=== PATIENT | female | born 1965 | race African-American/Black ===

== ENCOUNTER 2018-04-26 09:03 | Emergency (ER) | payer OTHER ==
--- OUTSIDE RECORDS SUMMARY | 2018-04-26 09:27 | XMS REPORT | Clinical Summary ---
:1965 Author Organization [facility] Address [address] [place] [address] Care Team Providers Name Role Phone Damon Greene MD Primary Care Provider Allergies Active Allergy Reactions Severity Noted Date Comments Amoxicillin Other (See Comments) 11/11/2016 Sick to stomach. Iodine Rash High 11/06/2016 Methadone GI Intolerance 11/06/2016 Penicillins GI Intolerance 11/06/2016 Tramadol Itching 11/23/2016 Medications Medication Sig Dispensed Refills Start Date End Date Status methocarbamol (ROBAXIN) Take 750 mg by 0 Active 750 MG tablet mouth every morning. montelukast (SINGULAIR) Take 10 mg by 0 Active 10 mg tablet mouth daily. omeprazole (PriLOSEC) 20 Take 20 mg by 0 Active MG capsule mouth daily. DULoxetine (CYMBALTA) 30 Take 30 mg by 0 Active MG capsule mouth daily. enalapril (VASOTEC) 20 Take 20 mg by 0 Active MG tablet mouth daily. acetaminophen-codeine Take 1 tablet by 0 Active (TYLENOL WITH CODEINE mouth 2 (two) #3) 300-30 mg per tablet times a day. cyanocobalamin 500 MCG Take 500 mcg by 0 Active tablet mouth daily. TIZANIDINE HCL Take 4 mg by 0 Active (TIZANIDINE ORAL) mouth every 8 (eight) hours as needed. Active Problems Problem Noted Date Pulmonary nodule 11/13/2016 Hypertension 11/06/2016 Arthritis 11/06/2016 GERD (gastroesophageal reflux disease) Wears glasses Immunizations Name Dates Previously Given Next Due Pneumococcal Conjugate 13-Valent 11/16/2016 Family History Medical History Relation Name Comments Hypertension Other Stroke Other Relation Name Status Comments Other Social History Tobacco Use Types Packs/Day Years Used Date Never Smoker Alcohol Use Drinks/Week oz/Week Comments No Sex Assigned at Date Recorded Not on file Job Start Date Occupation Industry Not on file Not on file Not on file Travel History Travel Start Travel End No recent travel history available. Last Filed Vital Signs Not on file Plan of Treatment Health Maintenance Due Date Last Done Comments CERVICAL CANCER SCREENING 09/15/1987 BREAST CANCER SCREENING 2016 COLON CANCER SCREENING 2016 SHINGLES VACCINES (1 of 2) 2016 INFLUENZA VACCINE 11/17/2017 Implants Implanted Type Area General Utility Maintenance Repairer Device Shelf Model / Identifier Expiration Serial / Date Lot Drain Wnd Chnl 24fr 09/01in Rnd Hbls Fl-Flut Rosenda - [id number] Surgical N/A: N/ A [employer] 02/16/2021 [id number] / Implanted: Qty: 1 on 11/13/2016 by Lei Dumont MD Implants; DIVISION / Expanders; [id number] Extenders; Surgical Wires Results Not on fileafter 04/25/2017 Insurance Payer Benefit Plan / Group Subscriber ID Type Phone Address MEDICAID MEDICAID xxxxxxxxx Medicaid COMMERCIAL MISC MISC COMMERCIAL xxxxxxxxx Commercial UHC MEDICARE UNITEDHC MEDICARE DIRECT [facility] xxxxxxxxx O Advance Directives Patient has advance care planning documents, and code status on file. For more information, please contact:[place] [address] Code Status Date Activated Date Inactivated Comments Full Code 11/13/2016 11:35 AM 11/16/2016 5:17 PM Code Status decision reached by: Patient
--- OUTSIDE RECORDS SUMMARY | 2018-04-26 09:28 | XMS REPORT | Continuity of Care Document ---
:1965 Author Organization Interface Problems Problem Status Onset Classification Date Comments Source Date Reported C34.90 - Active [facility] [place] NEOPLASM OF UNSP PAR Medications Medication Details Route Status Patient Ordering Order Source Instructions Provider Date Allergies, Adverse Reactions, Alerts Substance Category Reaction Severity Reaction Status Date Comments Source type Reported Immunizations Immunization Date Given Site Status Last Updated Comments Source Results Order Results Value Reference Date Interpretation Comments Source Name Range Chest 2 Chest 2 Two-view chest Patient Name: ALAN DOAN 11/25 - [facility] views views DX - [facility] DX : 1965; Age: 51 years Female MR: [id number] Read by: Darrion Pineda MD Dictated Date/time: 11/25/16 12:43 Electronically Signed by: Darrion Pineda MD 11/25/16 12:44 FINAL REPORT Study: Chest 2 views DX Order Time: 11/25/2016 10:07 AM CDT Clinical Indication: follow-up, biopsy done on right lung 12 days ago - C34.90 Malignant neoplasm of unspecified part of unspecified bronchus or lung , follow-up, biopsy done on right lung 12 days ago. COMPARISON: None FINDINGS: Views: 2 LUNGS: There is increased lung volume. Right perihilar and right lower lobe atelectasis There are no pleural effusions. There is no pneumothorax. The pulmonary vasculature is normal. MEDIASTINUM: The cardiac silhouette is normal. The trachea is midline. BONES: Old left mid rib fractures. IMPRESSION: Right-sided atelectasis. Mild hyperinflation. No pneumothorax. SL: [id number] Vital Signs Vital Sign Value Date Comments Source Encounters Location Location Encounter Encounter Reason Attending ADM DC Status Source Details Type Number For Provider Date Date Visit [facility] Outpt Diag [id number] Lei 11/25 11/26 [facility] Julia /2016 [facility] Imaging [facility] Procedures Procedure Code Date Perfomer Comments Source
[2018-04-26] MEDS ORDERED: KETOROLAC 30 MG/ML INJ ONE (09:56)
--- NOTE | 2018-04-26 10:01 | RAD REPORT ---
EXAM DESCRIPTION: CT - Stone Protocol - 04/26/2018 9:39 am CLINICAL HISTORY: Abdominal pain. And flank pain COMPARISON: May 2017 TECHNIQUE: Computed axial tomography of the abdomen pelvis was obtained without oral or IV contrast. Lack of IV and oral contrast limits evaluation of solid organs, bowel, and vessels. Coronal reformat gavin images were obtained and reviewed. All CT scans are performed using dose optimization technique as appropriate and may include automated exposure control or mA/KV adjustment according to patient size. FINDINGS: A renal calculus is not seen. An ureteral calculus is not noted. A bladder calculus is not present. The known low-density hepatic and splenic lesions are not as well visualized on the current exam. Fullness is present within the region of the pancreatic head. There is no evidence of diverticulitis. A hysterectomy has been performed IMPRESSION: Negative for a genitourinary calculus Fullness in the region the pancreatic head may simply be secondary to confluence of on opacified melanie l, vessels and pancreas. However as a mass has a similar appearance it is recommended patient have a CT scan of the abdomen with IV and oral contrast for further evaluation
--- NOTE | 2018-04-26 10:27 | EDPHYS ---
Physician Documentation [facility] Name: Batsheva Fauklner Age: 52 yrs Sex: Female : 1965 Arrival Date: 04/26/2018 Time: 09:08 Bed 18 Private MD: ED Physician Abiel Anne HPI: 04/26 09:56 This 52 yrs old Black Female presents to ER via Ambulatory with complaints of abdominal snw pain, constipation. 09:56 The patient presents with abdominal pain abdominal distention. Onset: The snw symptoms/episode began/occurred gradually, 2 week(s) ago, and became persistent. The symptoms do not radiate. Associated signs and symptoms: Pertinent positives: constipation. The symptoms are described as steady. Modifying factors: The symptoms are alleviated by nothing. Severity of pain: At its worst the pain was moderate. It is unknown whether or not the patient has had similar symptoms in the past. It is unknown whether or not the patient has recently seen a physician. 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 N/A - Post-menopause hj Historical: - Allergies: 09:12 Amoxicillin; hj 09:12 Iodine; hj 09:12 Methadone; hj 09:12 PENICILLINS; hj 09:12 tramadol; hj - Home Meds: 09:12 ProAir HFA 90 mcg/actuation inhalation HFAA 2 puffs every 4 hours [Active]; duloxetine hj 30 mg Oral cpDR 1 cap once daily [Active]; montelukast 10 mg Oral tab 1 tab once daily [Active]; omeprazole 20 mg Oral cpDR 1 cap once daily [Active]; bisoprolol-hydrochlorothiazide 10-6.25 mg Oral tab 1 tab once daily [Active]; vitmin b12 [Active]; vitamin I80-aetze acid 500-400 mcg oral tab [Active]; - PMHx: 09:12 Anxiety; Asthma; Depression; Hypertension; hj - PSHx: 09:12 Hysterectomy; ; hj - Immunization history:: Adult Immunizations up to date. - Social history:: Smoking status: Patient/guardian denies using tobacco, Patient/guardian denies using alcohol. - Ebola Screening: : Patient negative for fever greater than or equal to 101.5 degrees Fahrenheit, and additional compatible Ebola Virus Disease symptoms Patient denies exposure to infectious person Patient denies travel to an Ebola-affected area in the 21 days before illness onset. ROS: 09:56 Constitutional: Negative for fever, chills, and weight loss, Eyes: Negative for injury, snw pain, redness, and discharge, ENT: Negative for injury, pain, and discharge, Neck: Negative for injury, pain, and swelling, Cardiovascular: Negative for chest pain, palpitations, and edema, Respiratory: Negative for shortness of breath, cough, wheezing, and pleuritic chest pain, Back: Negative for injury and pain, : Negative for injury, bleeding, discharge, and swelling, MS/Extremity: Negative for injury and deformity, Skin: Negative for injury, rash, and discoloration, Neuro: Negative for headache, weakness, numbness, tingling, and seizure. 09:56 Abdomen/GI: Positive for abdominal pain, abdominal distension. Exam: 09:56 Constitutional: This is a well developed, well nourished patient who is awake, alert, snw and in no acute distress. Head/Face: Normocephalic, atraumatic. Eyes: Pupils equal round and reactive to light, extra-ocular motions intact. Lids and lashes normal. Conjunctiva and sclera are non-icteric and not injected. Cornea within normal limits. Periorbital areas with no swelling, redness, or edema. ENT: Nares patent. No nasal discharge, no septal abnormalities noted. Tympanic membranes are normal and external auditory canals are clear. Oropharynx with no redness, swelling, or masses, exudates, or evidence of obstruction, uvula midline. Mucous membranes moist. Neck: Trachea midline, no thyromegaly or masses palpated, and no cervical lymphadenopathy. Supple, full range of motion without nuchal rigidity, or vertebral point tenderness. No Meningismus. Chest/axilla: Normal chest wall appearance and motion. Nontender with no deformity. No lesions are appreciated. Cardiovascular: Regular rate and rhythm with a normal S1 and S2. No gallops, murmurs, or rubs. Normal PMI, no JVD. No pulse deficits. Respiratory: Lungs have equal breath sounds bilaterally, clear to auscultation and percussion. No rales, rhonchi or wheezes noted. No increased work of breathing, no retractions or nasal flaring. Back: No spinal tenderness. No costovertebral tenderness. Full range of motion. Skin: Warm, dry with normal turgor. Normal color with no rashes, no lesions, and no evidence of cellulitis. MS/ Extremity: Pulses equal, no cyanosis. Neurovascular intact. Full, normal range of motion. Neuro: Awake and alert, GCS 15, oriented to person, place, time, and situation. Cranial nerves II-XII grossly intact. Motor strength 5/5 in all extremities. Sensory grossly intact. Cerebellar exam normal. Normal gait. Psych: Awake, alert, with orientation to person, place and time. Behavior, mood, and affect are within normal limits. 09:56 Abdomen/GI: Inspection: distension, that is moderate, Bowel sounds: diminished, Palpation: abdomen is soft and non-tender, in all quadrants. Vital Signs: 09:13 BP 154 / 75; Pulse 60; Resp 18; Temp 97.4(TE); Pulse Ox 100% on R/A; Weight 112.49 kg; hj Height 5 ft. 4 in. (162.56 cm); Pain 10/10; 11:00 BP 142 / 70; Pulse 66; Resp 17 S; Temp 97.4; Pulse Ox 100% on R/A; Pain 2/10; sg 09:13 Body Mass Index 42.57 (112.49 kg, 162.56 cm) hj MDM: 09:16 Patient medically screened. snw 10:28 Data reviewed: vital signs, nurses notes. Data interpreted: Pulse oximetry: on room air snw is 100 %. Interpretation: normal. Counseling: I had a detailed discussion with the patient and/or guardian regarding: the historical points, exam findings, and any diagnostic results supporting the discharge/admit diagnosis, the presence of at least one elevated blood pressure reading (>120/80) during this emergency department visit, radiology results, the need for outpatient follow up, for definitive care. Special discussion: Based on the patient's Hx, exam, and Dx evaluation, there is no indication for emergent surgery or inpatient Tx. It is understood by the patient/guardian that if the Sx's persist or worsen they need to return immediately for re-evaluation. Based on the history and exam findings, there is no indication for further emergent testing or inpatient evaluation. I discussed with the patient/guardian the need to see the freight receiver for further evaluation of the symptoms. I discussed with the patient/guardian the need to see the primary care provider for further evaluation of the symptoms. 10:29 ED course: pt will f/u outpt for CT with contrast of abd to further assessment of snw pancreas. 04/26 09:28 Order name: Urine Microscopic Only dh3 04/26 09:29 Order name: Urine Microscopic Only; Complete Time: 11:06 EDMS 04/26 09:34 Order name: Urine Dipstick--Ancillary (enter results) eb 04/26 09:35 Order name: Urine Dipstick-Ancillary; Complete Time: 11:06 EDMS 04/26 10:09 Order name: Amylase, Serum snw 04/26 10:09 Order name: Hepatic Function snw 04/26 09:29 Order name: CT Stone Protocol; Complete Time: 10:02 snw Administered Medications: 09:53 Drug: TORadol 60 mg Route: IM; Site: Ventrogluteal RIGHT; sg 10:40 Follow up: Response: No adverse reaction; Pain is decreased sg 10:13 CANCELLED (f/u outpt): Benadryl 25 mg IVP once snw 10:24 Not Given (Patient Refused): NS 0.9% 1000 ml IV at 1 bolus Per protocol; 1000 mL bolus snw 10:24 Not Given (Patient Refused): Pepcid 20 mg IVP once snw 10:45 Drug: Miralax 17 grams Route: PO; sg Disposition: 04/27 07:36 Co-signature as Attending Physician, Abiel Anne MD. rn Disposition: 04/26/18 10:26 Discharged to Home. Impression: Constipation, unspecified, Generalized abdominal pain. - Condition is Stable. - Discharge Instructions: Abdominal Pain, Adult, Constipation, Adult, High-Fiber Diet. - Prescriptions for Miralax 17 gram/dose Oral - take 1 packet by ORAL route once daily dilute powder in 8 ounces of water or juice; 2 box. - Medication Reconciliation Form, Thank You Letter, Antibiotic Education, Prescription Opioid Use form. - Follow up: Emergency Department; When: As needed; Reason: Worsening of condition. Follow up: Private Physician; When: 1 week; Reason: Recheck today's complaints, Continuance of care, Re-evaluation by your physician. Signatures: Dispatcher MedThe [facility] Shepherd Home & Rehabilitation HospitalDu Holcomb RN RN sg Puja Parsons, AUTOMATION TECH-C AUTOMATION TECH-Csnw Abiel Anne MD MD rn Joaquin, Henry, RN RN hj [place]rera, [place] [address] Corrections: (The following items were deleted from the chart) 04/26 10:13 10:09 Benadryl 25 mg IVP once ordered. snw snw 10:22 10:10 Abdomen W/ Con+CT.RAD.BRZ ordered. EDMS EDMS 10: 10:10 Amylase Level ordered. EDMS EDMS 10: 10:10 Liver (Hepatic) Function ordered. EDMS EDMS 10: 10:10 LIPASE+C.LAB.BRZ ordered. EDMS EDMS 10: 10:10 CBC+H.LAB.BRZ ordered. EDMS EDMS 10: 10:10 BASIC METABOLIC PANEL+C.LAB.BRZ ordered. EDMS EDMS 11:17 10:26 04/26/2018 10:26 Discharged to Home. Impression: Constipation, unspecified; dh3 Generalized abdominal pain. Condition is Stable. Forms are Medication Reconciliation Form, Thank You Letter, Antibiotic Education, Prescription Opioid Use. Follow up: Emergency Department; When: As needed; Reason: Worsening of condition. Follow up: Private Physician; When: 1 week; Reason: Recheck today's complaints, Continuance of care, Re-evaluation by your physician. snw
--- NOTE | 2018-04-26 10:27 | ER ---
Nurse's Notes [facility] Emergency Department Name: Batsheva Faulkner Age: 52 yrs Sex: Female : 1965 Arrival Date: 04/26/2018 Time: 09:08 Bed 18 Private MD: Diagnosis: Constipation, unspecified;Generalized abdominal pain Presentation: 04/26 09:08 Presenting complaint: Patient states: fela been having constipation for 3 weeks and abd hj pain, i feel like im bloated and it hurts on my side; reports N/V; last BM- 04/25/18; took Dulcolax Wednesday;. Transition of care: patient was not received from another setting of care. Onset of symptoms was April 26, 2018. Risk Assessment: Do you want to hurt yourself or someone else? Patient reports no desire to harm self or others. Initial Sepsis Screen: Does the patient meet any 2 criteria? No. Patient's initial sepsis screen is negative. Does the patient have a suspected source of infection? No. Patient's initial sepsis screen is negative. Care prior to arrival: None. 09:08 Method Of Arrival: Ambulatory 09:08 Acuity: FLORY 3 hj Triage Assessment: 09:13 General: Appears in no apparent distress. uncomfortable, Behavior is calm, cooperative, hj appropriate for age. Pain: Complains of pain in abdomen Pain currently is 10 out of 10 on a pain scale. GI: Reports lower abdominal pain, upper abdominal pain, bloating, constipation, nausea. 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-menopause hj Historical: - Allergies: 09:12 Amoxicillin; hj 09:12 Iodine; hj 09:12 Methadone; hj 09:12 PENICILLINS; 09:12 tramadol; hj - Home Meds: 09:12 ProAir HFA 90 mcg/actuation inhalation HFAA 2 puffs every 4 hours [Active]; duloxetine hj 30 mg Oral cpDR 1 cap once daily [Active]; montelukast 10 mg Oral tab 1 tab once daily [Active]; omeprazole 20 mg Oral cpDR 1 cap once daily [Active]; bisoprolol-hydrochlorothiazide 10-6.25 mg Oral tab 1 tab once daily [Active]; vitmin b12 [Active]; vitamin D60-upqce acid 500-400 mcg oral tab [Active]; - PMHx: 09:12 Anxiety; Asthma; Depression; Hypertension; hj - PSHx: 09:12 Hysterectomy; ; hj - Immunization history:: Adult Immunizations up to date. - Social history:: Smoking status: Patient/guardian denies using tobacco, Patient/guardian denies using alcohol. - Ebola Screening: : Patient negative for fever greater than or equal to 101.5 degrees Fahrenheit, and additional compatible Ebola Virus Disease symptoms Patient denies exposure to infectious person Patient denies travel to an Ebola-affected area in the 21 days before illness onset. Screenin:13 Abuse screen: Denies threats or abuse. Denies injuries from another. Nutritional hj screening: No deficits noted. Tuberculosis screening: No symptoms or risk factors identified. Fall Risk None identified. Assessment: 09:35 General: Appears in no apparent distress. comfortable, well groomed, well developed, sg well nourished, Behavior is calm, cooperative, appropriate for age. Pain: Complains of pain in posterior aspect of right lateral abdomen, anterior aspect of right lateral abdomen, posterior aspect of left lateral abdomen and anterior aspect of left lateral abdomen Quality of pain is described as aching. Neuro: No deficits noted. Cardiovascular: Capillary refill is brisk in bilateral fingers Patient's skin is warm and dry. Chest pain is denied. Respiratory: Airway is patent Respiratory effort is even, unlabored, Respiratory pattern is regular, symmetrical. GI: Abdomen is round non-distended, Reports constipation. : No signs and/or symptoms were reported regarding the genitourinary system. EENT: No signs and/or symptoms were reported regarding the EENT system. Derm: Skin is pink, warm \T\ dry. Musculoskeletal: No signs and/or symptoms reported regarding the musculoskeletal system. Vital Signs: 09:13 BP 154 / 75; Pulse 60; Resp 18; Temp 97.4(TE); Pulse Ox 100% on R/A; Weight 112.49 kg; Height 5 ft. 4 in. (162.56 cm); Pain 10/10; 11:00 BP 142 / 70; Pulse 66; Resp 17 S; Temp 97.4; Pulse Ox 100% on R/A; Pain 2/10; sg 09:13 Body Mass Index 42.57 (112.49 kg, 162.56 cm) ED Course: 09:08 Patient arrived in ED. hj 09:10 Triage completed. hj 09:13 Arm band placed on right wrist. hj 09:16 Puja Parsons FNP-C [facility]. snw 09:16 Abiel Anne MD is Attending Physician. snw 09:17 Patient has correct armband on for positive identification. Placed in gown. Bed in low hj position. Call light in reach. Side rails up X 1. 09:27 Urine collected: clean catch specimen, cloudy. 3 09:39 CT Stone Protocol In Process Unspecified. EDMS 09:39 Preeti Bowman, RN is Primary Nurse. ss 09:39 CT completed. Patient tolerated procedure well. Patient moved to CT via wheelchair. [email or web address] Patient moved back from CT. 10:36 Primary Nurse role handed off by Preeti Bowman RN sg 10:36 Du Simpson, RN is Primary Nurse. sg 11:14 No provider procedures requiring assistance completed. Patient did not have IV access sg during this emergency room visit. Administered Medications: 09:53 Drug: TORadol 60 mg Route: IM; Site: Ventrogluteal RIGHT; sg 10:40 Follow up: Response: No adverse reaction; Pain is decreased sg 10:13 CANCELLED (f/u outpt): Benadryl 25 mg IVP once snw 10:24 Not Given (Patient Refused): NS 0.9% 1000 ml IV at 1 bolus Per protocol; 1000 mL bolus snw 10:24 Not Given (Patient Refused): Pepcid 20 mg IVP once snw 10:45 Drug: Miralax 17 grams Route: PO; sg Outcome: 10:26 Discharge ordered by . snw 11:14 Discharged to home ambulatory. sg 11:14 Condition: good 11:14 Discharge instructions given to patient, Instructed on discharge instructions, follow up and referral plans. medication usage, safety practices, Demonstrated understanding of instructions, follow-up care, medications, Prescriptions given X 1. 11:17 Patient left the ED. 3 Signatures: Dispatcher [employer] EDMS Du Simpson, RN RN Puja Prasons FNP-C [employer] TECHNICIAN-Csnw Preeti Bowman RN RN Donis Means RN RN Desi Castro 3 Kerrie Love [id number] Corrections: (The following items were deleted from the chart) 09:17 09:13 Pulse 60bpm; Resp 18bpm; Pulse Ox 100% RA; Temp 97.4F Temporal; 112.49 kg; Height hj 5 ft. 4 in.; BMI: 42.5; Pain 10; hj
[2018-04-26 10:37] LABS: Urine Blood TRACE (NEG); Urine Glucose NEGATIVE (NEG); Urine Protein NEGATIVE (NEG)
[2018-04-26 10:39] LABS: Urine Bacteria 20-50 /HPF (<20); Urine Culture Reflex Order NOT NEEDED; Urine RBC <5 /HPF (NONE SEEN)
[2018-04-26] MEDS ORDERED: POLYETHYL GLY 3350 17 GM/DOSE ONE (10:48)
[2018-04-26 15:55] VITALS: BP 154/75; TEMP 97.4; O2SAT 100
== END 2018-04-26 11:17 | disposition home or self-care (01) ==
LOC: ER 09:03
DX: K59.00 Constipation, unspecified (principal); R10.84 Generalized abdominal pain; J45.909 Unspecified asthma, uncomplicated; I10 Essential (primary) hypertension; F41.9 Anxiety disorder, unspecified; F32.9 Major depressive disorder, single episode, unspecified; Z79.899 Other long term (current) drug therapy
CPT/HCPCS: 74176; 76377; 81003; 81015; 96372; 99284

== ENCOUNTER 2018-10-25 15:16 | Inpatient (IN) | payer MEDICARE, OTHER ==
--- OUTSIDE RECORDS SUMMARY | 2018-10-25 15:18 | XMS REPORT | Clinical Summary ---
:1965 Author Organization [facility] Address [address] [place] [address] Care Team Providers Name Role Phone Damon [...] Health Maintenance Due Date Last Done Comments BREAST CANCER SCREENING 2016 COLONOSCOPY SCREENING 2016 SHINGLES VACCINES (#1) 2016 INFLUENZA VACCINE 11/17/2018 Implants Implanted Type Area Hack Saw Operator Device Shelf Model / Identifier Expiration Serial / Date Lot Drain Wnd Chnl 24fr 16in Rnd Hbls Fl-Flut Rosenda - [id number] Surgical N/A: N/ A [employer] 02/16/2021 [id number] / Implanted: Qty: 1 on 11/13/2016 by Lei Dumont MD Implants; DIVISION / Expanders; [id number] Extenders; Surgical Wires Results Not on fileafter 10/24/2017 Insurance Payer Benefit Plan / Subscriber ID Effective Phone Address Type Group Dates MEDICAID MEDICAID xxxxxxxxx 2016-Prese Medicaid nt COMMERCIAL MISC MISC COMMERCIAL xxxxxxxxx 2016-Pres Commercial ent [facility] MEDICARE [facility] xxxxxxxxx 2016-Prese O MEDICARE DIRECT nt [facility] Advance Directives Patient has advance care planning documents, and code status on file. For more information, please contact:[place] [address] Code Status Date Activated Date Inactivated Comments Full Code 11/13/2016 11:35 AM 11/16/2016 5:17 PM Code Status decision reached by: Patient
--- OUTSIDE RECORDS SUMMARY | 2018-10-25 15:19 | XMS REPORT ---
:1965 [facility] Address [address] [place] [address] Dr. Calderón [address] [place] [address] Care Team Providers Name Role Phone ALYCIAEMILY Unavailable Unavailable Problems This patient has no known problems. Allergies, Adverse Reactions, Alerts This patient has no known allergies or adverse reactions. Medications This patient has no known medications. Results Test Description Test Time Test Comments Text Results Atomic Results Result Comments FINE NEEDLE ASPIRATION 2018-06-27 10:38:00 Medical Cytology Report BY CLINICIAN Case: [id number] Authorizing Provider: Emily Brooks Collected: 06/21/2018 1358 Ordering Location: [facility] Endoscopy Received: 06/22/2018 0931 Services Pathologist: Octaviano Rivera MD Specimen: Hepatic, gastro hepatic lymph node Hematopathology Consultation: Impression: A-2: Lymphoid tissue with composed of small to medium sized lymphoid cells further highlighted by CD45 staining. The CD20 and PAX-5 stains highlight scattered B-lymphocytes. The CD3 stain highlights scattered T-lymphocytes. Increased histiocytes are highlighted by CD68 staining. The CD30 stain is negative. No definitive evidence of involvement by a hematolymphoid neoplasm. Correlation with the accompanying tissue examination ([id number]) and additional cytology evaluations ([id number], [id number]) is recommended for further evaluation. This case was discussed with Dr. Kimani Choe on 06/27/2018. Addendum electronically signed by Ashia Lawson MD on 06/27/2018 at 10:38 AMGASTRO HEPATIC LYMPH NODE FNA BY CLINICIAN (CYTOSPINS AND CELL BLOCK OF ASPIRATE): - GRANULOMATOUS INFLAMMATION (SEE COMMENT) - NEGATIVE FOR EPITHELIAL MALIGNANCY Signing Pathologist Direct Phone Line: [phone] signed by Octaviano Rivera MD on 06/24/2018 at 7:22 PMSections show granulomatous inflammation with background lymphocytes. Immunostains performed on cell block sections show that CD68 highlights scattered macrophages and CD45 highlights the background lymphocytes. Additional stains including CAM5.2, synaptophysin, chromogranin, DOG1, beta-catenin, and actin are predominantly negative. No diagnostic features of epithelial malignancy are seen. Granulomatous inflammation may be seen in sarcoidosis, infection, autoimmune disease, drug reaction and many others. Clinical correlation is recommended. The case will be further reviewed by hematopathology service and an addendum will follow.Please see cases [id number], [id number] and 654 for further evaluation. 54553, 75371, 07392, 13537 x 11Pancreatic mass, (1.3cm) malignant-appearing lymph node in the gastrohepatic ligamentGASTRO HEPATIC LYMPH NODE FNA24 mls in cytorich red; 4 cytospins, cell blockCollected: [id number]: [id number] interpretation of this case included the use of immunohistochemistry or special stains. Please see the immunohistochemistry results in the COMMENT section. Immunohistochemistry technical testing was performed at [facility], Pathology Laboratory where it was developed and its performance characteristics were determined. It has not been cleared or approved by the U.S. Food and Drug Administration. The FDA has determined that such clearance or approval is not necessary. The test is used for clinical purposes. It should not be regarded as investigational or for research. This laboratory is certified under the Clinical Laboratory Improvement Amendments of 1988 (CLIA-88) as qualified to perform high complexity clinical laboratory testing.[facility], Department of Pathology, [address] [place] [address], [facility], [address] [place] [address], [facility], [address] [place] [address], FINE NEEDLE ASPIRATION 2018-06-27 10:28:00 Medical Cytology Report BY CLINICIAN Case: [id number] Authorizing Provider: Emily Brooks Collected: 06/21/2018 1348 Ordering Location: [facility] Endoscopy Received: 06/22/2018 0932 Services Pathologist: Octaviano Rivera MD Specimen: Biopsy, Liver, liver left lobe Hematopathology Consultation: Impression: A-2: Liver tissue with involvement by granulomatous inflammation. No definitive evidence of involvement by a hematolymphoid neoplasm. Correlation with the accompanying tissue examination ([id number]) and additional cytology evaluations ([id number], C19-654) is recommended for further evaluation. This case was discussed with Dr. Kimani Choe on 06/27/2018. Addendum electronically signed by Ashia Lawson MD on 06/27/2018 at 10:28 AMLEFT LIVER LOBE FNA BY CLINICIAN (CYTOSPINS AND CELL BLOCK OF ASPIRATE): - GRANULOMATOUS INFLAMMATION (SEE COMMENT) - NEGATIVE FOR EPITHELIAL MALIGNANCY Signing Pathologist Direct Phone Line: [phone] signed by Octaviano Rivera MD on 06/24/2018 at 7:13 PMSections show liver parenchyma with extensive granulomatous inflammation including multinucleated giant cells. Immunostains performed on cell block sections show that CD68 highlights scattered macrophages, CAM5.2 highlights scattered hepatocytes, while CK7 highlights few ducts. No diagnostic features of epithelial malignancy are seen. Additionally, AFB and GMS stains are negative for acid-fast bacilli and fungal elements. No diagnostic features of epithelial malignancy are seen. Granulomatous inflammation may be seen in sarcoidosis, infection, autoimmune disease, drug reaction and many others. Clinical correlation is recommended. The case will be further reviewed by hematopathology service and an addendum will follow.Please see cases [id number], [id number] and 654 for further evaluation.59062, 10335, 89348, 91858 x 2, 15848 x 2Pancreatic mass, abnormal echogenicity in left lobe of the liverLEFT LIVER LOBE FNA28 mls in cytorich red; 4 cytospins, cell blockCollected: [id number]: [id number] interpretation of this case included the use of immunohistochemistry or special stains. Please see the immunohistochemistry results in the COMMENT section. Immunohistochemistry technical testing was performed at [facility], Pathology Laboratory where it was developed and its performance characteristics were determined. It has not been cleared or approved by the U.S. Food and Drug Administration. The FDA has determined that such clearance or approval is not necessary. The test is used for clinical purposes. It should not be regarded as investigational or for research. This laboratory is certified under the Clinical Laboratory Improvement Amendments of 1988 (CLIA-88) as qualified to perform high complexity clinical laboratory testing.[facility], Department of Pathology, [address] [place] [address], [facility], [address] [place] [address], [facility], [address] [place] [address], TISSUE EXAM 2018-06-27 08:35:00 Surgical Pathology Report Case: [id number] Authorizing Provider: Emily Brooks Collected: 06/21/2018 1344 Ordering Location: [facility] Endoscopy Received: 06/21/2018 1544 Services Pathologist: Saad Choe MD Specimens: A) - Biopsy, Liver, LIVER LEFT LOBE FNB B) - Pancreas, PANCREAS MASS FNB PART A LEFT LIVER LOBE, BIOPSY FOR SUSPECTED MASS:NONCASEATING GRANULOMATOUS INFLAMMATION.NEGATIVE FOR MALIGNANCY.SEE DIAGNOSTIC COMMENT.PART B PANCREAS, BIOPSY FOR SUSPECTED MASS:NONCASEATING GRANULOMATOUS INFLAMMATION IN LYMPHOID MATERIAL.NEGATIVE FOR MALIGNANCY.SEE DIAGNOSTIC COMMENT. Signing Pathologist Direct Phone Line: [phone] signed by Saad Choe MD on 06/27/2018 at 8:35 AMHistological sections on both biopsy shows marked replacement of the normal liver and pancreatic parenchyma (parts A and B respectively) with noncaseating granulomatous inflammation. Multinucleated giant cells are easily identified in the sections examined. Immunohistochemical studies performed on both blocks A1 and B1 demonstrate CD20/PAX5 positive B cells and CD3/CD5 positive T cells. There is no aberrant co-expression of CD20 and CD5. CD30 is negative. Special stains for acid fast bacilli (AFB) and fungal organisms (GMS) are negative. There is no evidence of a malignant process. Synaptophysin immunostain performed on block B1 is negative. Cam 5.2 performed on block B1 demonstrates rare benign epithelial glands. Part B is predominantly comprised of lymphoid material and most likely represents mayelin-pancreatic lymph node.The finding of noncaseating granulomatous inflammation is nonspecific. Potential etiologies include but are not limited to autoimmunity (particularly sarcoidosis), infectious etiologies, and toxic environmental exposures. Correlation with clinical follow up, serological studies, and microbiological studies is required for complete interpretation. The findings of this case were discussed with Dr. Emily Brooks, customer support agent on 06/24/2018.Intradepartment consultation: Camila Burt [id number], 31651q5, 99213w17, 97718a2Efsdikrvml mass A. Liver left lobe FNB. B. Pancreas mass FNBSpecimen is received in two parts both labeled with the patient's information.Specimen A: Labeled "liver left lobe FNB" consists of multiple fragments of hemorrhagic stringy tissue measuring 1.5 x 0.5 x 0.3 cm in aggregate, submitted in A1.Specimen B: Labeled "pancreas mass FNB" consists of multiple stringy fragments of hemorrhagic soft tissue measuring 1.5 x 0.5 x 0.3 cm, submitted entirely in B1. CG/ew PERFORMED.The interpretation of this case included the use of immunohistochemistry or special stains.BLOCK A1- CD30, PAX5, CD20, CD5, CD3, GMS, AFBBLOCK B1- CD30, PAX5, CD20, CD5, CD3, SYNAPTOPHYSIN, CAM 5.2, GMS, AFBImmunohistochemistry technical testing was performed at [facility], Pathology Laboratory where it was developed and its performance characteristics were determined. It has not been cleared or approved by the U.S. Food and Drug Administration. The FDA has determined that such clearance or approval is not necessary. The test is used for clinical purposes. It should not be regarded as investigational or for research. This laboratory is certified under the Clinical Laboratory Improvement Amendments of 1988 (CLIA-88) as qualified to perform high complexity clinical laboratory testing. FINE NEEDLE ASPIRATION 2018-06-24 19:25:00 Medical Cytology Report BY CLINICIAN Case: [id number] Authorizing Provider: Emily Brooks Collected: 06/21/2018 1415 Ordering Location: [facility] Endoscopy Received: 06/22/2018 0932 Services Pathologist: Octaviano Rivera MD Specimen: Celiac Node CELIAC LYMPH NODE FNA BY CLINICIAN (CYTOSPINS AND CELL BLOCK OF ASPIRATE): - NON-DIAGNOSTIC SPECIMEN - PREDOMINANTLY BLOOD ELEMENTS WITH VERY RARE LYMPHOCYTES Signing Pathologist Direct Phone Line: [phone] signed by Octaviano Rivera MD on 06/24/2018 at 7:25 PMPlease see cases [id number], [id number] and 653.61164, 69692, 15302Bdqbbkqmok mass, (1.2 cm) malignant-appearing lymph node in the celiac regionCELIAC LYMPH NODE FNA25 mls in cytorich red; 4 cytospins, cell blockCollected: [id number]: 137956Hsy interpretation of this case included the use of immunohistochemistry or special stains.An immunostain for CAM5.2 performed on a cell block section is negative.Immunohistochemistry technical testing was performed at [facility], Pathology Laboratory where it was developed and its performance characteristics were determined. It has not been cleared or approved by the U.S. Food and Drug Administration. The FDA has determined that such clearance or approval is not necessary. The test is used for clinical purposes. It should not be regarded as investigational or for research. This laboratory is certified under the Clinical Laboratory Improvement Amendments of 1988 (CLIA-88) as qualified to perform high complexity clinical laboratory testing.[facility], Department of Pathology, [address] [place] [address], [facility], Department of [facility], [address] [place] [address], [facility], [address] [place] [address], FINE NEEDLE ASPIRATE (FNA) REQUEST 2018-06-22 11:03:00 Test Item Value Reference Range Comments CYTOLOGY RESULT POINTER (BEAKER) (test dhoj=[id number]) See Separate Report FINE NEEDLE ASPIRATE (FNA) [id number] 11:03:00 Test Item Value Reference Range Comments CYTOLOGY RESULT POINTER (BEAKER) (test See Separate Report eyix=[id number]) FINE NEEDLE ASPIRATE (FNA) [id number] 11:03:00 Test Item Value Reference Range Comments CYTOLOGY RESULT POINTER (BEAKER) (test See Separate Report oehu=[id number])
--- OUTSIDE RECORDS SUMMARY | 2018-10-25 15:19 | XMS REPORT ---
:1965 Author Organization [employer] Care Team Providers Name Role Phone Sabra Osorioy Provider Role Unavailable Allergies No Known Allergies Problems Problem Type Condition Code Onset Dates Condition Status Problem Osteopenia M85.80 Active Problem Low back pain M54.5 Active Problem Anxiety and depression F41.8 Active Problem Epigastric pain R10.13 Active Problem Metastatic cancer C79.[address] of the abdomen R93.5 Active Problem Dysuria R30.0 Active Problem Unspecified sprain of right wrist, S63.501A Active initial encounter Problem Chronic nausea R11.0 Active Problem Bilious vomiting with nausea R11.14 Active Problem Muscle spasms of neck M62.838 Active Problem Chronic kidney disease, stage III N18.3 Active (moderate) Problem Lesion of liver K76.9 Active Problem Dyslipidemia E78.5 Active Problem Hypercalcemia E83.52 Active Problem Lung nodule, multiple R91.8 Active Problem Elevated glucose R73.09 Active Problem Rib pain R07.81 Active Problem Asthma J45.909 Active Problem Osteoarthritis M19.90 Active Problem Chronic pain disorder G89.4 Active Medications No Known Medications Results No Known Results Summary Purpose eClinicalWorks Submission
--- OUTSIDE RECORDS SUMMARY | 2018-10-25 15:19 | XMS REPORT ---
:1965 [facility] Providers Name Role Phone Maryjane Osorio Provider Role Unavailable Allergies, Adverse Reactions, Alerts Substance Reaction Event Type penicillin itching, breathing issues Drug Allergy Methadone HCl vomiting Drug Allergy Iodine swelling Drug Allergy Problems Problem Type Condition Code Onset Dates Condition Status Assessment Dysuria R30.0 Active Problem Asthma J45.909 Active Assessment Muscle spasms of neck M62.838 Active Problem Chronic pain disorder G89.4 Active Assessment Bilious vomiting with nausea R11.14 Active Problem Osteopenia M85.80 Active Problem Low back pain M54.5 Active Problem Anxiety and depression F41.8 Active Problem Epigastric pain R10.[address] of the abdomen R93.5 Active Assessment Epigastric pain R10.13 Active Problem Dysuria R30.[address] of the abdomen R93.5 Active Problem Unspecified sprain of right wrist, [...] Active Problem Rib pain R07.81 Active Problem Osteoarthritis M19.90 Active Medications Medication Code Code Instructions Start End Date Status Dosage System Date Tizanidine HCl ND 97590759063 4 MG Orally TID Active take one -1 tablet by mouth every 8 hours [place] 3-6-9 ND 53298948412 - Orally ONCE A July Active as directed Complex 2018 Omeprazole ND 84232416151 40 MG Orally July Active 1 capsule Once a day 2017 Bentyl ND 52608312619 20 MG Orally May 03, Jun 02, Active 1 tablet Three times a 2018 2018 day Furosemide ND 78712211298 20 MG Orally Active 1 tablet Once a day Duloxetine HCl [facility] 98753124491 30 MG Orally Active TAKE 1 Once a day CAPSULE BY MOUTH EVERY DAY Promethazine [facility] 51676710893 25 MG Orally May 03, Jun 02, Active 1 tablet as HCl every 12 hrs 2018 2018 needed Singulair [facility] 03208226055 10 MG Orally Active 1 tablet in Once a day the evening Promethazine-Co [facility] 03892819161 6.25-10 MG/5ML May 24, Active 5 ml as deine Orally every 2017 needed 4-6 hrs Zofran [facility] 67034031100 8 MG Orally Mar 15, Active 1 tablet Twice a day 2017 Vitamin B12 [facility] 06517377786 100 MCG Orally Active as directed Vitamin D3 [facility] 18018888751 2000 UNIT Active 1 capsule Orally Once a day Bisoprolol [facility] 59976807111 10 MG Orally Active 1 tablet Fumarate Once a day Results Name Result Date Reference Range Unit Abnormality Flag URINALYSIS AUTO W/O SCOPE (09443) ----NIT N 20180606 ----URO 0.2 20180606 ----PROTEIN N 20180606 ----pH 6.5 20180606 ----BLO N 20180606 ----GLUCOSE N 20180606 ----PINKY N 20180606 ----BILIRUBIN N 20180606 ----KETONES N 20180606 ----SPECIFIC GRAVITY 1.015 20180606 Summary Purpose eClinicalWorks Submission
--- OUTSIDE RECORDS SUMMARY | 2018-10-25 15:19 | XMS REPORT | Continuity of Care Document ---
:1965 Author Organization [facility] Care Team Providers Name Role Phone [facility] Unavailable Unavailable Problems Problem Status Onset Classification Date Comments Source Date Reported C34.90 - Active [facility] [place] NEOPLASM OF UNSP PAR Medications No Data Provided for This Section Allergies, Adverse Reactions, Alerts No Known Medication Allergies Immunizations No Data Provided for This Section Results No Data Provided for This Section Pathology Reports No Data Provided for This Section Diagnostic Reports Report Value Date Source Chest 2 views DX Two-view chest Patient Name: ALAN DOAN 11/25/2016 [facility] : 1965; Age: 51 years Female MR: [id number] Study: Chest 2 views DX Order Time: [...] Right-sided atelectasis. Mild hyperinflation. No pneumothorax. SL: [id number] Consultation Notes No Data Provided for This Section Discharge Summaries No Data Provided for This Section History and Physicals No Data Provided for This Section Vital Signs No Data Provided for This Section Encounters Location Location Encounter Encounter Reason Attending ADM DC Status Source Details Type Number For Provider Date Date Visit [facility] Outpt Diag [id number] Lei 11/25 11/26 [facility] [place] Procedures No Data Provided for This Section Assessment and Plan No Data Provided for This Section Plan of Care No Data Provided for This Section Social History Social History Date Source No data available for this 11/26/2016 [facility] section Family History No Data Provided for This Section Advance Directives No Data Provided for This Section Functional Status No Data Provided for This Section
--- OUTSIDE RECORDS SUMMARY | 2018-10-25 15:19 | XMS REPORT ---
:1965 Author Organization [employer] Care Team Providers Name Role Phone Maryjane Osorio Provider Role Unavailable Allergies No Known Allergies Problems Problem Type Condition Code Onset Dates Condition Status Problem Chronic pain disorder G89.4 Active Problem Asthma J45.909 Active Problem Osteopenia M85.80 Active Problem Unspecified sprain of right wrist, S63.501A Active initial encounter Problem Chronic nausea R11.0 Active Problem Muscle spasms of neck M62.838 Active Problem Osteoarthritis M19.90 Active Problem Rib pain R07.81 Active Problem Low back pain M54.5 Active Problem Anxiety and depression F41.8 Active Assessment Pre-procedural laboratory Z01.812 Active examination Problem Chronic kidney disease, stage III N18.3 Active (moderate) Problem Lesion of liver K76.9 Active Problem Dyslipidemia E78.5 Active Problem Lung nodule, multiple R91.8 Active Problem Hypercalcemia E83.52 Active Problem Elevated glucose R73.09 Active Medications Medication Code System Code Instructions Start Date End Date Status Dosage [facility] 08088974096 10 MG Orally May 05, May 06, Active 5 tablet hours before [address] SCan, then 5 tabs 2 hours before scan Results No Known Results Summary Purpose [employer] Submission
--- OUTSIDE RECORDS SUMMARY | 2018-10-25 15:19 | XMS REPORT ---
[...] Problem Chronic pain disorder G89.4 Active Medications Medication Code Code Instructions Start End Date Status Dosage System Date Tramadol HCl [facility] 56422976415 50 MG Orally Tid Jun 10June 30, Active 1 tablet 2018 2018 as needed Results No Known Results Summary Purpose eClinicalWorks Submission
--- OUTSIDE RECORDS SUMMARY | 2018-10-25 15:19 | XMS REPORT | Clinical Summary ---
:1965 Author Organization [facility] Address [address] [place] [address] Care Team Providers Name Role Phone Niyah Osorio [facility] Primary Care Provider Allergies Active Allergy Reactions Severity Noted Date Comments Amoxicillin Rash Low 06/15/2018 Iodine And Iodide Containing Itching, Swelling, Rash Low 06/15/2018 Products Methadone Nausea And Vomiting 06/15/2018 Penicillins Rash Low 06/15/2018 Shellfish Containing Products Rash Medium 06/15/2018 blisters Medications Medication Sig Dispensed Refills Start Date End Date Status cholecalciferol, Take by mouth 0 Active vitamin D3, daily. (VITAMIN D3 ORAL) dicyclomine Take 20 mg by 0 Active (BENTYL) 20 mg mouth 2 (two) tablet times daily . DULoxetine Take 30 mg by 0 Active (CYMBALTA) 30 MG mouth daily. capsule furosemide (LASIX) Take 20 mg by 0 Active 20 MG tablet mouth daily . cyanocobalamin, Take by mouth 0 Active vitamin B-12, daily. (VITAMIN B12 ORAL) omega-3 acid ethyl Take 1 g by 0 Active esters (LOVAZA) 1 mouth daily. gram capsule omeprazole Take 40 mg by 0 Active (PRILOSEC) 40 MG mouth daily. capsule ondansetron Take by mouth 0 Active (ZOFRAN) 8 MG every 8 tablet (eight) hours as needed for Nausea. albuterol HFA Inhale 1 puff 0 Active (VENTOLIN HFA) 90 by mouth via mcg/actuation inhaler every inhaler 6 (six) hours as needed for Wheezing. promethazine Take 25 mg by 0 Active (PHENERGAN) 25 MG mouth every 6 tablet (six) hours as needed for Nausea. bisoprolol (ZEBETA) Take 10 mg by 0 Active 10 MG tablet mouth daily. TiZANidine Take 4 mg by 0 Active (ZANAFLEX) 4 MG mouth 3 capsule (three) times daily. traMADol (ULTRAM) Take 50 mg by 0 Active 50 mg tablet mouth every 6 (six) hours as needed for Pain. aspirin 81 MG EC Take 81 mg by 0 Active tablet mouth daily. bisoprolol-hydroCHL Take 1 tablet 0 06/15/2018 Discontinued OROthiazide (ZIAC) by mouth 10-6.25 mg per daily. tablet Active Problems Not on file Encounters Date Type Specialty Care Team Description 06/21/2018 Anesthesia Event Gastroenterology Blayne Byers MD 06/21/2018 Surgery Gastroenterology Finesse Brooks [facility] ENDOSCOPY,FNA W/ULTRASOUND 06/21/2018 Hospital Encounter Gastroenterology Finesse Brooks [facility] 06/15/2018 Hospital Encounter Pre-Admission Testing Resource, [facility] Preadmit Phone after 10/24/2017 Social History Tobacco Use Types Packs/Day Years Used Date Never Smoker Smokeless Tobacco: Never Used Alcohol Use Drinks/Week oz/Week Comments No Alcohol Habits Answer Date Recorded How often do you have a drink containing alcohol? Never 06/15/2018 How many drinks containing alcohol do you have on a typical Not asked day when you are drinking? How often do you have six or more drinks on one occasion? Not asked Sex Assigned at Date Recorded Not on file Job Start Date Occupation Industry Not on file Not on file Not on file Travel History Travel Start Travel End No recent travel history available. Last Filed Vital Signs Vital Sign Reading Time Taken Blood Pressure 156/91 06/21/2018 3:00 PM [employer] Pulse 75 06/21/2018 3:00 PM [employer] Temperature 36.6 C (97.8 F) 06/21/2018 2:25 PM [employer] Respiratory Rate 16 06/21/2018 3:00 PM [employer] Oxygen Saturation 96% 06/21/2018 3:00 PM [employer]IST Inhaled Oxygen Concentration - - Weight 105.7 kg (233 lb) 06/21/2018 11:39 AM [employer]IST Height 162.6 cm (5' 4") 06/21/2018 11:39 AM [employer]IST Body Mass Index 39.99 06/21/2018 11:39 AM [employer] ENG[employer]IST Plan of Treatment Not on file Procedures Procedure Name Priority Date/Time Associated Comments Diagnosis REPORT OF PROCEDURE 06/21/2018 2:51 - ENDOSCOPY URL PM [employer]IST FINE NEEDLE Routine 06/21/2018 2:15 Results for this ASPIRATE (FNA) PM [employer]IST procedure are in REQUEST the results section. FINE NEEDLE AP Routine 06/21/2018 2:15 Results for this ASPIRATION BY PM [employer]IST procedure are in CLINICIAN the results section. FINE NEEDLE Routine 06/21/2018 1:58 Results for this ASPIRATE (FNA) PM [employer] procedure are in REQUEST the results section. FINE NEEDLE AP Routine 06/21/2018 1:58 Results for this ASPIRATION BY PM [employer]IST procedure are in CLINICIAN the results section. FINE NEEDLE Routine 06/21/2018 1:48 Results for this ASPIRATE (FNA) PM [employer] procedure are in REQUEST the results section. FINE NEEDLE AP Routine 06/21/2018 1:48 Results for this ASPIRATION BY PM [employer]IST procedure are in CLINICIAN the results section. TISSUE EXAM AP Routine 06/21/2018 1:44 Results for this PM [employer]IST procedure are in the results section. UPPER ENDOSCOPY,FNA 06/21/2018 12:00 Pancreatic mass W/ULTRASOUND PM [employer]IST Special Needs (LINEAR SCOPE) after 10/24/2017 Results REPORT OF PROCEDURE - ENDOSCOPY URL (06/21/2018 2:51 PM DIESEL ENGINE SPECIALIST) Narrative Performed At FINE NEEDLE ASPIRATE (FNA) REQUEST (06/21/2018 2:15 PM DIESEL ENGINE SPECIALIST)Only the most recent of3 resultswithin the time period is included. Cytology See Separate Report [facility] Specimen Fine Needle Aspirate Performing Organization Address City/State/Zipcode Phone Number [place] [phone] [place] [address] [phone] CENTER Fine Needle Aspirate by Clinician (06/21/2018 2:15 PM DIESEL ENGINE SPECIALIST)Only the most recent of3 resultswithin the time period is included. Case Report Medical Cytology Report Case: [id number] [facility] Authorizing Provider:Finesse Brooksected: 06/21/2018 [facility]5 [facility] Ordering Location: [facility] Endoscopy Received: 06/22/2018 0932 Services Pathologist: Octaviano Rivera MD Specimen:Celiac Node DIAGNOSIS CELIAC LYMPH NODE FNA BY CLINICIAN (CYTOSPINS AND CELL BLOCK OF ASPIRATE): [facility] - NON-DIAGNOSTIC SPECIMEN [facility] - PREDOMINANTLY BLOOD ELEMENTS WITH VERY RARE LYMPHOCYTES Signing Pathologist Direct Phone Line: [phone] COMMENT Please see cases [id number], [facility] [id number] and 653. [facility] CPT Code(s) 95924, 70617, 97533 [facility] CLINICAL DATA Pancreatic mass, (1.2 cm) [facility] malignant-appearing lymph node [facility] in the celiac region SPECIMEN SOURCE CELIAC LYMPH NODE FNA [facility] GROSS DESCRIPTION 25 mls in cytorich red; 4 cytospins, cell block [facility] Collected: [id number] [facility] Received: [id number] SPECIAL STUDIES The interpretation of this case included the use of immunohistochemistry or special stains. [facility] An immunostain for CAM5.2 performed on a cell block section is negative. Immunohistochemistry technical testing was performed at [facility], Pathology Laboratory where it was developed and its performance characteristics were determined. It has not be en cleared or approved by the U.S. Food and Drug Administration. The FDA has determined that such clearance or approval is not necessary. The test is used for clinical purposes. It should not be regarde d as investigational or for research. This laboratory is certified under the Clinical Laboratory Improvement Amendments of 1988 (CLIA-88) as qualified to perform high complexity clinical laboratory testing. Gross assessment was [facility] performed at [place], [facility] Pathology, [address] [place] [id number], Technical component was [facility] performed at [place], [facility] Pathology, [address] [place] [id number], Professional component [facility] was performed at [place], [facility] Pathology, [address] [place] [id number], Specimen Fine Needle Aspirate Narrative Performed At Performing Organization Address City/State/[facility] Phone Number [facility] [address] [place] [address] [phone] CENTER Tissue Exam (06/21/2018 1:44 PM DIESEL ENGINE SPECIALIST) Case Report Surgical Pathology Report Case: [id number] [facility] Authorizing Provider:Finesse BrooksCoantelmoected: 06/21/2018 1344 [facility] Ordering Location: [facility] Endoscopy Received: 06/21/2018 1544 Services Pathologist: Saad Choe MD Specimens: A) - Biopsy, Liver, LIVER LEFT LOBE FNB B) - Pancreas, PANCREAS MASS FNB DIAGNOSIS PART A LEFT LIVER LOBE, BIOPSY FOR SUSPECTED MASS: [facility] NONCASEATING GRANULOMATOUS INFLAMMATION. [facility] NEGATIVE FOR MALIGNANCY. SEE DIAGNOSTIC COMMENT. PART B PANCREAS, BIOPSY FOR SUSPECTED MASS: NONCASEATING GRANULOMATOUS INFLAMMATION IN LYMPHOID MATERIAL. NEGATIVE FOR MALIGNANCY. SEE DIAGNOSTIC COMMENT. Signing Pathologist Direct Phone Line: [phone] COMMENT Histological sections on both biopsy shows marked replacement of the normal liver and pancreatic parenchyma (parts A and B respectively) with noncaseating granulomatous inflammation. Multinucleated perla [facility] t cells are easily identified in the sections examined. Immunohistochemical studies performed on both blocks A1 and B1 demonstrate CD20/PAX5 positive B cells and CD3/CD5 positive T cells. There is no ab [facility] errant co-expression of CD20 and CD5. CD30 is negative. Special stains for acid fast bacilli (AFB) and fungal organisms (GMS) are negative. There is no evidence of a malignant process. Synaptophysin imm unostain performed on block B1 is negative. Cam 5.2 performed on block B1 demonstrates rare benign epithelial glands. Part B is predominantly comprised of lymphoid material and most likely represents mayelin-pancreatic lymph node. The finding of noncaseating granulomatous inflammation is nonspecific. Potential etiologies include but are not limited to autoimmunity (particularly sarcoidosis), infectious etiologies, and toxic envir onmental exposures. Correlation with clinical follow up, serological studies , and microbiological studies is required for complete interpretation. The findings of this case were discussed with Dr. Finesse Brooks, construction checker on 06/24/2018. Intradepartment consultation: Camila Burt MD CPT Code(s) 82233l0, 74844q5, [id number], [facility] [id number] [facility] CLINICAL HISTORY Pancreatic mass [facility] SPECIMEN SOURCE A. Liver left lobe FNB. B. [facility] Pancreas mass FNB [facility] GROSS DESCRIPTION Specimen is received in two parts both labeled with the patient's information. [facility] Specimen A: Labeled "liver left lobe FNB" consists of multiple fragments of hemorrhagic stringy tissue measuring 1.5 x 0.5 x 0.3 cm in aggregate, submitted in A1. Specimen B: Labeled "pancreas mass FNB" consists of multiple stringy fragments of hemorrhagic soft tissue measuring 1.5 x 0.5 x 0.3 cm, submitted entirely in B1. CG/ew MICROSCOPIC DESCRIPTION PERFORMED. [facility] SPECIAL STUDIES The interpretation of this case included the use of immunohistochemistry or special stains. [facility] BLOCK A1- CD30, PAX5, CD20, CD5, CD3, GMS, AFB [facility] BLOCK B1- CD30, PAX5, CD20, CD5, CD3, SYNAPTOPHYSIN, CAM 5.2, GMS, AFB Immunohistochemistry technical testing was performed at [facility], Pathology Laboratory where it was developed and its performance characteristics were determined. It has not be en cleared or approved by the U.S. Food and Drug Administration. The FDA has determined that such clearance or approval is not necessary. The test is used for clinical purposes. It should not be regarde d as investigational or for research. This laboratory is certified under the Clinical Laboratory Improvement Amendments of 1988 (CLIA-88) as qualified to perform high complexity clinical laboratory testing. Specimen Tissue - Biopsy, Liver Tissue - Pancreatic structure (body structure) Performing Organization Address City/State/Zipcode Phone Number [facility] [address] [place] [address] CENTER after 10/24/2017 Insurance Payer Benefit Plan / Group Subscriber ID Type Phone Address [facility] - MEDICARE AARP/MEDICARE COMPLETE xxxxxxxxx MGD CARE
--- OUTSIDE RECORDS SUMMARY | 2018-10-25 15:20 | XMS REPORT ---
:1965 Author Organization eClinicalWorks Care Team Providers Name Role Phone Maryjane Osorio Provider Role Unavailable Allergies No Known Allergies Problems Problem Type Condition Code Onset Dates Condition Status Problem Low back pain M54.[address] of the abdomen R93.5 Active Problem Chronic nausea R11.0 Active Problem Common cold J00 Active Problem Chronic kidney disease, stage III N18.3 Active (moderate) Problem Fever, unspecified fever cause R50.9 Active Problem Hypercalcemia E83.52 Active Problem Dyslipidemia E78.5 Active Problem Cough R05 Active Problem Bilious vomiting with nausea R11.14 Active Problem Epigastric pain R10.13 Active Problem Muscle spasms of neck M62.838 Active Problem Dysuria R30.0 Active Problem Lung nodule, multiple R91.8 Active Problem Elevated glucose R73.09 Active Problem Rib pain R07.81 Active Problem Osteoarthritis M19.90 Active Problem Osteopenia M85.80 Active Problem Anxiety and depression F41.8 Active Problem Asthma J45.909 Active Problem Lesion of liver K76.9 Active Problem Chronic pain disorder G89.4 Active Problem Unspecified sprain of right wrist, S63.501A Active initial encounter Medications No Known Medications Results No Known Results Summary Purpose eClinicalWorks Submission
--- OUTSIDE RECORDS SUMMARY | 2018-10-25 15:20 | XMS REPORT ---
:1965 [facility] Team Providers Name Role Phone Maryjane Osorio Provider Role Unavailable Allergies, Adverse Reactions, Alerts Substance Reaction Event Type penicillin itching, breathing issues Drug Allergy Methadone HCl vomiting Drug Allergy Iodine swelling Drug Allergy Problems Problem Type Condition Code Onset Dates Condition Status Assessment Fever, unspecified fever cause R50.9 Active Problem Lesion of liver K76.9 Active Assessment Hypercalcemia E83.52 Active Problem Unspecified sprain of right wrist, S63.501A Active initial encounter Problem Low back pain M54.[address] of the abdomen R93.5 Active Problem Chronic nausea R11.0 Active Problem Common cold J00 Active Problem Fever, unspecified fever cause R50.9 Active Problem Chronic kidney disease, stage III N18.3 Active (moderate) Problem Hypercalcemia E83.52 Active Problem Cough R05 Active Problem Dyslipidemia E78.5 Active Problem Bilious vomiting with nausea R11.14 Active Problem Epigastric pain R10.13 Active Problem Muscle spasms of neck M62.838 Active Problem Dysuria R30.0 Active Problem Lung nodule, multiple R91.8 Active Problem Elevated glucose R73.09 Active Problem Rib pain R07.81 Active Problem Osteoarthritis M19.90 Active Problem Osteopenia M85.80 Active Problem Anxiety and depression F41.8 Active Problem Asthma J45.909 Active Problem Chronic pain disorder G89.4 Active Medications Medication Code Code Instructions Start End Date Status Dosage System Date Omeprazole ND 68816998916 40 MG Orally July Active 1 capsule Once a day 2017 Singulair [facility] 89645565293 10 MG Orally Active 1 tablet in Once a day the evening Duloxetine HCl [facility] 43265103115 30 MG Orally Active TAKE 1 Once a day CAPSULE BY MOUTH EVERY DAY Tizanidine HCl [facility] 97493712376 4 MG Orally TID Active take one -1 tablet by mouth every 8 hours Vitamin D3 ND 81959468145 2000 UNIT Active 1 capsule Orally Once a day Zofran ND 09384676811 8 MG Orally Mar 15, Active 1 tablet Twice a day 2017 Promethazine [facility] 43331344600 25 MG Orally July Active 1 tablet as HCl every 12 hrs 2018 needed Bisoprolol [facility] 04030752985 10 MG Orally Active 1 tablet Fumarate Once a day Furosemide [facility] 97770918695 20 MG Orally Active 1 tablet Once a day Vitamin B12 [facility] 18341959038 100 MCG Orally Active as directed [place] 3-6-9 [facility] 17283743647 - Orally ONCE A July Active as directed Complex 2018 Azithromycin [facility] 14876613989 250 MG Orally July Active 2 tablets Once a day 2018 on the first day, then 1 tablet daily for 4 days Results Name Result Date Reference Range Unit Abnormality Flag FLU TEST A/B ----A neg [id number] ----B neg [id number] Summary Purpose eClinicalWorks Submission
--- OUTSIDE RECORDS SUMMARY | 2018-10-25 15:20 | XMS REPORT ---
:1965 [facility] Team Providers Name Role Phone Andrea Reese Provider Role Unavailable Allergies, Adverse Reactions, Alerts Substance Reaction Event Type penicillin itching, breathing issues Drug Allergy Methadone HCl vomiting Drug Allergy Iodine swelling Drug Allergy Problems Problem Type Condition Code Onset Dates Condition Status Assessment Essential hypertension I10 Active Assessment Osteoarthritis M19.90 Active Assessment Anxiety and depression F41.8 Active Problem Unspecified sprain of right wrist, S63.501A Active initial encounter Problem Low back pain M54.5 Active Problem Dyslipidemia E78.5 Active Problem Chronic nausea R11.0 Active Problem Epigastric pain R10.[address] of the abdomen R93.5 Active Problem Cough R05 Active Problem Common cold J00 Active Problem Rib pain R07.81 Active Problem Chronic kidney disease, stage III N18.3 Active (moderate) Problem Essential hypertension I10 Active Problem Hypercalcemia E83.52 Active Problem Dysuria R30.0 Active Problem Bilious vomiting with nausea R11.14 Active Problem Fever, unspecified fever cause R50.9 Active Problem Muscle spasms of neck M62.838 Active Problem Elevated glucose R73.09 Active Problem Asthma J45.909 Active Problem Osteoarthritis M19.90 Active Problem Lung nodule, multiple R91.8 Active Problem Anxiety and depression F41.8 Active Problem Lesion of liver K76.9 Active Problem Chronic pain disorder G89.4 Active Problem Osteopenia M85.80 Active Medications Medication Code Code Instructions Start End Status Dosage System Date Date Bisoprolol [facility] 89627657912 10 MG Orally Active 1 tablet Fumarate Once a day Duloxetine HCl [facility] 19763727180 30 MG Orally Active TAKE 1 Once a day CAPSULE BY MOUTH EVERY DAY Zofran [facility] 81322836484 8 MG Orally Mar 15, Active 1 tablet Twice a day 2017 Singulair [facility] 59387241297 10 MG Orally Active 1 tablet in Once a day the evening Tizanidine HCl [facility] 73731381667 4 MG Orally TID Active take one -1 tablet by mouth every 8 hours Vitamin B12 [facility] 61820399587 100 MCG Orally Active as directed Amlodipine [facility] 22059431696 10 MG Orally July Active 1 tablet Besylate Once a day 2018 Furosemide [facility] 01502922234 20 MG Orally Active 1 tablet Once a day Omeprazole [facility] 47477418118 40 MG Orally July Active 1 capsule Once a day 2017 Vitamin D3 [facility] 48584720706 2000 UNIT Orally Active 1 capsule Once a day Results No Known Results Summary Purpose eClinicalWorks Submission
--- OUTSIDE RECORDS SUMMARY | 2018-10-25 15:20 | XMS REPORT ---
:1965 [facility] Care Team Providers Name Role Phone Maryjane Osorio Provider Role Unavailable Allergies, Adverse Reactions, Alerts Substance Reaction Event Type penicillin itching, breathing issues Drug Allergy Methadone HCl vomiting Drug Allergy Iodine swelling Drug Allergy Problems Problem Type Condition Code Onset Dates Condition Status Assessment Cough R05 Active Problem Anxiety and depression F41.8 Active Assessment Common cold J00 Active Problem Lesion of liver K76.9 Active Problem Unspecified sprain of right wrist, S63.501A Active initial encounter Problem Chronic nausea R11.0 Active Problem Low back pain M54.5 Active Problem Common cold J00 Active Problem Bilious vomiting with nausea R11.14 Active Problem Hypercalcemia E83.52 Active Problem Dyslipidemia E78.5 Active Problem Cough R05 Active Problem Metastatic cancer C79.9 Active Problem Epigastric pain R10.[address] of the abdomen R93.5 Active Problem Muscle spasms of neck M62.838 Active Problem Dysuria R30.0 Active Problem Osteoarthritis M19.90 Active Problem Lung nodule, multiple R91.8 Active Problem Chronic kidney disease, stage III N18.3 Active (moderate) Problem Rib pain R07.81 Active Problem Chronic pain disorder G89.4 Active Problem Osteopenia M85.80 Active Problem Elevated glucose R73.09 Active Problem Asthma J45.909 Active Medications Medication Code Code Instructions Start End Date Status Dosage System Date Bisoprolol [facility] 19591819987 10 MG Orally Active 1 tablet Fumarate Once a day Furosemide ND 91624997115 20 MG Orally Active 1 tablet Once a day Vitamin D3 [facility] 11547523846 2000 UNIT Active 1 capsule Orally Once a day Vitamin B12 [facility] 09375294665 100 MCG Orally Active as directed Singulair ND 55527068254 10 MG Orally Active 1 tablet in Once a day the evening Zofran ND 66620140395 8 MG Orally Mar 15, Active 1 tablet Twice a day 2017 Duloxetine HCl [facility] 05201658196 30 MG Orally Active TAKE 1 Once a day CAPSULE BY MOUTH EVERY DAY Tizanidine HCl [facility] 67401567974 4 MG Orally TID Active take one -1 tablet by mouth every 8 hours [place] 3-6-9 [facility] 77662631273 - Orally ONCE A July Active as directed Complex 2018 Omeprazole [facility] 91147222057 40 MG Orally July Active 1 capsule Once a day 2017 Results Name Result Date Reference Range Unit Abnormality Flag FLU TEST A/B ----A neg [id number] ----B neg [id number] Summary Purpose eClinicalWorks Submission
[2018-10-25 16:10] LABS: Absolute Lymphocytes (CBC) 1.1 K/uL (0.7-4.9); Basophils % 0.5 % (0-1.3); Eosinophils % 7.3 % (0-4.4); Hematocrit 35.8 % (36.0-45.0); Lymphocytes % 18.5 % (15.3-44.8); MPV 8.7 fL (7.6-11.3); Monocytes % 13.4 % (3.3-12.3); RBC Red Blood Cell Count 4.18 M/uL (3.86-4.86)
[2018-10-25 16:16] LABS: Protime INR 0.95
[2018-10-25] MEDS ORDERED: NA CHLORIDE 0.9% 1,000 ML ONE (16:18)
[2018-10-25] MEDS ORDERED: AMLODIPINE 5 MG TAB ONE (16:18)
[2018-10-25] MEDS ORDERED: HYDRALAZINE HCL 20 MG/ML VIAL ONE (16:18)
[2018-10-25] MEDS ORDERED: HYDRALAZINE HCL 10 MG TABLET ONE (16:18)
[2018-10-25 16:42] LABS: ALT/SGPT 71 U/L (12-78); AST/SGOT 79 U/L (15-37); Albumin 2.7 g/dL (3.4-5.0); Alkaline Phosphatase 792 U/L (45-117); BUN Blood Urea Nitrogen 24 mg/dL (7-18); Bicarbonate 33 mmol/L (21-32); Bilirubin Direct 0.2 mg/dL (0-0.2); Bilirubin Total 0.5 mg/dL (0.2-1.0); Glucose Level 78 mg/dL (74-106); Magnesium 2.2 mg/dL (1.8-2.4); NT PRO-BNP 4318 pg/mL (<125); Potassium 3.1 mmol/L (3.5-5.1); Protein, Total 9.3 g/dL (6.4-8.2); Sodium Level 142 mmol/L (136-145); Troponin (Emerg Dept Use Only) < 0.02 ng/mL (0.0-0.045)
--- NOTE | 2018-10-25 16:43 | RAD REPORT ---
EXAM DESCRIPTION: CT - Stone Protocol - 10/25/2018 4:22 pm CLINICAL HISTORY: Abdominal pain, abdominal distention COMPARISON: April 2018, May 2017 TECHNIQUE: Axial 5 mm thick images were obtained without oral or IV contrast. The [id number]-wgke span s the entirety of the system partially obscuring uppermost abdomen and lung bases. All CT scans are performed using dose optimization technique as appropriate and may include automated exposure control or mA/KV adjustment according to patient size. FINDINGS: No hydronephrosis is present and no obstructing ureteral calculi. No suspicious renal mass es. Isodense masses and pyelonephritis are not excluded on a stone protocol CT scan. No urinary bladd er suspicious finding. No significant adrenal finding. Uterus is absent. Ovaries are absent or atroph ic. Liver is again noted to be grossly abnormal. Hepatomegaly is present with heterogeneous attenuation t hroughout the hepatic parenchyma. Capsular nodularity is present. No focal liver lesions could easily be masked in this setting. Overall pattern is not substantially different from comparison. Spleen is prominent but unchanged. No pancreatic or peripancreatic abnormality. No gallbladder or timmy iary tree abnormality identified. No suspicious bowel findings. Small mesenteric lymph nodes are present. There is a moderate amount of stool scattered throughout nondilated colon. No hernia, mass or bulky lymphadenopathy noted. No free air or pneumatosis. Trace amount of free flui d in the dependent portion of the pelvis is likely physiologic. No significant bony abnormality. IMPRESSION: No hydronephrosis, obstructing calculus or acute finding. Isodense masses and pyelonephritis are not excluded on stone protocol technique. Grossly abnormal liver. Hepatomegaly is present with capsular nodularity and diffusely heterogeneous liver parenchyma. The multiple liver lesions on prior imaging could be masked by this heterogeneous p attern and absence of contrast. Cirrhosis or other diffuse hepatic parenchymal disease process is suspected. Neoplastic etiologies ar e not excluded. Liver is not grossly different from April 2018. Multiple small mesenteric lymph nodes. No acute or GI process otherwise noted.
--- NOTE | 2018-10-25 16:44 | RAD REPORT ---
EXAM DESCRIPTION: RAD - Chest Single View - 10/25/2018 4:22 pm CLINICAL HISTORY: Cough, hypertension COMPARISON: November 2017 TECHNIQUE: AP portable chest image was obtained 1606 hours . FINDINGS: No peripheral mass consolidation. Interstitial markings are accentuated by large body habi tus, under penetrated technique and shallow inspiration. No significant failure or volume overload murphy spected. Right hilar fullness is similar to comparison when adjusting for the shallow inspiration. Heart size is upper normal accentuated by body habitus and technique. No measurable pleural effusion and no pneu mothorax. No acute bony abnormality seen. No acute aortic findings suspected. IMPRESSION: Limited portable study without acute cardiopulmonary finding. Chest is not significantly different from the 2018 comparison.
[2018-10-25] MEDS ORDERED: POTASSIUM 25 MEQ EFFERV TAB ONE (17:25)
[2018-10-25] MEDS ORDERED: FUROSEMIDE 40 MG/4 ML VIAL ONE (17:25)
--- NOTE | 2018-10-25 17:26 | EDPHYS ---
Physician Documentation [facility] Name: Batsheva Faulkner Age: 53 yrs Sex: Female : 1965 Arrival Date: 10/25/2018 Time: 15:22 Bed 4 Private MD: ED Physician Huey Sotomayor HPI: 10/25 15:54 This 53 yrs old Black Female presents to ER via Ambulatory with complaints of High carlie Blood Pressure, Urinary Problem. 15:54 The patient has elevated blood pressure and discovered this at home. Onset: The carlie symptoms/episode began/occurred 2 day(s) ago. Modifying factors: The symptoms are aggravated by activity, The symptoms are alleviated by remaining still. Associated signs and symptoms: The patient has no apparent associated signs or symptoms. Severity of symptoms: At its worst the blood pressure was moderate, severe, in the emergency department the blood pressure is unchanged. The patient has not experienced similar symptoms in the past. 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 - Social history:: Smoking status: Patient/guardian denies using tobacco. - Ebola Screening: : No symptoms or risks identified at this time. - Family history:: not pertinent. ROS: 15:54 Constitutional: Negative for fever, chills, and weight loss, Eyes: Negative for injury, carlie pain, redness, and discharge, ENT: Negative for injury, pain, and discharge, Neck: Negative for injury, pain, and swelling, Cardiovascular: Negative for chest pain, palpitations, and edema, Respiratory: Negative for shortness of breath, cough, wheezing, and pleuritic chest pain, Back: Negative for injury and pain, MS/Extremity: Negative for injury and deformity, Skin: Negative for injury, rash, and discoloration, Psych: Negative for depression, anxiety, suicide ideation, homicidal ideation, and hallucinations, Allergy/Immunology: Negative for hives, rash, and allergies, Endocrine: Negative for neck swelling, polydipsia, polyuria, polyphagia, and marked weight changes. 15:54 Abdomen/GI: Positive for abdominal pain, of the epigastric area, right upper quadrant and left upper quadrant. 15:54 : Positive for urinary frequency. 15:54 Neuro: Positive for headache. Exam: 15:54 Constitutional: This is a well developed, well nourished patient who is awake, alert, carlie and in no acute distress. Head/Face: Normocephalic, atraumatic. Eyes: Pupils equal round and reactive to light, extra-ocular motions intact. Lids and lashes normal. Conjunctiva and sclera are non-icteric and not injected. Cornea within normal limits. Periorbital areas with no swelling, redness, or edema. ENT: Nares patent. No nasal discharge, no septal abnormalities noted. Tympanic membranes are normal and external auditory canals are clear. Oropharynx with no redness, swelling, or masses, exudates, or evidence of obstruction, uvula midline. Mucous membranes moist. Neck: Trachea midline, no thyromegaly or masses palpated, and no cervical lymphadenopathy. Supple, full range of motion without nuchal rigidity, or vertebral point tenderness. No Meningismus. Chest/axilla: Normal chest wall appearance and motion. Nontender with no deformity. No lesions are appreciated. Cardiovascular: Regular rate and rhythm with a normal S1 and S2. No gallops, murmurs, or rubs. Normal PMI, no JVD. No pulse deficits. Respiratory: Lungs have equal breath sounds bilaterally, clear to auscultation and percussion. No rales, rhonchi or wheezes noted. No increased work of breathing, no retractions or nasal flaring. Back: No spinal tenderness. No costovertebral tenderness. Full range of motion. Female : Normal external genitalia. Skin: Warm, dry with normal turgor. Normal color with no rashes, no lesions, and no evidence of cellulitis. MS/ Extremity: Pulses equal, no cyanosis. Neurovascular intact. Full, normal range of motion. Neuro: Awake and alert, GCS 15, oriented to person, place, time, and situation. Cranial nerves II-XII grossly intact. Motor strength 5/5 in all extremities. Sensory grossly intact. Cerebellar exam normal. Normal gait. 15:54 Abdomen/GI: Inspection: distension, Bowel sounds: normal, Palpation: mild abdominal tenderness, mass, that is hard, of the epigastric area, right upper quadrant and left upper quadrant, Liver: no appreciated palpable abnormalities, Hernia: not appreciated. Vital Signs: 15:42 BP 246 / 129; Pulse 76; Resp 16; Temp 97.4; Pulse Ox 97% ; Weight 100.7 kg; Height 5 bp ft. 4 in. (162.56 cm); 16:38 BP 217 / 121; Pulse 84; Resp 18; Pulse Ox 100% on R/A; hj 16:47 BP 206 / 116; Pulse 84; Resp 18; Pulse Ox 100% on R/A; hj 16:51 BP 203 / 111; Pulse 86; Resp 18; Pulse Ox 100% on R/A; hj 16:59 BP 197 / 97; Pulse 87; Resp 18; Pulse Ox 100% on R/A; hj 17:02 BP 176 / 94; Pulse 89; Resp 16; Pulse Ox 100% on R/A; hj 17:35 BP 145 / 78; Pulse 68; Resp 18; Pulse Ox 100% on R/A; hj 18:03 BP 116 / 63; Pulse 60; Resp 18; Pulse Ox 100% on R/A; hj 15:42 Body Mass Index 38.11 (100.70 kg, 162.56 cm) bp NIH Stroke Scale Scores: 16:42 NIHSS Score: 0 carlie MDM: 15:46 Patient medically screened. [facility] 15:58 Data reviewed: vital signs, nurses notes, lab test result(s), EKG, radiologic studies, [facility] CT scan, plain films. 10/25 15:49 Order name: Basic Metabolic Panel; Complete Time: 16:58 [facility] 10/25 15:49 Order name: CBC with Diff; Complete Time: 16:26 [facility] 10/25 15:49 Order name: LFT's; Complete Time: 16:58 [facility] 10/25 15:49 Order name: Magnesium; Complete Time: 16:58 [facility] 10/25 15:49 Order name: NT PRO-BNP; Complete Time: 16:58 [facility] 10/25 15:49 Order name: PT-INR; Complete Time: 16:26 [facility] 10/25 15:49 Order name: Troponin (emerg Dept Use Only); Complete Time: 16:58 [facility] 10/25 15:49 Order name: XRAY Chest (1 view); Complete Time: 16:58 [facility] 10/25 15:49 Order name: Urine Culture [facility] 10/25 15:54 Order name: TSH; Complete Time: 17:19 [facility] 10/25 15:54 Order name: CT Stone Protocol; Complete Time: 16:58 [facility] 10/25 17:06 Order name: Urine Dipstick--Ancillary (enter results) ma 10/25 15:49 Order name: EKG; Complete Time: 15:51 [facility] 10/25 15:49 Order name: Cardiac monitoring; Complete Time: 15:54 [facility] 10/25 15:49 Order name: EKG - Nurse/Tech; Complete Time: 16:08 [facility] 10/25 15:49 Order name: IV Saline Lock; Complete Time: 16:08 [facility] 10/25 15:49 Order name: Labs collected and sent; Complete Time: 16:08 [facility] 10/25 15:49 Order name: O2 Per Protocol; Complete Time: 15:55 [facility] 10/25 15:49 Order name: O2 Sat Monitoring; Complete Time: 15:55 [facility] 10/25 15:49 Order name: Urine Dipstick-Ancillary (obtain specimen); Complete Time: 16:32 [facility] Administered Medications: 16:09 Drug: HydrALAZINE 25 mg Route: PO; rv 16:57 Follow up: Response: No adverse reaction hj 16:09 Drug: Norvasc 10 mg Route: PO; rv 16:56 Follow up: Response: No adverse reaction hj 16:10 Drug: NS 0.9% 1000 ml Route: IV; Rate: 75 ml/hr; Site: left antecubital; rv 18:44 Follow up: IV Status: Infusion continued upon admission; IV Intake: 200ml hj 16:10 Drug: hydrALAZINE 10 mg Route: IV; Rate: per protocol; Site: left antecubital; rv 18:44 Follow up: IV Status: Completed infusion hj 16:37 Drug: hydrALAZINE 10 mg Route: IV; Rate: per protocol; Site: left forearm; hj 18:44 Follow up: IV Status: Completed infusion hj 17:06 Drug: Potassium Effervescent Tablet 25 mEq Route: PO; hj 17:33 Follow up: Response: No adverse reaction hj 17:06 Drug: Lasix 40 mg Route: IVP; Site: left forearm; hj 17:33 Follow up: Response: No adverse reaction hj 17:33 Drug: Zofran 4 mg Route: IVP; Site: left forearm; hj 17:34 Follow up: Response: No adverse reaction; Nausea is decreased Disposition: 10/25/18 17:25 Hospitalization ordered by Andrea Reese for Inpatient Admission. Preliminary diagnosis are Essential (primary) hypertension, Abdominal tenderness, Acute kidney failure, Hypokalemia, Hypercalcemia, Unspecified cirrhosis of liver. - Bed requested for Telemetry/MedSurg (Inpatient). - Status is Inpatient Admission. hj - Condition is Fair. - Problem is new. - Symptoms have improved. UTI on Admission? No NIH Stroke Scale - NIH Stroke Score Date: 10/25/2018 Time: 16:42 Total Score = 0 1a. Level of Consciousness (LOC) - 0(Alert) 1b. Level of Consciousness (LOC) (Year \T\ Age) - 0(Both) 1c. LOC Commands (Open \T\ Closes Eyes/Runner Out) - 0(Both) 2. Best Gaze (Lateral Gaze Paresis) - 0(Normal) 3. Visual Field Loss - 0(No visual loss) 4. Facial Palsy - 0(Normal) 5a. Left Arm: Motor (10-second hold) - 0(No drift) 5b. Right Arm: Motor (10-second hold) - 0(No drift) 6a. Left Leg: Motor (5-second hold - always test supine) - 0(No drift) 6b. Right Leg: Motor (5-second hold - always test supine) - 0(No drift) 7. Limb Ataxia (finger/nose \T\ heel/thompson - test with eyes open) - 0(Absent) 8. Sensory Loss (pinprick arms/legs/face) - 0(Normal) 9. Best Language: Aphasia (description/naming/reading) - 0(No aphasia) 10. Dysarthria (speech clarity - read or repeat words) - 0(Normal) 11. Extinction and Inattention (visual/tactile/auditory/spatial/personal) - 0(No abnormality) Initials: carlie Signatures: Dispatcher [employer] Karo Bell, RN RN Huey Majano MD MD cha Joaquin, Henry, RN ALLIE hj Renny Carroll, RN RN Fortino La, RN RN rv Corrections: (The following items were deleted from the chart) 18:16 17:25 Hospitalization Ordered by Andrea Reese MD for Inpatient Admission. dw Preliminary diagnosis is Essential (primary) hypertension; Abdominal tenderness; Acute kidney failure; Hypokalemia; Hypercalcemia; Unspecified cirrhosis of liver. Bed requested for Telemetry/MedSurg (Inpatient). Status is Inpatient Admission. Condition is Fair. Problem is new. Symptoms have improved. UTI on Admission? No. carlie 18:43 18:16 10/25/2018 17:25 Hospitalization Ordered by Andrea Reese MD for Inpatient hj Admission. Preliminary diagnosis is Essential (primary) hypertension; Abdominal tenderness; Acute kidney failure; Hypokalemia; Hypercalcemia; Unspecified cirrhosis of liver. Bed requested for Telemetry/MedSurg (Inpatient). Status is Inpatient Admission. Condition is Fair. Problem is new. Symptoms have improved. UTI on Admission? No. dw
--- NOTE | 2018-10-25 17:26 | ER ---
Nurse's Notes [facility] Name: Batsheva Faulkner Age: 53 yrs Sex: Female : 1965 Arrival Date: 10/25/2018 Time: 15:22 Bed 4 Private MD: Diagnosis: Essential (primary) hypertension;Abdominal tenderness;Acute kidney failure;Hypokalemia;Hypercalcemia;Unspecified cirrhosis of liver Presentation: 10/25 15:38 Presenting complaint: Patient states: SENT FROM PCP FOR HTN AND HEADACHE. Transition of bp care: patient was not received from another setting of care. Onset of symptoms is unknown. Risk Assessment: Do you want to hurt yourself or someone else? Patient reports no desire to harm self or others. Initial Sepsis Screen: Does the patient meet any 2 criteria? No. Patient's initial sepsis screen is negative. Does the patient have a suspected source of infection? No. Patient's initial sepsis screen is negative. Care prior to arrival: None. 15:38 Method Of Arrival: Ambulatory bp 15:38 Acuity: FLORY 3 bp Triage Assessment: 15:38 General: Appears in no apparent distress. uncomfortable, Behavior is calm, cooperative, hj appropriate for age. Pain: Denies pain. 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 - Social history:: Smoking status: Patient/guardian denies using tobacco. - Ebola Screening: : No symptoms or risks identified at this time. - Family history:: not pertinent. Screenin:38 Abuse screen: Denies threats or abuse. Denies injuries from another. Nutritional hj screening: No deficits noted. Tuberculosis screening: No symptoms or risk factors identified. Fall Risk None identified. Assessment: 15:38 General: Appears in no apparent distress. uncomfortable, Behavior is calm, cooperative, hj appropriate for age. Pain: Complains of pain in left upper quadrant and right upper quadrant and epigastric area. Neuro: Level of Consciousness is awake, alert, obeys commands, Oriented to person, place, time, situation, Appropriate for age. Cardiovascular: Capillary refill < 3 seconds Patient's skin is warm and dry. Respiratory: Airway is patent Respiratory effort is even, unlabored, Respiratory pattern is regular, symmetrical. GI: No signs and/or symptoms were reported involving the gastrointestinal system. : No signs and/or symptoms were reported regarding the genitourinary system. EENT: No signs and/or symptoms were reported regarding the EENT system. Derm: No signs and/or symptoms reported regarding the dermatologic system. Musculoskeletal: No signs and/or symptoms reported regarding the musculoskeletal system. 16:59 Reassessment: Patient and/or family updated on plan of care and expected duration. Pain hj level reassessed. Patient is alert, oriented x 3, equal unlabored respirations, skin warm/dry/pink. Patient states feeling better. Patient states symptoms have improved. Vital Signs: 15:42 BP 246 / 129; Pulse 76; Resp 16; Temp 97.4; Pulse Ox 97% ; Weight 100.7 kg; Height 5 bp ft. 4 in. (162.56 cm); 16:38 BP 217 / 121; Pulse 84; Resp 18; Pulse Ox 100% on R/A; hj 16:47 BP 206 / 116; Pulse 84; Resp 18; Pulse Ox 100% on R/A; hj 16:51 BP 203 / 111; Pulse 86; Resp 18; Pulse Ox 100% on R/A; hj 16:59 BP 197 / 97; Pulse 87; Resp 18; Pulse Ox 100% on R/A; hj 17:02 BP 176 / 94; Pulse 89; Resp 16; Pulse Ox 100% on R/A; hj 17:35 BP 145 / 78; Pulse 68; Resp 18; Pulse Ox 100% on R/A; hj 18:03 BP 116 / 63; Pulse 60; Resp 18; Pulse Ox 100% on R/A; hj 15:42 Body Mass Index 38.11 (100.70 kg, 162.56 cm) bp NIH Stroke Scale Scores: 16:42 NIHSS Score: 0 carlie ED Course: 15:22 Patient arrived in ED. mr 15:38 Patient has correct armband on for positive identification. Placed in gown. Bed in low hj position. Call light in reach. Side rails up X 1. Adult w/ patient. 15:39 Triage completed. bp 15:42 Arm band placed on. bp 15:45 Donis Means RN is Primary Nurse. hj 15:46 Huey Sotomayor MD is Attending Physician. carlie 16:07 Initial lab(s) drawn, by co, sent to lab. Inserted saline lock: 22 gauge in left hj forearm, using aseptic technique. Blood collected. 16:[address] via wheelchair. nj 16:21 CT completed. Patient tolerated procedure well. Patient moved back from CT. nj 16:24 XRAY Chest (1 view) In Process Unspecified. EDMS 16:24 CT Stone Protocol In Process Unspecified. EDMS 17:22 Andrea Reese MD is Hospitalizing Provider. carlie 18:42 No provider procedures requiring assistance completed. Patient admitted, IV remains in hj place. intact. Administered Medications: 16:09 Drug: HydrALAZINE 25 mg Route: PO; rv 16:57 Follow up: Response: No adverse reaction hj 16:09 Drug: Norvasc 10 mg Route: PO; rv 16:56 Follow up: Response: No adverse reaction hj 16:10 Drug: NS 0.9% 1000 ml Route: IV; Rate: 75 ml/hr; Site: left antecubital; rv 18:44 Follow up: IV Status: Infusion continued upon admission; IV Intake: 200ml hj 16:10 Drug: hydrALAZINE 10 mg Route: IV; Rate: per protocol; Site: left antecubital; rv 18:44 Follow up: IV Status: Completed infusion hj 16:37 Drug: hydrALAZINE 10 mg Route: IV; Rate: per protocol; Site: left forearm; hj 18:44 Follow up: IV Status: Completed infusion hj 17:06 Drug: Potassium Effervescent Tablet 25 mEq Route: PO; hj 17:33 Follow up: Response: No adverse reaction hj 17:06 Drug: Lasix 40 mg Route: IVP; Site: left forearm; hj 17:33 Follow up: Response: No adverse reaction hj 17:33 Drug: Zofran 4 mg Route: IVP; Site: left forearm; 17:34 Follow up: Response: No adverse reaction; Nausea is decreased Intake: 18:44 IV: 200ml; Total: 200ml. Outcome: 17:25 Decision to Hospitalize by Provider. [facility] 18:42 Admitted to Med/surg accompanied by tech, family with patient, via wheelchair, room hj 205, with chart, Report called to Vandana Tobar RN 18:42 Condition: stable 18:42 Instructed on the need for admit, Demonstrated understanding of instructions. 18:43 Patient left the ED. NIH Stroke Scale - NIH Stroke Score Date: 10/25/2018 Time: 16:42 Total Score = 0 1a. Level of Consciousness (LOC) - 0(Alert) 1b. Level of Consciousness (LOC) (Year \T\ Age) - 0(Both) 1c. LOC Commands (Open \T\ Closes Eyes/Cardiothoracic Icu Rn) - 0(Both) 2. Best Gaze (Lateral Gaze Paresis) - 0(Normal) 3. Visual Field Loss - 0(No visual loss) 4. Facial Palsy - 0(Normal) 5a. Left Arm: Motor (10-second hold) - 0(No drift) 5b. Right Arm: Motor (10-second hold) - 0(No drift) 6a. Left Leg: Motor (5-second hold - always test supine) - 0(No drift) 6b. Right Leg: Motor (5-second hold - always test supine) - 0(No drift) 7. Limb Ataxia (finger/nose \T\ heel/thompson - test with eyes open) - 0(Absent) 8. Sensory Loss (pinprick arms/legs/face) - 0(Normal) 9. Best Language: Aphasia (description/naming/reading) - 0(No aphasia) 10. Dysarthria (speech clarity - read or repeat words) - 0(Normal) 11. Extinction and Inattention (visual/tactile/auditory/spatial/personal) - 0(No abnormality) Initials: [facility] Signatures: Dispatcher [employer] Huey Francis MD MD cha Rivera, Arcelia banerjee MiguelangelDonis RN Alan Feng Brian, RN RN bp Vicente, Ronaldo, RN RN rv
[2018-10-25] MEDS ORDERED: ONDANSETRON 4 MG/2 ML VIAL ONE (17:46)
[2018-10-25 17:54] LABS: Urine Blood TRACE (NEG); Urine Glucose NEGATIVE (NEG); Urine Protein 2+ (NEG); Urine Specific Gravity 1.015 (1.005-1.030); Urine pH 7.5 (5.0-7.0)
[2018-10-25] MEDS: NA CHLORIDE 0.9% 1,000 ML IV SCH ×2 (19:29→22:14)
[2018-10-25] MEDS ORDERED: ALBUTEROL 2.5 MG/3 ML NEB SOL NEB PRN (19:29)
[2018-10-25] MEDS ORDERED: ONDANSETRON 4 MG/2 ML VIAL IV PRN (19:29)
[2018-10-25] MEDS ORDERED: IPRATROPIUM BROM 0.5MG/2.5ML NEB PRN (19:29)
[2018-10-25] MEDS: FAMOTIDINE 20 MG/2 ML VIAL IV SCH (19:59)
[2018-10-25] MEDS: HYDRALAZINE HCL 10 MG TABLET PO SCH (19:59)
[2018-10-25] MEDS: ACETAMINOPHEN 500 MG TAB PO PRN (22:15)
[2018-10-26] MEDS: NA CHLORIDE 0.9% 1,000 ML IV SCH (05:29)
[2018-10-26 06:18] LABS: Absolute Lymphocytes (CBC) 1.3 K/uL (0.7-4.9); Basophils % 0.5 % (0-1.3); Eosinophils % 3.3 % (0-4.4); Hematocrit 34.1 % (36.0-45.0); Lymphocytes % 20.1 % (15.3-44.8); MPV 9.1 fL (7.6-11.3); RBC Red Blood Cell Count 3.97 M/uL (3.86-4.86)
--- NOTE | 2018-10-26 08:25 | RAD REPORT ---
EXAM DESCRIPTION: RAD - Chest Single View - 10/26/2018 5:37 am CLINICAL HISTORY: Chest Pain Chest pain. COMPARISON: Chest Single View dated 10/25/2018; Abdomen 1 View (KUB) dated 11/18/2017; Chest Pa And Lat (2 Views) dated 11/18/2017; Chest Pa And Lat (2 Views) dated 12/28/2016 FINDINGS: Portable technique limits examination quality. The lungs are grossly clear. The heart is normal in size. No displaced fractures. IMPRESSION: No acute intrathoracic process suspected.
[2018-10-26] MEDS: AMLODIPINE 10 MG TAB PO SCH (08:49)
[2018-10-26] MEDS: HYDRALAZINE HCL 10 MG TABLET PO SCH ×3 (08:49→20:18)
[2018-10-26] MEDS: FAMOTIDINE 20 MG/2 ML VIAL IV SCH (08:49)
[2018-10-26] MEDS ORDERED: POTASSIUM 25 MEQ EFFERV TAB PO SCH (09:00)
[2018-10-26] MEDS ORDERED: BISOPROLOL FUMARATE PO SCH (09:00)
[2018-10-26] MEDS: DULOXETINE 30 MG CAP PO SCH (09:00)
[2018-10-26] MEDS ORDERED: BISOPROLOL 5 MG TABLET PO SCH (09:00)
[2018-10-26] MEDS: ASPIRIN 81 MG CHEWABLE TABLET PO SCH (09:00)
[2018-10-26] MEDS ORDERED: HCTZ PO SCH (09:00)
[2018-10-26] MEDS ORDERED: BISOPROLOL/HCTZ 5/6.25MG TAB PO SCH (09:00)
[2018-10-26] MEDS ORDERED: FUROSEMIDE 20 MG/ 2ML VIAL IV SCH (09:00)
[2018-10-26] MEDS: BISOPROLOL 5 MG TABLET PO SCH (09:00)
--- NOTE | 2018-10-26 09:54 | EKG ---
Test Date: 2018-10-26 Test Time: 07:07:01 Door Maker: RT-R MEASUREMENT RESULTS: Intervals: Rate: 79 [place]: 136 QRSD: 104 QT: 394 QTc: 451 [place]: P: 53 [place]: 136 QRS: -15 T: -76 INTERPRETIVE STATEMENTS: Sinus rhythm with occasional premature ventricular complexes Voltage criteria for left ventricular hypertrophy Nonspecific ST and T wave abnormality Abnormal ECG Compared to ECG 10/25/2018 15:54:24 Ventricular premature complex(es) now present ST (T wave) deviation now present T-wave abnormality no longer present Electronically Signed On 10-26-18 09:53:50 CDT by Woodrow Gastelum
--- NOTE | 2018-10-26 09:58 | EKG ---
Test Date: 2018-10-25 Test Time: 15:54:24 Licensed Pharmacist: HOLLY MEASUREMENT RESULTS: Intervals: Rate: 69 [place]: 138 QRSD: 102 QT: 372 QTc: 398 [place]: P: 49 [place]: 138 QRS: -19 T: -2 INTERPRETIVE STATEMENTS: Normal sinus rhythm Voltage criteria for left ventricular hypertrophy Nonspecific T wave abnormality Abnormal ECG No previous ECG available for comparison Electronically Signed On 10-26-18 09:57:09 CDT by Woodrow Gastelum
[2018-10-26] MEDS: POTASSIUM CL SA 10 MEQ TAB PO SCH (10:29)
[2018-10-26] MEDS ORDERED: PAMIDRONATE DISOD 30 MG VIAL IV ONE (14:12)
[2018-10-26] MEDS ORDERED: PAMIDRONATE 60 MG in NA CHLORIDE 0.9% 500 ML IV ONE (15:00)
--- NOTE | 2018-10-26 16:24 | P.HP ---
Certification for Inpatient Patient admitted to: Inpatient With expected LOS: >2 Midnights Patient will require the following post-hospital care: None Practitioner: I am a practitioner with admitting privileges, knowledge of patient current condition, hospital course, and medical plan of care. Services: Services provided to patient in accordance with Admission requirements found in Title 42 Section 412.3 of the Code of Federal Regulations Patient History Date of Service: 10/26/18 Primary Care Provider: Niyah Osorio Reason for admission: htn emergency History of Present Illness: Patient came to the office on Wednesday. She has had difficulty to control blood pressure. She was feeling poorly with a blood pressure in the 200's. Was sent to the ER. She was found to have a elevated creatine of 2.17. Her baseline is 1.5. She normaly sees Dr. Francisco. However most likely her creatine is a sign of end organ damage due to the blood pressure. Therefore it was decided to admit the patient for fluids and blood pressure control rather than risk complete renal faliure. The Ct showed a progression of her CHRISTINE. Allergies amoxicillin Allergy (Severe, Verified 12/27/16 17:39) Itching/Hives/Rash iodine Allergy (Severe, Verified 12/27/16 20:38) Anaphylaxis methadone Allergy (Severe, Verified 12/27/16 17:39) Nausea/Vomiting Penicillins Allergy (Severe, Verified 12/27/16 17:39) Itching/Hives/Rash tramadol Allergy (Severe, Verified 12/27/16 17:39) Itching/Hives/Rash Home Medications: Aspirin 1 tab PO DAILY 10/26/18 Bisoprolol Fumarate/Hctz [Bisoprolol-Hctz 10-6.25 mg Tab] 1 tab PO DAILY Duloxetine HCl 1 cap PO DAILY 10/26/18 Omeprazole 1 cap PO DAILY 10/26/18 - Past Medical/Surgical History Has patient received pneumonia vaccine in the past: No Diabetic: No -: Asthma -: Hypertension -: Depression -: Obesity -: History of hilar and mediastinal adenopathy -: Biopsy of the R lung -: C-sections x2 -: Hysterectomy -: Cyst removed from the L shoulder Psychosocial/ Personal History: The patient has a significant other. She has 3 children. - Family History Mother -: Heart disease, Hypertension Father -: Hypertension, Lung disease, Cancer Notes: : lung ca Brother -: Hypertension, Diabetes, Kidney disease Sister -: Hypertension, Diabetes - Social History Alcohol use: No CD- Drugs: No Caffeine use: Yes Review of Systems 10-point ROS is otherwise unremarkable General: Malaise Physical Examination - Vital Signs Temperature: 97.6 F Blood Pressure: 182/87 Pulse: 76 Respirations: 18 Pulse Ox (%): 98 - Physical Exam General: Alert, In no apparent distress HEENT: Atraumatic, PERRLA, Mucous membr. moist/pink, EOMI, Sclerae nonicteric Neck: Supple, 2+ carotid pulse no bruit, No LAD, Without JVD or thyroid abnormality Respiratory: Clear to auscultation bilaterally, Normal air movement Cardiovascular: Regular rate/rhythm, Normal S1 S2 Gastrointestinal: Normal bowel sounds, No tenderness Musculoskeletal: No tenderness Integumentary: No rashes Neurological: Normal gait, Normal speech, Normal strength at 5/5 x4 extr, Normal tone, Normal affect Lymphatics: No axilla or inguinal lymphadenopathy - Studies Laboratory Data (last 24 hrs) 10/25/18 16:00: PT 11.2, INR 0.95 10/25/18 16:00: Sodium 142, Potassium 3.1 L, BUN 24 H, Creatinine 2.17 H, Glucose 78, Magnesium 2.2, Total Bilirubin 0.5, AST 79 H, ALT 71, Alkaline Phosphatase 792 H Assessment and Plan - Problems (Diagnosis) (1) Hypertensive emergency Current Visit: Yes Status: Acute Plan: will start her on a catapress patch. Restart home medications. Will need to keep an eye on her kidney function. (2) Acute on chronic renal failure Current Visit: Yes Status: Acute Plan: Most likely secondary to htn. Will consult Dr. Meyers. Continue IV fluids. Qualifiers: Acute renal failure type: unspecified Chronic kidney disease stage: stage 4 (severe) Qualified Code(s): N17.9 - Acute kidney failure, unspecified; N18.4 - Chronic kidney disease, stage 4 (severe) (3) CHRISTINE (nonalcoholic steatohepatitis) Current Visit: Yes Status: Acute Plan: Will need to address as an outpatient. However avoidance of sugar, weight loss of 5-10% and possible milk thistle would be of benefit (4) Depression Current Visit: Yes Status: Acute Plan: restart home medicaitons. Qualifiers: Depression Type: dysthymia Qualified Code(s): F34.1 - Dysthymic disorder Discharge Plan: Home Plan to discharge in: 48 Hours - Advance Directives Does patient have a Living Will: No Does patient have a Durable POA for Healthcare: No - Code Status/Comfort Care Code Status Assessed: No Code Status: Full Code Physician Review: Patient Assessed, Agree with Above Assessment and Plan Critical Care: No Time Spent Managing Pts Care (In Minutes): 45
[2018-10-26] MEDS: NACHLORIDE 0.45% 1,000 ML with POTASSIUM CL 40 MEQ IV SCH ×2 (16:55)
[2018-10-26] MEDS: ENOXAPARIN 30 MG/0.3 ML SQ SCH (16:57)
[2018-10-26] MEDS: ACETAMINOPHEN 500 MG TAB PO PRN (17:57)
[2018-10-26] MEDS: HYDRALAZINE HCL 20 MG/ML VIAL IV PRN (17:58)
[2018-10-26 18:34] VITALS: BMI 38.0
--- NOTE | 2018-10-26 20:36 | CON ---
Date of Consultation: 10/26/2018 Reason For Consult: Acute on chronic renal insufficiency with hypercalcemia. History Of Present Illness: Ms. Faulkner is a 53-year-old female with a complicated past medical histo ry, who has had lesions on her lungs, abdomen, and liver that have been going on for a long time and has had multiple workups, but the details of which the patient is unable to give me at this time. Jitendra king also has been seeing Dr. Fernandez, but has been lost for followup. She presented to the hospital af ter she was on route to her primary care physician, Ms. Manju Osorio, and she was found to have sever linda elevated high blood pressure. She reports that she has been having headaches for the last 6 betty hs, but she has not been checking blood pressures at home. She has been referred to Endocrinology an d also has been referred to multiple doctors in [place] for this workup of hypercalcemia and some "en docrine problem." The patient was noted to have a calcium of 12.7, which has improved to 12.2 today and hypokalemia and CARIE with a creatinine of 2.16 which is elevated from her baseline of around 1.5 t o 1.6. Nephrology is being consulted for the same reason. Past Medical History: Significant for history of underlying hypertension, history of congestive hear t failure, respiratory insufficiency, and has been following up with Dr. Kwok for that, asthma, h ypertension, depression, morbid obesity, history of hilar and mediastinal lymphadenopathy. She has h ad a history of biopsy of the right lung, hysterectomy, C-sections, and a cyst removed from her left shoulder. Family History: Significant for history of heart disease and hypertension in her mother, lung diseas e and cancer in her father who of lung cancer. Brother has history of diabetes and kidney disea se and sister also with history of diabetes and hypertension. Social History: She denies any alcohol, drug, or smoking. Review of Systems: Positive for weakness, lethargy, swelling in her lower extremities, headache, occasional shortness of breath associated with some wheezing. Denies any visual problems. She does have significant abdomi nal discomfort as well as constipation. She has been having a lot of memory issues and has been urin ating a lot. All other review of systems are negative. Physical Examination: Vital Signs: Showing temperature of 98, pulse rate of 69, respiratory rate of 18, and blood pressure 161/99. General: She appears in no acute distress. She is a morbidly obese female. HEENT: Atraumatic head. Lungs: Clear to auscultation. Heart: Auscultation of the heart revealed regular rate and rhythm. Abdomen: Obese, nontender with slight distention. Extremities: Showed no evidence of edema at this time. Laboratory Data: Showing sodium of 144, potassium of 3, chloride of 104, bicarb of 33, BUN of 25, an d creatinine of 2.16. Calcium level was 12.2. ProBNP was 3326. CBC showed stable hemoglobin, hemat ocrit, and platelet count. Chest x-ray was negative. Urinalysis showed some evidence of proteinuria , but otherwise unremarkable. Current Medications: Include normal saline which she has been getting at 100 cc an hour, Tylenol p.r .n. for pain, amlodipine 10 mg a day, aspirin, bisoprolol, duloxetine, and potassium chloride 40 mEq daily. Impression: 1.Acute kidney injury on chronic kidney disease, likely related to hypercalcemia causing vasospasm a nd renal arterial constriction. We will continue hydration and attempt to lower the calcium and jerica tor renal function closely. 2.Hypokalemia. We will need renin and aldosterone levels checked to rule out hyperaldosteronism. Chikis king will hold off on starting any spironolactone at this time and monitor her closely. 3.History of possible underlying sarcoidosis. We will send off an FARIDEH inhibitor level as well as 25 and 1,25 hydroxyvitamin D level and follow up on the labs closely. Avoid all calcium supplementatio ns and monitor her closely. 4.Hypertension, seems uncontrolled. The patient would possibly benefit from starting spironolactone , but we will do so after aldosterone levels have been sent off. Also lowering the calcium will also improve her uncontrolled hypertension. I have given her a dose of pamidronate to improve her hyperc alcemia as well. We will monitor her renal function closely and followup. Plan: Overall, the patient is very interesting with multiple electrolyte abnormalities including hyp ercalcemia, hypokalemia, and uncontrolled hypertension. She has had extensive workup in the past. Chikis king will try to obtain the records from [facility] to see what other workup she has had in the past. She def initely has had malignancy ruled out. We will go ahead and order 1,25 hydroxyvitamin D as well as 25 -hydroxyvitamin D levels along with renin and aldosterone levels and change of hydration from normal saline to half-normal saline with potassium replacement to improve her hypokalemia and start her on s pironolactone once her aldosterone levels come back and also have ordered hydralazine to improve her blood pressure control. In the meanwhile, plan was discussed with the patient in detail. All questi ons were answered. ELDER/ELSIE Voice ID: [id number] Report ID: [id number]
[2018-10-26] MEDS ORDERED: PROMETHAZINE 25 MG/ML VIAL IV ONE (20:44)
[2018-10-26] MEDS ORDERED: CLONIDINE 0.1 MG/PATCH TD SCH (21:15)
[2018-10-26] MEDS: cloNIDine HCl 0.1 MG TAB PO SCH (22:37)
[2018-10-27] MEDS: HYDRALAZINE HCL 20 MG/ML VIAL IV PRN ×2 (00:50→06:52)
[2018-10-27] MEDS: ACETAMINOPHEN 500 MG TAB PO PRN ×2 (04:18→16:20)
[2018-10-27] MEDS: NACHLORIDE 0.45% 1,000 ML with POTASSIUM CL 40 MEQ IV SCH ×2 (04:36)
[2018-10-27 07:03] LABS: Albumin 2.6 g/dL (3.4-5.0); Bilirubin Total 0.5 mg/dL (0.2-1.0); Potassium 3.4 mmol/L (3.5-5.1); Protein, Total 8.8 g/dL (6.4-8.2); Thyroid Stimulating Hormone 1.77 uIU/mL (0.360-3.740)
[2018-10-27] MEDS: ASPIRIN 81 MG CHEWABLE TABLET PO SCH (08:27)
[2018-10-27] MEDS: DULOXETINE 30 MG CAP PO SCH (08:27)
[2018-10-27] MEDS: cloNIDine HCl 0.1 MG TAB PO SCH ×3 (08:27→21:17)
[2018-10-27] MEDS: POTASSIUM CL SA 10 MEQ TAB PO SCH (08:28)
[2018-10-27] MEDS: AMLODIPINE 10 MG TAB PO SCH (08:28)
[2018-10-27] MEDS: BISOPROLOL 5 MG TABLET PO SCH (08:29)
[2018-10-27] MEDS: HYDRALAZINE HCL 10 MG TABLET PO SCH ×3 (08:29→21:17)
[2018-10-27] MEDS ORDERED: cloNIDine HCl 0.1 MG TAB PO SCH (09:00)
[2018-10-27] MEDS ORDERED: NACHLORIDE 0.45% 1,000 ML with POTASSIUM CL 40 MEQ IV SCH ×2 (09:15)
[2018-10-27] MEDS ORDERED: LORATADINE 10 MG TAB PO PRN (09:29)
[2018-10-27] MEDS ORDERED: SUMATRIPTAN SUCCI 50 MG TAB PO ONE (09:30)
--- NOTE | 2018-10-27 09:34 | P.PN ---
Subjective Date of Service: 10/27/18 Primary Care Provider: Niyah Osorio Chief Complaint: htn emergency Subjective: No new changes Review of Systems 10-point ROS is otherwise unremarkable General: Other (headach) ENT: Nose Pain, Nose Congestion Physical Examination - Vital Signs Temperature: 97.2 F Blood Pressure: 164/103 Pulse: 84 Respirations: 18 Pulse Ox (%): 98 - Physical Exam General: Alert, In no apparent distress HEENT: Atraumatic, PERRLA, EOMI Neck: Supple, JVD not distended Respiratory: Clear to auscultation bilaterally, Normal air movement Cardiovascular: Regular rate/rhythm, Normal S1 S2 Gastrointestinal: Normal bowel sounds, No tenderness Musculoskeletal: No tenderness Integumentary: No rashes Neurological: Normal speech, Normal tone, Normal affect Lymphatics: No axilla or inguinal lymphadenopathy - Studies Microbiology Data (last 24 hrs): 10/25/18 16:40 Clean Catch Urine [place] Count - Final BETWEEN 10,000 & 100,000 CFU/ML 10/25/18 16:40 Clean Catch Urine - Final MIXED JERRY. Assessment & Plan - Problems (Diagnosis) (1) Hypertensive emergency Current Visit: Yes Status: Acute Plan: will start her on a catapress pills, plan to discharge on patch. Restart home medications. Will need to keep an eye on her kidney function. (2) Acute on chronic renal failure Current Visit: Yes Status: Acute Plan: Most likely secondary to htn. Will consult Dr. Meyers. Continue IV fluids. Qualifiers: Acute renal failure type: unspecified Chronic kidney disease stage: stage 4 (severe) Qualified Code(s): N17.9 - Acute kidney failure, unspecified; N18.4 - Chronic kidney disease, stage 4 (severe) (3) CHRISTINE (nonalcoholic steatohepatitis) Current Visit: Yes Status: Acute Plan: Will need to address as an outpatient. However avoidance of sugar, weight loss of 5-10% and possible milk thistle would be of benefit (4) Depression Current Visit: Yes Status: Acute Plan: restart home medicaitons. Qualifiers: Depression Type: dysthymia Qualified Code(s): F34.1 - Dysthymic disorder (5) Headache Current Visit: Yes Status: Acute Plan: will treat sinus congestion. Will see if sumatriptan will help. Continue tylenol. Avoid nsaids due to kidney function. Qualifiers: Headache type: tension-type Headache chronicity pattern: acute headache Intractability: not intractable Qualified Code(s): G44.209 - Tension-type headache, unspecified, not intractable Discharge Plan: Home Plan to discharge in: 48 Hours - Code Status/Comfort Care Code Status Assessed: No Code Status: Full Code Physician Review: Patient Assessed, Agree with Above Assessment and Plan Critical Care: No Time Spent Managing Pts Care (In Minutes): 20
[2018-10-27] MEDS ORDERED: IPRATROPIUM BROM 0.5MG/2.5ML NEB PRN (15:00)
[2018-10-27] MEDS ORDERED: ALBUTEROL 2.5 MG/3 ML NEB SOL NEB PRN (15:00)
[2018-10-27] MEDS: ENOXAPARIN 30 MG/0.3 ML SQ SCH (16:20)
--- NOTE | 2018-10-27 21:52 | P.PN ---
Date of Service: 10/27/18 Vital Signs Temp Pulse Resp BP Pulse Ox 97.7 F 77 18 169/91 H 98 10/27/18 16:00 10/27/18 21:17 10/27/18 16:00 10/27/18 21:17 10/27/18 16:00 Medications Acetaminophen (Tylenol -Extra Strength) 500 mg PO Q6H PRN PRN Reason: TEMP > 100' F Stop: 11/24/18 19:30 Last Admin: 10/27/18 16:20 Dose: 500 mg Albuterol Sulfate (Proventil 0.083% Neb Soln) 2.5 mg NEB [id number] PRN PRN Reason: WHEEZING Stop: 11/24/18 19:30 Amlodipine Besylate (Norvasc) 10 mg PO DAILY [facility] Stop: 11/25/18 09:01 Last Admin: 10/27/18 08:28 Dose: 10 mg Aspirin (Aspirin Chewable) 81 mg PO DAILY [facility] Stop: 11/25/18 09:01 Last Admin: 10/27/18 08:27 Dose: 81 mg Bisoprolol Fumarate (Zebeta) 5 mg PO DAILY [facility] Stop: 11/25/18 09:01 Last Admin: 10/27/18 08:29 Dose: 5 mg Clonidine HCl (Catapres) 0.1 mg PO TID [facility] Stop: 11/25/18 23:01 Last Admin: 10/27/18 21:17 Dose: 0.1 mg Duloxetine HCl (Cymbalta Delayed Release Pellets) 30 mg PO DAILY [facility] Stop: 11/25/18 09:01 Last Admin: 10/27/18 08:27 Dose: 30 mg Enoxaparin Sodium (Lovenox 30 Mg Inj) 30 mg SQ DAILY 5 PM [facility] Stop: 11/25/18 17:01 Last Admin: 10/27/18 16:20 Dose: 30 mg Fluticasone Propionate (Flonase 50mcg Nasal [place]) 2 sprays TRICIA DAILY [facility] Stop: 11/27/18 09:01 Hydralazine HCl (Apresoline) 20 mg PO TID [facility] Stop: 11/24/18 21:01 Last Admin: 10/27/18 21:17 Dose: 20 mg Hydralazine HCl (Apresoline) 10 mg IV Q6HP PRN PRN Reason: FOR SBP>160 OR DBP>100 MMHG Stop: 11/25/18 14:49 Last Admin: 10/27/18 06:52 Dose: 10 mg Potassium Chloride 40 meq/ (Sodium Chloride) 1,020 mls @ 75 mls/hr IV .[id number] JASMIN Stop: 11/26/18 09:16 Last Admin: 10/27/18 09:54 Dose: 1,020 mls Ipratropium [place] (Atrovent Neb) 0.5 mg NEB [id number] PRN PRN Reason: WHEEZING Stop: 11/24/18 19:30 Loratadine (Claritin) 10 mg PO DAILY PRN PRN Reason: ALLERGIES Stop: 11/26/18 09:30 Last Admin: 10/27/18 09:55 Dose: 10 mg Ondansetron HCl (Zofran) 4 mg IV Q6H PRN PRN Reason: NAUSEA / VOMITING Stop: 11/24/18 19:30 Potassium Chloride (Klor-Con 10 Meq Tab) 40 meq PO DAILY JASMIN Stop: 11/25/18 09:01 Last Admin: 10/27/18 08:28 Dose: 40 meq Sodium Chloride (Normal Saline Flush) 10 ml IV BID JASMIN Stop: 11/24/18 21:01 Last Admin: 10/27/18 21:18 Dose: 10 ml Microbiology Results 10/25/18 16:40 Clean Catch Urine [place] Count - Final BETWEEN 10,000 & 100,000 CFU/ML 10/25/18 16:40 Clean Catch Urine - Final MIXED JERRY. Assessment/ Plan: Nephrology CPS stable without CP or SOB. No acute events overnight. Good urine output. Vitals, medications, blood work and imaging reviewed in the chart. NAD. MMM. Neck supple. CTA. RRR. Soft Abd. No C/C/E. No rash. AAO. Normal Speech. Obese. A/ CARIE Hypokalemia. CKD III with proteinuria. Hypercalcemia. Suspected Sarcoidosis. HTN with CKD. Anemia in chronic illness. P/ Continue current POC and Medications. AM labs. Daily weight. No NSAIDs. Increase IVF. Start Doxazosin at bedtime. Consider another dose of pamidronate in 7 days.
[2018-10-27] MEDS: DOXAZOSIN 2 MG TAB PO SCH (23:14)
[2018-10-27] MEDS ORDERED: NACHLORIDE 0.45% 0 ML IV ONE (23:34)
[2018-10-28] MEDS: NACHLORIDE 0.45% 1,000 ML with POTASSIUM CL 40 MEQ IV SCH ×4 (00:06→08:12)
[2018-10-28 01:38] LABS: Urine Appearance CLEAR; Urine Bilirubin NEGATIVE (NEG); Urine Blood NEGATIVE (NEG); Urine Color YELLOW; Urine Glucose NEGATIVE (NEG); Urine Protein NEGATIVE (NEG)
[2018-10-28 01:58] LABS: UR MICROALBUMIN 2.6 mg/dL (< 1.9)
[2018-10-28 02:13] LABS: Urine Bacteria <20 /HPF (<20); Urine Culture Reflex Order NOT NEEDED; Urine RBC <5 /HPF (NONE SEEN)
[2018-10-28 06:49] LABS: Phosphorus 2.5 mg/dL (2.5-4.9); Uric Acid 7.5 mg/dL (2.6-6.0)
[2018-10-28 07:13] LABS: Albumin 2.4 g/dL (3.4-5.0); Bilirubin Total 0.5 mg/dL (0.2-1.0); Protein, Total 8.4 g/dL (6.4-8.2)
[2018-10-28] MEDS: FLUTICASONE 50MCG NASAL SPRAY NAS SCH (08:47)
[2018-10-28] MEDS: POTASSIUM CL SA 10 MEQ TAB PO SCH ×2 (08:47→10:08)
[2018-10-28] MEDS: cloNIDine HCl 0.1 MG TAB PO SCH ×3 (08:48→20:14)
[2018-10-28] MEDS: DULOXETINE 30 MG CAP PO SCH (08:48)
[2018-10-28] MEDS: ASPIRIN 81 MG CHEWABLE TABLET PO SCH (08:48)
[2018-10-28] MEDS: AMLODIPINE 10 MG TAB PO SCH (08:48)
[2018-10-28] MEDS: HYDRALAZINE HCL 10 MG TABLET PO SCH ×3 (08:49→20:15)
[2018-10-28] MEDS: BISOPROLOL 5 MG TABLET PO SCH (10:07)
--- NOTE | 2018-10-28 14:19 | P.PN ---
Subjective Date of Service: 10/28/18 Primary Care Provider: Niyah Osorio Chief Complaint: htn emergency Subjective: No new changes Review of Systems 10-point ROS is otherwise unremarkable Physical Examination - Vital Signs Temperature: 97.6 F Blood Pressure: 144/80 Pulse: 79 Respirations: 16 Pulse Ox (%): 98 - Physical Exam General: Alert, In no apparent distress HEENT: Atraumatic, PERRLA, EOMI Neck: Supple, JVD not distended Respiratory: Clear to auscultation bilaterally, Normal air movement Cardiovascular: Regular rate/rhythm, Normal S1 S2 Gastrointestinal: Normal bowel sounds, No tenderness Musculoskeletal: No tenderness Integumentary: No rashes Neurological: Normal speech, Normal tone, Normal affect Lymphatics: No axilla or inguinal lymphadenopathy Assessment & Plan - Problems (Diagnosis) (1) Hypertensive emergency Current Visit: Yes Status: Acute Plan: will start her on a catapress pills, plan to discharge on patch. Restart home medications. she is well controlled today (2) Acute on chronic renal failure Current Visit: Yes Status: Acute Plan: Most likely secondary to htn. Will consult Dr. Meyers. Continue IV fluids. she is slowly recovery. Baseline creatine 1.5 Qualifiers: Acute renal failure type: unspecified Chronic kidney disease stage: stage 4 (severe) Qualified Code(s): N17.9 - Acute kidney failure, unspecified; N18.4 - Chronic kidney disease, stage 4 (severe) (3) CHRISTINE (nonalcoholic steatohepatitis) Current Visit: Yes Status: Acute Plan: Will need to address as an outpatient. However avoidance of sugar, weight loss of 5-10% and possible milk thistle would be of benefit (4) Depression Current Visit: Yes Status: Acute Plan: restart home medicaitons. Qualifiers: Depression Type: dysthymia Qualified Code(s): F34.1 - Dysthymic disorder (5) Headache Current Visit: Yes Status: Acute Plan: will treat sinus congestion. Will see if sumatriptan will help. Continue tylenol. Avoid nsaids due to kidney function. Qualifiers: Headache type: tension-type Headache chronicity pattern: acute headache Intractability: not intractable Qualified Code(s): G44.209 - Tension-type headache, unspecified, not intractable Discharge Plan: Home Plan to discharge in: 48 Hours - Code Status/Comfort Care Code Status Assessed: No Physician Review: Patient Assessed, Agree with Above Assessment and Plan Critical Care: No Time Spent Managing Pts Care (In Minutes): 25
[2018-10-28] MEDS ORDERED: D5 0.45 NS 1,000 ML IV SCH (15:00)
[2018-10-28] MEDS: D5 0.45 NS 1,000 ML IV SCH (15:02)
[2018-10-28] MEDS: ENOXAPARIN 30 MG/0.3 ML SQ SCH (16:09)
[2018-10-28] MEDS: DOXAZOSIN 2 MG TAB PO SCH (20:14)
[2018-10-28] MEDS: ACETAMINOPHEN 500 MG TAB PO PRN (20:22)
--- NOTE | 2018-10-28 21:48 | P.PN ---
Date of Service: 10/28/18 Vital Signs Temp Pulse Resp BP Pulse Ox 97.6 F 69 18 161/83 H 97 10/28/18 20:00 10/28/18 20:14 10/28/18 20:00 10/28/18 20:14 10/28/18 20:00 Medications Acetaminophen (Tylenol -Extra Strength) 500 mg PO Q6H PRN PRN Reason: TEMP > 100' F Stop: 11/24/18 19:30 Last Admin: 10/28/18 20:22 Dose: 500 mg Albuterol Sulfate (Proventil 0.083% Neb Soln) 2.5 mg NEB [id number] PRN PRN Reason: WHEEZING Stop: 11/24/18 19:30 Amlodipine Besylate (Norvasc) 10 mg PO DAILY [facility] Stop: 11/25/18 09:01 Last Admin: 10/28/18 08:48 Dose: 10 mg Aspirin (Aspirin Chewable) 81 mg PO DAILY JASMIN Stop: 11/25/18 09:01 Last Admin: 10/28/18 08:48 Dose: 81 mg Bisoprolol Fumarate (Zebeta) 5 mg PO DAILY [facility] Stop: 11/25/18 09:01 Last Admin: 10/28/18 10:07 Dose: 5 mg Clonidine HCl (Catapres) 0.1 mg PO TID [facility] Stop: 11/25/18 23:01 Last Admin: 10/28/18 20:14 Dose: 0.1 mg Doxazosin Mesylate (Cardura) 2 mg PO BID [facility] Stop: 11/28/18 09:01 Duloxetine HCl (Cymbalta Delayed Release Pellets) 30 mg PO DAILY [facility] Stop: 11/25/18 09:01 Last Admin: 10/28/18 08:48 Dose: 30 mg Enoxaparin Sodium (Lovenox 30 Mg Inj) 30 mg SQ DAILY 5 PM [facility] Stop: 11/25/18 17:01 Last Admin: 10/28/18 16:09 Dose: 30 mg Fluticasone Propionate (Flonase 50mcg Nasal [place]) 2 sprays TRICIA DAILY [facility] Stop: 11/27/18 09:01 Last Admin: 10/28/18 08:47 Dose: 2 spr Hydralazine HCl (Apresoline) 20 mg PO TID [facility] Stop: 11/24/18 21:01 Last Admin: 10/28/18 20:15 Dose: 20 mg Hydralazine HCl (Apresoline) 10 mg IV Q6HP PRN PRN Reason: FOR SBP>160 OR DBP>100 MMHG Stop: 11/25/18 14:49 Last Admin: 10/27/18 06:52 Dose: 10 mg Dextrose/Sodium Chloride (Dextrose 5% O.45% Saline) 1,000 mls @ 75 mls/hr IV .[id number] [facility] Stop: 11/27/18 15:01 Last Admin: 10/28/18 15:02 Dose: 1,000 mls Ipratropium [place] (Atrovent Neb) 0.5 mg NEB [id number] PRN PRN Reason: WHEEZING Stop: 11/24/18 19:30 Loratadine (Claritin) 10 mg PO DAILY PRN PRN Reason: ALLERGIES Stop: 11/26/18 09:30 Last Admin: 10/27/18 09:55 Dose: 10 mg Ondansetron HCl (Zofran) 4 mg IV Q6H PRN PRN Reason: NAUSEA / VOMITING Stop: 11/24/18 19:30 Potassium Chloride (Klor-Con 10 Meq Tab) 40 meq PO DAILY [facility] Stop: 11/25/18 09:01 Last Admin: 10/28/18 10:08 Dose: 40 meq Sodium Chloride (Normal Saline Flush) 10 ml IV BID [facility] Stop: 11/24/18 21:01 Last Admin: 10/28/18 20:14 Dose: 10 ml Microbiology Results 10/25/18 16:40 Clean Catch Urine [place] Count - Final BETWEEN 10,000 & 100,000 CFU/ML 10/25/18 16:40 Clean Catch Urine - Final MIXED JERRY. Assessment/ Plan: Nephrology CPS stable without CP or SOB. No acute events overnight. Good urine output. Good appetite. Vitals, medications, blood work and imaging reviewed in the chart. NAD. MMM. Neck supple. CTA. RRR. Soft Abd. No C/C/E. No rash. AAO. Normal Speech. Obese. A/ CARIE Hypokalemia. CKD III with proteinuria. Hypercalcemia. Suspected Sarcoidosis. HTN with CKD. Anemia in chronic illness. P/ Continue current POC and Medications. AM labs. Daily weight. No NSAIDs. No calcium supplementation or vitamin D. Increase Doxazosin BID to improve BP. Consider another dose of pamidronate in 7 days.
[2018-10-29] MEDS: D5 0.45 NS 1,000 ML IV SCH ×2 (05:01→18:09)
[2018-10-29 06:34] LABS: Albumin 2.6 g/dL (3.4-5.0); Bilirubin Total 0.4 mg/dL (0.2-1.0); Potassium 3.9 mmol/L (3.5-5.1); Protein, Total 8.8 g/dL (6.4-8.2)
--- NOTE | 2018-10-29 08:13 | P.PN ---
Subjective Date of Service: 10/29/18 Primary Care Provider: Niyah Osorio Chief Complaint: htn emergency Subjective: No new changes Review of Systems 10-point ROS is otherwise unremarkable Physical Examination - Vital Signs Temperature: 98.4 F Blood Pressure: 137/89 Pulse: 80 Respirations: 18 Pulse Ox (%): 97 - Physical Exam General: Alert, In no apparent distress HEENT: Atraumatic, PERRLA, EOMI Neck: Supple, JVD not distended Respiratory: Clear to auscultation bilaterally, Normal air movement Cardiovascular: Regular rate/rhythm, Normal S1 S2 Gastrointestinal: Normal bowel sounds, No tenderness Musculoskeletal: No tenderness Integumentary: No rashes Neurological: Normal speech, Normal tone, Normal affect Lymphatics: No axilla or inguinal lymphadenopathy Assessment & Plan - Problems (Diagnosis) (1) Acute on chronic renal failure Current Visit: Yes Status: Acute Plan: Most likely secondary to htn. not much improvement today. She is being seen by Nephro. Will see if they are comfortable with outpatient and follow up. Or if she should remain in house till her kidney function improves. Do not want this patient to worsen and end up on dialysis Qualifiers: Acute renal failure type: unspecified Chronic kidney disease stage: stage 4 (severe) Qualified Code(s): N17.9 - Acute kidney failure, unspecified; N18.4 - Chronic kidney disease, stage 4 (severe) (2) CHRISTINE (nonalcoholic steatohepatitis) Current Visit: Yes Status: Acute Plan: Will need to address as an outpatient. However avoidance of sugar, weight loss of 5-10% and possible milk thistle would be of benefit (3) Depression Current Visit: Yes Status: Acute Plan: restart home medicaitons. Qualifiers: Depression Type: dysthymia Qualified Code(s): F34.1 - Dysthymic disorder (4) Headache Current Visit: Yes Status: Acute Plan: will treat sinus congestion. Will see if sumatriptan will help. Continue tylenol. Avoid nsaids due to kidney function. Qualifiers: Headache type: tension-type Headache chronicity pattern: acute headache Intractability: not intractable Qualified Code(s): G44.209 - Tension-type headache, unspecified, not intractable (5) Hypertensive emergency Current Visit: Yes Status: Acute Plan: will start her on a catapress pills, plan to discharge on patch. Restart home medications. she is well controlled today Discharge Plan: Home Plan to discharge in: 24 Hours - Code Status/Comfort Care Code Status Assessed: No Physician Review: Patient Assessed, Agree with Above Assessment and Plan Critical Care: No Time Spent Managing Pts Care (In Minutes): 20
[2018-10-29] MEDS: ASPIRIN 81 MG CHEWABLE TABLET PO SCH (08:46)
[2018-10-29] MEDS: HYDRALAZINE HCL 10 MG TABLET PO SCH ×3 (08:46→20:25)
[2018-10-29] MEDS: DOXAZOSIN 2 MG TAB PO SCH ×2 (08:46→20:24)
[2018-10-29] MEDS: DULOXETINE 30 MG CAP PO SCH (08:46)
[2018-10-29] MEDS: cloNIDine HCl 0.1 MG TAB PO SCH ×3 (08:46→20:25)
[2018-10-29] MEDS: FLUTICASONE 50MCG NASAL SPRAY NAS SCH (08:47)
[2018-10-29] MEDS: POTASSIUM CL SA 10 MEQ TAB PO SCH (08:49)
[2018-10-29] MEDS: BISOPROLOL 5 MG TABLET PO SCH (09:06)
[2018-10-29] MEDS: AMLODIPINE 10 MG TAB PO SCH (09:06)
[2018-10-29] MEDS: ENOXAPARIN 30 MG/0.3 ML SQ SCH (18:08)
[2018-10-30 02:39] VITALS: O2SAT 99
[2018-10-30] MEDS: AMLODIPINE 10 MG TAB PO SCH (08:47)
[2018-10-30] MEDS: POTASSIUM CL SA 10 MEQ TAB PO SCH (08:48)
[2018-10-30] MEDS: DOXAZOSIN 2 MG TAB PO SCH (08:48)
[2018-10-30] MEDS: HYDRALAZINE HCL 10 MG TABLET PO SCH ×2 (08:48→12:15)
[2018-10-30] MEDS: cloNIDine HCl 0.1 MG TAB PO SCH ×2 (08:49→12:15)
[2018-10-30] MEDS: DULOXETINE 30 MG CAP PO SCH (08:49)
[2018-10-30] MEDS: ASPIRIN 81 MG CHEWABLE TABLET PO SCH (08:49)
[2018-10-30] MEDS: BISOPROLOL 5 MG TABLET PO SCH (08:50)
[2018-10-30] MEDS: FLUTICASONE 50MCG NASAL SPRAY NAS SCH (08:51)
[2018-10-30] MEDS: D5 0.45 NS 1,000 ML IV SCH (08:55)
--- NOTE | 2018-10-30 09:32 | P.DS ---
Admission Date: 10/25/18 Discharge Date: 10/30/18 Primary Care Provider: Niyah Osorio Disposition: ROUTINE DISCHARGE Discharge Condition: FAIR Reason for Admission: htn emergency - Problems (1) Acute on chronic renal failure Current Visit: Yes Status: Acute Qualifiers: Acute renal failure type: unspecified Chronic kidney disease stage: stage 4 (severe) Qualified Code(s): N17.9 - Acute kidney failure, unspecified; N18.4 - Chronic kidney disease, stage 4 (severe) (2) CHRISTINE (nonalcoholic steatohepatitis) Current Visit: Yes Status: Acute (3) Depression Current Visit: Yes Status: Acute Qualifiers: Depression Type: dysthymia Qualified Code(s): F34.1 - Dysthymic disorder (4) Headache Current Visit: Yes Status: Acute Qualifiers: Headache type: tension-type Headache chronicity pattern: acute headache Intractability: not intractable Qualified Code(s): G44.209 - Tension-type headache, unspecified, not intractable (5) Hypertensive emergency Current Visit: Yes Status: Acute Brief History of Present Illness: Patient came to the office on Wednesday. She has had difficulty to control blood pressure. She was feeling poorly with a blood pressure in the 200's. Was sent to the ER. She was found to have a elevated creatine of 2.17. Her baseline is 1.5. She normaly sees Dr. Francisco. However most likely her creatine is a sign of end organ damage due to the blood pressure. Therefore it was decided to admit the patient for fluids and blood pressure control rather than risk complete renal faliure. The Ct showed a progression of her CHRISTINE. Hospital Course: Pt. Admitted for htn emergency with renal failure. Admitted to the floor. Catapress was added to her medications. Seen by Nephrology. The patent kidney function improved slightly. She has had a full cancer work up. which is negative. Have discussed with Dr. Meyers this morning. She needs a work up for Sarcoid. Will discharge her home. She has hypercalcemia and renal failure in a , so high likely bean of Sarcoid. Will refer to Dr. Powell as an outpatient. Will stop the HCTZ as it will increase the hypercalcemia. Will start her on a catapress patch. Than you for allowing me to take part in her care. Vital Signs/Physical Exam: Temp Pulse Resp BP Pulse Ox 98.4 F 80 16 141/77 H 98 10/30/18 08:00 10/30/18 08:50 10/30/18 08:00 10/30/18 08:50 10/30/18 08:00 General: Alert, In no apparent distress HEENT: Atraumatic, PERRLA, EOMI Neck: Supple, JVD not distended Respiratory: Clear to auscultation bilaterally, Normal air movement Cardiovascular: Regular rate/rhythm, Normal S1 S2 Gastrointestinal: Normal bowel sounds, No tenderness Musculoskeletal: No tenderness Integumentary: No rashes Neurological: Normal speech, Normal tone, Normal affect Lymphatics: No axilla or inguinal lymphadenopathy Laboratory Data at Discharge: WBC 6.5 K/uL (4.3-10.9) 10/26/18 05:25 Hgb 11.3 g/dL (12.0-15.0) L 10/26/18 05:25 Hct 34.1 % (36.0-45.0) L 10/26/18 05:25 Plt Count 380 K/uL (152-406) 10/26/18 05:25 PT 11.2 SECONDS (9.5-12.5) 10/25/18 16:00 INR 0.95 10/25/18 16:00 Sodium 139 mmol/L (136-145) 10/29/18 06:03 Potassium 3.9 mmol/L (3.5-5.1) 10/29/18 06:03 BUN 19 mg/dL (7-18) H 10/29/18 06:03 Creatinine 1.92 mg/dL (0.55-1.3) H 10/29/18 06:03 Glucose 88 mg/dL (74-106) 10/29/18 06:03 Uric Acid 7.5 mg/dL (2.6-6.0) H 10/28/18 06:07 Phosphorus 2.5 mg/dL (2.5-4.9) 10/28/18 06:07 Magnesium 2.2 mg/dL (1.8-2.4) 10/25/18 16:00 Total Bilirubin 0.4 mg/dL (0.2-1.0) 10/29/18 06:03 AST 32 U/L (15-37) 10/29/18 06:03 ALT 32 U/L (12-78) 10/29/18 06:03 Alkaline Phosphatase 577 U/L (45-117) H 10/29/18 06:03 Troponin I < 0.02 ng/mL (0.0-0.045) 10/25/18 23:00 Triglycerides 72 mg/dL (<150) 10/27/18 05:55 Cholesterol 137 mg/dL (<200) 10/27/18 05:55 HDL Cholesterol 49 mg/dL (40-60) 10/27/18 05:55 Cholesterol/HDL Ratio 2.80 10/27/18 05:55 Home Medications: Aspirin 1 tab PO DAILY 10/26/18 Duloxetine HCl 1 cap PO DAILY 10/26/18 Omeprazole 1 cap PO DAILY 10/26/18 Bisoprolol Fumarate [Zebeta*] 5 mg PO DAILY 90 Days #90 tablet 10/30/18 Clonidine [Catapres-Tts 1] 0.1 mg TD WMP 90 Days #12 patch.tdwk 10/30/18 New Medications: Bisoprolol Fumarate [Zebeta*] 5 mg PO DAILY 90 Days #90 tablet Clonidine [Catapres-Tts 1] 0.1 mg TD WMP 90 Days #12 patch.tdwk Diet: Renal Followup: Niyah Osorio NP [Primary Care Provider] - Joseph Kwok MD [ACTIVE - CAN ADMIT] - Chitra Arevalo MD [ACTIVE - CAN ADMIT] - Time spent managing pt's care (in minutes): 30
[2018-10-30 11:57] LABS: Vitamin D 1,25-Dihydroxy Total 154 pg/mL (18-72); Vitamin D,1,25-OH2, D2 <8 pg/mL
[2018-10-30 12:17] VITALS: BP 133/80
[2018-10-30 12:24] VITALS: TEMP 98.2
[2018-11-02] MEDS ORDERED: CLONIDINE 0.1 MG/PATCH TD SCH (09:00)
== END 2018-10-30 12:31 | disposition home or self-care (01) | DRG 305 ==
LOC: ER 15:16 → ERHOLD 17:29 → 2ND 18:30 → 4TH 10-27 17:45
PROVIDERS: ADMIT Internal Medicine; ATTEND Internal Medicine
DX: I16.1 Hypertensive emergency (principal); N18.4 Chronic kidney disease, stage 4 (severe); N17.9 Acute kidney failure, unspecified; I12.9 Hypertensive chronic kidney disease with stage 1 through stage 4 chronic kidney disease, or unspecified chronic kidney disease; F32.9 Major depressive disorder, single episode, unspecified; K75.81 Nonalcoholic steatohepatitis (NASH); E87.6 Hypokalemia; E83.52 Hypercalcemia; E66.9 Obesity, unspecified; Z68.37 Body mass index [BMI] 37.0-37.9, adult; Z88.0 Allergy status to penicillin
CPT/HCPCS: 36415; 71045; 74176; 76377; 80048; 80053; 80061; 80076; 81001; 81003; 82043; 82088; 82164; 82306; 82570; 82652; 83036; 83735; 83880; 84100; 84244; 84443; 84484; 84550; 85025; 85610; 87086; 87088; 93005; 94760; 99285; J0360; J1650; J1940; J2405; J2430; J2550; J7030

== ENCOUNTER 2018-12-29 07:42 | Day surgery (SDC) | payer OTHER ==
--- OUTSIDE RECORDS SUMMARY | 2018-12-29 07:45 | XMS REPORT | Clinical Summary ---
:1965 Author Organization [facility] Address [address] [place] [address] Care Team Providers Name Role Phone Niyah Osorio [facility] Primary Care Provider Allergies Active Allergy Reactions [...] MD 06/21/2018 Surgery Gastroenterology Finesse Brooks [facility] ENDOSCOPY,FNA W/ULTRASOUND 06/21/2018 Hospital Encounter Gastroenterology Finesse Brooks [facility] 06/15/2018 Hospital Encounter Pre-Admission Testing Resource, Oon license of [facility] Preadmit Phone after 12/28/2017 Social History Tobacco Use Types Packs/Day Years [...] Taken Blood Pressure 156/91 06/21/2018 3:00 PM REFRIGERATION TECHNICIAN Pulse 75 06/21/2018 3:00 PM REFRIGERATION TECHNICIAN Temperature 36.6 C (97.8 F) 06/21/2018 2:25 PM REFRIGERATION TECHNICIAN Respiratory Rate 16 06/21/2018 3:00 PM REFRIGERATION TECHNICIAN Oxygen Saturation 96% 06/21/2018 3:00 PM REFRIGERATION TECHNICIAN Inhaled Oxygen Concentration - - Weight 105.7 kg (233 lb) 06/21/2018 11:39 AM REFRIGERATION TECHNICIAN Height 162.6 cm (5' 4") 06/21/2018 11:39 AM REFRIGERATION TECHNICIAN Body Mass Index 39.99 06/21/2018 11:39 AM REFRIGERATION TECHNICIAN Plan of Treatment Not on file Procedures Procedure Name Priority Date/Time Associated Comments Diagnosis REPORT OF PROCEDURE 06/21/2018 2:51 - ENDOSCOPY URL PM REFRIGERATION TECHNICIAN FINE NEEDLE Routine 06/21/2018 2:15 Results for this ASPIRATE (FNA) PM REFRIGERATION TECHNICIAN procedure are in REQUEST the results section. FINE NEEDLE AP Routine 06/21/2018 2:15 Results for this ASPIRATION BY PM REFRIGERATION TECHNICIAN procedure are in CLINICIAN the results section. FINE NEEDLE Routine 06/21/2018 1:58 Results for this ASPIRATE (FNA) PM REFRIGERATION TECHNICIAN procedure are in REQUEST the results section. FINE NEEDLE AP Routine 06/21/2018 1:58 Results for this ASPIRATION BY PM REFRIGERATION TECHNICIAN procedure are in CLINICIAN the results section. FINE NEEDLE Routine 06/21/2018 1:48 Results for this ASPIRATE (FNA) PM REFRIGERATION TECHNICIAN procedure are in REQUEST the results section. FINE NEEDLE AP Routine 06/21/2018 1:48 Results for this ASPIRATION BY PM REFRIGERATION TECHNICIAN procedure are in CLINICIAN the results section. TISSUE EXAM AP Routine 06/21/2018 1:44 Results for this PM REFRIGERATION TECHNICIAN procedure are in the results section. UPPER ENDOSCOPY,FNA 06/21/2018 12:00 Pancreatic mass W/ULTRASOUND PM REFRIGERATION TECHNICIAN Special Needs (LINEAR SCOPE) after 12/28/2017 Results REPORT OF PROCEDURE - ENDOSCOPY URL (06/21/2018 2:51 PM REFRIGERATION TECHNICIAN) Narrative Performed At FINE NEEDLE ASPIRATE (FNA) REQUEST (06/21/2018 2:15 PM REFRIGERATION TECHNICIAN)Only the most recent of3 resultswithin the time period is included. Cytology See Separate Report [facility] Specimen Fine Needle Aspirate Performing Organization Address City/State/Zipcode Phone Number [place] [id number] [place] [address] [phone] CENTER Fine Needle Aspirate by Clinician (06/21/2018 2:15 PM REFRIGERATION TECHNICIAN)Only the most recent of3 resultswithin the time period is included. Case Report Medical Cytology Report Case: [id number] [facility] Authorizing Provider:Finesse Brooksected: 06/21/2018 [facility]5 [facility] Ordering Location: [facility] Endoscopy Received: 06/22/2018 0932 Services Pathologist: Octaviano Rivera MD Specimen:Celiac Node DIAGNOSIS CELIAC LYMPH NODE FNA BY CLINICIAN (CYTOSPINS AND CELL BLOCK OF ASPIRATE): [facility] - NON-DIAGNOSTIC SPECIMEN [facility] - PREDOMINANTLY BLOOD ELEMENTS WITH VERY RARE LYMPHOCYTES Signing Pathologist Direct Phone Line: [phone] COMMENT Please see cases [id number], [facility] [id number] and 653. [facility] CPT Code(s) 11954, 42192, 48981 [facility] CLINICAL DATA Pancreatic mass, (1.2 cm) [facility] malignant-appearing lymph node [facility] in the celiac region SPECIMEN SOURCE CELIAC LYMPH NODE FNA [facility] GROSS DESCRIPTION 25 mls in cytorich red; 4 cytospins, cell block [facility] Collected: [id number] [facility] Received: [id number] SPECIAL STUDIES The interpretation of this case included the use of immunohistochemistry or special stains. [facility] An immunostain for CAM5.2 performed on a cell block section is negative. Immunohistochemistry technical testing was performed at [facility], Pathology Laboratory where it was developed [...] complexity clinical laboratory testing. Gross assessment was [facility] performed at [place], [facility] Pathology, [address] [place] [id number], Technical component was [facility] performed at [place] Pathology, [address] [place] [address], Professional component [facility] was performed at [place], [facility] Pathology, [address] [place] [address], Specimen Fine Needle Aspirate Narrative Performed At Performing Organization Address City/State/[facility] Phone Number [facility] [address] [place] [address] [phone] CENTER Tissue Exam (06/21/2018 1:44 PM REFRIGERATION TECHNICIAN) Case Report Surgical Pathology Report Case: [id number] [facility] Authorizing Provider:Finesse BrooksCoantelmoected: 06/21/2018 1344 [facility] Ordering Location: [facility] Endoscopy Received: 06/21/2018 1544 Services Pathologist: Saad Choe MD Specimens: A) - Biopsy, Liver, LIVER LEFT LOBE FNB B) - Pancreas, PANCREAS MASS FNB DIAGNOSIS PART A LEFT LIVER LOBE, BIOPSY FOR SUSPECTED MASS: [facility] NONCASEATING GRANULOMATOUS INFLAMMATION. [facility] NEGATIVE FOR MALIGNANCY. SEE DIAGNOSTIC COMMENT. PART B PANCREAS, BIOPSY FOR SUSPECTED MASS: NONCASEATING GRANULOMATOUS INFLAMMATION IN LYMPHOID MATERIAL. NEGATIVE FOR MALIGNANCY. SEE DIAGNOSTIC COMMENT. Signing Pathologist Direct Phone Line: [phone] COMMENT Histological sections on both biopsy shows marked replacement of the normal liver and pancreatic parenchyma (parts A and B respectively) with noncaseating granulomatous inflammation. Multinucleated perla [facility] t cells are easily identified in the sections examined. Immunohistochemical studies performed on both blocks A1 and B1 demonstrate CD20/PAX5 positive B cells and CD3/CD5 positive T cells. There is no ab [facility] errant co-expression of CD20 and CD5. [...] case were discussed with Dr. Finesse Brooks, investigation lieutenant on 06/24/2018. Intradepartment consultation: Camila Burt MD CPT Code(s) 86930j9, 54540l3, 84053t33, [facility] [id number] [facility] CLINICAL HISTORY Pancreatic mass [facility] SPECIMEN SOURCE A. Liver left lobe FNB. B. [facility] Pancreas mass FNB [facility] GROSS DESCRIPTION Specimen is received in two parts both labeled with the patient's information. [facility] Specimen A: Labeled "liver left lobe FNB" consists of multiple fragments of hemorrhagic stringy tissue measuring 1.5 x 0.5 x 0.3 cm in aggregate, submitted in A1. Specimen B: Labeled "pancreas mass FNB" consists of multiple stringy fragments of hemorrhagic soft tissue measuring 1.5 x 0.5 x 0.3 cm, submitted entirely in B1. CG/ew MICROSCOPIC DESCRIPTION PERFORMED. [facility] SPECIAL STUDIES The interpretation of this case included the use of immunohistochemistry or special stains. [facility] BLOCK A1- CD30, PAX5, CD20, CD5, CD3, GMS, AFB [facility] BLOCK B1- CD30, PAX5, CD20, CD5, CD3, SYNAPTOPHYSIN, CAM 5.2, GMS, AFB Immunohistochemistry technical testing was performed at [facility], Pathology Laboratory where it was developed [...] structure) Performing Organization Address City/State/Zipcode Phone Number [facility] [address] [place] [address] CENTER after 12/28/2017 Insurance Payer Benefit Plan / Group Subscriber ID Type Phone Address [facility] - MEDICARE AARP/MEDICARE COMPLETE xxxxxxxxx MGD CARE
--- OUTSIDE RECORDS SUMMARY | 2018-12-29 07:45 | XMS REPORT ---
[...] Start Date End Date Status Dosage PredniSONE [facility] 78631644222 10 MG Orally May 05, May 06, Active 5 tablet hours before [address] SCan, then 5 tabs 2 hours before scan Results No Known Results Summary Purpose [employer] Submission
--- OUTSIDE RECORDS SUMMARY | 2018-12-29 07:45 | XMS REPORT | Clinical Summary ---
:1965 Author Organization [facility] Address [address] [place] [address] Care Team Providers Name Role Phone Damon [...] (gastroesophageal reflux disease) Wears glasses Immunizations Name Administration Dates Next Due Pneumococcal Conjugate 13-Valent 11/16/2016 Family [...] CANCER SCREENING 09/15/1987 BREAST CANCER SCREENING 2016 COLONOSCOPY SCREENING 2016 SHINGLES VACCINES (#1) 2016 INFLUENZA VACCINE 11/17/2018 Implants Implanted Type Area Hair Clipper Power Device Shelf Model / Identifier Expiration Serial / Date Lot Drain Wnd Chnl 24fr 16in Rnd Hbls Fl-Flut Rosenda - [id number] Surgical N/A: N/ A [employer] 02/16/2021 [id number] / Implanted: Qty: 1 on 11/13/2016 by Lei Dumont MD at [facility] Implants; DIVISION / Expanders; [id number] Extenders; Surgical Wires Results Not on fileafter 12/28/2017 Insurance Payer Benefit Plan / Subscriber ID Effective Phone Address Type Group Dates MEDICAID MEDICAID xxxxxxxxx 2016-Prese Medicaid nt [facility] 2016-Pres Commercial ent [facility] MEDICARE [facility] xxxxxxxxx 2016-Prese O MEDICARE DIRECT nt [facility] Advance Directives For more information, please contact: [phone] Type Date Recorded Patient Supply Controller Explanation Advance Directives, Living Will 11/11/2016 9:04 AM and Medical Power of Utilization Manager Code Status Date Activated Date Inactivated Comments Full Code 11/13/2016 11:35 AM 11/16/2016 5:17 PM Code Status decision reached by: Patient
--- OUTSIDE RECORDS SUMMARY | 2018-12-29 07:45 | XMS REPORT ---
:1965 [facility] Team Providers Name Role [...] Status Dosage System Date Tizanidine HCl ND 33202869190 4 MG Orally TID Active take one -1 tablet by mouth every 8 hours [place] 3-6-9 ND 72291706975 - Orally ONCE A July Active as directed Complex 2018 Omeprazole ND 75162583748 40 MG Orally July Active 1 capsule Once a day 2017 Bentyl ND 70225681876 20 MG Orally May 03, Jun 02, Active 1 tablet Three times a 2018 2018 day Furosemide ND 82492226388 20 MG Orally Active 1 tablet Once a day Duloxetine HCl [facility] 02836838173 30 MG Orally Active TAKE 1 Once a day CAPSULE BY MOUTH EVERY DAY Promethazine [facility] 71524100831 25 MG Orally May 03, Jun 02, Active 1 tablet as HCl every 12 hrs 2018 2018 needed Singulair [facility] 35510881082 10 MG Orally Active 1 tablet in Once a day the evening Promethazine-Co [facility] 66089105857 6.25-10 MG/5ML May 24, Active 5 ml as deine Orally every 2017 needed 4-6 hrs Zofran [facility] 49281243215 8 MG Orally Mar 15, Active 1 tablet Twice a day 2017 Vitamin B12 [facility] 20629969786 100 MCG Orally Active as directed Vitamin D3 [facility] 07857387357 2000 UNIT Active 1 capsule Orally Once a day Bisoprolol [facility] 80436986049 10 MG Orally Active 1 tablet Fumarate Once a day Results Name Result Date Reference Range Unit Abnormality Flag URINALYSIS AUTO W/O SCOPE (95157) ----NIT N [id number] ----URO 0.2 20180606 ----PROTEIN N 20180606 ----pH 6.5 20180606 ----BLO N 20180606 ----GLUCOSE N 20180606 ----PINKY N 20180606 ----BILIRUBIN N 20180606 ----KETONES N 20180606 ----SPECIFIC GRAVITY 1.015 [id number] Summary Purpose [employer] Submission
--- OUTSIDE RECORDS SUMMARY | 2018-12-29 07:45 | XMS REPORT ---
[...] Date Status Dosage System Date Tramadol HCl [facility] 72423440844 50 MG Orally Tid Jun 10June 30, Active 1 tablet 2018 2018 as needed Results No Known Results Summary Purpose [employer] Submission
--- OUTSIDE RECORDS SUMMARY | 2018-12-29 07:45 | XMS REPORT ---
:1965 [facility] Address [address] [place] [address] Dr. Calderón [address] [place] [address] Care Team Providers Name Role Phone ALYCIAEMILY Unavailable Unavailable Problems This patient has no known problems. Allergies, Adverse Reactions, Alerts This patient has no known allergies or adverse reactions. Medications This patient has no known medications. Results Test Description Test Time Test Comments Text Results Atomic Results Result Comments FINE NEEDLE ASPIRATION 2018-06-27 10:38:00 Medical Cytology Report BY CLINICIAN Case: [id number] Authorizing Provider: Emily Brooks Collected: 06/21/2018 1358 Ordering Location: [facility] Endoscopy Received: 06/22/2018 0931 Services Pathologist: [...] neoplasm. Correlation with the accompanying tissue examination ([id number]) and additional cytology evaluations ([id number], M34-263) is recommended for further evaluation. This case was discussed with Dr. Kimani Choe on 06/27/2018. Addendum electronically signed by Ashia Lawson MD on 06/27/2018 at 10:38 AMGASTRO HEPATIC LYMPH NODE FNA BY CLINICIAN (CYTOSPINS AND CELL BLOCK OF ASPIRATE): - GRANULOMATOUS INFLAMMATION (SEE COMMENT) - NEGATIVE FOR EPITHELIAL MALIGNANCY Signing Pathologist Direct Phone Line: [phone] signed by Octaviano Rivera MD on 06/24/2018 [...] and an addendum will follow.Please see cases [id number], [id number] and 654 for further evaluation. 05706, 38183, 91558, 70907 x 11Pancreatic mass, (1.3cm) malignant-appearing lymph node in the gastrohepatic ligamentGASTRO HEPATIC LYMPH NODE FNA24 mls in cytorich red; 4 cytospins, cell blockCollected: [id number]: [id number] interpretation of this case included the use of immunohistochemistry or special stains. Please see the immunohistochemistry results in the COMMENT section. Immunohistochemistry technical testing was performed at [facility], Pathology Laboratory where it was developed and [...] qualified to perform high complexity clinical laboratory testing.[facility], Department of Pathology, [address] [place] [address], [facility], [address] [place] [address], [facility], [address] [place] [address], FINE NEEDLE ASPIRATION 2018-06-27 10:28:00 Medical Cytology Report BY CLINICIAN Case: [id number] Authorizing Provider: Emily Brooks Collected: 06/21/2018 1348 Ordering Location: [facility] Endoscopy Received: 06/22/2018 0932 Services Pathologist: Octaviano Rivera MD Specimen: Biopsy, Liver, liver left lobe Hematopathology Consultation: Impression: A-2: Liver tissue with involvement by granulomatous inflammation. No definitive evidence of involvement by a hematolymphoid neoplasm. Correlation with the accompanying tissue examination ([id number]) and additional cytology evaluations ([id number], [id number]) is recommended for further evaluation. This case was discussed with Dr. Kimani Choe on 06/27/2018. Addendum electronically signed by Ashia Lawson MD on 06/27/2018 at 10:28 AMLEFT LIVER LOBE FNA BY CLINICIAN (CYTOSPINS AND CELL BLOCK OF ASPIRATE): - GRANULOMATOUS INFLAMMATION (SEE COMMENT) - NEGATIVE FOR EPITHELIAL MALIGNANCY Signing Pathologist Direct Phone Line: [phone] signed by Octaviano Rivera MD on 06/24/2018 [...] and an addendum will follow.Please see cases [id number], [id number] and 654 for further evaluation.18112, 40905, 21885, 47950 x 2, 52098 x 2Pancreatic mass, abnormal echogenicity in left lobe of the liverLEFT LIVER LOBE FNA28 mls in cytorich red; 4 cytospins, cell blockCollected: [id number]: [id number] interpretation of this case included the use of immunohistochemistry or special stains. Please see the immunohistochemistry results in the COMMENT section. Immunohistochemistry technical testing was performed at [facility], Pathology Laboratory where it was developed and [...] qualified to perform high complexity clinical laboratory testing.[facility], Department of Pathology, [address] [place] [address], [facility], [address] [place] [address], [facility], [address] [place] [address], TISSUE EXAM 2018-06-27 08:35:00 Surgical Pathology Report Case: [id number] Authorizing Provider: Emily Brooks Collected: 06/21/2018 1344 Ordering Location: [facility] Endoscopy Received: 06/21/2018 1544 Services Pathologist: Saad Choe MD Specimens: A) - Biopsy, Liver, LIVER LEFT LOBE FNB B) - Pancreas, PANCREAS MASS FNB PART A LEFT LIVER LOBE, BIOPSY FOR SUSPECTED MASS:NONCASEATING GRANULOMATOUS INFLAMMATION.NEGATIVE FOR MALIGNANCY.SEE DIAGNOSTIC COMMENT.PART B PANCREAS, BIOPSY FOR SUSPECTED MASS:NONCASEATING GRANULOMATOUS INFLAMMATION IN LYMPHOID MATERIAL.NEGATIVE FOR MALIGNANCY.SEE DIAGNOSTIC COMMENT. Signing Pathologist Direct Phone Line: [phone] signed by Saad Choe MD on 06/27/2018 [...] case were discussed with Dr. Emily Brooks, test pilot on 06/24/2018.Intradepartment consultation: Camila Burt MD88307x2, 89102c2, [id number], 96751p9Juomsheicf mass A. Liver left lobe FNB. B. [...] GMS, AFBImmunohistochemistry technical testing was performed at [facility], Pathology Laboratory where it was developed and [...] 19:25:00 Medical Cytology Report BY CLINICIAN Case: [id number] Authorizing Provider: Emily Brooks Collected: 06/21/2018 1415 Ordering Location: [facility] Endoscopy Received: 06/22/2018 0932 Services Pathologist: Octaviano Rivera MD Specimen: Celiac Node CELIAC LYMPH NODE FNA BY CLINICIAN (CYTOSPINS AND CELL BLOCK OF ASPIRATE): - NON-DIAGNOSTIC SPECIMEN - PREDOMINANTLY BLOOD ELEMENTS WITH VERY RARE LYMPHOCYTES Signing Pathologist Direct Phone Line: [phone] signed by Octaviano Rivera MD on 06/24/2018 at 7:25 PMPlease see cases [id number], [id number] and 653.57000, 89879, 12977Enyvglafvy mass, (1.2 cm) malignant-appearing lymph node in the celiac regionCELIAC LYMPH NODE FNA25 mls in cytorich red; 4 cytospins, cell blockCollected: [id number]: [id number] interpretation of this case included the use of immunohistochemistry or special stains.An immunostain for CAM5.2 performed on a cell block section is negative.Immunohistochemistry technical testing was performed at [facility], Pathology Laboratory where it was developed and [...] qualified to perform high complexity clinical laboratory testing.[facility], Department of Pathology, [address] [place] [address], [facility], [address] [place] [address], [facility], [facility], [address] [place] [address], FINE NEEDLE ASPIRATE (FNA) REQUEST 2018-06-22 11:03:00 Test Item Value Reference Range Comments CYTOLOGY RESULT POINTER (BEAKER) (test [id number]=[id number]) See Separate Report FINE NEEDLE ASPIRATE (FNA) [id number] 11:03:00 Test Item Value Reference Range Comments CYTOLOGY RESULT POINTER (BEAKER) (test See Separate Report jaor=[id number]) FINE NEEDLE ASPIRATE (FNA) [id number] 11:03:00 Test Item Value Reference Range Comments CYTOLOGY RESULT POINTER (BEAKER) (test See Separate Report [id number])
--- OUTSIDE RECORDS SUMMARY | 2018-12-29 07:45 | XMS REPORT | Continuity of Care Document ---
:1965 Author Organization [facility] Care Team Providers Name Role Phone [facility] Unavailable Unavailable Problems Problem Status Onset Classification [...] Patient Name: ALAN DOAN 11/25/2016 MH OPID [facility] : 1965; Age: 51 years Female MR: [id number] Study: Chest 2 views DX Order Time: [...] Right-sided atelectasis. Mild hyperinflation. No pneumothorax. SL: [id number] Consultation Notes No Data Provided for This Section Discharge Summaries No Data Provided for This Section History and Physicals No Data Provided for This Section Vital Signs No Data Provided for This Section Encounters Location Location Encounter Encounter Reason Attending ADM DC Status Source Details Type Number For Provider Date Date Visit [facility] Outpt Diag [id number] Lei 11/25 11/26 [facility] Procedures No Data Provided for This Section Assessment and Plan No Data Provided for This Section Plan of Care No Data Provided for This Section Social History Social History Date Source No data available for this 11/26/2016 OPID [facility] section Family History No Data Provided for This Section Advance Directives No Data Provided for This Section Functional Status No Data Provided for This Section
--- OUTSIDE RECORDS SUMMARY | 2018-12-29 07:46 | XMS REPORT ---
:1965 Author [facility] Care Team Providers Name Role Phone [...] End Status Dosage System Date Date Bisoprolol [facility] 37548944901 10 MG Orally Active 1 tablet Fumarate Once a day Duloxetine HCl [facility] 13552802124 30 MG Orally Active TAKE 1 Once a day CAPSULE BY MOUTH EVERY DAY Zofran [facility] 04426995117 8 MG Orally Mar 15, Active 1 tablet Twice a day 2017 Singulair [facility] 16564214378 10 MG Orally Active 1 tablet in Once a day the evening Tizanidine HCl [facility] 95978885744 4 MG Orally TID Active take one -1 tablet by mouth every 8 hours Vitamin B12 [facility] 97982446331 100 MCG Orally Active as directed Amlodipine [facility] 60513826226 10 MG Orally July Active 1 tablet Besylate Once a day 2018 Furosemide [facility] 38629341196 20 MG Orally Active 1 tablet Once a day Omeprazole [facility] 85122526132 40 MG Orally July Active 1 capsule Once a day 2017 Vitamin D3 [facility] 65513471758 2000 UNIT Orally Active 1 capsule Once a day Results No Known Results Summary Purpose eClinicalWorks Submission
--- OUTSIDE RECORDS SUMMARY | 2018-12-29 07:46 | XMS REPORT ---
:1965 Author [facility] Care Team Providers Name Role Phone Maryjane Osorio Provider Role Unavailable Allergies, Adverse Reactions, Alerts Substance Reaction Event Type penicillin itching, breathing issues Drug Allergy Methadone HCl vomiting Drug Allergy Iodine swelling Drug Allergy Problems Problem Type Condition Code Onset Dates Condition Status Assessment Other vascular headache G44.1 Active Assessment Hypertensive crisis, unspecified I16.9 Active Problem Dyslipidemia E78.5 Active Problem Hypercalcemia E83.52 Active Problem Chronic nausea R11.[address] of the abdomen R93.5 Active Problem Chronic kidney disease, stage III N18.3 Active (moderate) Problem Epigastric pain R10.13 Active Problem Bilious vomiting with nausea R11.14 Active Problem Dysuria R30.0 Active Problem Hypertensive crisis, unspecified I16.9 Active Problem Other vascular headache G44.1 Active Problem Lung nodule, multiple R91.8 Active Problem Osteoarthritis M19.90 Active Problem Essential hypertension I10 Active Problem Rib pain R07.81 Active Problem Fever, unspecified fever cause R50.9 Active Problem Muscle spasms of neck M62.838 Active Problem Common cold J00 Active Problem Cough R05 Active Problem Chronic pain disorder G89.4 Active Problem Osteopenia M85.80 Active Problem Elevated glucose R73.09 Active Problem Asthma J45.909 Active Problem Unspecified sprain of right wrist, S63.501A Active initial encounter Problem Low back pain M54.5 Active Problem Anxiety and depression F41.8 Active Problem Lesion of liver K76.9 Active Medications Medication Code Code Instructions Start End Status Dosage System Date Date Singulair [facility] 02005565169 10 MG Orally Active 1 tablet in Once a day the evening Furosemide ND 47278221458 20 MG Orally Active 1 tablet Once a day Vitamin D3 [facility] 11160706260 2000 UNIT Orally Active 1 capsule Once a day Amlodipine ND 49532928612 10 MG Orally July Active 1 tablet Besylate Once a day 2018 Omeprazole [facility] 09129583028 40 MG Orally July Active 1 capsule Once a day 2017 Zofran [facility] 36171096002 8 MG Orally Mar 15, Active 1 tablet Twice a day 2017 Vitamin B12 [facility] 69593233017 100 MCG Orally Active as directed Tizanidine HCl [facility] 79885509749 4 MG Orally TID Active take one -1 tablet by mouth every 8 hours Duloxetine HCl [facility] 15271410600 30 MG Orally Active TAKE 1 Once a day CAPSULE BY MOUTH EVERY DAY Bisoprolol [facility] 09584734169 10 MG Orally Active 1 tablet Fumarate Once a day Results No Known Results Summary Purpose eClinicalWorks Submission
--- OUTSIDE RECORDS SUMMARY | 2018-12-29 07:46 | XMS REPORT ---
:1965 Author Organization [facility] Care Team Providers Name Role Phone DevonMaryjane Provider Role Unavailable Allergies, Adverse Reactions, Alerts Substance Reaction Event Type penicillin itching, breathing issues Drug Allergy Methadone HCl vomiting Drug Allergy Iodine swelling Drug Allergy Problems Problem Type Condition Code Onset Dates Condition Status Assessment Hospital discharge follow-up Z09 Active Assessment Chronic nausea R11.0 Active Assessment Muscle spasms of neck M62.838 Active Assessment Essential hypertension I10 Active Assessment Chronic kidney disease, stage III N18.3 Active (moderate) Problem Dyslipidemia E78.5 Active Problem Hypercalcemia E83.52 Active Problem Chronic kidney disease, stage III N18.3 Active (moderate) Problem Abnormal CT of the abdomen R93.5 Active Problem Epigastric pain R10.13 Active Problem Rib pain R07.81 Active Problem Dysuria R30.0 Active Problem Muscle spasms of neck M62.838 Active Problem Bilious vomiting with nausea R11.14 Active Problem Essential hypertension I10 Active Problem Hypertensive crisis, unspecified I16.9 Active Problem Elevated glucose R73.09 Active Problem Lung nodule, multiple R91.8 Active Problem Hospital discharge follow-up Z09 Active Problem Osteoarthritis M19.90 Active Problem Cough R05 Active Problem Fever, unspecified fever cause R50.9 Active Problem Other vascular headache G44.1 Active Problem Common cold J00 Active Problem Osteopenia M85.80 Active Problem Anxiety and depression F41.8 Active Problem Asthma J45.909 Active Problem Chronic pain disorder G89.4 Active Problem Low back pain M54.5 Active Problem Chronic nausea R11.0 Active Problem Lesion of liver K76.9 Active Problem Unspecified sprain of right wrist, S63.501A Active initial encounter Medications Medication Code Code Instructions Start End Status Dosage System Date Date Furosemide ND 17724489720 20 MG Orally Active 1 tablet Once a day [id number]-XAE-9 ND 51542331655 0.1 MG/24HR Active 1 patch to Transdermal skin Duloxetine HCl [facility] 14638242727 30 MG Orally Active take 1 Once a day capsule by mouth every day Singulair [facility] 30338138470 10 MG Orally Active 1 tablet in Once a day the evening Tizanidine HCl [facility] 65104314059 4 MG Orally TID Active take one -1 tablet by mouth every 8 hours Bisoprolol [facility] 62709949414 5 MG Orally Once Active 1 tablet Fumarate a day Vitamin D3 [facility] 45396208515 2000 UNIT Orally Active 1 capsule Once a day Vitamin B12 [facility] 49348834837 100 MCG Orally Active as directed Omeprazole [facility] 18571021981 40 MG Orally July Active 1 capsule Once a day 2017 Zofran [facility] 55122098547 8 MG Orally Mar 15, Active 1 tablet Twice a day 2017 Amlodipine [facility] 56323855569 10 MG Orally July Active 1 tablet Besylate Once a day 2018 Results No Known Results Summary Purpose eClinicalWorks Submission
--- OUTSIDE RECORDS SUMMARY | 2018-12-29 07:46 | XMS REPORT ---
:1965 Author Organization [facility] Care Team Providers Name Role Phone Maryjane [...] End Date Status Dosage System Date Bisoprolol [facility] 64710655931 10 MG Orally Active 1 tablet Fumarate Once a day Furosemide ND 43111973170 20 MG Orally Active 1 tablet Once a day Vitamin D3 [facility] 73859034442 2000 UNIT Active 1 capsule Orally Once a day Vitamin B12 [facility] 82151728351 100 MCG Orally Active as directed Singulair ND 47240544300 10 MG Orally Active 1 tablet in Once a day the evening Zofran ND 29908562164 8 MG Orally Mar 15, Active 1 tablet Twice a day 2017 Duloxetine HCl [facility] 35042948364 30 MG Orally Active TAKE 1 Once a day CAPSULE BY MOUTH EVERY DAY Tizanidine HCl [facility] 19283496671 4 MG Orally TID Active take one -1 tablet by mouth every 8 hours Zenia 3-6-9 [facility] 48052822517 - Orally ONCE A July Active as directed Complex 2018 Omeprazole [facility] 02659437649 40 MG Orally July Active 1 capsule Once a day 2017 Results Name Result Date Reference Range Unit Abnormality Flag FLU TEST A/B ----A neg [id number] ----B neg [id number] Summary Purpose eClinicalWorks Submission
--- OUTSIDE RECORDS SUMMARY | 2018-12-29 07:46 | XMS REPORT ---
:1965 Author [facility] Care Team Providers Name Role Phone [...] Date Status Dosage System Date Omeprazole ND 81902306424 40 MG Orally July Active 1 capsule Once a day 2017 Singulair [facility] 92151647951 10 MG Orally Active 1 tablet in Once a day the evening Duloxetine HCl [facility] 56322232539 30 MG Orally Active TAKE 1 Once a day CAPSULE BY MOUTH EVERY DAY Tizanidine HCl [facility] 66671931315 4 MG Orally TID Active take one -1 tablet by mouth every 8 hours Vitamin D3 ND 69959043437 2000 UNIT Active 1 capsule Orally Once a day Zofran ND 39649930464 8 MG Orally Mar 15, Active 1 tablet Twice a day 2017 Promethazine [facility] 27785276423 25 MG Orally July Active 1 tablet as HCl every 12 hrs 2018 needed Bisoprolol [facility] 52042432683 10 MG Orally Active 1 tablet Fumarate Once a day Furosemide [facility] 33205385826 20 MG Orally Active 1 tablet Once a day Vitamin B12 [facility] 57157891387 100 MCG Orally Active as directed [place] 3-6-9 [facility] 06835830962 - Orally ONCE A July Active as directed Complex 2018 Azithromycin [facility] 32618991781 250 MG Orally July Active 2 tablets Once a day 2018 on the first day, then 1 tablet daily for 4 days Results Name Result Date Reference Range Unit Abnormality Flag FLU TEST A/B ----A neg [id number] ----B neg [id number] Summary Purpose eClinicalWorks Submission
[2018-12-29] MEDS ORDERED: PAMIDRONATE 90 MG in NA CHLORIDE 0.9% 500 ML IV ONE (08:00)
[2018-12-29 08:28] VITALS: O2SAT 100
[2018-12-29 08:30] VITALS: BMI 37.4
[2018-12-29 13:15] VITALS: BP 168/88; TEMP 98.4
== END 2018-12-29 12:45 | disposition home or self-care (01) ==
LOC: DS 07:42
PROVIDERS: ATTEND Internal Medicine Nephrology
DX: E83.52 Hypercalcemia (principal); D86.9 Sarcoidosis, unspecified
CPT/HCPCS: 96365; 96366; J2430

== ENCOUNTER 2019-01-08 11:24 | Emergency (ER) | payer OTHER ==
--- OUTSIDE RECORDS SUMMARY | 2019-01-08 11:26 | XMS REPORT | Clinical Summary ---
:1965 Author Organization [facility] Address [address] [place] [address] Care Team Providers Name Role Phone Damon [...] INFLUENZA VACCINE 11/17/2018 Implants Implanted Type Area Ctc Operator Device Shelf Model / Identifier Expiration Serial / Date Lot Drain Wnd Chnl 24fr 16in Rnd Hbls Fl-Flut Rosenda - [id number] Surgical N/A: N/ A [employer] 02/16/2021 [id number] / Implanted: Qty: 1 on 11/13/2016 by Lei Dumont MD at [facility] Implants; DIVISION / Expanders; [id number] Extenders; Surgical Wires Results Not on fileafter 01/07/2018 Insurance Payer Benefit Plan / Subscriber ID Effective Phone Address Type Group Dates MEDICAID MEDICAID xxxxxxxxx 2016-Prese Medicaid nt [facility] 2016-Pres Commercial ent [facility] MEDICARE [facility] xxxxxxxxx 2016-Prese O MEDICARE DIRECT nt [facility] Advance Directives For more information, please contact: [phone] Type Date Recorded Patient Flexo Operator Explanation Advance Directives, Living Will 11/11/2016 9:04 AM and 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
--- OUTSIDE RECORDS SUMMARY | 2019-01-08 11:27 | XMS REPORT ---
[...] Start Date End Date Status [facility] 08094109839 10 MG Orally May 05, May 06, Active 5 tablet hours before [address] SCan, then 5 tabs 2 hours before scan Results No Known Results Summary Purpose BrainRushinicalWorks Submission
--- OUTSIDE RECORDS SUMMARY | 2019-01-08 11:27 | XMS REPORT ---
[...] Date Status Dosage System Date Tramadol HCl [facility] 55785972611 50 MG Orally Tid Jun 10June 30, Active 1 tablet 2018 2018 as needed Results No Known Results Summary Purpose eClinicalWorks Submission
--- OUTSIDE RECORDS SUMMARY | 2019-01-08 11:27 | XMS REPORT | Continuity of Care Document ---
:1965 Author Organization [email or web address] Care Team Providers Name Role Phone [facility] Unavailable Unavailable Problems Problem Status Onset Classification [...] Patient Name: ALAN DOAN 11/25/[address] [facility] : 1965; Age: 51 years Female MR: [id number] Study: Chest 2 views DX Order Time: [...] Right-sided atelectasis. Mild hyperinflation. No pneumothorax. SL: [id number] Consultation Notes No Data Provided for This Section Discharge Summaries No Data Provided for This Section History and Physicals No Data Provided for This Section Vital Signs No Data Provided for This Section Encounters Location Location Encounter Encounter Reason Attending ADM DC Status Source Details Type Number For Provider Date Date Visit [facility] Outpt Diag [id number] Lei 11/25 11/26 [facility] Procedures No Data Provided for This Section Assessment and Plan No Data Provided for This Section Plan of Care No Data Provided for This Section Social History Social History Date Source No data available for this 11/26/[address] [facility] section Family History No Data Provided for This Section Advance Directives No Data Provided for This Section Functional Status No Data Provided for This Section
--- OUTSIDE RECORDS SUMMARY | 2019-01-08 11:27 | XMS REPORT ---
:1965 Author Organization [facility] Care Team Providers Name Role Phone [...] Status Dosage System Date Tizanidine HCl ND 49316147326 4 MG Orally TID Active take one -1 tablet by mouth every 8 hours [place] 3-6-9 ND 79513424111 - Orally ONCE A July Active as directed Complex 2018 Omeprazole ND 73632877153 40 MG Orally July Active 1 capsule Once a day 2017 Bentyl ND 88252084869 20 MG Orally May 03, Jun 02, Active 1 tablet Three times a 2018 2018 day Furosemide ND 70711859054 20 MG Orally Active 1 tablet Once a day Duloxetine HCl [facility] 76242618909 30 MG Orally Active TAKE 1 Once a day CAPSULE BY MOUTH EVERY DAY Promethazine [facility] 05580232301 25 MG Orally May 03, Jun 02, Active 1 tablet as HCl every 12 hrs 2018 2018 needed Singulair [facility] 59874165918 10 MG Orally Active 1 tablet in Once a day the evening Promethazine-Co [facility] 44937666296 6.25-10 MG/5ML May 24, Active 5 ml as deine Orally every 2017 needed 4-6 hrs Zofran [facility] 75762773386 8 MG Orally Mar 15, Active 1 tablet Twice a day 2017 Vitamin B12 [facility] 40665727867 100 MCG Orally Active as directed Vitamin D3 [facility] 44617562840 2000 UNIT Active 1 capsule Orally Once a day Bisoprolol [facility] 72422966293 10 MG Orally Active 1 tablet Fumarate Once a day Results Name Result Date Reference Range Unit Abnormality Flag URINALYSIS AUTO W/O SCOPE (60744) ----NIT N [id number] ----URO 0.2 20180606 ----PROTEIN N [id number] ----pH 6.5 20180606 ----BLO N 20180606 ----GLUCOSE N 20180606 ----PINKY N 20180606 ----BILIRUBIN N 20180606 ----KETONES N 20180606 ----SPECIFIC GRAVITY 1.015 [id number] Summary Purpose eClinicalWorks Submission
--- OUTSIDE RECORDS SUMMARY | 2019-01-08 11:27 | XMS REPORT ---
:1965 [facility] Team Providers Name Role [...] Date Status Dosage System Date Bisoprolol [facility] 35656758780 10 MG Orally Active 1 tablet Fumarate Once a day Furosemide ND 70415947090 20 MG Orally Active 1 tablet Once a day Vitamin D3 [facility] 28142991446 2000 UNIT Active 1 capsule Orally Once a day Vitamin B12 [facility] 57047880425 100 MCG Orally Active as directed Singulair ND 35773515552 10 MG Orally Active 1 tablet in Once a day the evening Zofran ND 13520548679 8 MG Orally Mar 15, Active 1 tablet Twice a day 2017 Duloxetine HCl [facility] 58438205022 30 MG Orally Active TAKE 1 Once a day CAPSULE BY MOUTH EVERY DAY Tizanidine HCl [facility] 26050905828 4 MG Orally TID Active take one -1 tablet by mouth every 8 hours [place] 3-6-9 [facility] 74177871830 - Orally ONCE A July Active as directed Complex 2018 Omeprazole [facility] 18551110612 40 MG Orally July Active 1 capsule Once a day 2017 Results Name Result Date Reference Range Unit Abnormality Flag FLU TEST A/B ----A neg [id number] ----B neg [id number] Summary Purpose eClinicalWorks Submission
--- OUTSIDE RECORDS SUMMARY | 2019-01-08 11:27 | XMS REPORT | Clinical Summary ---
:1965 Author Organization [facility] Address [address] [place] [address] Care Team Providers Name Role Phone Niyah Osorio [facility] Primary Care Provider Allergies Active [...] MD 06/21/2018 Surgery Gastroenterology Finesse Brooks [facility] ENDOSCOPY,FNA W/ULTRASOUND 06/21/2018 Hospital Encounter Gastroenterology Finesse Brooks Nehal 06/15/2018 Hospital Encounter Pre-Admission Testing after 01/07/2018 Social History Tobacco Use Types Packs/Day Years [...] Taken Blood Pressure 156/91 06/21/2018 3:00 PM VIDEO GAME REPAIR TECHNICIAN Pulse 75 06/21/2018 3:00 PM VIDEO GAME REPAIR TECHNICIAN Temperature 36.6 C (97.8 F) 06/21/2018 2:25 PM VIDEO GAME REPAIR TECHNICIAN Respiratory Rate 16 06/21/2018 3:00 PM VIDEO GAME REPAIR TECHNICIAN Oxygen Saturation 96% 06/21/2018 3:00 PM VIDEO GAME REPAIR TECHNICIAN Inhaled Oxygen Concentration - - Weight 105.7 kg (233 lb) 06/21/2018 11:39 AM VIDEO GAME REPAIR TECHNICIAN Height 162.6 cm (5' 4") 06/21/2018 11:39 AM VIDEO GAME REPAIR TECHNICIAN Body Mass Index 39.99 06/21/2018 11:39 AM VIDEO GAME REPAIR TECHNICIAN Plan of Treatment Not on file Procedures Procedure Name Priority Date/Time Associated Comments Diagnosis REPORT OF PROCEDURE 06/21/2018 2:51 - ENDOSCOPY URL PM VIDEO GAME REPAIR TECHNICIAN FINE NEEDLE Routine 06/21/2018 2:15 Results for this ASPIRATE (FNA) PM VIDEO GAME REPAIR TECHNICIAN procedure are in REQUEST the results section. FINE NEEDLE AP Routine 06/21/2018 2:15 Results for this ASPIRATION BY PM VIDEO GAME REPAIR TECHNICIAN procedure are in CLINICIAN the results section. FINE NEEDLE Routine 06/21/2018 1:58 Results for this ASPIRATE (FNA) PM VIDEO GAME REPAIR TECHNICIAN procedure are in REQUEST the results section. FINE NEEDLE AP Routine 06/21/2018 1:58 Results for this ASPIRATION BY PM VIDEO GAME REPAIR TECHNICIAN procedure are in CLINICIAN the results section. FINE NEEDLE Routine 06/21/2018 1:48 Results for this ASPIRATE (FNA) PM VIDEO GAME REPAIR TECHNICIAN procedure are in REQUEST the results section. FINE NEEDLE AP Routine 06/21/2018 1:48 Results for this ASPIRATION BY PM VIDEO GAME REPAIR TECHNICIAN procedure are in CLINICIAN the results section. TISSUE EXAM AP Routine 06/21/2018 1:44 Results for this PM VIDEO GAME REPAIR TECHNICIAN procedure are in the results section. UPPER ENDOSCOPY,FNA 06/21/2018 12:00 Pancreatic mass W/ULTRASOUND PM VIDEO GAME REPAIR TECHNICIAN Special Needs (LINEAR SCOPE) after 01/07/2018 Results REPORT OF PROCEDURE - ENDOSCOPY URL (06/21/2018 2:51 PM VIDEO GAME REPAIR TECHNICIAN) Narrative Performed At FINE NEEDLE ASPIRATE (FNA) REQUEST (06/21/2018 2:15 PM VIDEO GAME REPAIR TECHNICIAN)Only the most recent of3 resultswithin the time period is included. Cytology See Separate Report [facility] Specimen Fine Needle Aspirate Performing Organization Address City/State/Zipcode Phone Number [place] [phone] [place] [address] [phone] CENTER Fine Needle Aspirate by Clinician (06/21/2018 2:15 PM VIDEO GAME REPAIR TECHNICIAN)Only the most recent of3 resultswithin the time period is included. Case Report Medical Cytology Report Case: [id number] [facility] Authorizing Provider:Finesse Brooksected: 06/21/2018 1415 [facility] Ordering Location: [facility] Endoscopy Received: 06/22/2018 0932 Services Pathologist: Octaviano Rivera MD Specimen:Celiac Node DIAGNOSIS CELIAC LYMPH NODE FNA BY CLINICIAN (CYTOSPINS AND CELL BLOCK OF ASPIRATE): [facility] - NON-DIAGNOSTIC SPECIMEN [facility] - PREDOMINANTLY BLOOD ELEMENTS WITH VERY RARE LYMPHOCYTES Signing Pathologist Direct Phone Line: [phone] COMMENT Please see cases [id number], [facility] [id number] and 653. [facility] CPT Code(s) 87458, 57340, 26172 [facility] CLINICAL DATA Pancreatic mass, (1.2 cm) [facility] malignant-appearing lymph node [facility] in the celiac region SPECIMEN SOURCE CELIAC LYMPH NODE FNA [facility] GROSS DESCRIPTION 25 mls in cytorich red; 4 cytospins, cell block [facility] Collected: [id number] [facility] Received: [id number] SPECIAL STUDIES The interpretation of this case included the use of immunohistochemistry or special stains. [facility] An immunostain for CAM5.2 performed on a cell block section is negative. Immunohistochemistry technical testing was performed at [facility], Pathology Laboratory where it was developed [...] complexity clinical laboratory testing. Gross assessment was [facility] performed at [place], [facility] Pathology, [address] [place] [address], Technical component was [facility] performed at [place], [facility] Pathology, [address] [place] [address], Professional component [facility] was performed at [place], [facility] Path[facility], [address] [place] [address], Specimen Fine Needle Aspirate Narrative Performed At Performing Organization Address City/State/Zipcode Phone Number [facility] [address] [place] [address] [phone] CENTER Tissue Exam (06/21/2018 1:44 PM VIDEO GAME REPAIR TECHNICIAN) Case Report Surgical Pathology Report Case: [id number] [facility] Authorizing Provider:Finesse Brooksected: 06/21/2018 1344 [facility] Ordering Location: [facility] Endoscopy Received: 06/21/2018 1544 Services Pathologist: Saad Choe MD Specimens: A) - Biopsy, Liver, LIVER LEFT LOBE FNB B) - Pancreas, PANCREAS MASS FNB DIAGNOSIS PART A LEFT LIVER LOBE, BIOPSY FOR SUSPECTED MASS: [facility] NONCASEATING GRANULOMATOUS INFLAMMATION. [facility] NEGATIVE FOR MALIGNANCY. SEE DIAGNOSTIC COMMENT. PART B PANCREAS, BIOPSY FOR SUSPECTED MASS: NONCASEATING GRANULOMATOUS INFLAMMATION IN LYMPHOID MATERIAL. NEGATIVE FOR MALIGNANCY. SEE DIAGNOSTIC COMMENT. Signing Pathologist Direct Phone Line: [phone] COMMENT Histological sections on both biopsy shows marked replacement of the normal liver and pancreatic parenchyma (parts A and B respectively) with noncaseating granulomatous inflammation. Multinucleated perla [facility] t cells are easily identified in the sections examined. Immunohistochemical studies performed on both blocks A1 and B1 demonstrate CD20/PAX5 positive B cells and CD3/CD5 positive T cells. There is no ab [facility] errant co-expression of CD20 and CD5. [...] case were discussed with Dr. Finesse Brooks, damage cutter on 06/24/2018. Intradepartment consultation: Camila Burt MD CPT Code(s) 86936l0, 86355d8, 34816w05, [facility] [id number] [facility] CLINICAL HISTORY Pancreatic mass [facility] SPECIMEN SOURCE A. Liver left lobe FNB. B. [facility] Pancreas mass FNB [facility] GROSS DESCRIPTION Specimen is received in two parts both labeled with the patient's information. [facility] Specimen A: Labeled "liver left lobe FNB" consists of multiple fragments of hemorrhagic stringy tissue measuring 1.5 x 0.5 x 0.3 cm in aggregate, submitted in A1. Specimen B: Labeled "pancreas mass FNB" consists of multiple stringy fragments of hemorrhagic soft tissue measuring 1.5 x 0.5 x 0.3 cm, submitted entirely in B1. CG/ew MICROSCOPIC DESCRIPTION PERFORMED. [facility] SPECIAL STUDIES The interpretation of this case included the use of immunohistochemistry or special stains. [facility] BLOCK A1- CD30, PAX5, CD20, CD5, CD3, GMS, AFB [facility] BLOCK B1- CD30, PAX5, CD20, CD5, CD3, SYNAPTOPHYSIN, CAM 5.2, GMS, AFB Immunohistochemistry technical testing was performed at [facility], Pathology Laboratory where it was developed [...] structure) Performing Organization Address City/State/Zipcode Phone Number [facility] [address] [place] [address] CENTER after 01/07/2018 Insurance Payer Benefit Plan / Group Subscriber ID Type Phone Address [employer] - MEDICARE AAR/MEDICARE COMPLETE xxxxxxxxx MGD CARE
--- OUTSIDE RECORDS SUMMARY | 2019-01-08 11:27 | XMS REPORT ---
:1965 Author Organization [facility] Address [address] [place] [address] Dr. Calderón [address] [place] [address] Care Team Providers Name Role Phone ALYCIAEMILY Unavailable Unavailable Problems This patient has no known problems. Allergies, Adverse Reactions, Alerts This patient has no known allergies or adverse reactions. Medications This patient has no known medications. Results Test Description Test Time Test Comments Text Results Atomic Results Result Comments FINE NEEDLE ASPIRATION 2018-06-27 10:38:00 Medical Cytology Report BY CLINICIAN Case: [id number] Authorizing Provider: Emily Brooks Collected: 06/21/2018 1358 Ordering Location: [facility] Endoscopy Received: 06/22/2018 0931 Services Pathologist: Octaviano [...] neoplasm. Correlation with the accompanying tissue examination ([id number]) and additional cytology evaluations ([id number], [id number]) is recommended for further evaluation. This case was discussed with Dr. Kimani Choe on 06/27/2018. Addendum electronically signed by Ashia Lawson MD on 06/27/2018 at 10:38 AMGASTRO HEPATIC LYMPH NODE FNA BY CLINICIAN (CYTOSPINS AND CELL BLOCK OF ASPIRATE): - GRANULOMATOUS INFLAMMATION (SEE COMMENT) - NEGATIVE FOR EPITHELIAL MALIGNANCY Signing Pathologist Direct Phone Line: [phone] signed by Octaviano Rivera MD on 06/24/2018 [...] and an addendum will follow.Please see cases [id number], [id number] and 654 for further evaluation. 31824, 49209, 96757, 97929 x 11Pancreatic mass, (1.3cm) malignant-appearing lymph node in the gastrohepatic ligamentGASTRO HEPATIC LYMPH NODE FNA24 mls in cytorich red; 4 cytospins, cell blockCollected: [id number]: [id number] interpretation of this case included the use of immunohistochemistry or special stains. Please see the immunohistochemistry results in the COMMENT section. Immunohistochemistry technical testing was performed at [facility], Pathology Laboratory where it was developed [...] qualified to perform high complexity clinical laboratory testing.[facility], Department of Pathology, [address] [place] [address], [facility], Department of [facility], [address] [place] [address], [facility], Department of Pathology, [address] [place] [address], FINE NEEDLE ASPIRATION 2018-06-27 10:28:00 Medical Cytology Report BY CLINICIAN Case: [id number] Authorizing Provider: Emily Brooks Collected: 06/21/2018 1348 Ordering Location: [facility] Endoscopy Received: 06/22/2018 0932 Services Pathologist: Octaviano Rivera MD Specimen: Biopsy, Liver, liver left lobe Hematopathology Consultation: Impression: A-2: Liver tissue with involvement by granulomatous inflammation. No definitive evidence of involvement by a hematolymphoid neoplasm. Correlation with the accompanying tissue examination ([id number]) and additional cytology evaluations ([id number], C19-654) is recommended for further evaluation. This case was discussed with Dr. Kimani Choe on 06/27/2018. Addendum electronically signed by Ashia Lawson MD on 06/27/2018 at 10:28 AMLEFT LIVER LOBE FNA BY CLINICIAN (CYTOSPINS AND CELL BLOCK OF ASPIRATE): - GRANULOMATOUS INFLAMMATION (SEE COMMENT) - NEGATIVE FOR EPITHELIAL MALIGNANCY Signing Pathologist Direct Phone Line: [phone] signed by Octaviano Rivera MD on 06/24/2018 [...] and an addendum will follow.Please see cases [id number], [id number] and 654 for further evaluation.18378, 05353, 86554, 49635 x 2, 41711 x 2Pancreatic mass, abnormal echogenicity in left lobe of the liverLEFT LIVER LOBE FNA28 mls in cytorich red; 4 cytospins, cell blockCollected: [id number]: [id number] interpretation of this case included the use of immunohistochemistry or special stains. Please see the immunohistochemistry results in the COMMENT section. Immunohistochemistry technical testing was performed at [facility], Pathology Laboratory where it was developed [...] qualified to perform high complexity clinical laboratory testing.[facility], Department of Pathology, [address] [place] [address], [facility], [facility] of [facility]ology, [address] [place] [address], [facility], Department of Pathology, [address] [place] [address], TISSUE EXAM 2018-06-27 08:35:00 Surgical Pathology Report Case: [id number] Authorizing Provider: Emily Brooks Collected: 06/21/2018 1344 Ordering Location: [facility] Endoscopy Received: 06/21/2018 1544 Services Pathologist: Saad Choe MD Specimens: A) - Biopsy, Liver, LIVER LEFT LOBE FNB B) - Pancreas, PANCREAS MASS FNB PART A LEFT LIVER LOBE, BIOPSY FOR SUSPECTED MASS:NONCASEATING GRANULOMATOUS INFLAMMATION.NEGATIVE FOR MALIGNANCY.SEE DIAGNOSTIC COMMENT.PART B PANCREAS, BIOPSY FOR SUSPECTED MASS:NONCASEATING GRANULOMATOUS INFLAMMATION IN LYMPHOID MATERIAL.NEGATIVE FOR MALIGNANCY.SEE DIAGNOSTIC COMMENT. Signing Pathologist Direct Phone Line: [phone] signed by Saad Choe MD on 06/27/2018 [...] case were discussed with Dr. Emily Brooks, prover on 06/24/2018.Intradepartment consultation: Camila Burt MD88307x2, 05601v9, 24005o93, 16735t8Gyeizltntj mass A. Liver left lobe FNB. B. [...] GMS, AFBImmunohistochemistry technical testing was performed at [facility], Pathology Laboratory where it was developed [...] 19:25:00 Medical Cytology Report BY CLINICIAN Case: [id number] Authorizing Provider: Emily Brooks Collected: 06/21/2018 1415 Ordering Location: [facility] Endoscopy Received: 06/22/2018 0932 Services Pathologist: Octaviano Rivera MD Specimen: Celiac Node CELIAC LYMPH NODE FNA BY CLINICIAN (CYTOSPINS AND CELL BLOCK OF ASPIRATE): - NON-DIAGNOSTIC SPECIMEN - PREDOMINANTLY BLOOD ELEMENTS WITH VERY RARE LYMPHOCYTES Signing Pathologist Direct Phone Line: [phone] signed by Octaviano Rivera MD on 06/24/2018 at 7:25 PMPlease see cases [id number], [id number] and 653.05184, 46822, 04601Wgqgpstteg mass, (1.2 cm) malignant-appearing lymph node in the celiac regionCELIAC LYMPH NODE FNA25 mls in cytorich red; 4 cytospins, cell blockCollected: [id number]: 356931Nln interpretation of this case included the use of immunohistochemistry or special stains.An immunostain for CAM5.2 performed on a cell block section is negative.Immunohistochemistry technical testing was performed at [facility], Pathology Laboratory where it was developed [...] qualified to perform high complexity clinical laboratory testing.[facility], Department of Pathology, [address] [place] [address], [facility], Department of Pathology, [address] [place] [address], [facility], Department of Pathology, [address] [place] [address], FINE NEEDLE ASPIRATE (FNA) REQUEST 2018-06-22 11:03:00 Test Item Value Reference Range Comments CYTOLOGY RESULT POINTER (BEAKER) (test lkcf=[id number]) See Separate Report FINE NEEDLE ASPIRATE (FNA) [id number] 11:03:00 Test Item Value Reference Range Comments CYTOLOGY RESULT POINTER (BEAKER) (test See Separate Report pdlc=[id number]) FINE NEEDLE ASPIRATE (FNA) [id number] 11:03:00 Test Item Value Reference Range Comments CYTOLOGY RESULT POINTER (BEAKER) (test See Separate Report afug=[id number])
--- OUTSIDE RECORDS SUMMARY | 2019-01-08 11:28 | XMS REPORT ---
[...] End Status Dosage System Date Date Singulair [facility] 85744313979 10 MG Orally Active 1 tablet in Once a day the evening Furosemide ND 47092608801 20 MG Orally Active 1 tablet Once a day Vitamin D3 [facility] 24111488482 2000 UNIT Orally Active 1 capsule Once a day Amlodipine ND 50807375217 10 MG Orally July Active 1 tablet Besylate Once a day 2018 Omeprazole [facility] 49546874829 40 MG Orally July Active 1 capsule Once a day 2017 Zofran [facility] 66948745630 8 MG Orally Mar 15, Active 1 tablet Twice a day 2017 Vitamin B12 [facility] 25258740697 100 MCG Orally Active as directed Tizanidine HCl [facility] 28668713500 4 MG Orally TID Active take one -1 tablet by mouth every 8 hours Duloxetine HCl [facility] 58711504941 30 MG Orally Active TAKE 1 Once a day CAPSULE BY MOUTH EVERY DAY Bisoprolol [facility] 49823208796 10 MG Orally Active 1 tablet Fumarate Once a day Results No Known Results Summary Purpose eClinicalWorks Submission
--- OUTSIDE RECORDS SUMMARY | 2019-01-08 11:28 | XMS REPORT ---
:1965 [facility] Care Team Providers Name Role Phone DevonMaryjane [...] Status Dosage System Date Date Furosemide ND 17693630932 20 MG Orally Active 1 tablet Once a day Jhuitunr-PCA-5 ND 35567092739 0.1 MG/24HR Active 1 patch to Transdermal skin Duloxetine HCl [facility] 31146415383 30 MG Orally Active take 1 Once a day capsule by mouth every day Singulair [facility] 60256179576 10 MG Orally Active 1 tablet in Once a day the evening Tizanidine HCl [facility] 97622621340 4 MG Orally TID Active take one -1 tablet by mouth every [address] [facility] 26729270375 5 MG Orally Once Active 1 tablet Fumarate a day Vitamin D3 [facility] 96740568681 2000 UNIT Orally Active 1 capsule Once a day Vitamin B12 [facility] 26524302641 100 MCG Orally Active as directed Omeprazole [facility] 32516917545 40 MG Orally July Active 1 capsule Once a day [address] [facility] 15948118769 8 MG Orally Mar 15, Active 1 tablet Twice a day [address] [facility] 50101275251 10 MG Orally July Active 1 tablet Besylate Once a day 2018 Results No Known Results Summary Purpose eClinicalWorks Submission
--- OUTSIDE RECORDS SUMMARY | 2019-01-08 11:28 | XMS REPORT ---
:1965 Author [facility] Team Providers Name Role Phone [...] Date Status Dosage System Date Omeprazole ND 11822863462 40 MG Orally July Active 1 capsule Once a day 2017 Singulair [facility] 14051313928 10 MG Orally Active 1 tablet in Once a day the evening Duloxetine HCl [facility] 91939344650 30 MG Orally Active TAKE 1 Once a day CAPSULE BY MOUTH EVERY DAY Tizanidine HCl [facility] 45007362759 4 MG Orally TID Active take one -1 tablet by mouth every 8 hours Vitamin D3 ND 37762807467 2000 UNIT Active 1 capsule Orally Once a day Zofran ND 00430314423 8 MG Orally Mar 15, Active 1 tablet Twice a day 2017 Promethazine [facility] 20253237641 25 MG Orally July Active 1 tablet as HCl every 12 hrs 2018 needed Bisoprolol [facility] 60174568430 10 MG Orally Active 1 tablet Fumarate Once a day Furosemide [facility] 49777571809 20 MG Orally Active 1 tablet Once a day Vitamin B12 [facility] 93360404779 100 MCG Orally Active as directed [place] 3-6-9 [facility] 72363749534 - Orally ONCE A July Active as directed Complex 2018 Azithromycin [facility] 60297824813 250 MG Orally July Active 2 tablets Once a day 2018 on the first day, then 1 tablet daily for 4 days Results Name Result Date Reference Range Unit Abnormality Flag FLU TEST A/B ----A neg [id number] ----B neg [id number] Summary Purpose eClinicalWorks Submission
--- OUTSIDE RECORDS SUMMARY | 2019-01-08 11:28 | XMS REPORT ---
:1965 Author [facility] Care Team Providers Name Role Phone [...] End Status Dosage System Date Date Bisoprolol [facility] 47669552592 10 MG Orally Active 1 tablet Fumarate Once a day Duloxetine HCl [facility] 53055924884 30 MG Orally Active TAKE 1 Once a day CAPSULE BY MOUTH EVERY DAY Zofran [facility] 75099085581 8 MG Orally Mar 15, Active 1 tablet Twice a day 2017 Singulair [facility] 81161546520 10 MG Orally Active 1 tablet in Once a day the evening Tizanidine HCl [facility] 33965322245 4 MG Orally TID Active take one -1 tablet by mouth every 8 hours Vitamin B12 [facility] 13536420264 100 MCG Orally Active as directed Amlodipine [facility] 25084636704 10 MG Orally July Active 1 tablet Besylate Once a day 2018 Furosemide [facility] 31029167097 20 MG Orally Active 1 tablet Once a day Omeprazole [facility] 55178215305 40 MG Orally July Active 1 capsule Once a day 2017 Vitamin D3 [facility] 69035176732 2000 UNIT Orally Active 1 capsule Once a day Results No Known Results Summary Purpose eClinicalWorks Submission
--- NOTE | 2019-01-08 12:38 | RAD REPORT ---
EXAM DESCRIPTION: RAD - Foot Left 3 View - 01/08/2019 12:08 pm COMPARISON: None. FINDINGS: No fracture, dislocation or periosteal reaction. No acute or destructive bony process. Sm all plantar spur is present. Minimal spurring at the Achilles attachment. No air or foreign body in the soft tissues. IMPRESSION: Negative left foot examination for acute bone or joint finding. Small plantar spur.
--- NOTE | 2019-01-08 12:54 | ER ---
Nurse's Notes [facility] Name: Batsheva Faulkner Age: 53 yrs Sex: Female : 1965 Arrival Date: 01/08/2019 Time: 11:29 Bed 23 Private MD: Diagnosis: Pain in left foot Presentation: 01/08 11:45 Presenting complaint: Patient states: I tripped last night and I twisted my left foot la1 and ankle are hurting badly. Pt ambulatory with significant limp in the lobby. Transition of care: patient was not received from another setting of care. Onset of symptoms was January 08, 2019. Risk Assessment: Do you want to hurt yourself or someone else? Patient reports no desire to harm self or others. Initial Sepsis Screen: Does the patient meet any 2 criteria? No. Patient's initial sepsis screen is negative. Does the patient have a suspected source of infection? No. Patient's initial sepsis screen is negative. Care prior to arrival: None. 11:45 Method Of Arrival: Wheelchair la1 11:45 Acuity: FLORY 4 la1 INSTRUCTIONAL COORDINATOR: 13:09 lmp unknown mg2 Historical: - Allergies: 11:48 Amoxicillin; la1 11:48 Iodine; la1 11:48 PENICILLINS; la1 11:48 Clindamycin; la1 - Home Meds: 12:13 amlodipine oral [Active]; aspirin 81 mg Oral chew 1 tab once daily [Active]; mg2 bisoprolol-hydrochlorothiazide 10-6.25 mg Oral tab 1 tab once daily [Active]; duloxetine 30 mg Oral cpDR 1 cap once daily [Active]; omeprazole 20 mg Oral cpDR 1 cap once daily [Active]; - PMHx: 11:48 Anxiety; Asthma; Depression; Hypertension; la1 - Immunization history:: Adult Immunizations up to date. - Social history:: Smoking status: Patient/guardian denies using tobacco. - Ebola Screening: : No symptoms or risks identified at this time. Screenin:02 Abuse screen: Denies threats or abuse. Denies injuries from another. Nutritional mg2 screening: No deficits noted. Tuberculosis screening: No symptoms or risk factors identified. Fall Risk Fall in past 12 months (25 points). Assessment: 12:06 General: Appears in no apparent distress. comfortable, Behavior is calm, cooperative. mg2 Pain: Complains of pain in left foot Pain does not radiate. Pain currently is 7 out of 10 on a pain scale. Quality of pain is described as aching, Pain began suddenly, 1 day ago. Is intermittent, Alleviated by rest. Neuro: Level of Consciousness is awake, alert, obeys commands, Oriented to person, place, time, situation. Cardiovascular: Capillary refill < 3 seconds Patient's skin is warm and dry. Respiratory: Airway is patent Respiratory effort is even, unlabored, Respiratory pattern is regular, symmetrical. GI: No signs and/or symptoms were reported involving the gastrointestinal system. : EENT: No signs and/or symptoms were reported regarding the EENT system. Derm: Skin is intact, is healthy with good turgor, Skin is pink, warm \T\ dry. normal. Musculoskeletal: Circulation, motion, and sensation intact. Capillary refill Swelling present in left foot. Vital Signs: 11:48 BP 153 / 83; Pulse 74; Resp 16; Temp 97.8; Pulse Ox 100% on R/A; Weight 98.88 kg; la1 Height 5 ft. 4 in. (162.56 cm); 13:08 BP 145 / 78; Pulse 70; Resp 18; Temp 98; Pulse Ox 100% on R/A; mg2 11:48 Body Mass Index 37.42 (98.88 kg, 162.56 cm) la1 ED Course: 11:29 Patient arrived in ED. mr 11:47 Triage completed. la1 11:48 Arm band placed on right wrist. la1 11:51 Charleen Morrell FNP-C is [facility]. kb 11:51 Talha Friend MD is Attending Physician. kb 11:52 Ronnie Gonzalez, ALLIE is Primary Nurse. mg2 12:08 Patient has correct armband on for positive identification. Placed in gown. Pulse ox mg2 on. NIBP on. Door closed. 12:11 No provider procedures requiring assistance completed. Patient did not have IV access mg2 during this emergency room visit. 12:15 Foot Left 3 View XRAY In Process Unspecified. EDMS 13:08 Ankit wrap to left ankle and left foot. mg2 Administered Medications: No medications were administered Outcome: 12:53 Discharge ordered by . kb 13:09 Discharged to home via wheelchair, with family. mg2 13:09 Condition: stable 13:09 Discharge instructions given to patient, Instructed on discharge instructions, follow up and referral plans. medication usage, Demonstrated understanding of instructions, follow-up care, medications, Prescriptions given X 1. 13:09 Patient left the ED. mg2 Signatures: Dispatcher [employer] EDCharleen Acuña, LOTTIEC KATT-Kat RayaArcelia ElmerJose RN RN la1 Ronnie Gonzalez RN RN mg2
--- NOTE | 2019-01-08 12:55 | EDPHYS ---
Physician Documentation [facility] Name: Batsheva Faulkner Age: 53 yrs Sex: Female : 1965 Arrival Date: 01/08/2019 Time: 11:29 Bed 23 Private MD: ED Physician Talha Friend HPI: 01/08 12:58 This 53 yrs old Black Female presents to ER via Wheelchair with complaints of Fall kb Injury. 12:58 Details of fall: The patient fell from an upright position. Onset: The symptoms/episode kb began/occurred yesterday. Associated injuries: The patient sustained left foot, painful injury. Severity of symptoms: At their worst the symptoms were moderate, in the emergency department the symptoms are unchanged. The patient has not experienced similar symptoms in the past. The patient has not recently seen a physician. 12:59 Pt reports she tripped and twisted foot last night. c/o medial foot pain. kb VEGETABLE CANNER: 13:09 lmp unknown mg2 Historical: - Allergies: 11:48 Amoxicillin; la1 11:48 Iodine; la1 11:48 PENICILLINS; la1 11:48 Clindamycin; la1 - Home Meds: 12:13 amlodipine oral [Active]; aspirin 81 mg Oral chew 1 tab once daily [Active]; mg2 bisoprolol-hydrochlorothiazide 10-6.25 mg Oral tab 1 tab once daily [Active]; duloxetine 30 mg Oral cpDR 1 cap once daily [Active]; omeprazole 20 mg Oral cpDR 1 cap once daily [Active]; - PMHx: 11:48 Anxiety; Asthma; Depression; Hypertension; la1 - Immunization history:: Adult Immunizations up to date. - Social history:: Smoking status: Patient/guardian denies using tobacco. - Ebola Screening: : No symptoms or risks identified at this time. ROS: 12:57 Constitutional: Negative for fever, chills, and weight loss, Cardiovascular: Negative kb for chest pain, palpitations, and edema, Respiratory: Negative for shortness of breath, cough, wheezing, and pleuritic chest pain, Abdomen/GI: Negative for abdominal pain, nausea, vomiting, diarrhea, and constipation, Back: Negative for injury and pain, Skin: Negative for injury, rash, and discoloration, Neuro: Negative for headache, weakness, numbness, tingling, and seizure. 12:57 MS/extremity: Positive for injury or acute deformity, pain, tenderness, of the left foot. Exam: 12:57 Constitutional: This is a well developed, well nourished patient who is awake, alert, kb and in no acute distress. Head/Face: Normocephalic, atraumatic. Neck: Trachea midline, no thyromegaly or masses palpated, and no cervical lymphadenopathy. Supple, full range of motion without nuchal rigidity, or vertebral point tenderness. No Meningismus. Chest/axilla: Normal chest wall appearance and motion. Nontender with no deformity. No lesions are appreciated. Cardiovascular: Regular rate and rhythm with a normal S1 and S2. No gallops, murmurs, or rubs. Normal PMI, no JVD. No pulse deficits. Respiratory: Lungs have equal breath sounds bilaterally, clear to auscultation and percussion. No rales, rhonchi or wheezes noted. No increased work of breathing, no retractions or nasal flaring. Abdomen/GI: Soft, non-tender, with normal bowel sounds. No distension or tympany. No guarding or rebound. No evidence of tenderness throughout. Skin: Warm, dry with normal turgor. Normal color with no rashes, no lesions, and no evidence of cellulitis. Neuro: Awake and alert, GCS 15, oriented to person, place, time, and situation. Cranial nerves II-XII grossly intact. Motor strength 5/5 in all extremities. Sensory grossly intact. Cerebellar exam normal. Normal gait. 12:57 Musculoskeletal/extremity: Extremities: grossly normal except: noted in the left foot: pain, tenderness, ROM: intact in all extremities, Circulation is intact in all extremities. Sensation intact. Weight bearing: can bear weight with assistance only. Vital Signs: 11:48 BP 153 / 83; Pulse 74; Resp 16; Temp 97.8; Pulse Ox 100% on R/A; Weight 98.88 kg; la1 Height 5 ft. 4 in. (162.56 cm); 13:08 BP 145 / 78; Pulse 70; Resp 18; Temp 98; Pulse Ox 100% on R/A; mg2 11:48 Body Mass Index 37.42 (98.88 kg, 162.56 cm) la1 MDM: 11:51 Patient medically screened. kb 12:54 Data reviewed: vital signs, nurses notes. Data interpreted: Pulse oximetry: on room air kb is 100 %. Interpretation: normal. Counseling: I had a detailed discussion with the patient and/or guardian regarding: the historical points, exam findings, and any diagnostic results supporting the discharge/admit diagnosis, radiology results, the need for outpatient follow up, a family practitioner, to return to the emergency department if symptoms worsen or persist or if there are any questions or concerns that arise at home. 01/08 11:56 Order name: Foot Left 3 View XRAY; Complete Time: 12:45 kb 01/08 12:51 Order name: Ankit Wrap; Complete Time: 12:54 kb Administered Medications: No medications were administered Disposition: 18:28 Co-signature as Attending Physician, Talha Friend MD. ma2 Disposition: 01/08/19 12:53 Discharged to Home. Impression: Pain in left foot. - Condition is Stable. - Discharge Instructions: Foot Sprain. - Prescriptions for Diclofenac Sodium 75 mg Oral Tablet, Delayed Release (E.C.) - take 1 tablet by ORAL route 2 times per day As needed; 30 tablet. - Medication Reconciliation Form, Thank You Letter, Antibiotic Education, Prescription Opioid Use, Work release form form. - Follow up: Emergency Department; When: As needed; Reason: Worsening of condition. Follow up: Private Physician; When: 2 - 3 days; Reason: Recheck today's complaints, Continuance of care, Re-evaluation by your physician. Signatures: Dispatcher [employer] EDCharleen Acuña FNP-C FNP-Jose Arroyo RN RN la1 Talha Friend MD MD ma2 Ronnie Gonzalez RN RN mg2 Corrections: (The following items were deleted from the chart) 13:09 12:53 01/08/2019 12:53 Discharged to Home. Impression: Pain in left foot. Condition is mg2 Stable. Forms are Medication Reconciliation Form, Thank You Letter, Antibiotic Education, Prescription Opioid Use. Follow up: Emergency Department; When: As needed; Reason: Worsening of condition. Follow up: Private Physician; When: 2 - 3 days; Reason: Recheck today's complaints, Continuance of care, Re-evaluation by your physician. kb
[2019-01-08 13:31] VITALS: O2SAT 100
[2019-01-08 13:32] VITALS: BP 145/78; TEMP 98
== END 2019-01-08 13:09 | disposition home or self-care (01) ==
LOC: ER 11:24
DX: M79.672 Pain in left foot (principal); I10 Essential (primary) hypertension; F32.9 Major depressive disorder, single episode, unspecified; F41.9 Anxiety disorder, unspecified; Z79.82 Long term (current) use of aspirin; Z88.0 Allergy status to penicillin; Z88.1 Allergy status to other antibiotic agents; Z88.3 Allergy status to other anti-infective agents; Z91.048 Other nonmedicinal substance allergy status
CPT/HCPCS: 99284

== ENCOUNTER 2019-06-12 07:26 | Day surgery (SDC) | payer OTHER ==
--- OUTSIDE RECORDS SUMMARY | 2019-06-12 07:28 | XMS REPORT ---
:1965 Author Organization eClinicalWorks Care Team Providers Name Role Phone Adamaris Nelson Provider Role Unavailable Allergies No Known Allergies Problems Problem Type Condition Code Onset Dates Condition Status Problem Sarcoidosis D86.9 Active Problem Dyslipidemia E78.5 Active Problem Chronic kidney disease, stage III N18.3 Active (moderate) Problem Hypercalcemia E83.52 Active Problem Osteoarthritis M19.90 Active Problem Rib pain R07.81 Active Problem Asthma J45.909 Active Problem Bilious vomiting with nausea R11.14 Active Problem Muscle spasms of neck M62.838 Active Problem Chronic pain disorder G89.4 Active Problem Fever, unspecified fever cause R50.9 Active Problem Common cold J00 Active Problem Cough R05 Active Problem Hypertension, unspecified type I10 Active Problem Dry heaves R11.10 Active Problem Lung nodule, multiple R91.8 Active Problem Anxiety and depression F41.8 Active Problem Nausea R11.0 Active Problem Osteopenia M85.80 Active Problem Hypertensive crisis, unspecified I16.9 Active Problem Other vascular headache G44.1 Active Problem Hospital discharge follow-up Z09 Active Problem Essential hypertension I10 Active Problem Unspecified sprain of right wrist, S63.501A Active initial encounter Problem Low back pain M54.5 Active Problem Elevated glucose R73.09 Active Problem Lesion of liver K76.9 Active Problem Epigastric pain R10.13 Active Problem Dysuria R30.0 Active Problem Chronic nausea R11.[address] of the abdomen R93.5 Active Medications No Known Medications Results No Known Results Summary Purpose eClinicalMashups Submission
--- OUTSIDE RECORDS SUMMARY | 2019-06-12 07:28 | XMS REPORT ---
:1965 [facility] Address [address] [place] [address] Dr. Calderón [address] [place] [id number] Care Team Providers Name Role Phone EMILY TONG Unavailable Unavailable Problems This patient has no known problems. Allergies, Adverse Reactions, Alerts This patient has no known allergies or adverse reactions. Medications This patient has no known medications. Results Test Description Test Time Test Comments Text Results Atomic Results Result Comments FINE NEEDLE ASPIRATION 2018-06-27 10:38:00 Medical Cytology Report BY CLINICIAN Case: [id number] Authorizing Provider: Emily Tong Collected: 06/21/2018 1358 Ordering Location: [facility] Endoscopy Received: 06/22/2018 0931 Services Pathologist: Octaviano [...] neoplasm. Correlation with the accompanying tissue examination ([id number]) and additional cytology evaluations ([id number], [id number]) is recommended for further evaluation. This case was discussed with Dr. Kimani Choe on 06/27/2018. Addendum electronically signed by Ashia Lawson MD on 06/27/2018 at 10:38 AMGASTRO HEPATIC LYMPH NODE FNA BY CLINICIAN (CYTOSPINS AND CELL BLOCK OF ASPIRATE): - GRANULOMATOUS INFLAMMATION (SEE COMMENT) - NEGATIVE FOR EPITHELIAL MALIGNANCY Signing Pathologist Direct Phone Line: [phone] signed by Octaviano Rivera MD on 06/24/2018 [...] and an addendum will follow.Please see cases [id number], [id number] and 654 for further evaluation. 21741, 29726, 81287, 87975 x 11Pancreatic mass, (1.3cm) malignant-appearing lymph node in the gastrohepatic ligamentGASTRO HEPATIC LYMPH NODE FNA24 mls in cytorich red; 4 cytospins, cell blockCollected: [id number]: [id number] interpretation of this case included the use of immunohistochemistry or special stains. Please see the immunohistochemistry results in the COMMENT section. Immunohistochemistry technical testing was performed at [facility], Pathology Laboratory where it was developed [...] qualified to perform high complexity clinical laboratory testing.[facility], Department of Pathology, [address] [place] [address], [facility], [address] [place] [address], NrefivMartin Luther King Jr[facility], Department of Path[facility], [address] [place] [address], FINE NEEDLE ASPIRATION 2018-06-27 10:28:00 Medical Cytology Report BY CLINICIAN Case: [id number] Authorizing Provider: Emily Tong Collected: 06/21/2018 1348 Ordering Location: [facility] Endoscopy Received: 06/22/2018 0932 Services Pathologist: Octaviano Rivera MD Specimen: Biopsy, Liver, liver left lobe Hematopathology Consultation: Impression: A-2: Liver tissue with involvement by granulomatous inflammation. No definitive evidence of involvement by a hematolymphoid neoplasm. Correlation with the accompanying tissue examination ([id number]) and additional cytology evaluations ([id number], [id number]) is recommended for further evaluation. This case was discussed with Dr. Kimani Choe on 06/27/2018. Addendum electronically signed by Ashia Lawson MD on 06/27/2018 at 10:28 AMLEFT LIVER LOBE FNA BY CLINICIAN (CYTOSPINS AND CELL BLOCK OF ASPIRATE): - GRANULOMATOUS INFLAMMATION (SEE COMMENT) - NEGATIVE FOR EPITHELIAL MALIGNANCY Signing Pathologist Direct Phone Line: [phone] signed by Octaviano Rivera MD on 06/24/2018 [...] and an addendum will follow.Please see cases [id number], [id number] and 654 for further evaluation.14634, 30934, 80056, 31868 x 2, 16069 x 2Pancreatic mass, abnormal echogenicity in left lobe of the liverLEFT LIVER LOBE FNA28 mls in cytorich red; 4 cytospins, cell blockCollected: [id number]: [id number] interpretation of this case included the use of immunohistochemistry or special stains. Please see the immunohistochemistry results in the COMMENT section. Immunohistochemistry technical testing was performed at [facility], Pathology Laboratory where it was developed [...] qualified to perform high complexity clinical laboratory testing.[facility], Department of Pathology, [address] [place] [address], [facility], [facility] of [facility], [address] [place] [address], [facility]qjcxnMartin [facility], [facility] of [facility], [address] [place] [address], TISSUE EXAM 2018-06-27 08:35:00 Surgical Pathology Report Case: [id number] Authorizing Provider: Emily Tong Collected: 06/21/2018 1344 Ordering Location: [facility] Endoscopy Received: 06/21/2018 1544 Services Pathologist: Saad Choe MD Specimens: A) - Biopsy, Liver, LIVER LEFT LOBE FNB B) - Pancreas, PANCREAS MASS FNB PART A LEFT LIVER LOBE, BIOPSY FOR SUSPECTED MASS:NONCASEATING GRANULOMATOUS INFLAMMATION.NEGATIVE FOR MALIGNANCY.SEE DIAGNOSTIC COMMENT.PART B PANCREAS, BIOPSY FOR SUSPECTED MASS:NONCASEATING GRANULOMATOUS INFLAMMATION IN LYMPHOID MATERIAL.NEGATIVE FOR MALIGNANCY.SEE DIAGNOSTIC COMMENT. Signing Pathologist Direct Phone Line: [phone] signed by Saad Choe MD on 06/27/2018 [...] this case were discussed with Dr. Emily Tong, scientific photographer on 06/24/2018.Intradepartment consultation: Camila Burt [id number], [id number], [id number], 73009l3Bbvdzejyck mass A. Liver left lobe FNB. B. [...] GMS, AFBImmunohistochemistry technical testing was performed at [facility], Pathology Laboratory where it was developed [...] 19:25:00 Medical Cytology Report BY CLINICIAN Case: [id number] Authorizing Provider: Emily Tong Collected: 06/21/2018 1415 Ordering Location: [facility] Endoscopy Received: 06/22/2018 0932 Services Pathologist: Octaviano Rivera MD Specimen: Celiac Node CELIAC LYMPH NODE FNA BY CLINICIAN (CYTOSPINS AND CELL BLOCK OF ASPIRATE): - NON-DIAGNOSTIC SPECIMEN - PREDOMINANTLY BLOOD ELEMENTS WITH VERY RARE LYMPHOCYTES Signing Pathologist Direct Phone Line: [phone] signed by Octaviano iRvera MD on 06/24/2018 at 7:25 PMPlease see cases [id number], [id number] and 653.14299, 44162, 56406Nyvqarsppk mass, (1.2 cm) malignant-appearing lymph node in the celiac regionCELIAC LYMPH NODE FNA25 mls in cytorich red; 4 cytospins, cell blockCollected: [id number]: [id number] interpretation of this case included the use of immunohistochemistry or special stains.An immunostain for CAM5.2 performed on a cell block section is negative.Immunohistochemistry technical testing was performed at [facility], Pathology Laboratory where it was developed [...] qualified to perform high complexity clinical laboratory testing.[facility], Department of Pathology, [address] [place] [address], [facility]bwmmwMartin Luther [facility], [facility] of Pathology, [address] [place] [address], UjezehMartin Luther [facility], Department of [facility], [address] [place] [address], FINE NEEDLE ASPIRATE (FNA) REQUEST 2018-06-22 11:03:00 Test Item Value Reference Range Comments CYTOLOGY RESULT POINTER (BEAKER) (test [id number]) See Separate Report FINE NEEDLE ASPIRATE (FNA) [id number] 11:03:00 Test Item Value Reference Range Comments CYTOLOGY RESULT POINTER (BEAKER) (test See Separate Report [id number]=[id number]) FINE NEEDLE ASPIRATE (FNA) [id number] 11:03:00 Test Item Value Reference Range Comments CYTOLOGY RESULT POINTER (BEAKER) (test See Separate Report [id number]=[id number])
--- OUTSIDE RECORDS SUMMARY | 2019-06-12 07:28 | XMS REPORT ---
:1965 Author Organization eClinicalWorks Care Team Providers Name Role Phone Niyah Osorio Provider Role Unavailable Allergies No Known Allergies Problems Problem Type Condition Code Onset Dates Condition Status Problem Dyslipidemia E78.5 Active Problem Hypercalcemia E83.52 Active Problem Chronic kidney disease, stage III N18.3 Active (moderate) Problem Osteoarthritis M19.90 Active Problem Rib pain R07.81 Active Problem Asthma J45.909 Active Problem Bilious vomiting with nausea R11.14 Active Problem Muscle spasms of neck M62.838 Active Problem Chronic pain disorder G89.4 Active Problem Fever, unspecified fever cause R50.9 Active Problem Common cold J00 Active Problem Cough R05 Active Problem Hypertension, unspecified type I10 Active Problem Dry heaves R11.10 Active Problem Lesion of liver K76.9 Active Problem Anxiety and depression F41.8 Active Problem Nausea R11.0 Active Problem Osteopenia M85.80 Active Problem Hypertensive crisis, unspecified I16.9 Active Problem Other vascular headache G44.1 Active Problem Hospital discharge follow-up Z09 Active Problem Essential hypertension I10 Active Problem Unspecified sprain of right wrist, S63.501A Active initial encounter Problem Low back pain M54.5 Active Problem Lung nodule, multiple R91.8 Active Problem Elevated glucose R73.09 Active Problem Epigastric pain R10.13 Active Problem Dysuria R30.0 Active Problem Chronic nausea R11.[address] of the abdomen R93.5 Active Medications No Known Medications Results No Known Results Summary Purpose eClinicalWorks Submission
--- OUTSIDE RECORDS SUMMARY | 2019-06-12 07:29 | XMS REPORT ---
:1965 [facility] Team Providers Name Role Phone Omar Adamaris Provider Role Unavailable Allergies No Known Allergies Problems Problem Type Condition Code Onset Dates Condition Status Problem Sarcoidosis D86.9 Active Problem Dyslipidemia E78.5 Active Problem Hypercalcemia E83.52 Active Problem Chronic kidney disease, stage III N18.3 Active (moderate) Problem Chronic pain disorder G89.4 Active Problem Osteopenia M85.80 Active Problem Asthma J45.909 Active Problem Osteoarthritis M19.90 Active Problem Rib pain R07.81 Active Problem Anxiety and depression F41.8 Active Problem Cough R05 Active Problem Common cold J00 Active Problem Lesion of liver K76.9 Active Problem Other vascular headache G44.1 Active Problem Essential hypertension I10 Active Problem Hypertensive crisis, unspecified I16.9 Active Problem Rash and nonspecific skin eruption R21 Active Problem Other chronic pain G89.29 Active Problem Unspecified sprain of right wrist, S63.501A Active initial encounter Problem Elevated glucose R73.09 Active Problem Neck pain M54.2 Active Problem Lung nodule, multiple R91.8 Active Problem Nausea R11.0 Active Problem Hospital discharge follow-up Z09 Active Problem Hypertension, unspecified type I10 Active Problem Dry heaves R11.10 Active Assessment Sore throat J02.[address] of the abdomen R93.5 Active Problem Dysuria R30.0 Active Assessment Cough R05 Active Problem Chronic nausea R11.0 Active Assessment Body aches R52 Active Problem Low back pain M54.5 Active Problem Muscle spasms of neck M62.838 Active Problem Fever, unspecified fever cause R50.9 Active Problem Epigastric pain R10.13 Active Problem Bilious vomiting with nausea R11.14 Active Medications Medication Code Code Instructions Start End Status Dosage System Date Date Ketoconazole [facility] 19254782836 2 % Externally Apr 28, May Active 1 application Once a day 2019 09, to affected 2020 areas Doxazosin [facility] 66415942331 4 MG Orally Active 2 tablets Mesylate Twice a day Omeprazole [facility] 67423878312 40 MG Orally Active 1 capsule Once a day Zofran [facility] 37808986889 8 MG Orally Active 1 tablet as Every 6-8 hours needed for nausea/vomiti ng Amlodipine [facility] 39363789169 10 MG Orally Active 1 tablet Besylate Once a day Bisoprolol [facility] 11035185663 5 MG Orally Active 1 tablet Fumarate Once a day Duloxetine HCl [facility] 39195192812 30 MG Orally Active TAKE 1 Once a day CAPSULE BY MOUTH EVERY DAY Singulair [facility] 90013220825 10 MG Orally Active 1 tablet in Once a day the evening Tizanidine HCl [facility] 54689352084 4 MG Orally TID Active take one -1 tablet by mouth every 8 hours Dpuexure-ESE-9 [facility] 53608611350 0.1 MG/24HR Active 1 patch to Transdermal skin Worn daily; changed once per week Bumetanide [facility] 36312299294 1 MG Orally Active as directed 1xdaily Results Name Result Date Reference Range Unit Abnormality Flag STREP A RAPID ----Result Negative [id number] FLU TEST A/B ----B Negative [id number] ----A Negative [id number] Summary Purpose eClinicalWorks Submission
--- OUTSIDE RECORDS SUMMARY | 2019-06-12 07:29 | XMS REPORT ---
:1965 [facility] Team Providers Name Role Phone Adamaris Nelson Provider Role Unavailable Allergies, Adverse Reactions, Alerts [...] initial encounter Problem Elevated glucose R73.09 Active Assessment Chronic kidney disease, stage III N18.3 Active (moderate) Problem Neck pain M54.2 Active Problem Lung nodule, multiple R91.8 Active Assessment Low back pain M54.5 Active Problem Nausea R11.0 Active Assessment Neck pain M54.2 Active Problem Hospital discharge follow-up Z09 Active Assessment Other chronic pain G89.29 Active Problem Hypertension, unspecified type I10 Active Problem Dry heaves R11.10 Active Assessment Hypertension, unspecified type I10 [address] of the abdomen R93.5 Active Problem Dysuria R30.0 Active Assessment Epigastric pain R10.13 Active Problem Chronic nausea R11.0 Active Assessment Rash and nonspecific skin eruption R21 Active Problem Low back pain M54.5 Active Assessment Dry heaves R11.10 Active Problem Muscle spasms of neck M62.838 Active Assessment Nausea R11.0 Active Problem Fever, unspecified fever cause R50.9 Active Problem Epigastric pain R10.13 Active Problem Bilious vomiting with nausea R11.14 Active Medications Medication Code Code Instructions Start End Status Dosage System Date Date Bisoprolol [facility] 04467738132 5 MG Orally Active 1 tablet Fumarate Once a day Bumetanide [facility] 04106403751 1 MG Orally Active as directed 1xdaily Singulair [facility] 78518230324 10 MG Orally Active 1 tablet in Once a day the evening Ketoconazole [facility] 34616923641 2 % Externally Apr 28May Active 1 application Once a day 2019 12, to affected 2019 areas Doxazosin [facility] 59536870328 4 MG Orally Active 2 tablets Mesylate Twice a day Amlodipine [facility] 67277441916 10 MG Orally Active 1 tablet Besylate Once a day Zofran [facility] 24661667113 8 MG Orally Active 1 tablet as Every 6-8 hours needed for nausea/vomiti ng Duloxetine HCl [facility] 30654006237 30 MG Orally Active TAKE 1 Once a day CAPSULE BY MOUTH EVERY DAY Tizanidine HCl [facility] 19664545552 4 MG Orally TID Active take one -1 tablet by mouth every 8 hours Tgjwizyg-QDB-1 [facility] 51753653550 0.1 MG/24HR Active 1 patch to Transdermal skin Worn daily; changed once per week Omeprazole [facility] 05117814287 40 MG Orally Active 1 capsule Once a day Results No Known Results Summary Purpose eClinicalWorks Submission
--- OUTSIDE RECORDS SUMMARY | 2019-06-12 07:29 | XMS REPORT ---
[...] Active Problem Dry heaves R11.[address] of the abdomen R93.5 Active Problem Dysuria R30.0 Active Problem Chronic nausea R11.0 Active Problem Low back pain M54.5 Active Problem Muscle spasms of neck M62.838 Active Problem Fever, unspecified fever cause R50.9 Active Problem Epigastric pain R10.13 Active Problem Bilious vomiting with nausea R11.14 Active Medications No Known Medications Results No Known Results Summary Purpose eClinicalWorks Submission
[2019-06-12] MEDS ORDERED: PAMIDRONATE 90 MG in NA CHLORIDE 0.9% 500 ML IV ONE (08:00)
[2019-06-12 09:30] VITALS: BP 121/77; TEMP 97.3; O2SAT 100; BMI 38.6
== END 2019-06-12 12:55 | disposition home or self-care (01) ==
LOC: DS 07:26
PROVIDERS: ATTEND Internal Medicine Nephrology
DX: D86.89 Sarcoidosis of other sites (principal); E83.52 Hypercalcemia
CPT/HCPCS: 96365; 96366; J2430; J7040

== ENCOUNTER 2019-06-30 07:24 | Emergency (ER) | payer OTHER ==
--- OUTSIDE RECORDS SUMMARY | 2019-06-30 07:27 | XMS REPORT ---
[...] Medications Results No Known Results Summary Purpose eClinicalEMBI Submission
--- OUTSIDE RECORDS SUMMARY | 2019-06-30 07:27 | XMS REPORT ---
:1965 [facility] [address] [place] [address] Dr. Calderón [address] [place] [address] Care Team Providers Name Role Phone EMILY TONG Unavailable Unavailable Problems This patient has no known problems. Allergies, Adverse Reactions, Alerts This patient has no known allergies or adverse reactions. Medications This patient has no known medications. Results Test Description Test Time Test Comments Text Results Atomic Results Result Comments FINE NEEDLE ASPIRATION 2018-06-27 10:38:00 Medical Cytology Report BY CLINICIAN Case: [id number] Authorizing Provider: Emily Tong Collected: 06/21/2018 1358 Ordering Location: [facility] Endoscopy Received: 06/22/2018 0931 Services [...] neoplasm. Correlation with the accompanying tissue examination ([id number]) and additional cytology evaluations ([id number], [id number]) is recommended for further evaluation. This case was discussed with Dr. Kimani Choe on 06/27/2018. Addendum electronically signed by Ashia Lawson MD on 06/27/2018 at 10:38 AMGASTRO HEPATIC LYMPH NODE FNA BY CLINICIAN (CYTOSPINS AND CELL BLOCK OF ASPIRATE): - GRANULOMATOUS INFLAMMATION (SEE COMMENT) - NEGATIVE FOR EPITHELIAL MALIGNANCY Signing Pathologist Direct Phone Line: [phone] signed by Octaviano Rivera MD on 06/24/2018 [...] and an addendum will follow.Please see cases [id number], [id number] and 654 for further evaluation. 51098, 18208, 92849, 60271 x 11Pancreatic mass, (1.3cm) malignant-appearing lymph node in the gastrohepatic ligamentGASTRO HEPATIC LYMPH NODE FNA24 mls in cytorich red; 4 cytospins, cell blockCollected: [id number]: [id number] interpretation of this case included the use of immunohistochemistry or special stains. Please see the immunohistochemistry results in the COMMENT section. Immunohistochemistry technical testing was performed at [facility], Pathology Laboratory where it was developed [...] qualified to perform high complexity clinical laboratory testing.[facility], Department of Pathology, [address] [place] [address], [facility], [address] [place] [address], [facility], [facility] of [facility], [address] [place] [address], FINE NEEDLE ASPIRATION 2018-06-27 10:28:00 Medical Cytology Report BY CLINICIAN Case: [id number] Authorizing Provider: Emily Tong Collected: 06/21/2018 1348 Ordering Location: [facility] Endoscopy Received: 06/22/2018 0932 Services Pathologist: Octaviano Rivera MD Specimen: Biopsy, Liver, liver left lobe Hematopathology Consultation: Impression: A-2: Liver tissue with involvement by granulomatous inflammation. No definitive evidence of involvement by a hematolymphoid neoplasm. Correlation with the accompanying tissue examination ([id number]) and additional cytology evaluations ([id number], C19-654) is recommended for further evaluation. This case was discussed with Dr. Kimani Choe on 06/27/2018. Addendum electronically signed by Ashia Lawson MD on 06/27/2018 at 10:28 AMLEFT LIVER LOBE FNA BY CLINICIAN (CYTOSPINS AND CELL BLOCK OF ASPIRATE): - GRANULOMATOUS INFLAMMATION (SEE COMMENT) - NEGATIVE FOR EPITHELIAL MALIGNANCY Signing Pathologist Direct Phone Line: [phone] signed by Octaviano Rivera MD on 06/24/2018 [...] and an addendum will follow.Please see cases [id number], [id number] and 654 for further evaluation.01272, 68639, 75869, 74214 x 2, 32356 x 2Pancreatic mass, abnormal echogenicity in left lobe of the liverLEFT LIVER LOBE FNA28 mls in cytorich red; 4 cytospins, cell blockCollected: [id number]: [id number] interpretation of this case included the use of immunohistochemistry or special stains. Please see the immunohistochemistry results in the COMMENT section. Immunohistochemistry technical testing was performed at [facility], Pathology Laboratory where it was developed [...] qualified to perform high complexity clinical laboratory testing.[facility], Department of Pathology, [address] [place] [address], [facility], [facility] of [facility]ology, [address] [place] [address], [facility], [facility], [address] [place] [address], TISSUE EXAM 2018-06-27 08:35:00 Surgical Pathology Report Case: [id number] Authorizing Provider: Emily Tong Collected: 06/21/2018 1344 [facility]oscopy Received: 06/21/2018 1544 Services Pathologist: Saad Choe MD Specimens: A) - Biopsy, Liver, LIVER LEFT LOBE FNB B) - Pancreas, PANCREAS MASS FNB PART A LEFT LIVER LOBE, BIOPSY FOR SUSPECTED MASS:NONCASEATING GRANULOMATOUS INFLAMMATION.NEGATIVE FOR MALIGNANCY.SEE DIAGNOSTIC COMMENT.PART B PANCREAS, BIOPSY FOR SUSPECTED MASS:NONCASEATING GRANULOMATOUS INFLAMMATION IN LYMPHOID MATERIAL.NEGATIVE FOR MALIGNANCY.SEE DIAGNOSTIC COMMENT. Signing Pathologist Direct Phone Line: [phone] signed by Saad Choe MD on 06/27/2018 [...] case were discussed with Dr. Emily Tong, mannequin molder on 06/24/2018.Intradepartment consultation: Camila Burt [id number], [id number], [id number], [id number] mass A. Liver left lobe FNB. B. [...] GMS, AFBImmunohistochemistry technical testing was performed at [facility], Pathology Laboratory where it was developed [...] 19:25:00 Medical Cytology Report BY CLINICIAN Case: [id number] Authorizing Provider: Emily Tong Collected: 06/21/2018 1415 Ordering Location: [facility] Endoscopy Received: 06/22/2018 0932 Services Pathologist: Octaviano Rivera MD Specimen: Celiac Node CELIAC LYMPH NODE FNA BY CLINICIAN (CYTOSPINS AND CELL BLOCK OF ASPIRATE): - NON-DIAGNOSTIC SPECIMEN - PREDOMINANTLY BLOOD ELEMENTS WITH VERY RARE LYMPHOCYTES Signing Pathologist Direct Phone Line: [phone] signed by Octaviano Rivera MD on 06/24/2018 at 7:25 PMPlease see cases [id number], [id number] and 653.56486, 65893, 57807Pddygfjrlg mass, (1.2 cm) malignant-appearing lymph node in the celiac regionCELIAC LYMPH NODE FNA25 mls in cytorich red; 4 cytospins, cell blockCollected: [id number]: 988107Nzx interpretation of this case included the use of immunohistochemistry or special stains.An immunostain for CAM5.2 performed on a cell block section is negative.Immunohistochemistry technical testing was performed at [facility], Pathology Laboratory where it was developed [...] qualified to perform high complexity clinical laboratory testing.[facility], Department of Pathology, [address] [place] [address], [facility], Department of Pathology, [address] [place] [address], [facility]Los [facility], Department of Pathology, [address] [place] [address], FINE NEEDLE ASPIRATE (FNA) REQUEST 2018-06-22 11:03:00 Test Item Value Reference Range Comments CYTOLOGY RESULT POINTER (BEAKER) (test [id number]) See Separate Report FINE NEEDLE ASPIRATE (FNA) [id number] 11:03:00 Test Item Value Reference Range Comments CYTOLOGY RESULT POINTER (BEAKER) (test See Separate Report [id number]=[id number]) FINE NEEDLE ASPIRATE (FNA) [id number] 11:03:00 Test Item Value Reference Range Comments CYTOLOGY RESULT POINTER (BEAKER) (test See Separate Report [id number])
--- OUTSIDE RECORDS SUMMARY | 2019-06-30 07:28 | XMS REPORT ---
:1965 Author [facility] Care Team Providers Name Role Phone Omar [...] End Status Dosage System Date Date Ketoconazole [facility] 80350106516 2 % Externally Apr 28, May Active 1 application Once a day 2019 09, to affected 2020 areas Doxazosin [facility] 02749376303 4 MG Orally Active 2 tablets Mesylate Twice a day Omeprazole [facility] 54529829158 40 MG Orally Active 1 capsule Once a day Zofran [facility] 58705949826 8 MG Orally Active 1 tablet as Every 6-8 hours needed for nausea/vomiti ng Amlodipine [facility] 53927645711 10 MG Orally Active 1 tablet Besylate Once a day Bisoprolol [facility] 03007468252 5 MG Orally Active 1 tablet Fumarate Once a day Duloxetine HCl [facility] 04193426478 30 MG Orally Active TAKE 1 Once a day CAPSULE BY MOUTH EVERY DAY Singulair [facility] 77286096954 10 MG Orally Active 1 tablet in Once a day the evening Tizanidine HCl [facility] 37376148283 4 MG Orally TID Active take one -1 tablet by mouth every 8 hours Igsqqmtt-EUL-7 [facility] 15582215569 0.1 MG/24HR Active 1 patch to Transdermal skin Worn daily; changed once per week Bumetanide [facility] 87627474894 1 MG Orally Active as directed 1xdaily Results Name Result Date Reference Range Unit Abnormality Flag STREP A RAPID ----Result Negative [id number] FLU TEST A/B ----B Negative [id number] ----A Negative [id number] Summary Purpose eClinicalWorks Submission
--- OUTSIDE RECORDS SUMMARY | 2019-06-30 07:28 | XMS REPORT ---
:1965 Author [facility] Team Providers Name Role Phone Adamaris [...] End Status Dosage System Date Date Bisoprolol [facility] 52402281251 5 MG Orally Active 1 tablet Fumarate Once a day Bumetanide [facility] 33905616905 1 MG Orally Active as directed 1xdaily Singulair [facility] 48392036196 10 MG Orally Active 1 tablet in Once a day the evening Ketoconazole [facility] 83390609837 2 % Externally Apr 28May Active 1 application Once a day 2019 12, to affected 2019 areas Doxazosin [facility] 93509684582 4 MG Orally Active 2 tablets Mesylate Twice a day Amlodipine [facility] 67834810699 10 MG Orally Active 1 tablet Besylate Once a day Zofran [facility] 44289242816 8 MG Orally Active 1 tablet as Every 6-8 hours needed for nausea/vomiti ng Duloxetine HCl [facility] 31082641832 30 MG Orally Active TAKE 1 Once a day CAPSULE BY MOUTH EVERY DAY Tizanidine HCl [facility] 04168478871 4 MG Orally TID Active take one -1 tablet by mouth every 8 hours Teprlnmb-KDW-5 [facility] 04324268315 0.1 MG/24HR Active 1 patch to Transdermal skin Worn daily; changed once per week Omeprazole [facility] 03320624187 40 MG Orally Active 1 capsule Once a day Results No Known Results Summary Purpose eClinicalWorks Submission
[2019-06-30] MEDS ORDERED: IBUPROFEN 200 MG TAB PO ONE (08:04)
[2019-06-30] MEDS ORDERED: ACETAMINOPHEN 325 MG TABLET ONE (08:04)
[2019-06-30] MEDS ORDERED: IBUPROFEN 400 MG TAB ONE (08:05)
[2019-06-30 08:16] LABS: Absolute Lymphocytes (CBC) 1.3 K/uL (0.7-4.9); Basophils % 0.3 % (0-1.3); Hematocrit 37.9 % (36.0-45.0); Lymphocytes % 12.1 % (15.3-44.8); MPV 8.2 fL (7.6-11.3); RBC Red Blood Cell Count 4.29 M/uL (3.86-4.86)
[2019-06-30 08:35] LABS: ALT/SGPT 31 U/L (12-78); AST/SGOT 37 U/L (15-37); Albumin 3.3 g/dL (3.4-5.0); Alkaline Phosphatase 305 U/L (45-117); BUN Blood Urea Nitrogen 21 mg/dL (7-18); Bicarbonate 25 mmol/L (21-32); Bilirubin Direct 0.2 mg/dL (0-0.2); Bilirubin Total 0.4 mg/dL (0.2-1.0); Glucose Level 152 mg/dL (74-106); Magnesium 1.9 mg/dL (1.8-2.4); Potassium 4.2 mmol/L (3.5-5.1); Protein, Total 10.3 g/dL (6.4-8.2); Sodium Level 139 mmol/L (136-145); Troponin (Emerg Dept Use Only) < 0.02 ng/mL (0.0-0.045)
[2019-06-30 08:53] LABS: Blood Morphology Comment NOT SEEN (NOT SEEN); Platelet Estimate ADEQ
--- NOTE | 2019-06-30 09:37 | RAD REPORT ---
EXAM DESCRIPTION: RAD - Chest Single View - 06/30/2019 8:17 am CLINICAL HISTORY: Left arm and shoulder pain COMPARISON: Portable October 26, 2018 TECHNIQUE: AP portable chest image was obtained 06/30/2019 8:17 am. FINDINGS: No focal mass or consolidation. Heart size is normal range. Central vasculature and lung m arkings are minimally prominent. Heart and vasculature are normal. No measurable pleural effusion and no pneumothorax. No acute bony abnormality seen. No acute aortic findings suspected. IMPRESSION: No focal mass or consolidation. Central vasculature and lung markings are mildly prominent but not clearly different. Failure or volu me overload are on likely.
--- NOTE | 2019-06-30 11:23 | EDPHYS ---
Physician Documentation [facility] Name: Batsheva Faulkner Age: 53 yrs Sex: Female : 1965 Arrival Date: 06/30/2019 Time: 07:27 Bed 6 Private MD: ED Physician Willy Boyle HPI: 06/29 07:51 This 53 yrs old Black Female presents to ER via Ambulatory with complaints of Arm Pain, kdr Headache. 07:51 The patient or guardian complains of pain, that is acute, Initially felt numb in her kdr left arm but now has pain form the shoulder down. She is concerned that she may be having heart issues. The complaints affect the anterior aspect of left shoulder, left bicep, dorsal aspect of left forearm, left tricep, left elbow and palmar aspect of left forearm. Context: The problem was sustained at home, resulted from unknown cause. Onset: The symptoms/episode began/occurred suddenly, this morning, at an unknown time. Treatment prior to arrival includes: no previous treatment. Modifying factors: The symptoms are alleviated by nothing. the symptoms are aggravated by nothing. Associated signs and symptoms: Pertinent positives: headache and generally feeling week. Severity of symptoms: At their worst the symptoms were mild, in the emergency department the symptoms are unchanged. The patient has not experienced similar symptoms in the past. 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 Historical: - Allergies: 07:44 Amoxicillin; dm5 07:44 PENICILLINS; dm5 07:44 Clindamycin; dm5 07:44 Iodine; dm5 07:44 METHADONE \T\ RELATED; dm5 08:26 tramadol; - Home Meds: 08:26 amlodipine oral [Active]; aspirin 81 mg Oral chew 1 tab once daily [Active]; bisoprolol-hydrochlorothiazide 10-6.25 mg Oral tab 1 tab once daily [Active]; duloxetine 30 mg Oral cpDR 1 cap once daily [Active]; omeprazole 20 mg Oral cpDR 1 cap once daily [Active]; 08:30 clonidine transdermal transdermal [Active]; - PMHx: 07:44 Anxiety; Asthma; Depression; Hypertension; dm5 - Immunization history:: Adult Immunizations unknown. - Social history:: Smoking status: unknown. ROS: 07:51 Constitutional: Negative for fever, chills, and weight loss, Eyes: Negative for injury, kdr pain, redness, and discharge, ENT: Negative for injury, pain, and discharge, Respiratory: Negative for shortness of breath, cough, wheezing, and pleuritic chest pain, Abdomen/GI: Negative for abdominal pain, nausea, vomiting, diarrhea, and constipation, Back: Negative for injury and pain, : Negative for injury, bleeding, discharge, and swelling, Skin: Negative for injury, rash, and discoloration, Psych: Negative for depression, anxiety, suicide ideation, homicidal ideation, and hallucinations, Allergy/Immunology: Negative for hives, rash, and allergies, Endocrine: Negative for neck swelling, polydipsia, polyuria, polyphagia, and marked weight changes, Hematologic/Lymphatic: Negative for swollen nodes, abnormal bleeding, and unusual bruising. 07:51 Neck: Positive for Exam: 07:51 Constitutional: This is a well developed, well nourished patient who is awake, alert, kdr and in no acute distress. Head/Face: Normocephalic, atraumatic. Eyes: Pupils equal round and reactive to light, extra-ocular motions intact. Lids and lashes normal. Conjunctiva and sclera are non-icteric and not injected. Cornea within normal limits. Periorbital areas with no swelling, redness, or edema. Neck: Trachea midline, no thyromegaly or masses palpated, and no cervical lymphadenopathy. Supple, full range of motion without nuchal rigidity, or vertebral point tenderness. No Meningismus. Chest/axilla: Normal chest wall appearance and motion. Nontender with no deformity. No lesions are appreciated. Cardiovascular: Regular rate and rhythm with a normal S1 and S2. No gallops, murmurs, or rubs. Normal PMI, no JVD. No pulse deficits. Respiratory: Lungs have equal breath sounds bilaterally, clear to auscultation and percussion. No rales, rhonchi or wheezes noted. No increased work of breathing, no retractions or nasal flaring. Abdomen/GI: Soft, non-tender, with normal bowel sounds. No distension or tympany. No guarding or rebound. No evidence of tenderness throughout. Back: No spinal tenderness. No costovertebral tenderness. Full range of motion. Female : Normal external genitalia. Skin: Warm, dry with normal turgor. Normal color with no rashes, no lesions, and no evidence of cellulitis. MS/ Extremity: Pulses equal, no cyanosis. Neurovascular intact. Full, normal range of motion. Neuro: Awake and alert, GCS 15, oriented to person, place, time, and situation. Cranial nerves II-XII grossly intact. Motor strength 5/5 in all extremities. Sensory grossly intact. Cerebellar exam normal. Normal gait. Psych: Awake, alert, with orientation to person, place and time. Behavior, mood, and affect are within normal limits. 09:13 ECG was reviewed by the Attending Physician. kdr Vital Signs: 07:42 BP 168 / 109; Pulse 94; Resp 16; Temp 98.1(TE); Pulse Ox 100% on R/A; Weight 103.42 kg; 3 Height 5 ft. 4 in. (162.56 cm); Pain 10/10; 08:27 BP 176 / 112; Pulse 95; Resp 17 S; Pulse Ox 99% on R/A; jl7 08:50 BP 167 / 103; Pulse 85; Resp 16 S; Pulse Ox 100% on R/A; Pain 8/10; jl7 09:36 BP 159 / 99; Pulse 74; Resp 16; Pulse Ox 100% ; sv 10:18 BP 150 / 94; Pulse 78; Resp 16; Pulse Ox 100% ; sv 11:00 BP 158 / 98; Pulse 80; Resp 17 S; Pulse Ox 100% on R/A; jl7 11:37 BP 143 / 88; Pulse 84; Resp 17; Pulse Ox 100% ; sv 07:42 Body Mass Index 39.14 (103.42 kg, 162.56 cm) [facility] MDM: 07:51 Data reviewed: vital signs, nurses notes, lab test result(s), EKG, radiologic studies. kdr Counseling: I had a detailed discussion with the patient and/or guardian regarding: the historical points, exam findings, and any diagnostic results supporting the discharge/admit diagnosis, lab results, radiology results. 11:22 Patient medically screened. kdr 11:23 Special discussion: Based on the patient's history, exam, and Dx evaluation, there is kdr no indication for emergent intervention or inpatient Tx. It is understood by the patient/guardian that if the Sx's persist or worsen they need to return immediately for re-evaluation. I discussed with the patient/guardian in detail that at this point there is no indication for admission to the hospital. It is understood, however, that if the symptoms persist or worsen the patient needs to return immediately for re-evaluation. ED course: All ECG and Trop are negative. 06/29 07:51 Order name: Basic Metabolic Panel; Complete Time: 09:57 kdr 06/29 07:51 Order name: CBC with Diff; Complete Time: 08:58 kdr 06/29 07:51 Order name: LFT's; Complete Time: 09:57 kdr 06/29 07:51 Order name: Magnesium; Complete Time: 09:57 kdr 06/29 07:51 Order name: Troponin (emerg Dept Use Only); Complete Time: 09:57 kdr 06/29 08:53 Order name: Manual Differential; Complete Time: 08:58 EDMS 06/29 07:51 Order name: XRAY Chest (1 view); Complete Time: 09:57 kdr 06/29 07:51 Order name: EKG; Complete Time: 07:52 kdr 06/29 07:51 Order name: Cardiac monitoring; Complete Time: 08:08 kdr 06/29 07:51 Order name: EKG - Nurse/Tech; Complete Time: 08:34 kdr 06/29 09:59 Order name: Troponin (emerg Dept Use Only); Complete Time: 11:20 kdr 06/29 07:51 Order name: IV Saline Lock; Complete Time: 08:08 kdr 06/29 07:51 Order name: Labs collected and sent; Complete Time: 08:08 kdr 06/29 07:51 Order name: O2 Per Protocol; Complete Time: 08:08 kdr 06/29 07:51 Order name: O2 Sat Monitoring; Complete Time: 08:08 kdr 06/29 09:59 Order name: EKG Strip; Complete Time: 10:19 kdr EC:13 Rate is 87 beats/min. Rhythm is regular. Left axis deviation noted. MO interval is kdr normal. QRS interval is normal. QT interval is normal. Clinical impression: NSR w/ Non-specific ST/T Changes. Administered Medications: 08:08 Drug: Tylenol 650 mg Route: PO; jl7 09:00 Follow up: Response: No adverse reaction; Pain is decreased jl7 08:22 Not Given (Patient Refused): Ibuprofen 600 mg PO once jl7 Disposition: 06/30/19 11:22 Discharged to Home. Impression: Pain in left upper arm, Peripheral neuropathy (left arm). - Condition is Stable. - Discharge Instructions: Musculoskeletal Pain, Peripheral Neuropathy. - Prescriptions for Ibuprofen 600 mg Oral Tablet - take 1 tablet by ORAL route every 6 hours As needed take with food; 15 tablet. Medrol ([place]) 4 mg Oral Tablets, Dose Pack - take 1 tablet by ORAL route as directed - follow package instructions; 1 packet. - Medication Reconciliation Form, Thank You Letter, Antibiotic Education, Prescription Opioid Use form. - Follow up: Private Physician; When: 2 - 3 days; Reason: If symptoms return, Further diagnostic work-up, Recheck today's complaints, Continuance of care, Re-evaluation by your physician. - Problem is new. - Symptoms have improved. Signatures: Dispatcher [employer] EDMS Marlene Schmidt, RN RN dm5 Willy Boyle MD MD kdr Charlee Boyle RN RN jl7 Corrections: (The following items were deleted from the chart) 11:51 11:22 06/30/2019 11:22 Discharged to Home. Impression: Pain in left upper arm; jl7 Peripheral neuropathy (left arm). Condition is Stable. Forms are Medication Reconciliation Form, Thank You Letter, Antibiotic Education, Prescription Opioid Use. Follow up: Private Physician; When: 2 - 3 days; Reason: If symptoms return, Further diagnostic work-up, Recheck today's complaints, Continuance of care, Re-evaluation by your physician. Problem is new. Symptoms have improved. kdr
--- NOTE | 2019-06-30 11:23 | ER ---
Nurse's Notes [facility] Name: Batsheva Faulkner Age: 53 yrs Sex: Female : 1965 Arrival Date: 06/30/2019 Time: 07:27 Bed 6 Private MD: Diagnosis: Pain in left upper arm;Peripheral neuropathy (left arm) Presentation: 06/29 07:40 Chief complaint: Patient states: woke up around 0500 with aching and pain in left arm. dm5 pt thought that her arm was just asleep but it hasn't gone away. 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 Pt also started new medication last night, cyclobenzaprine. Coronavirus screen: The patient has NOT traveled to a country currently being monitored by the [facility] within the last 14 days. Proceed with normal triage procedures. The patient has NOT had contact with any known and/or suspected case of coronavirus. Proceed with normal triage procedures. Ebola Screen: Patient negative for fever greater than or equal to 101.5 degrees Fahrenheit, and additional compatible Ebola Virus Disease symptoms Patient denies exposure to infectious person. Patient denies travel to an Ebola-affected area in the 21 days before illness onset. No symptoms or risks identified at this time. Initial Sepsis Screen: Does the patient meet any 2 criteria? No. Patient's initial sepsis screen is negative. Does the patient have a suspected source of infection? No. Patient's initial sepsis screen is negative. Risk Assessment: Do you want to hurt yourself or someone else? Patient reports no desire to harm self or others. 07:40 Method Of Arrival: Ambulatory dm5 07:40 Acuity: FLORY 3 dm5 08:22 Onset of symptoms was June 30, 2019. 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 jl7 Historical: - Allergies: 07:44 Amoxicillin; dm5 07:44 PENICILLINS; dm5 07:44 Clindamycin; dm5 07:44 Iodine; dm5 07:44 METHADONE \T\ RELATED; dm5 08:26 tramadol; jl7 - Home Meds: 08:26 amlodipine oral [Active]; aspirin 81 mg Oral chew 1 tab once daily [Active]; jl7 bisoprolol-hydrochlorothiazide 10-6.25 mg Oral tab 1 tab once daily [Active]; duloxetine 30 mg Oral cpDR 1 cap once daily [Active]; omeprazole 20 mg Oral cpDR 1 cap once daily [Active]; 08:30 clonidine transdermal transdermal [Active]; jl7 - PMHx: 07:44 Anxiety; Asthma; Depression; Hypertension; dm5 - Immunization history:: Adult Immunizations unknown. - Social history:: Smoking status: unknown. Screenin:00 Abuse screen: Denies threats or abuse. Denies injuries from another. Nutritional jl7 screening: No deficits noted. Tuberculosis screening: No symptoms or risk factors identified. Fall Risk IV access (20 points). Total Lemus Fall Scale indicates No Risk (0-24 pts). Assessment: 08:00 General: Appears in no apparent distress. uncomfortable, Behavior is calm, cooperative, jl7 appropriate for age. Pain: Complains of pain in TELLO Pain currently is 10 out of 10 on a pain scale. Pain: Complains of pain in left shoulder Pain radiates to left arm Quality of pain is described as tingling, Pain began 3 hours ago. Is continuous. Neuro: Level of Consciousness is awake, alert, obeys commands, Oriented to person, place, time, situation. Cardiovascular: Patient's skin is warm and dry. Respiratory: Airway is patent Respiratory effort is even, unlabored, Respiratory pattern is regular, symmetrical. GI: No signs and/or symptoms were reported involving the gastrointestinal system. : No signs and/or symptoms were reported regarding the genitourinary system. EENT: No signs and/or symptoms were reported regarding the EENT system. Derm: Skin is dry, Skin is normal, Skin temperature is warm. Musculoskeletal: No signs and/or symptoms reported regarding the musculoskeletal system. 08:50 Reassessment: Reports decreased TELLO pain, rated 8/10, Pt requesting to take morning jl7 medications, ERD notified and approved. 10:00 Reassessment: Patient appears in no apparent distress at this time. Patient and/or jl7 family updated on plan of care and expected duration. Pain level reassessed. Patient is alert, oriented x 3, equal unlabored respirations, skin warm/dry/pink. Patient states symptoms have improved. 11:00 Reassessment: Patient appears in no apparent distress at this time. No changes from jl7 previously documented assessment. Patient and/or family updated on plan of care and expected duration. Pain level reassessed. Patient is alert, oriented x 3, equal unlabored respirations, skin warm/dry/pink. Vital Signs: 07:42 BP 168 / 109; Pulse 94; Resp 16; Temp 98.1(TE); Pulse Ox 100% on R/A; Weight 103.42 kg; community health Height 5 ft. 4 in. (162.56 cm); Pain 10/10; 08:27 BP 176 / 112; Pulse 95; Resp 17 S; Pulse Ox 99% on R/A; jl7 08:50 BP 167 / 103; Pulse 85; Resp 16 S; Pulse Ox 100% on R/A; Pain 8/10; jl7 09:36 BP 159 / 99; Pulse 74; Resp 16; Pulse Ox 100% ; sv 10:18 BP 150 / 94; Pulse 78; Resp 16; Pulse Ox 100% ; sv 11:00 BP 158 / 98; Pulse 80; Resp 17 S; Pulse Ox 100% on R/A; jl7 11:37 BP 143 / 88; Pulse 84; Resp 17; Pulse Ox 100% ; sv 07:42 Body Mass Index 39.14 (103.42 kg, 162.56 cm) community health ED Course: 07:27 Patient arrived in ED. mr 07:36 Willy Boyle MD is Attending Physician. kdr 07:43 Triage completed. dm5 07:55 Charlee Boyle, RN is Primary Nurse. jl7 07:58 Initial lab(s) drawn, by me, sent to lab. Inserted saline lock: 20 gauge in right community health antecubital area, using aseptic technique. Blood collected. 08:00 Patient has correct armband on for positive identification. Placed in gown. Bed in low jl7 position. Call light in reach. Side rails up X 1. monitoring engineer on. Pulse ox on. NIBP on. Warm blanket given. 08:19 XRAY Chest (1 view) In Process Unspecified. EDMS 08:22 Arm band placed on right wrist. jl7 10:19 Repeat lab(s) drawn. by me, sent to lab. EKG done, by ED staff, reviewed by Willy Boyle MD. 11:50 No provider procedures requiring assistance completed. IV discontinued, intact, jl7 bleeding controlled, No redness/swelling at site. Pressure dressing applied. Administered Medications: 08:08 Drug: Tylenol 650 mg Route: PO; jl7 09:00 Follow up: Response: No adverse reaction; Pain is decreased jl7 08:22 Not Given (Patient Refused): Ibuprofen 600 mg PO once jl7 Outcome: 11:22 Discharge ordered by . kdr 11:50 Discharged to home ambulatory. jl7 11:50 Condition: stable 11:50 Discharge instructions given to patient, family, Instructed on discharge instructions, follow up and referral plans. medication usage, Demonstrated understanding of instructions, follow-up care, medications, Prescriptions given X 2. 11:51 Patient left the ED. jl7 Signatures: Dispatcher [employer] EDMS Marlene Schmidt RN RN dm5 Verde, Stephanie RN Willy Lainez MD MD kdr Rivera, Mary mr Leal, Jahala, RN RN jl7 Desi Castro 3 Corrections: (The following items were deleted from the chart) 07:49 07:42 BP 168 / 109; Pulse 94bpm; Resp 16bpm; Pulse Ox 100% RA; Temp 98.1F Temporal; dh3 dh3
[2019-06-30 12:06] VITALS: TEMP 98.1
[2019-06-30 12:08] VITALS: O2SAT 100
[2019-06-30 12:14] VITALS: BP 143/88
--- NOTE | 2019-06-30 12:32 | EKG ---
Test Date: 2019-06-30 Test Time: 08:37:44 Presidential Support Specialist: HOLLY MEASUREMENT RESULTS: Intervals: Rate: 87 WI: 134 QRSD: 110 QT: 336 QTc: 404 Nursery: P: 51 WI: 134 QRS: -11 T: 49 INTERPRETIVE STATEMENTS: Normal sinus rhythm Moderate voltage criteria for LVH, may be normal variant Borderline ECG Compared to ECG 10/26/2018 07:07:01 Ventricular premature complex(es) no longer present ST (T wave) deviation no longer present Electronically Signed On 06-30-19 12:30:48 CDT by Jon Carmen
--- NOTE | 2019-07-03 06:58 | EKG ---
Test Date: 2019-06-30 Test Time: 10:10:26 Manager State: [place] MEASUREMENT RESULTS: Intervals: Rate: 75 WI: 142 QRSD: 112 QT: 352 QTc: 393 [place]: P: 57 WI: 142 QRS: -4 T: 44 INTERPRETIVE STATEMENTS: Normal sinus rhythm Moderate voltage criteria for LVH, may be normal variant Borderline ECG Compared to ECG 06/30/2019 08:37:44 No significant changes Electronically Signed On 07-03-19 06:55:22 CDT by Jon Carmen
== END 2019-06-30 11:51 | disposition home or self-care (01) ==
LOC: ER 07:24
DX: G62.9 Polyneuropathy, unspecified (principal); R51 Headache; I10 Essential (primary) hypertension; F34.1 Dysthymic disorder; J45.909 Unspecified asthma, uncomplicated; Z79.82 Long term (current) use of aspirin; Z88.0 Allergy status to penicillin; Z88.1 Allergy status to other antibiotic agents; Z88.3 Allergy status to other anti-infective agents; Z88.5 Allergy status to narcotic agent; Z91.048 Other nonmedicinal substance allergy status
CPT/HCPCS: 36415; 71045; 80048; 80076; 83735; 84484; 85025; 93005; 99285

== ENCOUNTER 2020-08-12 13:36 | Emergency (ER) | payer OTHER ==
--- OUTSIDE RECORDS SUMMARY | 2020-08-12 13:40 | XMS REPORT | Continuity of Care Document ---
:1965 Author Organization [facility] t Address [address] [place] [address] Care Team Providers Name Role Phone Ximena Asencio Primary Care Physician Evangelist MERCADO Attending Clinician IVONNE BROOKS Attending Clinician Unavailable Martinez Dumont Attending Clinician IVONNE BROOKS Admitting Clinician Unavailable Problems Condition Condition Condition Status Onset Resolution Last Treating Co mments Source Name Details Category Date Date Treatment Clinician Date Obesity Obesity Problem Active 2020-0 [facility] 5-07 Family 00:00: Practic 00 e Major Major Problem Active 2019-0 [facility] depressive Depressive -07 Fa arcadio disorder Disorder 00:00: Practi c 00 e Hypertensi Hypertensi Problem Active 2020-0 [place] ve ve 5-07 Family disorder Disorder 00:00: Practi c 00 e Congestive Congestive Problem Active 2020-0 [place] heart Heart 5-07 Family failure Failure 00:00: Practic 00 e Asthma Asthma Problem Active 2020-0 [facility] 5-07 Family 00:00: Practic 00 e Gastroesop Gastroesop Problem Active 2020-0 [place] hageal hageal 5-07 Family reflux Reflux 00:00: Practic disease Disease 00 e without without esophagiti Esophagiti s s Chronic Chronic Problem Active [place] back pain Back Pain 08-23 Fami ly 00:00: Practic 00 e C34.90 - Diagnosis Active 2016-11-25 M emoria MALIGNANT 11-25 10:09:00 l NEOPLASM C34.90 - 00:01: Herm cuca OF UNSP MALIGNANT 00 PAR NEOPLASM OF UNSP PAR Active 11/25/2016 [facility] Active Juanita ston nodule nodule 11-13 Methodi 00:00: st 00 Hypertensi Hypertensi Disease [place] on 11-06 Methodi 00:00: st 00 Arthritis Arthritis Disease Active Juanita ston 11-06 Methodi 00:00: st 00 GERD GERD Disease Active [place] (gastroeso (gastroeso Me thodi phageal phageal st reflux reflux disease) disease) Wears Wears Disease Active [place] glasses glasses Methodi st Allergies, Adverse Reactions, Alerts Allergy Allergy Status Severity Reaction(s) Onset Inactive Treating Comm ents Source Name Type Date Date Clinician Amoxicil Propensi Active Rash [facility]-15 [facility] - adverse 00:00: Medical reaction 00 [place] [facility] Iodine Propensi Active Itching, [facility] ty to Swelling, 06-15 [facility] - Iodide adverse Rash 00:00: Medical Containi reaction 00 [facility] s Products Methadon Propensi Active Nausea And [facility] e ty to Vomiting 06-15 [facility] - adverse 00:00: Medical reaction 00 [place] Penicill Propensi Active Rash [facility] ty to 06-15 [facility] - adverse 00:00: Medical reaction 00 Center s Shellfis Propensi Active Rash blisters [facility] ty to 06-15 [facility] - Containi adverse 00:00: Medical ng reaction 00 Center Products s Tramadol Propensi Active Itching [place] ty to 11-23 Methodi adverse 00:00: st reaction 00 s to drug Amoxicil Propensi Active Other (See Sick to [place] ty to Comments) 11-11 stomach. Metho di adverse 00:00: st reaction 00 s to drug Iodine Propensi Active Rash [place] ty to 11-06 Methodi adverse 00:00: st reaction 00 s to drug Methadon Propensi Active [facility] [place] ty to Intolerance 11-06 Metho di adverse 00:00: st reaction 00 s to drug Penicill Propensi Active [facility] [place] ins ty to Intolerance 11-06 Metho di adverse 00:00: st reaction 00 s to drug Amoxicil Allergy Active Mild to Itching [place] ge nikko to moderate Family substanc Practic e e Methadon Allergy Active Moderate Vomiting Анна alana e to to severe Family substanc Practic e e PENICILL Allergy Active Mild to Itching [place] ge INS to moderate Family substanc Practic e e penicill Adverse Active itching, [facility] in Reaction breathing [facility] - issues [facility]oria l [facility] Methadon Adverse Active vomiting [facility] e HCl Reaction [facility] Iodine Adverse Active swelling [facility] Reaction [facility] Family History Family Member Diagnosis Comments Start Date Stop Date Source Other Stroke [place] Method ist Other Hypertension [place] Meth odist Social History Social Habit Start Date Stop Date Quantity Comments Source History SDCT [facility] - Alcohol Std Drinks Medica l Center History SDOH [facility] - Alcohol Binge Medical Kris ter Tobacco use and 2018-06-22 2018-06-[address] Becca kes - exposure 00:00:00 00:00:00 Medical Center History SDOH 2018-06-15 2018-06-[address] [facility] - Alcohol Frequency 00:00:00 00:00:00 Medical Center Social History 2016-11-26 2016[facility] 04:59:00 Alcohol intake 2016-11-16 2016-11-16 Current [facility] thodist 00:00:00 00:00:00 non-drinker of alcohol (finding) Sex Ass[birth year] At [birth year] [facility] ethodist 00:00:00 00:00:00 Smoking Status Start Date Stop Date Source Former Smoker [facility] Never smoker [place] Methodis t Medications Ordered Filled Start Stop Current Ordering Indication Dosage Frequency Signature Comments Components Source Medication Medication Date Date Medication? Clinician (SIG) Name Name Maru Mahoney 2019-0 Yes [place] [address] 8-12 [facility] - 00:00: Memoria 00 l [facility] Methocarbam Methocarbam 2020- No Adamaris [address] ol ol 11-28 [facility] - 00:00: 00:00 Memoria 00 :00 l [facility] Ketoconazol Ketoconazol 2020- No Adamaris [address] [facility] [facility] e e 04-28 [place] applicatio Shanthi es - 00:00: 00:00 n to Memoria 00 :00 affected l areas [facility] cholecalcif 2018-0 Yes QD Take by [facility] brian, 3-05 mouth [facility] - vitamin D3, 15:49: daily. Medi cedric (VITAMIN D3 43 Center ORAL) dicyclomine 2018-0 Yes 20mg Q.5D Take [address] (BENTYL) 20 3-05 by mouth 2 Becca kes - mg tablet 15:49: (two) Medical 43 times Center daily . DULoxetine 2018-0 Yes 30mg QD Take [address] (CYMBALTA) 3-05 by mouth [facility] - 30 MG 15:49: daily. Medical capsule 43 Center furosemide 0 Yes 20mg QD Take [address] (LASIX) 20 3-05 by mouth [facility] - MG tablet 15:49: daily . Medic al 43 Center cyanocobala 2018-0 Yes QD Take by [facility] min, 3-05 mouth [facility] - vitamin 15:49: daily. Medical B-12, 43 Center (VITAMIN B12 ORAL) omega-3 2019-0 Yes 1g QD Take [address] acid ethyl 3-05 by mouth [facility] - esters 15:49: daily. Medical (LOVAZA) 1 43 Center gram capsule omeprazole 2018-0 Yes 40mg QD Take [address] (PRILOSEC) 3-05 by mouth [facility] - 40 MG 15:49: daily. Medical capsule 43 Center ondansetron 2018-0 Yes Take by [facility] (ZOFRAN) 8 3-05 mouth [facility] - MG tablet 15:49: every 8 Medic al 43 (eight) Center hours as needed for Nausea. albuterol 2019-0 Yes 1{puff} Inhale [address] HFA 3-05 puff by [facility] - (VENTOLIN 15:49: mouth via Med ical HFA) 90 43 inhaler Center mcg/actuati every 6 on inhaler (six) hours as needed for Wheezing. promethazin 2019-0 Yes 25mg Take [address] [facility] e 3-05 by mouth [facility] - (PHENERGAN) 15:49: every 6 Med ical 25 MG 43 (six) Center tablet hours as needed for Nausea. bisoprolol 2019-0 Yes 10mg QD Take [address] (ZEBETA) 10 3-05 by mouth Luke s - MG tablet 15:49: daily. Medica l 43 Center TiZANidine 2019-0 Yes 4mg [id number] Take [address] (ZANAFLEX) 3-05 [id number] by mouth 3 [facility] - 4 MG 15:49: 3D (three) Medical capsule 43 times Center daily. traMADol 2019-0 Yes 50mg Take [address] (ULTRAM) 50 3-05 by mouth Luke s - mg tablet 15:49: every 6 Medic al 43 (six) Center hours as needed for Pain. aspirin 81 2019-0 Yes 81mg QD Take [address] MG EC 3-05 by mouth [facility] - tablet 15:49: daily. Medical 43 Center methocarbam 2017-0 Yes 750mg QD Take 750 [place] 7-31 mg by Methodi (ROBAXIN) 13:12: mouth st 750 MG 25 every tablet morning. montelukast 2017-0 Yes 10mg QD Take 10 mg [place] (SINGULAIR) 7-31 by mouth Meth richard 10 mg 13:12: daily. st tablet 25 omeprazole 2017-0 Yes 20mg QD Take 20 mg [place] (PriLOSEC) 7-31 by mouth Metho di 20 MG 13:12: daily. st capsule 25 DULoxetine 2017-0 Yes 30mg QD Take 30 mg [place] (CYMBALTA) 7-31 by mouth Metho di 30 MG 13:12: daily. st capsule 25 enalapril 2017-0 Yes 20mg QD Take 20 mg [place] (VASOTEC) 7-31 by mouth Method i 20 MG 13:12: daily. st tablet 25 acetaminoph 2017-0 Yes 1{tbl} Q.5D Take 1 [place] en-codeine 7-31 tablet by Meth richard (TYLENOL 13:12: mouth 2 st WITH 25 (two) CODEINE #3) times a 300-30 mg day. per tablet cyanocobala 2017-0 Yes 500ug QD Take 500 [place] min 500 MCG 7-31 mcg by Method i tablet 13:12: mouth st 25 daily. TIZANIDINE 2017-0 Yes 4mg Q8H Take 4 mg [place] HCL 7-31 by mouth Methodi (TIZANIDINE 13:12: every 8 st ORAL) 25 (eight) hours as needed. Tizanidine Tizanidine Yes Adamaris take one [facility] HCl HCl Millender -1 tablet [facility]ukes - by mouth Memoria every 8 l hours [facility] Catapres-TT Catapres-TT Yes Adamaris [address] S-1 S-1 [place] skin [facility]ukes - Memoria l [facility] Zofran Zofran Yes Adamaris [address] Millender as needed [facility]ukes - for Memoria nausea/vom l iting [facility] Singulair Singulair Yes Adamaris [address] Millender in the [facility]ukes - evening Memoria l [facility] Bisoprolol Bisoprolol Yes Adamaris [address] Fumarate Fumarate Millender Becca kes - Memoria l [facility] Bumetanide Bumetanide Yes Adamaris as [facility] Millender directed [facility] - [facility]oria [facility] Omeprazole Omeprazole Yes Adamaris [address] Millender [facility] Amlodipine Amlodipine Yes Adamaris [address] Besylate Besylate Millender Becca kes - Memoria l [facility] Duloxetine Duloxetine Yes Adamaris [address] HCl HCl Millender [facility] Doxazosin Doxazosin Yes Adamaris [address] Mesylate Mesylate Millender Becca kes - Memoria l [facility] amlodipine amlodipine No 1 Q1D amlodipine [place] 5 mg tablet 5 mg tablet 5 mg F amily Take 1 Take 1 tablet Practic tablet tablet Take 1 e every day every day tablet by oral by oral every day route. route. by oral route. Aspir-81 mg Aspir-81 mg No 1 Q1D Aspir-81 Village tablet,josie tablet,josie mg F amily yed release yed release tablet,del Practic Take 1 Take 1 ayed e tablet tablet release every day every day Take 1 by oral by oral tablet route. route. every day by oral route. bisoprolol bisoprolol No 1 Q1D bisoprolol [facility] fumarate 5 fumarate 5 fumarate 5 Family mg tablet mg tablet mg tablet Practic Take 1 Take 1 Take 1 e tablet tablet tablet every day every day every day by oral by oral by oral route. route. route. bumetanide bumetanide No 1 BID bumetanide [facility] 1 mg tablet 1 mg tablet 1 mg F amily Take 1 Take 1 tablet Practic tablet tablet Take 1 e twice a day twice a day tablet by oral by oral twice a route. route. day by oral route. clonidine clonidine No 1patch( Q1W clonidine [facility] 0.1 mg/24 0.1 mg/24 es) 0.1 mg/24 Family hr weekly hr weekly hr weekly Practic transdermal transdermal transderma e patch Apply patch Apply l patch 1 patch 1 patch Apply 1 every week every week patch by by every week transdermal transdermal by route. route. transderma l route. cyclobenzap cyclobenzap No 1 TID cyclobenza [facility] rine 10 mg rine 10 mg lazaro 10 Family tablet Take tablet Take mg tablet Practic 1 tablet 3 1 tablet 3 Take 1 e times a day times a day tablet 3 by oral by oral times a route. route. day by oral route. duloxetine duloxetine No 1capsul Q1D duloxetine [facility] 30 mg 30 mg e(s) 30 mg Family capsule,del capsule,del capsule,de Practic ayed ayed layed e release release release Take 1 Take 1 Take 1 capsule capsule capsule every day every day every day by oral by oral by oral route. route. route. omeprazole omeprazole No 1 Q1D omeprazole [facility] 20 mg 20 mg 20 mg Family delayed delayed delayed Practi c release,dis release,dis release,di e integrating integrating sintegrati tablet Take tablet Take ng tablet 1 tablet 1 tablet Take 1 every day every day tablet by oral by oral every day route. route. by oral route. Singulair Singulair No 1 Q1D Singulair [facility] 10 mg 10 mg 10 mg Family tablet Take tablet Take tablet Practic 1 tablet 1 tablet Take 1 e every day every day tablet by oral by oral every day route. route. by oral route. tramadol 50 tramadol 50 No 1 BID tramadol [place] mg tablet mg tablet 50 mg Fami ly Take 1 Take 1 tablet Practic tablet tablet Take 1 e twice a day twice a day tablet by oral by oral twice a route. route. day by oral route. Immunizations Ordered Filled Immunization Date Status Comments Sourc e Immunization Name Name Flucelvax - single Flucelvax - single 2019-01-[address] [facility] - dose syringe dose syringe 00:00:00 [facility] Pneumococcal 2016-11-16 Completed [place] [facility] od[facility] Conjugate 13-Valent 00:00:00 Vital Signs Vital Name Observation Time Observation Value Comments Source Height 2019-08-24 00:00:00 64 [in_i] [facility] BMI (Body Mass 2019-08-24 00:00:00 43.3 kg/m2 [facility] Family Index) Practice Body Weight 2019-08-24 00:00:00 252 [lb_av] [facility] Procedures This patient has no known procedures. Plan of Care Planned Activity Planned Date Details Comments Source Future Scheduled Test 2027-10-27 [facility] malignant neoplasm Medical C enter of colon (procedure) [code = 830719009] Future Scheduled Test 2021-01-[address] [facility] - 00:00:00 (procedure) [code = [facility] 31448668] Future Scheduled Test 2020-11-17 INFLUENZA VACCINE [place] 00:00:00 [code = INFLUENZA VACCINE] Future Scheduled Test 2019-12-[address] [facility] - 00:[facility]:00 (#1) [code = [facility] INFLUENZA VACCINE (#1)] Future Scheduled Test 2019-05-[address] [facility] - 00:00:00 WELLNESS (YEAR 2 or [facility] Center FIRST YEAR if no IPPE) [code = MEDICARE ANNUAL WELLNESS (YEAR 2 or FIRST YEAR if no IPPE)] Future Scheduled Test 2016 BREAST CANCER [place] [facility] 00:00:00 SCREENING [code = BREAST CANCER SCREENING] Future Scheduled Test 2016 COLONOSCOPY [place] [facility] 00:00:00 SCREENING [code = COLONOSCOPY SCREENING] Future Scheduled Test 2016 SHINGLES VACCINES [place] [facility] 00:00:00 (#1) [code = SHINGLES VACCINES (#1)] Future Scheduled Test 1987-09-15 [facility] malignant neoplasm Medical C enter of cervix (procedure) [code = 117356527] Future Scheduled Test 1987-09-15 Screening for [place] [facility] 00:00:00 malignant neoplasm of cervix (procedure) [code = 097857584] Future Scheduled Test 1982 COVID-19 VACCINE (1) [place] [facility] 00:00:00 [code = COVID-19 VACCINE (1)] Future Scheduled Test 1965 [facility] malignant neoplasm Medical C enter of breast (procedure) [code = 605750230] [facility] Encounters Start End Encounter Admission Attending Care Care Encounter Source Date/Time Date/Time Type Type Clinicians Facility Department ID 2020-08-01 2020-08-01 Outpatient [facility] [id number] [facility] 2020-07-01 2020-07-01 Outpatient [facility] [id number] [facility] 2020-05-21 2020-05-21 Outpatient [facility] [id number] [facility] 2020-04-08 2020-04-08 Outpatient [facility] [id number] [facility] 2020-04-01 2020-04-01 Outpatient [facility] [id number] [facility] 2020-02-12 2020-02-12 Outpatient [facility] [id number] [facility] 2020-01-26 2020-01-26 Outpatient [facility] [id number] [facility] 2019-12-06 2019-12-06 [facility] [id number] [address] 11:26:00 11:26:00 [employer] [place] [facility] Medicine Medicine Outpati ent Clinics 2019-11-29 2019-11-29 [facility] [id number] 22:55:00 22:55:00 [facility] Medicine Outpati ent Clinics 2019-11-29 2019-11-29 [facility] [id number] 09:20:00 09:20:00 [facility] Medicine Outpati ent Clinics 2019-10-27 2019-10-27 [facility] [id number] 13:40:00 13:40:00 [facility] Medicine Outpati ent Clinics 2019-09-27 2019-09-27 [facility] [id number] 16:20:00 16:20:00 [facility] Medicine Outpati ent Clinics 2019-08-24 2019-08-24 [facility] [place] - [id number] V illage 00:00:00 00:00:00 [facility] nellie quintana, DENTAL PRACTICE MANAGER: Medical - Practi c [email or web address] [facility], [address], [place] [address] , Ph. 2019-08-06 2019-08-06 [facility] [id number] 13:22:00 13:22:00 [facility] Medicine Outpati ent Clinics 2019-07-28 2019-07-28 [facility] [id number] 14:30:00 14:30:00 [facility] Medicine Outpati ent Clinics 2019-07-24 2019-07-24 [employer] Evangelist [facility] [id number] 08:48:24 09:18:24 ne Visit Callie James [id number] [place] [id number] [id number] [address] 2019-07-11 2019-07-11 [facility] [id number] 11:00:00 11:00:[address] [facility] Medicine Outpati ent Clinics 2019-06-29 2019-06-29 [facility] [id number] 14:30:00 14:30:[address] [facility] Medicine Outpati ent Clinics 2019-05-26 2019-05-26 [facility] [id number] 09:00:00 09:00:00 [facility] Medicine Outpati ent Clinics 2019-04-30 2019-04-30 [facility] [id number] 12:41:00 12:41:00 [facility] Medicine Outpati ent Clinics 2019-04-28 2019-04-28 [facility] [id number] 08:15:00 08:15:00 [facility] Medicine Outpati ent Clinics 2019-03-10 2019-03-10 [facility] [id number] 07:58:00 07:58:00 t Denvershelby Rasheed [facility] Medicine Medicine Outpati ent Clinics 2019-01-17 2019-01-17 [facility] [id number] 15[facility]20:00 15:20:00 [facility] Medicine Outpati ent Clinics 2018-12-26 2018-12-26 [facility] [id number] 08[facility]35:00 08:35:00 [facility] Medicine Outpati ent Clinics 2018-11-09 2018-11-09 [facility] [id number] 13:20:00 13:20:00 [facility] Medicine Outpati ent Clinics 2018-10-25 2018-10-25 [facility] [id number] 14:40:00 14:40:00 [facility] Medicine Outpati ent Clinics 2018-08-15 2018-08-15 [facility] [id number] 16:00:00 16:00:00 [facility] Medicine Outpati ent Clinics 2018-07-22 2018-07-22 [facility] [id number] 13:30:00 13:30:00 [facility] Medicine Outpati ent Clinics 2018-07-21 2018-07-21 [facility] [id number] 14:40:00 14:40:00 [facility] Medicine Outpati ent Clinics 2018-07-18 2018-07-18 [facility] [id number] 11:20:00 11:20:00 [facility] Medicine Outpati ent Clinics 2018-06-20 2018-06-20 [facility] [id number] 16:39:00 16:39:00 [facility] Medicine Outpati ent Clinics 2018-06-14 2018-06-14 [facility] [id number] 10:51:00 10:51:00 t [place] [facility] Medicine Outpati ent Clinics 2018-06-10 2018-06-10 [facility] [id number] 12:02:00 12:02:00 [facility] Medicine Outpati ent Clinics 2018-05-04 2018-05-04 [facility] [id number] 14:02:00 14:02:00 [facility] Medicine Outpati ent Clinics 2018-05-03 2018-05-03 [facility] [id number] 14:30:00 14:30:00 [facility] Medicine Outpati ent Clinics 2016-11-25 2016-11-25 Outpatient Julia, [id number] . [id number] 09:56:00 23:59:00 Lei [id number] Martinez [id number] Results Test Description Test Time Test Comments Results Result Sourc e Comments FINE NEEDLE 2018-06-17 Medical Cytology Report ASPIRATION BY 1 Case: CLINICIAN 10:38:00 [id number] Authorizing Provider: Todd Finesse Ivonne Collected: 06/21/2018 1358 Ordering Location: [facility] Endoscopy Received: 06/22/2018 0996 Services Pathologist: Octaviano Rivera MD Specimen: Hepatic, [...] neoplasm. Correlation with the accompanying tissue examination ([id number]) and additional cytology evaluations ([id number], [id number]) is recommended for further evaluation. This case was discussed with Dr. Kimani Choe on 06/27/2018. Addendum electronically signed by Ashia Lawson MD on 06/27/2018 at 10:38 AMGASTRO HEPATIC LYMPH NODE FNA BY CLINICIAN (CYTOSPINS AND CELL BLOCK OF ASPIRATE): - GRANULOMATOUS INFLAMMATION (SEE COMMENT) - NEGATIVE FOR EPITHELIAL MALIGNANCY Signing Pathologist Direct Phone Line: [phone] signed by Octaviano Rivera MD on 06/24/2018 [...] and an addendum will follow.Please see cases [id number], [id number] and 654 for further evaluation. [id number], [id number], [id number], [id number] x 11Pancreatic mass, (1.3cm) malignant-appearing lymph node in the gastrohepatic ligamentGASTRO HEPATIC LYMPH NODE FNA24 mls in cytorich red; 4 cytospins, cell blockCollected: [id number]: [id number] interpretation of this case included the use of immunohistochemistry or special stains. Please see the immunohistochemistry results in the COMMENT section. Immunohistochemistry technical testing was performed at [facility], Pathology Laboratory where it was developed [...] qualified to perform high complexity clinical laboratory testing.[facility], Department of Pathology, [address] [place] [address], [facility], [address] [place] [address], [facility], [facility], [address] [place] [address], FINE NEEDLE 2018-06-17 Medical Cytology Report ASPIRATION BY 1 Case: CLINICIAN 10:28:00 [id number] Authorizing Provider: Finesse Brooks Collected: 06/21/2018 1348 Ordering Location: [facility] Endoscopy Received: 06/22/2018 0932 Services Pathologist: Octaviano Rivera MD Specimen: Biopsy, Liver, liver left lobe Hematopathology Consultation: Impression: A-2: Liver tissue with involvement by granulomatous inflammation. No definitive evidence of involvement by a hematolymphoid neoplasm. Correlation with the accompanying tissue examination ([id number]) and additional cytology evaluations ([id number], [id number]) is recommended for further evaluation. This case was discussed with Dr. Kimani Choe on 06/27/2018. Addendum electronically signed by Ashia Lawson MD on 06/27/2018 at 10:28 AMLEFT LIVER LOBE FNA BY CLINICIAN (CYTOSPINS AND CELL BLOCK OF ASPIRATE): - GRANULOMATOUS INFLAMMATION (SEE COMMENT) - NEGATIVE FOR EPITHELIAL MALIGNANCY Signing Pathologist Direct Phone Line: [phone] signed by Octaviano Rivera MD on 06/24/2018 [...] and an addendum will follow.Please see cases [id number], [id number] and [id number] for further evaluation.[id number], [id number], [id number], [id number] x 2, 76590 x 2Pancreatic mass, abnormal echogenicity in left lobe of the liverLEFT LIVER LOBE FNA28 mls in cytorich red; 4 cytospins, cell blockCollected: [id number]: [id number] interpretation of this case included the use of immunohistochemistry or special stains. Please see the immunohistochemistry results in the COMMENT section. Immunohistochemistry technical testing was performed at [facility], Pathology Laboratory where it was developed [...] qualified to perform high complexity clinical laboratory testing.[facility], Department of Pathology, [address] [place] [id number], [facility], [address] [place] [address], [facility], [facility], [address] [place] [id number], TISSUE EXAM 2018-06-17 Surgical Pathology Report 1 Case: 08:35:00 [id number] Authorizing Provider: Finesse Brooks Collected: 06/21/2018 1344 Ordering Location: [facility] Endoscopy Received: 06/21/2018 1544 Services Pathologist: Saad Choe MD Specimens: A) - Biopsy, Liver, LIVER LEFT LOBE FNB B) - Pancreas, PANCREAS MASS FNB PART A LEFT LIVER LOBE, BIOPSY FOR SUSPECTED MASS:NONCASEATING GRANULOMATOUS INFLAMMATION.NEGATIVE FOR MALIGNANCY.SEE DIAGNOSTIC COMMENT.PART B PANCREAS, BIOPSY FOR SUSPECTED MASS:NONCASEATING GRANULOMATOUS INFLAMMATION IN LYMPHOID MATERIAL.NEGATIVE FOR MALIGNANCY.SEE DIAGNOSTIC COMMENT. Signing Pathologist Direct Phone Line: [phone] signed by Saad Choe MD on 06/27/2018 [...] case were discussed with Dr. Finesse Brooks, food safety field specialist on 06/24/2018.Intradepartment consultation: Camila Burt [id number], [id number], [id number], [id number] mass A. Liver left lobe FNB. B. [...] GMS, AFBImmunohistochemistry technical testing was performed at [facility], Pathology Laboratory where it was developed [...] high complexity clinical laboratory testing. FINE NEEDLE Medical Cytology Report ASPIRATION BY 8 Case: CLINICIAN 19:25:00 [id number] Authorizing Provider: Finesse Brooks Collected: 06/21/2018 1415 Ordering Location: [facility] Endoscopy Received: 06/22/2018 0932 Services Pathologist: Octaviano Rivera MD Specimen: Celiac Node CELIAC LYMPH NODE FNA BY CLINICIAN (CYTOSPINS AND CELL BLOCK OF ASPIRATE): - NON-DIAGNOSTIC SPECIMEN - PREDOMINANTLY BLOOD ELEMENTS WITH VERY RARE LYMPHOCYTES Signing Pathologist Direct Phone Line: [phone] signed by Octaviano Rivera MD on 06/24/2018 at 7:25 PMPlease see cases [id number], [id number] and [id number], 92024, [id number] mass, (1.2 cm) malignant-appearing lymph node in the celiac regionCELIAC LYMPH NODE FNA25 mls in cytorich red; 4 cytospins, cell blockCollected: [id number]: [id number] interpretation of this case included the use of immunohistochemistry or special stains.An immunostain for CAM5.2 performed on a cell block section is negative.Immunohistochemistr y technical testing was performed at [facility], Pathology Laboratory where it was developed [...] qualified to perform high complexity clinical laboratory testing.[facility], Department of Pathology, [address] [place] [address], [facility], [facility], [address] [place] [address], [facility], [facility], [address] [place] [id number], FINE NEEDLE ASPIRATE (FNA) REQUEST 2018-06-22 11:03:00 Test Item Value Reference Range 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
--- NOTE | 2020-08-12 15:17 | RAD REPORT ---
EXAM DESCRIPTION: RAD - Knee Right 3 View - 08/12/2020 3:07 pm CLINICAL HISTORY: Right knee pain FINDINGS: Moderate joint effusion. Mild cortical regularity and mild sclerosis involves the lateral tibial plateau. This is suspicious f or a fracture. No dislocation.
[2020-08-12] MEDS ORDERED: MEPERIDINE HCL 50 MG/ML ONE (16:37)
--- NOTE | 2020-08-12 16:53 | RAD REPORT ---
EXAM DESCRIPTION: CTAnjelica Right Lloyd Cont08/12/2020 4:37 pm CLINICAL HISTORY: Right knee pain status post injury COMPARISON: August 12, 2020 x-ray TECHNIQUE: Computed axial tomography of the right knee was obtained with coronal and sagittal recons truction. All CT scans are performed using dose optimization technique as appropriate and may include automated exposure control or mA/KV adjustment according to patient size. FINDINGS: Moderate right knee joint effusion. A fracture involves the posterolateral tibial plateau with minimal impaction of the fracture fragment s. No dislocation IMPRESSION: Minimal impaction fracture lateral tibial plateau
--- NOTE | 2020-08-12 16:57 | RAD REPORT ---
EXAM DESCRIPTION: CT - Hip Right Wo Con - 08/12/2020 4:37 pm CLINICAL HISTORY: Right hip pain status post fall COMPARISON: None TECHNIQUE: Computed axial tomography of the right hip were obtained. Coronal and sagittal reconstruc tion was performed. All CT scans are performed using dose optimization technique as appropriate and may include automated exposure control or mA/KV adjustment according to patient size. FINDINGS: No fracture or dislocation is seen. The surrounding muscles of the right hip are normal size and density. No hematoma IMPRESSION: No evidence of a right hip fracture.
--- NOTE | 2020-08-12 17:06 | ER ---
Nurse's Notes [facility] Name: Batsheva Faulkner Age: 54 yrs Sex: Female : 1965 Arrival Date: 08/12/2020 Time: 13:46 Bed Treatment Private MD: Niyah Osorio Diagnosis: Right Tibial Plateau Fracture Presentation: 08/12 14:03 Chief complaint: Patient states: R knee pain s/p fall this morning. Coronavirus screen: ll1 Client denies travel out of the [place] in the last 14 days. At this time, the client does not indicate any symptoms associated with coronavirus-19. Ebola Screen: Patient denies travel to an Ebola-affected area in the 21 days before illness onset. Initial Sepsis Screen: Does the patient meet any 2 criteria? No. Patient's initial sepsis screen is negative. Does the patient have a suspected source of infection? Yes: Skin breakdown/wound. Risk Assessment: Do you want to hurt yourself or someone else? Patient reports no desire to harm self or others. Onset of symptoms was August 12, 2020. 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 - Social history:: Smoking status: Patient denies any tobacco usage or history of. Screenin:57 Abuse screen: Denies threats or abuse. Denies injuries from another. Nutritional ca1 screening: No deficits noted. Tuberculosis screening: No symptoms or risk factors identified. Fall Risk Fall in past 12 months (25 points). Total Lemus Fall Scale indicates No Risk (0-24 pts). Assessment: 15:57 General: Appears in no apparent distress. uncomfortable, Behavior is calm, cooperative, ca1 appropriate for age. Pain: Complains of pain in right ankle and right knee Pain currently is 10 out of 10 on a pain scale. Aggravated by repositioning, weight bearing. Neuro: Level of Consciousness is awake, alert, obeys commands, Oriented to person, place, time, situation. Derm: Skin is intact, is healthy with good turgor, Skin is pink, warm \T\ dry. Musculoskeletal: Circulation, motion, and sensation intact. Capillary refill < 3 seconds. 16:55 Reassessment: Patient appears in no apparent distress at this time. Patient and/or ca1 family updated on plan of care and expected duration. Pain level reassessed. Patient is alert, oriented x 3, equal unlabored respirations, skin warm/dry/pink. 16:55 Reassessment: Patient appears in no apparent distress at this time. Patient is alert, ca1 oriented x 3, equal unlabored respirations, skin warm/dry/pink. Vital Signs: 14:03 BP 177 / 94; Pulse 69; Resp 17; Temp 97.0; Pulse Ox 99% ; Weight 127.01 kg; Height 5 ll1 ft. 4 in. (162.56 cm); Pain 10/10; 15:57 BP 171 / 86; Pulse 64; Resp 18 S; Pulse Ox 100% on R/A; ca1 16:55 BP 168 / 89; Pulse 64; Resp 16 S; Pulse Ox 100% on R/A; ca1 14:03 Body Mass Index 48.06 (127.01 kg, 162.56 cm) ll1 ED Course: 13:46 Patient arrived in ED. as 13:47 Niyah Osorio is Private Physician. as 13:48 Arm band placed on. ll1 14:04 Triage completed. ll1 15:07 Knee Right 3 View XRAY In Process Unspecified. EDMS 15:52 Deyanira Chacon, ALLIE is Primary Nurse. ca1 15:54 Huey Chung PA is PHCP. cp 15:54 Huey Sotomayor MD is Attending Physician. cp 15:57 Patient has correct armband on for positive identification. Bed in low position. Call ca1 light in reach. Side rails up X 1. Pulse ox on. NIBP on. 16:37 Knee Right Wo Cont In Process Unspecified. EDMS 16:37 Hip Right Wo Con In Process Unspecified. EDMS 17:05 Du Alan MD is Referral Physician. cp 17:48 No provider procedures requiring assistance completed. Patient did not have IV access ca1 during this emergency room visit. Crutch training done. Knee immobilizer applied on right knee. Administered Medications: 16:18 Not Given (Physician Discretion): Demerol (meperidine) 25 mg IVP once; RASS on ADMIN: cp Combtv4, Very Agttd3, Agttd2, Rstlss1, AlertClm0, Drwsy-1, Lt Sdtn-2, Mod Sdtn-3, Dp Sdtn-4, UnArsble-5 16:21 Drug: Demerol (meperidine) 50 mg {Note: rass 0.} Route: IM; Site: left gluteus; ca1 17:47 Follow up: Response: No adverse reaction; Pain is decreased; RASS: Alert and Calm (0) ca1 Outcome: 17:06 Discharge ordered by MD. cp 17:48 Discharged to home via wheelchair, with significant other. ca1 17:48 Condition: stable 17:48 Discharge instructions given to patient, Instructed on discharge instructions, follow up and referral plans. no drinking with medication, no driving heavy equipment, medication usage, crutch walking, Demonstrated understanding of instructions, follow-up care, medications, crutch walking, Prescriptions given X 2. 17:48 Patient left the ED. ca1 Signatures: Dispatcher [employer] EDMS Rosangela Willard Corey, PA PA cp Deyanira Chacon RN RN ca1 Flower Plasencia RN RN ll1
--- NOTE | 2020-08-12 17:06 | EDPHYS ---
Physician Documentation [facility] Name: Batsheva Faulkenr Age: 54 yrs Sex: Female : 1965 Arrival Date: 08/12/2020 Time: 13:46 Bed Treatment Private MD: Niyah Osorio ED Physician Huey Sotomayor HPI: 08/12 16:25 This 54 yrs old Black Female presents to ER via Wheelchair with complaints of Leg Pain, cp Fall Injury. 16:25 The patient presents with decreased range of motion, an injury. cp 16:25 The complaints affect the right hip and right knee. Context: resulted from the patient cp falling, the patient is not able to bear weight, the patient is able to ambulate, with moderate difficulty. Onset: The symptoms/episode began/occurred this morning. Associated signs and symptoms: Pertinent negatives calf tenderness, numbness, tingling. Treatment prior to arrival includes: no previous treatment. 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 - Social history:: Smoking status: Patient denies any tobacco usage or history of. ROS: 16:30 Constitutional: Negative for body aches, chills, fever, poor PO intake. cp 16:30 Neck: Negative for pain with movement, pain at rest. cp 16:30 Cardiovascular: Negative for chest pain. 16:30 Respiratory: Negative for cough, shortness of breath. 16:30 Abdomen/GI: Negative for abdominal pain, nausea, vomiting, and diarrhea. 16:30 Back: Negative for pain at rest, pain with movement. 16:30 MS/extremity: Positive for injury or acute deformity, decreased range of motion, pain, swelling, tenderness, of the right knee. 16:30 Neuro: Negative for altered mental status, loss of consciousness, syncope. 16:30 All other systems are negative. Exam: 16:35 Constitutional: The patient appears in no acute distress, alert, awake, cp non-diaphoretic, non-toxic, well developed, well nourished, obese. 16:35 Head/Face: Normocephalic, atraumatic. cp 16:35 Chest/axilla: Inspection: normal. 16:35 Cardiovascular: Rate: normal. 16:35 Respiratory: the patient does not display signs of respiratory distress, Respirations: normal, no use of accessory muscles, labored breathing, is not present. 16:35 Abdomen/GI: Inspection: abdomen appears normal, Palpation: abdomen is soft and non-tender, in all quadrants. 16:35 Musculoskeletal/extremity: Extremities: grossly normal except: noted in the right knee: decreased ROM, pain, swelling, tenderness, There is no evidence of deformity, ROM: limited passive range of motion due to pain, in the right knee and right hip, Pulses: noted to be 2+ in the right dorsalis pedis artery, the right knee Severe pain noted. 16:35 Neuro: Orientation: to person, place \T\ time. Mentation: is normal. Vital Signs: 14:03 BP 177 / 94; Pulse 69; Resp 17; Temp 97.0; Pulse Ox 99% ; Weight 127.01 kg; Height 5 ll1 ft. 4 in. (162.56 cm); Pain 10/10; 15:57 BP 171 / 86; Pulse 64; Resp 18 S; Pulse Ox 100% on R/A; ca1 16:55 BP 168 / 89; Pulse 64; Resp 16 S; Pulse Ox 100% on R/A; ca1 14:03 Body Mass Index 48.06 (127.01 kg, 162.56 cm) ll1 Procedures: 17:45 Splinting: Splint applied to right knee using knee immobilizer, applied by nurse. cp Examined by me, post splint application: neurovascular intact, Patient tolerated well. MDM: 15:57 Patient medically screened. cp 16:30 Differential diagnosis: dislocation, closed fracture, contusion. cp 17:05 Data reviewed: vital signs, nurses notes, radiologic studies, CT scan, plain films, and cp as a result, I will discharge patient. 17:05 Counseling: I had a detailed discussion with the patient and/or guardian regarding: the cp historical points, exam findings, and any diagnostic results supporting the discharge/admit diagnosis, radiology results, the need for outpatient follow up, a orthopedic surgeon, to return to the emergency department if symptoms worsen or persist or if there are any questions or concerns that arise at home. 17:05 Response to treatment: the patient's symptoms have markedly improved after treatment, cp and as a result, I will discharge patient. 08/12 14:28 Order name: Knee Right 3 View XRAY; Complete Time: 16:59 ll1 08/12 16:10 Order name: Knee Right Wo Cont; Complete Time: 16:59 EDMS 08/12 16:24 Order name: Hip Right Wo Con; Complete Time: 16:59 EDMS 08/12 17:00 Interpretation: Report reviewed. cp 08/12 17:00 Order name: Crutches; Complete Time: 17:47 cp 08/12 17:00 Order name: Knee Immobilizer; Complete Time: 17:47 cp Administered Medications: 16:18 Not Given (Physician Discretion): Demerol (meperidine) 25 mg IVP once; RASS on ADMIN: cp Combtv4, Very Agttd3, Agttd2, Rstlss1, AlertClm0, Drwsy-1, Lt Sdtn-2, Mod Sdtn-3, Dp Sdtn-4, UnArsble-5 16:21 Drug: Demerol (meperidine) 50 mg {Note: rass 0.} Route: IM; Site: left gluteus; ca1 17:47 Follow up: Response: No adverse reaction; Pain is decreased; RASS: Alert and Calm (0) ca1 Disposition: 18:00 Chart complete. 08/13 07:22 Co-signature as Attending Physician, Huey Sotomayor MD I agree with the assessment and carlie plan of care. Disposition: 08/12/20 17:06 Discharged to Home. Impression: Right Tibial Plateau Fracture. - Condition is Stable. - Discharge Instructions: Nondisplaced Tibial Plateau Fracture. - Prescriptions for Tylenol- Codeine #3 300-30 mg Oral Tablet - take 2 tablets by ORAL route every 6 hours As needed; 30 tablet. Ibuprofen 800 mg Oral Tablet - take 1 tablet by ORAL route every 8 hours As needed take with food; 30 tablet. - Medication Reconciliation Form, Thank You Letter, Antibiotic Education, Prescription Opioid Use form. - Follow up: Du Alan MD; When: 2 - 3 days; Reason: Recheck today's complaints. - Problem is new. - Symptoms have improved. Signatures: Dispatcher [employer] EDMS Huey Sotomayor MD MD cha Page, Corey, PA PA cp Deyanira Chacon RN RN ca1 Flower Plasencia RN RN ll1 Corrections: (The following items were deleted from the chart) 08/12 16:20 16:09 IV Saline Lock ordered. cp ca1 16:24 16:10 Hip Right 2 View+RAD.RAD.BRZ ordered. EDWI EDMS 17:48 17:06 08/12/2020 17:06 Discharged to Home. Impression: Right Tibial Plateau Fracture. ca1 Condition is Stable. Forms are Medication Reconciliation Form, Thank You Letter, Antibiotic Education, Prescription Opioid Use. Follow up: Du Alan; When: 2 - 3 days; Reason: Recheck today's complaints. Problem is new. Symptoms have improved. cp
[2020-08-12 17:58] VITALS: TEMP 97
[2020-08-12 18:03] VITALS: O2SAT 100
[2020-08-12 18:08] VITALS: BP 168/89
== END 2020-08-12 17:48 | disposition home or self-care (01) ==
LOC: ER 13:36
DX: S82.141A Displaced bicondylar fracture of right tibia, initial encounter for closed fracture (principal); W19.XXXA Unspecified fall, initial encounter; I10 Essential (primary) hypertension; Z88.0 Allergy status to penicillin; Z88.1 Allergy status to other antibiotic agents; Z88.3 Allergy status to other anti-infective agents; Z88.5 Allergy status to narcotic agent; Z91.048 Other nonmedicinal substance allergy status
CPT/HCPCS: 73700 ×2; 73562; J2175; 96372; 99284

== ENCOUNTER 2022-06-01 16:10 | Inpatient (IN) | payer OTHER ==
--- OUTSIDE RECORDS SUMMARY | 2022-06-01 16:17 | XMS REPORT | Continuity of Care Document ---
:1965 Author Organization [facility] t Address [address] [place] [address] [address] [place] [address] Care Team Providers Name Role Phone Niyah Asencio Primary Care Physician Niyah Osorio Attending Clinician Unavailable Adamaris Nelson Attending Clinician Unavailable Wilfrid-Mbayo_A_AH Attending Clinician Unavailable ENRIQUE JOHANSEN Attending Clinician Unavailable Enrique Johansen MD Attending Clinician FINESSE BROOKS Attending Clinician Unavailable Lei Dumont Attending Clinician Wilfrid-Mbayo_A_AH Admitting Clinician Unavailable FIENSSE BROOKS Admitting Clinician Unavailable Payers Payer Name Policy Type Policy Number Effective Date Expiration Date Dena MURGUIA [facility] 53 [id number] 2021 [facility] ADVANTAGE 00:00:00 - [facility] [id number] 2019 - [place] 00:00:00 (MEDICARE REPLACEMENT/ADV ANTAGE - HMO) [facility] [id number] 2019 STAR PLUS 00:00:00 Problems Condition Condition Condition Status Onset Resolution Last Treating Co mments Source Name Details Category Date Date Treatment Clinician Date Obesity Obesity Problem Active Village - Family 00:00: Practic 00 e Major Major Problem Active [facility] depressive Depressive 08-23 Fa arcadio disorder Disorder 00:00: Practi c 00 e Congestive Congestive Problem Active [facility] heart Heart 08-23 Family failure Failure 00:00: Practic 00 e Gastroesop Gastroesop Problem Active [facility] hageal hageal 08-23 Family reflux Reflux 00:00: Practic disease Disease 00 e without without esophagiti Esophagiti s s Chronic Chronic Problem Active [facility] back pain Back Pain 08-23 Fami ly 00:00: Practic 00 e Obesity Obesity Disease Active Univers (BMI (BMI 3-27 ity of 30-39.9) 30-39.9) 00:00: [place] 00 Medical Branch Screening Screening Disease Active Overview: Univers for for 09-28 Added ity of colorectal colorectal 00:00: automatic [place] cancer cancer 00 ally from Medical request Branch for surgery [id number] Essential Essential Disease Active Uni vers hypertensi hypertensi 5-04 it y of on, benign [place] C34.90 - C34.90 - Diagnosis Active 2016-11-25 Memoria MALIGNANT MALIGNANT 11-25 10:09:00 l NEOPLASM NEOPLASM 00:01: Norris burleson OF [facility] 00 PAR PAR Active 11/25/2016 [facility] Disease Active Met hodi nodule nodule 11-13 00:00: Hospita 00 l Hypertensi Hypertensi Disease Recurre Methodi on on nce 11-06 st 00:00: Hospita 00 l Arthritis Arthritis Disease Recurre Me thodi nce 11-06 00:00: Hospita 00 l [id number] Stage 3a Problem Comm on chronic Spirit kidney - CHI disease [facility] [id number] BMI Problem Common 50.0-59.9, Spirit adult - [facility] [id number] Sarcoidosi Problem Com mon s [facility] [id number] Hypercalce Problem Com mon thaddeus Spirit [facility] [id number] Dyslipidem Problem Co mmon ia [facility] Hyperglyce Elevated Problem Com mon thaddeus glucose [facility] Lesion of Lesion of Problem Com mon liver liver [facility] Osteoarthr Osteoarthr Problem C ommon itis itis [facility] Asthma Asthma, Problem Common unspecifie Spirit d asthma - [facility] severity, St unspecifie [facility] d whether Medical complicate Center d, unspecifie d whether persistent [id number] Paresthesi Problem Com mon as [facility] [id number] Tinea Problem Common pedis of Spirit both feet [facility] [id number] Chronic Problem Commo n kidney Spirit disease, - [facility] stage 3b [facility] [id number] Epigastric Problem Com mon pain [facility] [id number] Chronic Problem Commo n nausea [facility] [id number] Essential Problem Comm on hypertensi Spirit on [facility] [id number] Other Problem Common vascular Spirit headache [facility] [id number] Chronic Problem Commo n pain Spirit syndrome [facility] [id number] Pulmonary Problem Com mon nodules [facility] [id number] Morbid Problem Common obesity [facility] [id number] JOSH Problem Common (obstructi Spirit ve sleep - CHI apnea) [facility] [id number] CPAP Problem Common (continuou Spirit s positive - CHI airway St pressure) [facility] dependence [facility]ica [facility] Mixed Anxiety Problem Common anxiety and Spirit and depression - CHI depressive [facility] Osteopenia Osteopenia Problem C ommon [facility] [id number] Low back Problem Comm on pain [facility] [id number] Constipati Problem Com mon on, Spirit unspecifie - CHI d constipati [facility] [id number] Peripheral Problem Co mmon edema [facility] [id number] Intractabl Problem Co mmon e migraine Spirit without - CHI aura and [facility] status Medical migrainosu Center s [id number] Bipolar 1 Problem Com mon disorder [facility] GERD GERD Disease Active Methodi (gastroeso (gastroeso st phageal phageal Hospita reflux reflux l disease) disease) Wears Wears Disease Active Methodi glasses glasses st Hospita l Allergies, Adverse Reactions, Alerts Allergy Allergy Status Severity Reaction(s) Onset Inactive Treating Comm ents Source Name Type Date Date Clinician Amoxicil Propensi Active Rash [facility] adverse 00:00: Medical reaction 00 Center s Iodine Propensi Active Itching, [facility] And ty to Swelling, 06-15 [facility] Iodide adverse Rash 00:00: Medical Containi reaction 00 Center ng s Products Methadon Propensi Active Nausea And CH I St e ty to Vomiting 06-15 [facility] adverse 00:00: Medical reaction 00 Center s Penicill Propensi Active Rash [facility] ins ty to 06-15 [facility] adverse 00:00: Medical reaction 00 Center s Shellfis Propensi Active Rash blisters [facility] h ty to 06-15 [facility] Containi adverse 00:00: Medical ng reaction 00 Center Products s Tramadol Propensi Active Itching Metho di ty to 807 st adverse 00:00: Hospita reaction 00 l s to drug Amoxicil Propensi Active Other (See Sick to M sri el ty to Comments) 11-[address] adverse 00:00: Hospita reaction 00 l s to drug Iodine Propensi Active Rash Methodi ty to 7 st adverse 00:00: Hospita reaction 00 l s to drug Methadon Propensi Active GI Method i e ty to Intolerance 11-06 st adverse 00:00: Hospita reaction 00 l s to drug Penicill Propensi Active GI Method i ins ty to Intolerance 11-06 st adverse 00:00: Hospita reaction 00 l s to drug Amoxicil Propensi Active Unknown - Uni vers nikko ty to See comments 3- ity of adverse 00:00: [place] reaction 00 Medical s Branch Iodine Propensi Active Unknown - Unive rs ty to See comments - ity of adverse 00:00: [place] reaction 00 Medical s Branch AMOXICIL DRUG Active Unknown-Cmnt Un kita NIKKO INGREDI 3- ity of 00:00: [place] 00 Medical Branch IODINE DRUG Active Unknown-Cmnt Univ ers INGREDI 07-12 ity of 00:00: [place] [facility] METHADON DRUG Active Unknown-Cmnt Un kita E INGREDI 07-12 ity of 00:00: Medical Branch PENICILL Drug Active Unknown-Cmnt Un kita INS Class 07-12 ity of 00:00: Medical Branch Methadon Propensi Active Unknown - Uni vers e ty to See comments 07-12 ity of adverse 00:00: [place] reaction 00 Medical s Branch Penicill Propensi Active Unknown - Uni vers ins ty to See comments 07-12 ity of adverse 00:00: [place] reaction 00 Medical s Branch Amoxicil Allergy Active Mild to Itching [place] ge nikko to moderate Family substanc Practic e e Methadon Allergy Active Moderate Vomiting Анна alana e to to severe Family substanc Practic e e PENICILL Allergy Active Mild to Itching [place] ge INS to moderate Family substanc Practic e e 0 Drug Active itching, Common allergy breathing Spirit issues [facility] methadon methadon Active vomiting Comm on e e Spirit [facility] 463 Drug Active swelling Common allergy [facility] Family History Family Member Diagnosis Comments Start Date Stop Date Source Other Hypertension [facility] Other Stroke [facility] Social History Social Habit Start Date Stop Date Quantity Comments Source History of Tobacco [facility] - Use [facility] History SDOH [facility] Alcohol Std Drinks [facility] History SDOH [facility] Alcohol Binge Medical Kris ter History SDOH [facility] Alcohol Comment Medical C enter Cigarettes smoked 2018-07-13 2018-07-13 Univers ity of current (pack per 00:00:00 00:00:00 [facility] ) - Reported Branch Cigarette 2018-07-13 2018-07-13 University of pack-years 00:00:00 00:00:00 [facility] History SDOH 2018-06-15 2018-06-[address] [facility] Alcohol Frequency 00:00:00 00:00:00 [facility] Tobacco use and 2018-06-15 2018-06-[address] Becca kes exposure 00:00:00 00:00:00 [facility] Alcohol intake 2016-11-16 2016-11-16 Current Islam 00:00:00 00:00:00 non-drinker of Hospital alcohol (finding) Sex Ass[birth year] At [birth year] Islam 00:00:00 00:00:00 Hospital Smoking Status Start Date Stop Date Source Former Smoker 2022-04-15 00:00:00 2022-04-15 00:00:00 [facility] - [facility] Never Smoker [facility] - [facility] Medications Ordered Filled Start Stop Current Ordering Indication Dosage Frequency Signature Comments Components Source Medication Medication Date Date Medication? Clinician (SIG) Name Name hydrOXYzine hydrOXYzine 2021-04 No 1{table TID hydrOXYzin HCl 50 MG HCl 50 MG 1-16 t_at_be e HCl 50 00:00: dtime_a MG 00 s_neede d} hydrOXYzine hydrOXYzine 2021-04 No 1{table TID hydrOXYzin HCl 50 MG HCl 50 MG 1-16 t_at_be e HCl 50 00:00: dtime_a MG 00 s_neede d} hydrOXYzine hydrOXYzine 2021-04 No 1{table TID hydrOXYzin HCl 50 MG HCl 50 MG 1-16 t_at_be e HCl 50 00:00: dtime_a MG 00 s_neede d} Tessalon Tessalon 2021- No 1{capsu TID Tessalon Perles 100 Perles 100 05-09 le_as_n Perles 100 MG MG 00:00: 00:00 eeded} MG 00 :00 Tessalon Tessalon 2021- No 1{capsu TID Perles 100 Perles 100 05-09 le_as_n MG MG 00:00: 00:00 eeded} 00 :00 Lyrica Lyrica 2019-0 Yes Adamaris 1 capsule Com mon 11-28 [facility] 00:00: - CHI 00 [facility] Methocarbam Methocarbam 0 2020- No Adamaris 1 tablet Common ol ol 11-28 [facility] 00:00: 00:00 - CHI 00 :00 [facility] Solumedrol Solumedrol 2019-0 No 125mg Common 125mg/2ml 125mg/2ml 3-12 Spiri t 00:00: - CHI 00 [facility] Solumedrol Solumedrol 2020-0 No 125mg Common 125mg/2ml 125mg/2ml 3-12 Spiri t 00:00: - CHI 00 [facility] Solumedrol Solumedrol 2020-0 No 125mg Common 125mg/2ml 125mg/2ml 3-12 Spiri t 00:00: - CHI 00 [facility] Solumedrol Solumedrol 2020-0 No 125mg Common 125mg/2ml 125mg/2ml 3-12 Spiri t 00:00: - CHI 00 [facility] Solumedrol Solumedrol 2020-0 No 125mg Common 125mg/2ml 125mg/2ml 3-12 Spiri t 00:00: - CHI 00 [facility] Solumedrol Solumedrol 2020-0 No 125mg Common 125mg/2ml 125mg/2ml 3-12 Spiri t 00:00: - CHI 00 [facility] Solumedrol Solumedrol 2020-0 No 125mg Common 125mg/2ml 125mg/2ml 3-12 Spiri t 00:00: - CHI 00 [facility] Solumedrol Solumedrol 2020-0 No 125mg Common 125mg/2ml 125mg/2ml 3-12 Spiri t 00:00: - CHI 00 [facility] Solumedrol Solumedrol 2020-0 No 125mg Common 125mg/2ml 125mg/2ml 3-12 Spiri t 00:00: - CHI 00 [facility] Solumedrol Solumedrol 2020-0 No 125mg Common 125mg/2ml 125mg/2ml 3-12 Spiri t 00:00: - CHI 00 [facility] Ketoconazol Ketoconazol 2020-0 2020- No Adamaris 1 Common e e 1-12-25 [place] applicatio Spi rit 00:00: 00:00 n to - CHI 00 :00 affected [facility] VITAMIN B-6 2019-0 Yes as Univer s ORAL 3-29 directed ity of 19:56: [address] Branch OMEGA3/DHA/ 2019-0 Yes 1{tbl} Take 1 Un kita EPA/FISH 3-29 tablet by ity of OIL/VIT D3 19:56: mouth [place] (OMEGA-3 + 05 daily. Medical VITAMIN D3 Branch ORAL) ALBUTEROL Yes 1{puff} Inhale 1 U nivers SULFATE 3-29 Puff as ity of (PROAIR HFA 19:56: needed. Bruce as INHALE) [address] [place] [address] Branch vitamin 2019- Yes 500ug Take 500 Unive rs B-12 500 3-29 mcg by ity of mcg tablet 19:56: mouth [place] 05 daily. Medical Branch tiZANidine Yes 4mg Take 4 mg Un kita 4 mg tablet 3-29 by mouth ity of 19:56: every 8 [place] [id number] (eight) Medical hours as Branch needed. DULoxetine 0 Yes 30mg Take 30 mg U nivers 30 mg 3-29 by mouth ity of capsule 19:56: daily. [address] Branch montelukast Yes 10mg Take 10 mg Univers 10 mg 3-29 by mouth ity of tablet 19:56: daily. [address] Branch amLODIPine Yes 5mg Take 5 mg Un kita 5 mg tablet 3-29 by mouth ity of 19:56: daily. [address] Branch aspirin 81 Yes 81mg Take 81 mg U nivers mg chewable 3-29 by mouth ity of tablet 19:56: daily with [place] [address] breakfast. Medical Branch cholecalcif 0 Yes QD Take by [facility] brian, 3-05 mouth [facility] vitamin D3, 15:49: daily. Medi cedric (VITAMIN D3 43 Center ORAL) dicyclomine 20190 Yes 20mg Q.5D Take [address] (BENTYL) 20 3-05 by mouth 2 Becca kes mg tablet 15:49: (two) Medical 43 times Center daily . DULoxetine 2019-0 Yes 30mg QD Take [address] (CYMBALTA) 3-05 by mouth [facility]ukes 30 MG 15:49: daily. Medical capsule 43 Center furosemide 20190 Yes 20mg QD Take [address] (LASIX) 20 3-05 by mouth [facility]ukes MG tablet 15:49: daily . Medic al 43 Center cyanocobala 2019-0 Yes QD Take by [facility] min, 3-05 mouth [facility] vitamin 15:49: daily. Medical B-12, 43 Center (VITAMIN B12 ORAL) omega-3 2019-0 Yes 1g QD Take [address] acid ethyl 3-05 by mouth [facility]ukes esters 15:49: daily. Medical (LOVAZA) 1 43 Center gram capsule omeprazole 2019-0 Yes 40mg QD Take [address] (PRILOSEC) 3-05 by mouth [facility]ukes 40 MG 15:49: daily. Medical capsule 43 Center ondansetron 2018-0 Yes Take by [facility] (ZOFRAN) 8 3-05 mouth [facility]ukes MG tablet 15:49: every 8 Medic al 43 (eight) Center hours as needed for Nausea. albuterol 2019-0 Yes 1{puff} Inhale [address] HFA 3-05 puff by Lukes (VENTOLIN 15:49: mouth via Med ical HFA) 90 43 inhaler Center mcg/actuati every 6 on inhaler (six) hours as needed for Wheezing. promethazin 2019-0 Yes 25mg Take [address] e 3-05 by mouth Lukes (PHENERGAN) 15:49: every 6 Med ical 25 MG 43 (six) Center tablet hours as needed for Nausea. bisoprolol 2018-0 Yes 10mg QD Take [address] (ZEBETA) 10 3-05 by mouth Luke s MG tablet 15:49: daily. Medica l 43 Center TiZANidine 2018-0 Yes 4mg Q.[id number] Take [address] (ZANAFLEX) 3-05 [id number] by mouth 3 Lukes 4 MG 15:49: 3D (three) Medical capsule 43 times Center daily. traMADol 2019-0 Yes 50mg Take [address] (ULTRAM) 50 3-05 by mouth Luke s mg tablet 15:49: every 6 Medic al 43 (six) Center hours as needed for Pain. aspirin 81 2019-0 Yes 81mg QD Take [address] MG EC 3-05 by mouth [facility]ukes tablet 15:49: daily. Medical 43 Center omeprazole 2017-0 Yes 40mg Take 40 mg U nivers 40 mg 4-09 by mouth ity of capsule 00:00: daily. [address] Kenalog Kenalog 2017-0 No 40mg Common (Triamcinol (Triamcinol 2-05 S pirit one) one) 00:00: - CHI 00 [facility] Dexamethaso Dexamethaso 2018-0 No 10mg Common ne ne 2-05 Spirit 00:00: - CHI 00 [facility] Kenalog Kenalog 2018-0 No 40mg Common (Triamcinol (Triamcinol 2-05 S pirit one) one) 00:00: - CHI 00 [facility] Dexamethaso Dexamethaso 2018-0 No 10mg Common ne ne 2-05 Spirit 00:00: - CHI 00 [facility] Kenalog Kenalog 2018-0 No 40mg Common (Triamcinol (Triamcinol 2-05 S pirit one) one) 00:00: - CHI 00 [facility] Dexamethaso Dexamethaso 2018-0 No 10mg Common ne ne 2-05 Spirit 00:00: - CHI 00 [facility] Kenalog Kenalog 2018-0 No 40mg Common (Triamcinol (Triamcinol 2-05 S pirit one) one) 00:00: - CHI 00 [facility] Dexamethaso Dexamethaso 2018-0 No 10mg Common ne ne 2-05 Spirit 00:00: - CHI 00 [facility] Kenalog Kenalog 2018-0 No 40mg Common (Triamcinol (Triamcinol 2-05 S pirit one) one) 00:00: - CHI 00 [facility] Dexamethaso Dexamethaso 2018-0 No 10mg Common ne ne 2-05 Spirit 00:00: - CHI 00 [facility] Kenalog Kenalog 2018-0 No 40mg Common (Triamcinol (Triamcinol 2-05 S pirit one) one) 00:00: - CHI 00 [facility] Dexamethaso Dexamethaso 2018-0 No 10mg Common ne ne 2-05 Spirit 00:00: - CHI 00 [facility] Kenalog Kenalog 2018-0 No 40mg Common (Triamcinol (Triamcinol 2-05 S pirit one) one) 00:00: - CHI 00 [facility] Dexamethaso Dexamethaso 2018-0 No 10mg Common ne ne 2-05 Spirit 00:00: - CHI 00 [facility] Joealog Kenalog 2018-0 No 40mg Common (Triamcinol (Triamcinol 2-05 S pirit one) one) 00:00: - [facility]I [facility] Dexamethaso Dexamethaso 2018-0 No 10mg Common ne ne 2-05 Spirit 00:00: - [facility]I [facility] Kenalog Kenalog 2017-0 No 40mg Common (Triamcinol (Triamcinol 2-05 S pirit one) one) 00:00: - CHI 00 [facility] Dexamethaso Dexamethaso 2018-0 No 10mg Common ne ne 2-05 Spirit 00:00: - [facility]I [facility] Ghislaine Kenalog 0 No 40mg Common (Triamcinol (Triamcinol 2-05 S pirit one) one) 00:00: - [facility]I [facility] Dexamethaso Dexamethaso 2018-0 No 10mg Common ne ne 2-05 Spirit 00:00: - [facility] methocarbam Yes 750mg QD Take 750 M ethodi ol 7-[address] (ROBAXIN) 13:12: mouth Hospita 750 MG 25 every l tablet morning. montelukast Yes 10mg QD Take 10 mg Methodi (SINGULAIR) 7-[address] 10 mg 13:12: daily. Hospita tablet 25 l omeprazole Yes 20mg QD Take 20 mg M ethodi (PriLOSEC) 7-[address] 20 MG 13:12: daily. Hospita capsule 25 l DULoxetine Yes 30mg QD Take 30 mg M ethodi (CYMBALTA) 7-[address] 30 MG 13:12: daily. Hospita capsule 25 l enalapril 2017 Yes 20mg QD Take 20 mg Me thodi (VASOTEC) 7-[address] 20 MG 13:12: daily. Hospita tablet 25 l acetaminoph Yes 1{tbl} Q.5D Take 1 Me thodi en-codeine 7-[address] (TYLENOL 13:12: mouth 2 Hospit a WITH 25 (two) l CODEINE #3) times a 300-30 mg day. per tablet cyanocobala 2017- Yes 500ug QD Take 500 M ethodi min 500 MCG 7-[address] tablet 13:12: mouth Hospita 25 daily. l TIZANIDINE 2016-0 Yes 4mg Q8H Take 4 mg Me thodi HCL 7-[address] (TIZANIDINE 13:12: every 8 Hos luh ORAL) 25 (eight) l hours as needed. amlodipine amlodipine No 1 Q1D amlodipine [place] [...] route. bisoprolol bisoprolol No 1 Q1D bisoprolol [facility] fumarate 5 fumarate 5 fumarate 5 Family mg tablet mg tablet mg tablet Practic Take 1 Take 1 Take 1 e tablet tablet tablet every day every day every day by oral by oral by oral route. route. route. Tizanidine Tizanidine Yes Adamaris take one Common HCl HCl Millender -1 tablet Spiri t by mouth - CHI every 8 St hours [facility] Catapres-TT Catapres-TT Yes Adamaris 1 patch to Common S-1 S-1 [place] skin [facility] Zofran Zofran Yes Adamaris 1 tablet Common Millender as needed Spiri t for - CHI nausea/vom [facility] Singulair Singulair Yes Adamaris 1 tablet Common Millender in the Spirit evening [facility] Bisoprolol Bisoprolol Yes Adamaris 1 tablet Common Fumarate Fumarate Millender Sp simeon - [facility] Bumetanide Bumetanide Yes Adamaris as Co mmon Millender directed Spirit [facility] bumetanide bumetanide No 1 BID bumetanide Village 1 mg tablet 1 mg tablet 1 mg F amily Take 1 Take 1 tablet Practic tablet tablet Take 1 e twice a day twice a day tablet by oral by oral twice a route. route. day by oral route. Omeprazole Omeprazole Yes Adamaris 1 capsule Common Millender [facility] Amlodipine Amlodipine Yes Adamaris 1 tablet Common Besylate Besylate Millender Sp [facility] Duloxetine Duloxetine Yes Adamaris 1 capsule Common HCl HCl [facility] Doxazosin Doxazosin Yes Adamaris 2 tablets Common Mesylate Mesylate Millender Sp [facility] Doxazosin Doxazosin No 2{table BID Doxazosin Mesylate 4 Mesylate 4 ts} Mesylate 4 MG MG MG Prednisone Prednisone No Prednisone 20 mg 20 mg 20 mg Methocarbam Methocarbam No Methocarba ol 750 MG ol 750 MG mol 750 MG Trelegy Trelegy No 1{puff} QD Trelegy Ellipta Ellipta Ellipta 100-62.5-25 100-62.5-25 100-62.5-2 MCG/INH MCG/INH 5 MCG/INH cloNIDine cloNIDine No cloNIDine 0.1 MG/24HR 0.1 MG/24HR 0.1 MG/24HR DULoxetine DULoxetine No DULoxetine HCl 30 MG HCl 30 MG HCl 30 MG Omeprazole Omeprazole No 1{capsu QD Omeprazole 40 MG 40 MG le} 40 MG amLODIPine amLODIPine No amLODIPine Besylate 10 Besylate 10 Besylate MG MG 10 MG HYDROcodone HYDROcodone No HYDROcodon -Acetaminop -Acetaminop e-Acetamin hen 7.5-325 hen 7.5-325 ophen MG MG 7.5-325 MG Albuterol Albuterol No 3{ml_as QID Albuterol Sulfate Sulfate _needed Sulfate (2.5 (2.5 } (2.5 MG/3ML) MG/3ML) MG/3ML) 0.083% 0.083% 0.083% Singulair Singulair No 1{table QD Singulair 10 MG 10 MG t_in_ 10 MG e_eveni ng} Albuterol Albuterol No Albuterol Sulfate HFA Sulfate HFA Sulfate 108 (90 108 (90 HFA 108 Base) Base) (90 Base) MCG/ACT MCG/ACT MCG/ACT Bumetanide Bumetanide No Bumetanide 1 MG 1 MG 1 MG Bisoprolol Bisoprolol No 1{table QD Bisoprolol Fumarate 5 Fumarate 5 t} Fumarate 5 MG MG MG Pregabalin Pregabalin No 1{capsu TID Pregabalin 100 MG 100 MG le} 100 MG Doxazosin Doxazosin No 2{table BID Doxazosin Mesylate 4 Mesylate 4 ts} Mesylate 4 MG MG MG clonidine clonidine No 1patch( Q1W clonidine [place] 0.1 mg/24 0.1 mg/24 es) 0.1 mg/24 Family hr weekly hr weekly hr weekly Practic transdermal transdermal transderma e patch Apply patch Apply l patch 1 patch 1 patch Apply 1 every week every week patch by by every week transdermal transdermal by route. route. transderma l route. Albuterol Albuterol No 3{ml_as QID Albuterol Sulfate Sulfate _needed Sulfate (2.5 (2.5 } (2.5 MG/3ML) MG/3ML) MG/3ML) 0.083% 0.083% 0.083% Bisoprolol Bisoprolol No 1{table QD Bisoprolol Fumarate 5 Fumarate 5 t} Fumarate 5 MG MG MG Methocarbam Methocarbam No Methocarba ol 750 MG ol 750 MG mol 750 MG Pregabalin Pregabalin No 1{capsu TID Pregabalin 100 MG 100 MG le} 100 MG amLODIPine amLODIPine No 1{table QD amLODIPine Besylate 10 Besylate 10 t} Besylate MG MG 10 MG Omeprazole Omeprazole No 1{capsu QD Omeprazole 40 MG 40 MG le} 40 MG cloNIDine cloNIDine No 1{patch cloNIDine 0.1 MG/24HR 0.1 MG/24HR _to_ski 0.1 n} MG/24HR Albuterol Albuterol No 1{puff_ 6xD Albuterol Sulfate HFA Sulfate HFA as_need Sulfate 108 (90 108 (90 ed} HFA 108 Base) Base) (90 Base) MCG/ACT MCG/ACT MCG/ACT Prednisone Prednisone No QD Prednisone 20 mg 20 mg 20 mg DULoxetine DULoxetine No 1{capsu QD DULoxetine HCl 30 MG HCl 30 MG le} HCl 30 MG Trelegy Trelegy No 1{puff} QD Trelegy Ellipta Ellipta Ellipta 100-62.5-25 100-62.5-25 100-62.5-2 MCG/INH MCG/INH 5 MCG/INH HYDROcodone HYDROcodone No HYDROcodon -Acetaminop -Acetaminop e-Acetamin hen 7.5-325 hen 7.5-325 ophen MG MG 7.5-325 MG Singulair Singulair No 1{table QD Singulair 10 MG 10 MG t_in_th 10 MG e_eveni ng} Bumetanide Bumetanide No Bumetanide 1 MG 1 MG 1 MG Methocarbam Methocarbam No Methocarba ol 750 MG ol 750 MG mol 750 MG Bumetanide Bumetanide No Bumetanide 1 MG 1 MG 1 MG Albuterol Albuterol No 1{puff_ 6xD Albuterol Sulfate HFA Sulfate HFA as_need Sulfate 108 (90 108 (90 ed} HFA 108 Base) Base) (90 Base) MCG/ACT MCG/ACT MCG/ACT Singulair Singulair No 1{table QD Singulair 10 MG 10 MG t_in_th 10 MG e_eveni ng} HYDROcodone HYDROcodone No HYDROcodon -Acetaminop -Acetaminop e-Acetamin hen 7.5-325 hen 7.5-325 ophen MG MG 7.5-325 MG Doxazosin Doxazosin No 2{table BID Doxazosin Mesylate 4 Mesylate 4 ts} Mesylate 4 MG MG MG Pregabalin Pregabalin No 1{capsu TID Pregabalin 100 MG 100 MG le} 100 MG DULoxetine DULoxetine No 1{capsu QD DULoxetine HCl 30 MG HCl 30 MG le} HCl 30 MG amLODIPine amLODIPine No 1{table QD amLODIPine Besylate 10 Besylate 10 t} Besylate MG MG 10 MG cloNIDine cloNIDine No 1{patch cloNIDine 0.1 MG/24HR 0.1 MG/24HR _to_ski 0.1 n} MG/24HR Omeprazole Omeprazole No 1{capsu QD Omeprazole 40 MG 40 MG le} 40 MG Bisoprolol Bisoprolol No 1{table QD Bisoprolol Fumarate 5 Fumarate 5 t} Fumarate 5 MG MG MG Albuterol Albuterol No 3{ml_as QID Albuterol Sulfate Sulfate _needed Sulfate (2.5 (2.5 } (2.5 MG/3ML) MG/3ML) MG/3ML) 0.083% 0.083% 0.083% Trelegy Trelegy No 1{puff} QD Trelegy Ellipta Ellipta Ellipta 100-62.5-25 100-62.5-25 100-62.5-2 MCG/INH MCG/INH 5 MCG/INH Prednisone Prednisone No QD Prednisone 20 mg 20 mg 20 mg Methocarbam Methocarbam No Methocarba ol 750 MG ol 750 MG mol 750 MG cyclobenzap cyclobenzap No 1 TID cyclobenza [place] rine 10 mg rine 10 mg lazaro 10 Family tablet Take tablet Take mg tablet Practic 1 tablet 3 1 tablet 3 Take 1 e times a day times a day tablet 3 by oral by oral times a route. route. day by oral route. Bumetanide Bumetanide No Bumetanide 1 MG 1 MG 1 MG Albuterol Albuterol No 1{puff_ 6xD Albuterol Sulfate HFA Sulfate HFA as_need Sulfate 108 (90 108 (90 ed} HFA 108 Base) Base) (90 Base) MCG/ACT MCG/ACT MCG/ACT Singulair Singulair No 1{table QD Singulair 10 MG 10 MG t_in_th 10 MG e_eveni ng} HYDROcodone HYDROcodone No HYDROcodon -Acetaminop -Acetaminop e-Acetamin hen 7.5-325 hen 7.5-325 ophen MG MG 7.5-325 MG Doxazosin Doxazosin No 2{table BID Doxazosin Mesylate 4 Mesylate 4 ts} Mesylate 4 MG MG MG Pregabalin Pregabalin No 1{capsu TID Pregabalin 100 MG 100 MG le} 100 MG DULoxetine DULoxetine No 1{capsu QD DULoxetine HCl 30 MG HCl 30 MG le} HCl 30 MG amLODIPine amLODIPine No 1{table QD amLODIPine Besylate 10 Besylate 10 t} Besylate MG MG 10 MG cloNIDine cloNIDine No 1{patch cloNIDine 0.1 MG/24HR 0.1 MG/24HR _to_ski 0.1 n} MG/24HR Omeprazole Omeprazole No 1{capsu QD Omeprazole 40 MG 40 MG le} 40 MG Bisoprolol Bisoprolol No 1{table QD Bisoprolol Fumarate 5 Fumarate 5 t} Fumarate 5 MG MG MG Albuterol Albuterol No 3{ml_as QID Albuterol Sulfate Sulfate _needed Sulfate (2.5 (2.5 } (2.5 MG/3ML) MG/3ML) MG/3ML) 0.083% 0.083% 0.083% Trelegy Trelegy No 1{puff} QD Trelegy Ellipta Ellipta Ellipta 100-62.5-25 100-62.5-25 100-62.5-2 MCG/INH MCG/INH 5 MCG/INH Prednisone Prednisone No QD Prednisone 20 mg 20 mg 20 mg amLODIPine amLODIPine No 1{table QD amLODIPine Besylate 10 Besylate 10 t} Besylate MG MG 10 MG Doxazosin Doxazosin No 2{table BID Doxazosin Mesylate 4 Mesylate 4 ts} Mesylate 4 MG MG MG Bumetanide Bumetanide No Bumetanide 1 MG 1 MG 1 MG Trelegy Trelegy No 1{puff} QD Trelegy Ellipta Ellipta Ellipta 100-62.5-25 100-62.5-25 100-62.5-2 MCG/INH MCG/INH 5 MCG/INH Albuterol Albuterol No 1{puff_ 6xD Albuterol Sulfate HFA Sulfate HFA as_need Sulfate 108 (90 108 (90 ed} HFA 108 Base) Base) (90 Base) MCG/ACT MCG/ACT MCG/ACT DULoxetine DULoxetine No 1{capsu QD DULoxetine HCl 30 MG HCl 30 MG le} HCl 30 MG duloxetine duloxetine No 1capsul Q1D duloxetine [place] 30 mg 30 mg e(s) 30 mg Family capsule,del capsule,del capsule,de Practic ayed ayed layed e release release release Take 1 Take 1 Take 1 capsule capsule capsule every day every day every day by oral by oral by oral route. route. route. Methocarbam Methocarbam No Methocarba ol 750 MG ol 750 MG mol 750 MG HYDROcodone HYDROcodone No HYDROcodon -Acetaminop -Acetaminop e-Acetamin hen 7.5-325 hen 7.5-325 ophen MG MG 7.5-325 MG Singulair Singulair No 1{table QD Singulair 10 MG 10 MG t_in_th 10 MG e_eveni ng} Bisoprolol Bisoprolol No 1{table QD Bisoprolol Fumarate 5 Fumarate 5 t} Fumarate 5 MG MG MG Prednisone Prednisone No QD Prednisone 20 mg 20 mg 20 mg Pregabalin Pregabalin No 1{capsu TID Pregabalin 100 MG 100 MG le} 100 MG Omeprazole Omeprazole No 1{capsu QD Omeprazole 40 MG 40 MG le} 40 MG Albuterol Albuterol No 3{ml_as QID Albuterol Sulfate Sulfate _needed Sulfate (2.5 (2.5 } (2.5 MG/3ML) MG/3ML) MG/3ML) 0.083% 0.083% 0.083% cloNIDine cloNIDine No 1{patch cloNIDine 0.1 MG/24HR 0.1 MG/24HR _to_ski 0.1 n} MG/24HR amLODIPine amLODIPine No 1{table QD Besylate 10 Besylate 10 t} MG MG Doxazosin Doxazosin No 2{table BID Mesylate 4 Mesylate 4 ts} MG MG Bumetanide Bumetanide No 1 MG 1 MG Trelegy Trelegy No 1{puff} QD Ellipta Ellipta 100-62.5-25 100-62.5-25 MCG/INH MCG/INH Albuterol Albuterol No 1{puff_ 6xD Sulfate HFA Sulfate HFA as_need 108 (90 108 (90 ed} Base) Base) MCG/ACT MCG/ACT DULoxetine DULoxetine No 1{capsu QD HCl 30 MG HCl 30 MG le} Methocarbam Methocarbam No ol 750 MG ol 750 MG HYDROcodone HYDROcodone No -Acetaminop -Acetaminop hen 7.5-325 hen 7.5-325 MG MG Singulair Singulair No 1{table QD 10 MG 10 MG t_in_th e_eveni ng} Bisoprolol Bisoprolol No 1{table QD Fumarate 5 Fumarate 5 t} MG MG Prednisone Prednisone No QD 20 mg 20 mg omeprazole omeprazole No 1 Q1D omeprazole [place] 20 mg 20 mg 20 mg Family delayed delayed delayed Practi c release,dis release,dis release,di e integrating integrating sintegrati tablet Take tablet Take ng tablet 1 tablet 1 tablet Take 1 every day every day tablet by oral by oral every day route. route. by oral route. Pregabalin Pregabalin No 1{capsu TID 100 MG 100 MG le} Omeprazole Omeprazole No 1{capsu QD 40 MG 40 MG le} Albuterol Albuterol No 3{ml_as QID Sulfate Sulfate _needed (2.5 (2.5 } MG/3ML) MG/3ML) 0.083% 0.083% cloNIDine cloNIDine No 1{patch 0.1 MG/24HR 0.1 MG/24HR _to_ski n} amLODIPine amLODIPine No 1{table QD amLODIPine Besylate 10 Besylate 10 t} Besylate MG MG 10 MG cloNIDine cloNIDine No 1{patch cloNIDine 0.1 MG/24HR 0.1 MG/24HR _to_ski 0.1 n} MG/24HR Prednisone Prednisone No Prednisone 20 mg 20 mg 20 mg Bumetanide Bumetanide No Bumetanide 1 MG 1 MG 1 MG Trelegy Trelegy No 1{puff} QD Trelegy Ellipta Ellipta Ellipta 100-62.5-25 100-62.5-25 100-62.5-2 MCG/INH MCG/INH 5 MCG/INH Albuterol Albuterol No 1{puff_ 6xD Albuterol Sulfate HFA Sulfate HFA as_need Sulfate 108 (90 108 (90 ed} HFA 108 Base) Base) (90 Base) MCG/ACT MCG/ACT MCG/ACT DULoxetine DULoxetine No 1{capsu QD DULoxetine HCl 30 MG HCl 30 MG le} HCl 30 MG HYDROcodone HYDROcodone No HYDROcodon -Acetaminop -Acetaminop e-Acetamin hen 7.5-325 hen 7.5-325 ophen MG MG 7.5-325 MG Doxazosin Doxazosin No 2{table BID Doxazosin Mesylate 4 Mesylate 4 ts} Mesylate 4 MG MG MG Singulair Singulair No 1{table QD Singulair 10 MG 10 MG t_in_th 10 MG e_eveni ng} Pregabalin Pregabalin No 1{capsu TID Pregabalin 100 MG 100 MG le} 100 MG Albuterol Albuterol No 3{ml_as QID Albuterol Sulfate Sulfate _needed Sulfate (2.5 (2.5 } (2.5 MG/3ML) MG/3ML) MG/3ML) 0.083% 0.083% 0.083% Methocarbam Methocarbam No Methocarba ol 750 MG ol 750 MG mol 750 MG Omeprazole Omeprazole No 1{capsu QD Omeprazole 40 MG 40 MG le} 40 MG Bisoprolol Bisoprolol No 1{table QD Bisoprolol Fumarate 5 Fumarate 5 t} Fumarate 5 MG MG MG amLODIPine amLODIPine No 1{table QD Besylate 10 Besylate 10 t} MG MG cloNIDine cloNIDine No 1{patch 0.1 MG/24HR 0.1 MG/24HR _to_ski n} Prednisone Prednisone No 20 mg 20 mg Bumetanide Bumetanide No 1 MG 1 MG Trelegy Trelegy No 1{puff} QD Ellipta Ellipta 100-62.5-25 100-62.5-25 MCG/INH MCG/INH Albuterol Albuterol No 1{puff_ 6xD Sulfate HFA Sulfate HFA as_need 108 (90 108 (90 ed} Base) Base) MCG/ACT MCG/ACT DULoxetine DULoxetine No 1{capsu QD HCl 30 MG HCl 30 MG le} HYDROcodone HYDROcodone No -Acetaminop -Acetaminop hen 7.5-325 hen 7.5-325 MG MG Doxazosin Doxazosin No 2{table BID Mesylate 4 Mesylate 4 ts} MG MG Singulair Singulair No 1{table QD 10 MG 10 MG t_in_th e_eveni ng} Pregabalin Pregabalin No 1{capsu TID 100 MG 100 MG le} Singulair Singulair No 1 Q1D Singulair [place] 10 mg 10 mg 10 mg Family tablet Take tablet Take tablet Practic 1 tablet 1 tablet Take 1 e every day every day tablet by oral by oral every day route. route. by oral route. Albuterol Albuterol No 3{ml_as QID Sulfate Sulfate _needed (2.5 (2.5 } MG/3ML) MG/3ML) 0.083% 0.083% Methocarbam Methocarbam No ol 750 MG ol 750 MG Omeprazole Omeprazole No 1{capsu QD 40 MG 40 MG le} Bisoprolol Bisoprolol No 1{table QD Fumarate 5 Fumarate 5 t} MG MG amLODIPine amLODIPine No 1{table QD amLODIPine Besylate 10 Besylate 10 t} Besylate MG MG 10 MG DULoxetine DULoxetine No 1{capsu QD DULoxetine HCl 30 MG HCl 30 MG le} HCl 30 MG Methocarbam Methocarbam No Methocarba ol 750 MG ol 750 MG mol 750 MG Albuterol Albuterol No 3{ml_as QID Albuterol Sulfate Sulfate _needed Sulfate (2.5 (2.5 } (2.5 MG/3ML) MG/3ML) MG/3ML) 0.083% 0.083% 0.083% Prednisone Prednisone No Prednisone 20 mg 20 mg 20 mg Singulair Singulair No 1{table QD Singulair 10 MG 10 MG t_in_th 10 MG e_eveni ng} tramadol 50 tramadol 50 No 1 BID tramadol [place] mg tablet mg tablet 50 mg Fami ly Take 1 Take 1 tablet Practic tablet tablet Take 1 e twice a day twice a day tablet by oral by oral twice a route. route. day by oral route. cloNIDine cloNIDine No 1{patch cloNIDine 0.1 MG/24HR 0.1 MG/24HR _to_ski 0.1 n} MG/24HR Bisoprolol Bisoprolol No 1{table QD Bisoprolol Fumarate 5 Fumarate 5 t} Fumarate 5 MG MG MG Pregabalin Pregabalin No 1{capsu TID Pregabalin 100 MG 100 MG le} 100 MG Omeprazole Omeprazole No 1{capsu QD Omeprazole 40 MG 40 MG le} 40 MG Doxazosin Doxazosin No 2{table BID Doxazosin Mesylate 4 Mesylate 4 ts} Mesylate 4 MG MG MG Trelegy Trelegy No 1{puff} QD Trelegy Ellipta Ellipta Ellipta 100-62.5-25 100-62.5-25 100-62.5-2 MCG/INH MCG/INH 5 MCG/INH Albuterol Albuterol No 1{puff_ 6xD Albuterol Sulfate HFA Sulfate HFA as_need Sulfate 108 (90 108 (90 ed} HFA 108 Base) Base) (90 Base) MCG/ACT MCG/ACT MCG/ACT HYDROcodone HYDROcodone No HYDROcodon -Acetaminop -Acetaminop e-Acetamin hen 7.5-325 hen 7.5-325 ophen MG MG 7.5-325 MG Bumetanide Bumetanide No Bumetanide 1 MG 1 MG 1 MG amLODIPine amLODIPine No 1{table QD amLODIPine Besylate 10 Besylate 10 t} Besylate MG MG 10 MG DULoxetine DULoxetine No 1{capsu QD DULoxetine HCl 30 MG HCl 30 MG le} HCl 30 MG Methocarbam Methocarbam No Methocarba ol 750 MG ol 750 MG mol 750 MG Albuterol Albuterol No 3{ml_as QID Albuterol Sulfate Sulfate _needed Sulfate (2.5 (2.5 } (2.5 MG/3ML) MG/3ML) MG/3ML) 0.083% 0.083% 0.083% Prednisone Prednisone No Prednisone 20 mg 20 mg 20 mg Singulair Singulair No 1{table QD Singulair 10 MG 10 MG t_in_th 10 MG e_eveni ng} cloNIDine cloNIDine No 1{patch cloNIDine 0.1 MG/24HR 0.1 MG/24HR _to_ski 0.1 n} MG/24HR Bisoprolol Bisoprolol No 1{table QD Bisoprolol Fumarate 5 Fumarate 5 t} Fumarate 5 MG MG MG Pregabalin Pregabalin No 1{capsu TID Pregabalin 100 MG 100 MG le} 100 MG Omeprazole Omeprazole No 1{capsu QD Omeprazole 40 MG 40 MG le} 40 MG Doxazosin Doxazosin No 2{table BID Doxazosin Mesylate 4 Mesylate 4 ts} Mesylate 4 MG MG MG Trelegy Trelegy No 1{puff} QD Trelegy Ellipta Ellipta Ellipta 100-62.5-25 100-62.5-25 100-62.5-2 MCG/INH MCG/INH 5 MCG/INH Albuterol Albuterol No 1{puff_ 6xD Albuterol Sulfate HFA Sulfate HFA as_need Sulfate 108 (90 108 (90 ed} HFA 108 Base) Base) (90 Base) MCG/ACT MCG/ACT MCG/ACT HYDROcodone HYDROcodone No HYDROcodon -Acetaminop -Acetaminop e-Acetamin hen 7.5-325 hen 7.5-325 ophen MG MG 7.5-325 MG Bumetanide Bumetanide No Bumetanide 1 MG 1 MG 1 MG Omeprazole Omeprazole No 1{capsu QD Omeprazole 40 MG 40 MG le} 40 MG DULoxetine DULoxetine No 1{capsu QD DULoxetine HCl 30 MG HCl 30 MG le} HCl 30 MG Methocarbam Methocarbam No Methocarba ol 750 MG ol 750 MG mol 750 MG Albuterol Albuterol No 3{ml_as QID Albuterol Sulfate Sulfate _needed Sulfate (2.5 (2.5 } (2.5 MG/3ML) MG/3ML) MG/3ML) 0.083% 0.083% 0.083% Prednisone Prednisone No Prednisone 20 mg 20 mg 20 mg Singulair Singulair No 1{table QD Singulair 10 MG 10 MG t_in_th 10 MG e_eveni ng} cloNIDine cloNIDine No 1{patch cloNIDine 0.1 MG/24HR 0.1 MG/24HR _to_ski 0.1 n} MG/24HR Bisoprolol Bisoprolol No 1{table QD Bisoprolol Fumarate 5 Fumarate 5 t} Fumarate 5 MG MG MG Pregabalin Pregabalin No 1{capsu TID Pregabalin 100 MG 100 MG le} 100 MG Bumetanide Bumetanide No Bumetanide 1 MG 1 MG 1 MG Doxazosin Doxazosin No 2{table BID Doxazosin Mesylate 4 Mesylate 4 ts} Mesylate 4 MG MG MG Trelegy Trelegy No 1{puff} QD Trelegy Ellipta Ellipta Ellipta 100-62.5-25 100-62.5-25 100-62.5-2 MCG/INH MCG/INH 5 MCG/INH Albuterol Albuterol No 1{puff_ 6xD Albuterol Sulfate HFA Sulfate HFA as_need Sulfate 108 (90 108 (90 ed} HFA 108 Base) Base) (90 Base) MCG/ACT MCG/ACT MCG/ACT HYDROcodone HYDROcodone No HYDROcodon -Acetaminop -Acetaminop e-Acetamin hen 7.5-325 hen 7.5-325 ophen MG MG 7.5-325 MG amLODIPine amLODIPine No 1{table QD amLODIPine Besylate 10 Besylate 10 t} Besylate MG MG 10 MG Omeprazole Omeprazole No 1{capsu QD Omeprazole 40 MG 40 MG le} 40 MG amLODIPine amLODIPine No 1{table QD amLODIPine Besylate 10 Besylate 10 t} Besylate MG MG 10 MG Doxazosin Doxazosin No 2{table BID Doxazosin Mesylate 4 Mesylate 4 ts} Mesylate 4 MG MG MG Prednisone Prednisone No Prednisone 20 mg 20 mg 20 mg Bisoprolol Bisoprolol No 1{table QD Bisoprolol Fumarate 5 Fumarate 5 t} Fumarate 5 MG MG MG Singulair Singulair No 1{table QD Singulair 10 MG 10 MG t_in_ 10 MG e_eveni ng} cloNIDine cloNIDine No 1{patch cloNIDine 0.1 MG/24HR 0.1 MG/24HR _to_ski 0.1 n} MG/24HR Trelegy Trelegy No 1{puff} QD Trelegy Ellipta Ellipta Ellipta 100-62.5-25 100-62.5-25 100-62.5-2 MCG/INH MCG/INH 5 MCG/INH DULoxetine DULoxetine No 1{capsu QD DULoxetine HCl 30 MG HCl 30 MG le} HCl 30 MG Albuterol Albuterol No Albuterol Sulfate HFA Sulfate HFA Sulfate 108 (90 108 (90 HFA 108 Base) Base) (90 Base) MCG/ACT MCG/ACT MCG/ACT Bumetanide Bumetanide No Bumetanide 1 MG 1 MG 1 MG Methocarbam Methocarbam No Methocarba ol 750 MG ol 750 MG mol 750 MG Albuterol Albuterol No 3{ml_as QID Albuterol Sulfate Sulfate _needed Sulfate (2.5 (2.5 } (2.5 MG/3ML) MG/3ML) MG/3ML) 0.083% 0.083% 0.083% Pregabalin Pregabalin No 1{capsu TID Pregabalin 100 MG 100 MG le} 100 MG HYDROcodone HYDROcodone No HYDROcodon -Acetaminop -Acetaminop e-Acetamin hen 7.5-325 hen 7.5-325 ophen MG MG 7.5-325 MG Doxazosin Doxazosin No 2{table BID Doxazosin Mesylate 4 Mesylate 4 ts} Mesylate 4 MG MG MG Albuterol Albuterol No Albuterol Sulfate HFA Sulfate HFA Sulfate 108 (90 108 (90 HFA 108 Base) Base) (90 Base) MCG/ACT MCG/ACT MCG/ACT DULoxetine DULoxetine No DULoxetine HCl 30 MG HCl 30 MG HCl 30 MG cloNIDine cloNIDine No cloNIDine 0.1 MG/24HR 0.1 MG/24HR 0.1 MG/24HR Bumetanide Bumetanide No Bumetanide 1 MG 1 MG 1 MG HYDROcodone HYDROcodone No HYDROcodon -Acetaminop -Acetaminop e-Acetamin hen 7.5-325 hen 7.5-325 ophen MG MG 7.5-325 MG Singulair Singulair No 1{table QD Singulair 10 MG 10 MG t_in_th 10 MG e_eveni ng} Albuterol Albuterol No 3{ml_as QID Albuterol Sulfate Sulfate _needed Sulfate (2.5 (2.5 } (2.5 MG/3ML) MG/3ML) MG/3ML) 0.083% 0.083% 0.083% Trelegy Trelegy No 1{puff} QD Trelegy Ellipta Ellipta Ellipta 100-62.5-25 100-62.5-25 100-62.5-2 MCG/INH MCG/INH 5 MCG/INH Methocarbam Methocarbam No Methocarba ol 750 MG ol 750 MG mol 750 MG Prednisone Prednisone No Prednisone 20 mg 20 mg 20 mg Pregabalin Pregabalin No 1{capsu TID Pregabalin 100 MG 100 MG le} 100 MG Bisoprolol Bisoprolol No 1{table QD Bisoprolol Fumarate 5 Fumarate 5 t} Fumarate 5 MG MG MG amLODIPine amLODIPine No amLODIPine Besylate 10 Besylate 10 Besylate MG MG 10 MG Omeprazole Omeprazole No 1{capsu QD Omeprazole 40 MG 40 MG le} 40 MG Doxazosin Doxazosin No 2{table BID Doxazosin Mesylate 4 Mesylate 4 ts} Mesylate 4 MG MG MG Prednisone Prednisone No Prednisone 20 mg 20 mg 20 mg Methocarbam Methocarbam No Methocarba ol 750 MG ol 750 MG mol 750 MG Trelegy Trelegy No 1{puff} QD Trelegy Ellipta Ellipta Ellipta 100-62.5-25 100-62.5-25 100-62.5-2 MCG/INH MCG/INH 5 MCG/INH cloNIDine cloNIDine No cloNIDine 0.1 MG/24HR 0.1 MG/24HR 0.1 MG/24HR DULoxetine DULoxetine No DULoxetine HCl 30 MG HCl 30 MG HCl 30 MG Omeprazole Omeprazole No 1{capsu QD Omeprazole 40 MG 40 MG le} 40 MG amLODIPine amLODIPine No amLODIPine Besylate 10 Besylate 10 Besylate MG MG 10 MG HYDROcodone HYDROcodone No HYDROcodon -Acetaminop -Acetaminop e-Acetamin hen 7.5-325 hen 7.5-325 ophen MG MG 7.5-325 MG Albuterol Albuterol No 3{ml_as QID Albuterol Sulfate Sulfate _needed Sulfate (2.5 (2.5 } (2.5 MG/3ML) MG/3ML) MG/3ML) 0.083% 0.083% 0.083% Singulair Singulair No 1{table QD Singulair 10 MG 10 MG t_in_th 10 MG e_eveni ng} Albuterol Albuterol No Albuterol Sulfate HFA Sulfate HFA Sulfate 108 (90 108 (90 HFA 108 Base) Base) (90 Base) MCG/ACT MCG/ACT MCG/ACT Bumetanide Bumetanide No Bumetanide 1 MG 1 MG 1 MG Bisoprolol Bisoprolol No 1{table QD Bisoprolol Fumarate 5 Fumarate 5 t} Fumarate 5 MG MG MG Pregabalin Pregabalin No 1{capsu TID Pregabalin 100 MG 100 MG le} 100 MG Doxazosin Doxazosin No 2{table BID Doxazosin Mesylate 4 Mesylate 4 ts} Mesylate 4 MG MG MG DULoxetine DULoxetine No DULoxetine HCl 30 MG HCl 30 MG HCl 30 MG Prednisone Prednisone No Prednisone 20 mg 20 mg 20 mg HYDROcodone HYDROcodone No HYDROcodon -Acetaminop -Acetaminop e-Acetamin hen 7.5-325 hen 7.5-325 ophen MG MG 7.5-325 MG cloNIDine cloNIDine No cloNIDine 0.1 MG/24HR 0.1 MG/24HR 0.1 MG/24HR Methocarbam Methocarbam No Methocarba ol 750 MG ol 750 MG mol 750 MG Trelegy Trelegy No 1{puff} QD Trelegy Ellipta Ellipta Ellipta 100-62.5-25 100-62.5-25 100-62.5-2 MCG/INH MCG/INH 5 MCG/INH Albuterol Albuterol No Albuterol Sulfate HFA Sulfate HFA Sulfate 108 (90 108 (90 HFA 108 Base) Base) (90 Base) MCG/ACT MCG/ACT MCG/ACT Omeprazole Omeprazole No 1{capsu QD Omeprazole 40 MG 40 MG le} 40 MG amLODIPine amLODIPine No amLODIPine Besylate 10 Besylate 10 Besylate MG MG 10 MG Albuterol Albuterol No 3{ml_as QID Albuterol Sulfate Sulfate _needed Sulfate (2.5 (2.5 } (2.5 MG/3ML) MG/3ML) MG/3ML) 0.083% 0.083% 0.083% Montelukast Montelukast No Montelukas Sodium 10 Sodium 10 t Sodium MG MG 10 MG Bumetanide Bumetanide No Bumetanide 1 MG 1 MG 1 MG Bisoprolol Bisoprolol No 1{table QD Bisoprolol Fumarate 5 Fumarate 5 t} Fumarate 5 MG MG MG Pregabalin Pregabalin No 1{capsu TID Pregabalin 100 MG 100 MG le} 100 MG Ondansetron Ondansetron No 1{table QD Ondansetro HCl 4 MG HCl 4 MG t} n HCl 4 MG DULoxetine DULoxetine No QD DULoxetine HCl 30 MG HCl 30 MG HCl 30 MG amLODIPine amLODIPine No QD amLODIPine Besylate 10 Besylate 10 Besylate MG MG 10 MG Montelukast Montelukast No Montelukas Sodium 10 Sodium 10 t Sodium MG MG 10 MG Omeprazole Omeprazole No 1{capsu QD Omeprazole 40 MG 40 MG le} 40 MG Methocarbam Methocarbam No Methocarba ol 750 MG ol 750 MG mol 750 MG HYDROcodone HYDROcodone No HYDROcodon -Acetaminop -Acetaminop e-Acetamin hen 7.5-325 hen 7.5-325 ophen MG MG 7.5-325 MG Pregabalin Pregabalin No 1{capsu TID Pregabalin 100 MG 100 MG le} 100 MG Albuterol Albuterol No Albuterol Sulfate HFA Sulfate HFA Sulfate 108 (90 108 (90 HFA 108 Base) Base) (90 Base) MCG/ACT MCG/ACT MCG/ACT cloNIDine cloNIDine No cloNIDine 0.1 MG/24HR 0.1 MG/24HR 0.1 MG/24HR Bumetanide Bumetanide No Bumetanide 1 MG 1 MG 1 MG Bisoprolol Bisoprolol No 1{table QD Bisoprolol Fumarate 5 Fumarate 5 t} Fumarate 5 MG MG MG Prednisone Prednisone No Prednisone 20 mg 20 mg 20 mg Singulair Singulair No 1{table QD Singulair 10 MG 10 MG t_in_th 10 MG e_eveni ng} Albuterol Albuterol No 3{ml_as QID Albuterol Sulfate Sulfate _needed Sulfate (2.5 (2.5 } (2.5 MG/3ML) MG/3ML) MG/3ML) 0.083% 0.083% 0.083% Trelegy Trelegy No 1{puff} QD Trelegy Ellipta Ellipta Ellipta 100-62.5-25 100-62.5-25 100-62.5-2 MCG/INH MCG/INH 5 MCG/INH Doxazosin Doxazosin No 2{table BID Doxazosin Mesylate 4 Mesylate 4 ts} Mesylate 4 MG MG MG Ondansetron Ondansetron No 1{table QD Ondansetro HCl 4 MG HCl 4 MG t} n HCl 4 MG DULoxetine DULoxetine No QD DULoxetine HCl 30 MG HCl 30 MG HCl 30 MG amLODIPine amLODIPine No QD amLODIPine Besylate 10 Besylate 10 Besylate MG MG 10 MG Prednisone Prednisone No Prednisone 20 mg 20 mg 20 mg Omeprazole Omeprazole No 1{capsu QD Omeprazole 40 MG 40 MG le} 40 MG HYDROcodone HYDROcodone No HYDROcodon -Acetaminop -Acetaminop e-Acetamin hen 7.5-325 hen 7.5-325 ophen MG MG 7.5-325 MG Methocarbam Methocarbam No Methocarba ol 750 MG ol 750 MG mol 750 MG Albuterol Albuterol No Albuterol Sulfate HFA Sulfate HFA Sulfate 108 (90 108 (90 HFA 108 Base) Base) (90 Base) MCG/ACT MCG/ACT MCG/ACT Pregabalin Pregabalin No 1{capsu TID Pregabalin 100 MG 100 MG le} 100 MG cloNIDine cloNIDine No cloNIDine 0.1 MG/24HR 0.1 MG/24HR 0.1 MG/24HR Montelukast Montelukast No Montelukas Sodium 10 Sodium 10 t Sodium MG MG 10 MG Bisoprolol Bisoprolol No 1{table QD Bisoprolol Fumarate 5 Fumarate 5 t} Fumarate 5 MG MG MG Trelegy Trelegy No 1{puff} QD Trelegy Ellipta Ellipta Ellipta 100-62.5-25 100-62.5-25 100-62.5-2 MCG/INH MCG/INH 5 MCG/INH Singulair Singulair No 1{table QD Singulair 10 MG 10 MG t_in_th 10 MG e_eveni ng} Albuterol Albuterol No 3{ml_as QID Albuterol Sulfate Sulfate _needed Sulfate (2.5 (2.5 } (2.5 MG/3ML) MG/3ML) MG/3ML) 0.083% 0.083% 0.083% Bumetanide Bumetanide No Bumetanide 1 MG 1 MG 1 MG Doxazosin Doxazosin No 2{table BID Doxazosin Mesylate 4 Mesylate 4 ts} Mesylate 4 MG MG MG Immunizations Ordered Immunization Filled Immunization Date Status Commen ts Source Name Name [place] [id number] 2021-04-09 Completed [facility] - [facility] (Low Dose Vaccine (Low Dose 11:59:[address] [facility] Booster) Booster) [place] [id number] 2021-04-09 Completed [facility]ine (Low Dose Vaccine (Low Dose 11:59:[address] [facility] Booster) Booster) [place] [id number] 2021-04-09 Completed [facility]ine (Low Dose Vaccine (Low Dose 11:59:[address] [facility] Booster) Booster) [place] [id number] 2021-04-09 Completed [facility] Vaccine (Low Dose Vaccine (Low Dose 11:59:[address] [facility] Booster) Booster) [place] [id number] 2021-04-09 Completed [facility]ine (Low Dose Vaccine (Low Dose 11:59:[address] [facility] Booster) Booster) [place] [id number] 2021-04-09 Completed [facility]ine (Low Dose Vaccine (Low Dose 11:59:[address] [facility] Booster) Booster) [place] [id number] 2021-04-09 Completed [facility] (Low Dose Vaccine (Low Dose 11:59:[address] [facility] Booster) Booster) [facility] [facility] (Low Dose Vaccine (Low Dose 11:59:[address] [facility] Booster) Booster) [facility] [facility]-04-09 Com[facility] Vaccine (Low Dose Vaccine (Low Dose 11:59:[address] [facility] Booster) Booster) [facility] [facility]-04-09 Com[facility] (Low Dose Vaccine (Low Dose 11:59:[address] [facility] Booster) Booster) [facility] [facility]-09 Com[facility] (Low Dose Vaccine (Low Dose 11:59:[address] [facility]) [facility] [address] [facility] Com[facility] (Low Dose Vaccine (Low Dose 11:59:[address] [facility]) [facility] [address] [facility]-09 Com[facility] (Low Dose Vaccine (Low Dose 11:59:[address] [facility] Booster) Booster) [facility] [facility] 2021-04-09 Com[facility] (Low Dose Vaccine (Low Dose 11:59:[address] [facility] Booster) Booster) [facility] [facility] 2021-04-09 Com[facility] Vaccine (Low Dose Vaccine (Low Dose 11:59:[address] [facility] Booster) Booster) [facility] [facility] 2021-04-09 Com[facility] (Low Dose Vaccine (Low Dose 11:59:[address] [facility] Booster) Booster) [facility] [address] COVID19 2020-08-07 Completed [facility] Vaccine Vaccine 10[facility]27:[address] [facility] [facility] 2020-08-07 Com[facility] Vaccine Vaccine 10:27:[address] [facility] Moderna COVID-19 Moderna COVID-19 2020-08-07 Completed [facility] Vaccine Vaccine 10[facility]27:00 [facility] Moderna COVID-19 Moderna COVID-19 2020-08-07 Completed [facility] Vaccine Vaccine 10:27:00 [facility] Moderna COVID-19 Moderna COVID-19 2020-08-07 Completed [facility] Vaccine Vaccine 10:27:00 [facility] Moderna COVID-19 Moderna COVID-19 2020-08-07 Completed [facility] Spirit - Vaccine Vaccine 10:27:00 [facility] Moderna COVID-19 Moderna COVID-19 2020-08-07 Completed [facility] - Vaccine Vaccine 10:27:00 [facility] Moderna COVID-19 Moderna COVID-19 2020-08-07 Completed [facility] - Vaccine Vaccine 10:27:00 [facility] Moderna COVID-19 Moderna COVID-19 2020-08-07 Completed [facility] - Vaccine Vaccine 10:27:00 [facility] Moderna COVID-19 Moderna COVID-19 2020-08-07 Completed [facility] - Vaccine Vaccine 10:27:00 [facility] Moderna COVID-19 Moderna COVID-19 2020-08-07 Completed [facility] - Vaccine Vaccine 10:27:00 [facility] Moderna COVID-19 Moderna COVID-19 2020-08-07 Completed [facility] - Vaccine Vaccine 10:27:00 [facility] Moderna COVID-19 Moderna COVID-19 2020-08-07 Completed Co [facility] - Vaccine Vaccine 10:27:00 [facility] Moderna COVID-19 Moderna COVID-19 2020-08-07 Completed Co [facility] - Vaccine Vaccine 10:27:00 [facility] Moderna COVID-19 Moderna COVID-19 2020-08-07 Completed Co [facility] - Vaccine Vaccine 10:27:00 [facility] Moderna COVID-19 Moderna COVID-19 2020-08-07 Completed [facility] - Vaccine Vaccine 10:27:00 [facility] Moderna COVID-19 Moderna COVID-19 2020-08-07 Completed Co [facility] - Vaccine Vaccine 10:27:00 [facility] Moderna COVID-19 Moderna COVID-19 2020-07-10 Completed Co [facility] - Vaccine Vaccine 10:26:00 [facility] Moderna COVID-19 Moderna COVID-19 2020-07-10 Completed Co [facility] - Vaccine Vaccine 10:26:00 [facility] Moderna COVID-19 Moderna COVID-19 2020-07-10 Completed Co [facility] - Vaccine Vaccine 10::00 [facility] Moderna COVID-19 Moderna COVID-19 2020-07-10 Completed Co [facility] - Vaccine Vaccine 10:26:00 [facility] Moderna COVID-19 Moderna COVID-19 2020-07-10 Completed Co [facility] - Vaccine Vaccine 10:26:00 [facility] Moderna COVID-19 Moderna COVID-19 2020-07-10 Completed Co [facility] - Vaccine Vaccine 10::00 [facility] Moderna COVID-19 Moderna COVID-19 2020-07-10 Completed [facility] - Vaccine Vaccine 10:26:00 [facility] Moderna COVID-19 Moderna COVID-19 2020-07-10 Completed [facility] - Vaccine Vaccine 10:26:00 [facility] Moderna COVID-19 Moderna COVID-19 2020-07-10 Completed Co [facility] - Vaccine Vaccine 10:26:00 [facility] Moderna COVID-19 Moderna COVID-19 2020-07-10 Completed Co [facility] - Vaccine Vaccine 10:26:00 [facility] Moderna COVID-19 Moderna COVID-19 2020-07-10 Completed Co [facility] - Vaccine Vaccine 10::00 [facility] Moderna COVID-19 Moderna COVID-19 2020-07-10 Completed Co [facility] - Vaccine Vaccine 10:26:00 [facility] Moderna COVID-19 Moderna COVID-19 2020-07-10 Completed Co [facility] - Vaccine Vaccine 10:26:00 [facility] Moderna COVID-19 Moderna COVID-19 2020-07-10 Completed Co [facility] - Vaccine Vaccine 10:26:00 [facility] Moderna COVID-19 Moderna COVID-19 2020-07-10 Completed Co [facility] - Vaccine Vaccine 10:26:00 [facility] Moderna COVID-19 Moderna COVID-19 2020-07-10 Completed Co [facility] - Vaccine Vaccine 10:26:00 [facility] Moderna COVID-19 Moderna COVID-19 2020-07-10 Completed Co [facility] - Vaccine Vaccine 10:26:00 [facility] Flucelvax - single Flucelvax - single 2019-01-17 Completed [facility] - dose syringe dose syringe 16:09:00 [facility] Flucelvax - single Flucelvax - single 2019-01-17 Completed [facility] - dose syringe dose syringe 16:09:00 [facility] Flucelvax - single Flucelvax - single 2019-01-17 Completed [facility] - dose syringe dose syringe 16:09:00 [facility] Flucelvax - single Flucelvax - single 2019-01-17 Completed [facility] - dose syringe dose syringe 16:09:00 [facility] Flucelvax - single Flucelvax - single 2019-01-17 Completed [facility] - dose syringe dose syringe 16:09:00 [facility] Flucelvax - single Flucelvax - single 2019-01-17 Completed [facility] - dose syringe dose syringe 16:09:00 [facility] Flucelvax - single Flucelvax - single 2019-01-17 Completed [facility] - dose syringe dose syringe 16:09:00 [facility] Flucelvax - single Flucelvax - single 2019-01-17 Completed [facility] - dose syringe dose syringe 16:09:00 [facility] Flucelvax - single Flucelvax - single 2019-01-17 Completed [facility] - dose syringe dose syringe 16:09:00 [facility] Flucelvax - single Flucelvax - single 2019-01-17 Completed [facility] - dose syringe dose syringe 16:09:00 [facility] Flucelvax - single Flucelvax - single 2019-01-17 Completed [facility] - dose syringe dose syringe 16:09:00 [facility] Flucelvax - single Flucelvax - single 2019-01-17 Completed [facility] - dose syringe dose syringe 16:09:00 [facility] Flucelvax - single Flucelvax - single 2019-01-17 Completed [facility] - dose syringe dose syringe 16:09:00 [facility] Flucelvax - single Flucelvax - single 2019-01-17 Completed [facility] - dose syringe dose syringe 16:09:00 [facility] Flucelvax - single Flucelvax - single 2019-01-17 Completed [facility] - dose syringe dose syringe 16:09:00 [facility] Flucelvax - single Flucelvax - single 2019-01-17 Completed [facility] - dose syringe dose syringe 16:09:00 [facility] Flucelvax - single Flucelvax - single 2019-01-17 Completed [facility] - dose syringe dose syringe 16:09:00 [facility] Flucelvax - single Flucelvax - single 2019-01-17 Completed [facility] - dose syringe dose syringe 00:00:00 [facility] Pneumococcal 2016-11-16 Completed Islam Conjugate 13-Valent 00:00:00 Hospi missy Vital Signs Vital Name Observation Time Observation Value Comments Source height 2022-04-16 09:40:00 64 [in_i] [facility] weight 2022-04-16 09:40:00 315.8 [lb_av] [facility] temperature 2022-04-16 09:40:00 97.1 [degF] [facility] bmi 2022-04-16 09:40:00 54.2 kg/m2 Common S pirit [facility] oximetry 2022-04-16 09:40:00 94 % Common [facility] respiratory rate 2022-04-16 09:40:00 18 /min Comm on [facility] blood pressure 2022-04-16 09:40:00 137 mm[Hg] Common [facility] - systolic [facility] blood pressure 2022-04-16 09:40:00 78 mm[Hg] [facility] - diastolic [facility] height 2022-01-16 10:40:00 64 [in_i] Common [facility] weight 2022-01-16 10:40:00 312 [lb_av] [facility]mi 2022-01-16 10:40:00 53.55 kg/m2 Common [facility] height 2021-10-15 10:40:00 64 [in_i] [facility] weight 2021-10-15 10:40:00 309.8 [lb_av] Common [facility] temperature 2021-10-15 10:40:00 98.0 [degF] Common [facility] bmi 2021-10-15 10:40:00 53.17 kg/m2 [facility] oximetry 2021-10-15 10:40:00 94 % [facility] respiratory rate 2021-10-15 10:40:00 18 /min Comm on [facility] blood pressure 2021-10-15 10:40:00 136 mm[Hg] Common [facility] - systolic [facility] blood pressure 2021-10-15 10:40:00 72 mm[Hg] Common [facility] - diastolic [facility] height 2021-08-18 15:20:00 64 [in_i] Common [facility] weight 2021-08-18 15:20:00 312 [lb_av] Common [facility] temperature 2021-08-18 15:20:00 97.7 [degF] Common S pirit [facility] bmi 2021-08-18 15:20:00 53.55 kg/m2 Common S pirit [facility] height 2021-07-15 11:20:00 64 [in_i] Common S pirit [facility] weight 2021-07-15 11:20:00 312.6 [lb_av] Common [facility] bmi 2021-07-15 11:20:00 53.65 kg/m2 [facility] oximetry 2021-07-15 11:20:00 95 % [facility] respiratory rate 2021-07-15 11:20:00 18 /min Comm on [facility] blood pressure 2021-07-15 11:20:00 138 mm[Hg] Common [facility] - systolic [facility] blood pressure 2021-07-15 11:20:00 86 mm[Hg] [facility] - diastolic [facility] height 2021-07-15 11:20:00 64 [in_i] Common S [facility] weight 2021-07-15 11:20:00 312.6 [lb_av] [facility] bmi 2021-07-15 11:20:00 53.65 kg/m2 [facility] S [facility] oximetry 2021-07-15 11:20:00 95 % [facility] 2021-07-15 11:20:00 138 mm[Hg] [facility] - systolic [facility] blood pressure 2021-07-15 11:20:00 86 mm[Hg] [facility] - diastolic [facility] height 2021-05-07 13:00:00 64 [in_i] Common S pirit [facility] weight 2021-05-07 13:00:00 300 [lb_av] [facility] bmi 2021-05-07 13:00:00 51.49 kg/m2 Common S pirit [facility] height 2021-04-09 10:40:00 64 [in_i] Common [facility] weight 2021-04-09 10:40:00 322.2 [lb_av] Common [facility] temperature 2021-04-09 10:40:00 97.7 [degF] Common [facility] bmi 2021-04-09 10:40:00 55.3 kg/m2 Common S [facility] oximetry 2021-04-09 10:40:00 94 % [facility] respiratory rate 2021-04-09 10:40:00 16 /min Comm on [facility] blood pressure 2021-04-09 10:40:00 126 mm[Hg] Common [facility] - systolic [facility] blood pressure 2021-04-09 10:40:00 72 mm[Hg] Common [facility] diastolic [facility] Height 2019-08-24 00:00:00 64 [in_i] [facility] BMI (Body Mass Index) 2019-08-24 00:00:00 43.3 kg/m2 [facility] Body Weight 2019-08-24 00:00:00 252 [lb_av] [facility] Procedures This patient has no known procedures. Plan of Care Planned Activity Planned Date Details Comments Source Future Scheduled Test 2022-04-11 COVID-19 VACCINE [facility] 14:29:51 (#1) [code = COVID-19 VACCINE (#1)] Future Scheduled Test 2022-04-11 Screening for [facility] 14:29:51 malignant neoplasm of cervix (procedure) [code = 853813297] Future Scheduled Test 2022-04-11 BREAST CANCER [facility] 14:29:51 SCREENING [code = BREAST CANCER SCREENING] Future Scheduled Test 2022-04-11 COLONOSCOPY [facility] 14:29:51 SCREENING [code = COLONOSCOPY SCREENING] Future Scheduled Test 2022-04-11 SHINGLES VACCINES ([facility] 14:29:51 of 2) [code = SHINGLES VACCINES (1 of 2)] Future Scheduled Test 2022-04-11 INFLUENZA VACCINE [facility] 14:29:51 [code = INFLUENZA VACCINE] Instructions [facility] Encounters Start End Encounter Admission Attending Care Care Encounter Source Date/Time Date/Time Type Type Clinicians Facility Department ID 2022-04-14 Outpatient [place], STLMLC STLMLC [id number] Common 10:19:01 Niyah [facility] 2022-01-14 Outpatient [place], STLMLC STLMLC [id number] Common 07:56:00 Niyah [facility] 2021-10-13 Outpatient [place], STLMLC STLMLC [id number] Common 10:07:00 Niyah [facility] 2021-09-10 Outpatient [place], STLMLC STLMLC [id number] Common 15:03:00 Niyah [facility] 2021-07-03 Outpatient [place], STLMLC STLMLC [id number] Common 13:16:00 Niyah [facility] 2021-05-14 Outpatient [place], STLMLC STLMLC [id number] Common 14:28:40 Niyah [facility] 2021-05-14 Outpatient [place], STLMLC STLMLC [id number] Common 14:27:53 Niyah [facility] 2021-05-14 Outpatient [place], STLMLC STLMLC [id number] Common 13:52:27 Niyah 60577 [facility] 2021-05-14 Outpatient [place], STLMLC STLMLC [id number] Common 13:31:42 Niyah 80396 [facility] 2021-05-14 Outpatient [place], STLMLC STLMLC [id number] Common 12:24:47 Niyah [facility] 2021-05-14 Outpatient [place], STLMLC STLMLC [id number] Common 12:23:57 Niyah [facility] 2021-05-14 Outpatient [place], STLMLC STLMLC [id number] Common 12:12:34 Niyah 68910 [facility] 2021-05-14 Outpatient [place], STLMLC STLMLC [id number] Common 12:09:49 Niyah 71752 [facility] 2021-05-14 Outpatient [place], STLMLC STLMLC [id number] Common 12:07:04 Niyah 57341 [facility] 2021-05-14 Outpatient [place], STLMLC STLMLC [id number] Common 11:56:43 Adamaris 52089 [facility] 2021-05-14 Outpatient [place], STLMLC STLMLC [id number] Common 11:53:50 Adamaris 54117 [facility] 2021-05-14 Outpatient [place], STLMLC STLMLC [id number] Common 11:52:54 Adamaris 11228 [facility] 2021-05-14 Outpatient [place], STLMLC STLMLC [id number] Common 11:36:59 Adamaris 97844 [facility] 2021-05-14 Outpatient [place], STLMLC STLMLC [id number] Common 11:36:27 Adamaris 62895 [facility] 2021-05-14 Outpatient [place], STLMLC STLMLC [id number] Common 11:30:54 Adamaris 62973 [facility] 2021-05-14 Outpatient [place], STLMLC STLMLC [id number] Common 11:17:20 Adamaris 34947 [facility] 2021-05-14 Outpatient [place], STLMLC STLMLC [id number] Common 11:13:35 Adamaris 32982 [facility] 2021-05-14 Outpatient [place], STLMLC STLMLC [id number] Common 11:12:55 Adamaris 21499 [facility] 2022-05-22 2022-05-22 (TEL) STLMLC STLMLC [id number] Co mmon 00:00:00 00:00:00 [facility] 2022-04-16 2022-04-16 OFFICE STLMLC STLMLC [id number] Co mmon 00:00:00 00:00:00 VISIT Spirit ESTAB PT - CHI LEVEL 4 [facility] 2022-03-03 2022-03-03 (TEL) STLMLC STLMLC [id number] Co mmon 00:00:00 00:00:00 Spirit - CHI [facility] 2022-01-16 2022-01-16 OFFICE STLMLC STLMLC [id number] Co mmon 00:00:00 00:00:00 VISIT Spirit ESTAB PT - CHI LEVEL 4 [facility] 2021-10-15 2021-10-15 OFFICE STLMLC STLMLC [id number] Co mmon 00:00:00 00:00:00 VISIT Spirit ESTAB PT - CHI LEVEL 4 [facility] 2021-08-18 2021-08-18 OFFICE STLMLC STLMLC [id number] Co mmon 00:00:00 00:00:00 VISIT EST Spir it PT LEVEL 3 - CHI [facility] 2021-07-22 2021-07-22 (TEL) STLMLC STLMLC [id number] Co mmon 00:00:00 00:00:00 Spirit CHI [facility] 2021-07-15 2021-07-15 OFFICE STLMLC STLMLC [id number] Co mmon 00:00:00 00:00:00 VISIT Spirit ESTAB PT - CHI LEVEL 4 [facility] 2021-07-15 2021-07-15 SUB ANNUAL STLMLC STLMLC [id number] Common 00:00:00 00:00:00 MCR Spirit WELLNESS - CHI VISIT [facility] 2021-05-09 2021-05-09 (TEL) STLMLC STLMLC [id number] Co mmon 00:00:00 00:00:00 Spirit CHI [facility] 2021-05-09 2021-05-09 (TEL) STLMLC STLMLC [id number] Co mmon 00:00:00 00:00:00 [facility] - CHI [facility] 2021-05-07 2021-05-07 OFFICE STLMLC STLMLC [id number] Co mmon 00:00:00 00:00:00 VISIT EST Spir it PT LEVEL 3 - CHI [facility] 2021-05-06 2021-05-06 (TEL) STLMLC STLMLC [id number] Co mmon 00:00:00 00:00:00 [facility] 2021-04-09 2021-04-09 OFFICE STLMLC STLMLC [id number] Co mmon 00:00:00 00:00:00 VISIT [facility] LEVEL 4 [facility] 2021-04-09 2021-04-09 (COVID STLMLC STLMLC [id number] Co mmon 00:00:00 00:00:00 Inj) COVID Spi rit [facility] 2021-03-25 2021-03-25 (TEL) STLMLC STLMLC [id number] Co mmon 00:00:00 00:00:00 [facility] 2021-01-08 2021-01-08 Outpatient STLMLC STLMLC [id number] Common 00:00:00 00:00:00 [facility] 2020-10-08 2020-10-08 Outpatient STLMLC STLMLC [id number] Common 00:00:00 00:00:00 [facility] 2020-09-13 2020-09-13 Outpatient STLMLC STLMLC [id number] Common 00:00:00 00:00:00 [facility] 2020-09-11 2020-09-11 Outpatient STLMLC STLMLC [id number] Common 00:00:00 00:00:00 [facility] 2020-08-01 2020-08-01 Outpatient STLMLC STLMLC [id number] Common 00:00:00 00:00:00 [facility] 2020-07-01 2020-07-01 Outpatient STLMLC STLMLC [id number] Common 00:00:00 00:00:00 [facility] 2020-05-21 2020-05-21 Outpatient STLMLC STLMLC [id number] Common 00:00:00 00:00:00 [facility] 2020-04-08 2020-04-08 Outpatient STLMLC STLMLC [id number] Common 00:00:00 00:00:00 [facility] 2020-04-01 2020-04-01 Outpatient STLMLC STLMLC [id number] Common 00:00:00 00:00:00 [facility] 2020-02-12 2020-02-12 Outpatient STLMLC STLMLC [id number] Common 00:00:00 00:00:00 [facility] 2020-01-26 2020-01-26 Outpatient STLMLC STLMLC [id number] Common 00:00:00 00:00:00 [facility] 2019-12-06 2019-12-06 [facility] [id number] Common 11:26:00 11:26:[address] [facility] 2019-11-29 2019-11-29 [facility] [id number] Common 22:55:00 22:55:[address] [facility] 2019-11-29 2019-11-29 Out[facility] [id number] Common 09:20:00 09:20:[address] [facility] 2019-10-27 2019-10-27 Out[facility] [id number] Common 13:40:00 13:40:[address] [facility] 2019-10-10 2019-10-10 Outpatient Wilfrid-Mbayo VFP VFP [id number] [facility] 01:50:00 01:50:00 _A_AH [id number] Family Practic e 2019-09-27 2019-09-27 [facility] [id number] Common 16:20:00 16:20:[address] [facility] 2019-09-15 2019-09-15 Outpatient Wilfrid-Mbayo VFP VFP [id number] [facility] 06:35:00 06:35:00 _A_AH [id number] Family Practic e 2019-09-15 2019-09-15 Outpatient Wilfrid-Mbayo VFP VFP [id number] [facility] 06:35:00 06:35:00 _A_AH 91483 Family Practic e 2019 2019 Outpatient Wilfrid-Vanceo VFP VFP [id number] [facility] 07:29:00 07:29:00 _A_AH [id number] Family Practic e 2019-08-28 2019-08-28 Outpatient Wilfrid-Vanceo VFP VFP [id number] [facility] 11:01:00 11:01:00 _A_AH [id number] Family Practic e 2019-08-28 2019-08-28 Outpatient Wilfrid-Vanceo VFP VFP [id number] [facility] 11:01:00 11:01:00 _A_AH [id number] Family Practic e 2019-08-24 2019-08-24 Hannah VFP [place] - [id number] V illage 00:00:00 00:00:00 Wilfrid-Vance Hurt Fam nellie quintana ACCOUNT REPRESENTATIVE: Heike - Pracmelo thomas 9235 Joleen [email or web address] [facility], [place] [address], [place] [address] , Ph. 2019-08-06 2019-08-06 Outpatient [place] [facility] [id number] Common 13:22:00 13:22:[address] [facility] [address] [facility] 2019-07-28 2019-07-28 [facility] [id number] Common 14:30:00 14:30:00 [facility] it [facility] 2019-07-24 2019-07-24 Outpatient Ivory [facility] [id number] [facility] 15:30:00 15:30:00 [facility] 2019-07-24 2019-07-24 [facility] [id number] [facility] 08:48:24 09:18:24 ne [id number] [id number] [place] [id number] [address] 2019-07-24 2019-07-24 [facility]i [facility] [id number] 08:48:24 09:18:24 ne Visit Enrique James [id number] [place] [id number] [facility] [id number] [address] 2019-07-14 2019-07-[address] [facility] [id number] [facility] 05:09:00 05:09:00 _A_AH [id number] Family Practic e 2019-07-11 2019-07-11 [facility] [id number] Common 11:00:00 11:00:[address] [facility] 2019-06-29 2019-06-29 Out[facility] [id number] Common 14:30:00 14:30:[address] [facility] 2019-05-26 2019-05-26 Outpatient [facility] [id number] Common 09:00:00 09:00:[address] [facility] 2019-04-30 2019-04-30 Outpatient [facility] [id number] Common 12:41:00 12:41:[address] [facility] 2019-04-28 2019-04-28 Outpatient [facility] [id number] Common 08:15:00 08:15:[address] [facility] 2019-03-10 2019-03-10 Out[facility] [id number] Common 07:58:00 07:58:00 t [place] [facility] [place] [facility] 2019-01-17 2019-01-17 Outpatient [facility] [id number] Common 15:20:00 15:20:[address] [facility] 2018-12-26 2018-12-26 Outpatient [facility] [id number] Common 08:35:00 08:35:[address] [facility] 2018-11-09 2018-11-09 Outpatient [facility] [id number] Common 13:20:00 13:20:[address] [facility] 2018-10-25 2018-10-25 Outpatient [facility] [id number] Common 14:40:00 14:40:[address] [facility] 2018-08-15 2018-08-15 Outpatient [facility] [id number] Common 16:00:00 16:00:[address] [facility] 2018-07-22 2018-07-22 Outpatient [facility] [id number] Common 13:30:00 13:30:[address] [facility] 2018-07-21 2018-07-21 Outpatient [facility] [id number] Common 14:40:00 14:40:[address] [facility] 2018-07-18 2018-07-18 Outpatient [facility] [id number] Common 11:20:00 11:20:[address] [facility] 2018-06-20 2018-06-20 Outpatient [facility] [id number] Common 16:39:00 16:39:[address] [facility] 2018-06-14 2018-06-14 Outpatient [facility] [id number] Common 10:51:00 10:51:00 t [place] [facility] [place] [facility] 2018-06-10 2018-06-10 Outpatient [facility] [id number] Common 12:02:00 12:02:[address] [facility] 2018-05-04 2018-05-04 Out[facility] [id number] Common 14:02:00 14:02:[address] [address] [facility] 2018-05-03 2018-05-03 [id number] Common 14:30:00 14:30:[address] [facility] 2016-11-25 2016-11-26 Outpt Diag [facility] [id number] Memoria 14:56:00 04:59:00 Services r Outpatient 00 l Imaging [facility] 2016-11-25 2016-11-25 Outpatient Julia, [id number] . [id number] 09:56:00 23:59:00 Lei [id number]. [id number] Martinez [id number] Results Test Description Test Time Test Comments Results Result [facility] e Comments FINE NEEDLE 2018-06-17 Medical Cytology Report ASPIRATION BY 1 Case: [id number] Authorizing CLINICIAN 10:38:00 Provider: Finesse Brooks Collected: 06/21/2018 1358 Ordering Location: [facility] Endoscopy Received: 06/22/2018 0931 Services Pathologist: Octaviano [...] neoplasm. Correlation with the accompanying tissue examination ([id number]) and additional cytology evaluations ([id number], [id number]) is recommended for further evaluation. This case was discussed with Dr. Kimani Choe on 06/27/2018. Addendum electronically signed by Ashia Lawson MD on 06/27/2018 at 10:38 AMGASTRO HEPATIC LYMPH NODE FNA BY CLINICIAN (CYTOSPINS AND CELL BLOCK OF ASPIRATE): - GRANULOMATOUS INFLAMMATION (SEE COMMENT) - NEGATIVE FOR EPITHELIAL MALIGNANCY Signing Pathologist Direct Phone Line: [phone] signed by Octaviano Rivera MD on 06/24/2018 [...] and an addendum will follow.Please see cases [id number], [id number] and 654 for further evaluation. [id number], 78102, 05043, 96759 x 11Pancreatic mass, (1.3cm) malignant-appearing lymph node in the gastrohepatic ligamentGASTRO HEPATIC LYMPH NODE FNA24 mls in cytorich red; 4 cytospins, cell blockCollected: [id number]: [id number] interpretation of this case included the use of immunohistochemistry or special stains. Please see the immunohistochemistry results in the COMMENT section. Immunohistochemistry technical testing was performed at [facility], Pathology Laboratory where it was [...] qualified to perform high complexity clinical laboratory testing.[facility], Department of Pathology, [address] [place] [address], [facility], [address] [place] [address], [facility] of [facility], [address] [place] [address], FINE NEEDLE 2018-06-17 Medical Cytology Report ASPIRATION BY 1 Case: [id number] Authorizing CLINICIAN 10:28:00 Provider: Finesse Brooks Collected: 06/21/2018 1348 Ordering Location: [facility] Endoscopy Received: 06/22/2018 0932 Services Pathologist: Octaviano Rivera MD Specimen: Biopsy, Liver, liver left lobe Hematopathology Consultation: Impression: A-2: Liver tissue with involvement by granulomatous inflammation. No definitive evidence of involvement by a hematolymphoid neoplasm. Correlation with the accompanying tissue examination ([id number]) and additional cytology evaluations ([id number], [id number]) is recommended for further evaluation. This case was discussed with Dr. Kimani Choe on 06/27/2018. Addendum electronically signed by Ashia Lawson MD on 06/27/2018 at 10:28 AMLEFT LIVER LOBE FNA BY CLINICIAN (CYTOSPINS AND CELL BLOCK OF ASPIRATE): - GRANULOMATOUS INFLAMMATION (SEE COMMENT) - NEGATIVE FOR EPITHELIAL MALIGNANCY Signing Pathologist Direct Phone Line: [phone] signed by Octaviano Rivera MD on 06/24/2018 [...] and an addendum will follow.Please see cases [id number], [id number] and 654 for further evaluation.53689, 26876, 36432, 06575 x 2, 94926 x 2Pancreatic mass, abnormal echogenicity in left lobe of the liverLEFT LIVER LOBE FNA28 mls in cytorich red; 4 cytospins, cell blockCollected: [id number]: [id number] interpretation of this case included the use of immunohistochemistry or special stains. Please see the immunohistochemistry results in the COMMENT section. Immunohistochemistry technical testing was performed at [facility], Pathology Laboratory where it was [...] qualified to perform high complexity clinical laboratory testing.[facility], Department of Pathology, [address] [place] [address], [facility], Department of Pathology, [address] [place] [address], [facility], Department of Pathology, [address] [place] [address], TISSUE EXAM 2018-06-17 Surgical Pathology Report 1 Case: [id number] Authorizing 08:35:00 Provider: Finesse Brooks Collected: 06/21/2018 1344 Ordering Location: [facility] Endoscopy Received: 06/21/2018 1544 Services Pathologist: Saad Choe MD Specimens: A) - Biopsy, Liver, LIVER LEFT LOBE FNB B) - Pancreas, PANCREAS MASS FNB PART A LEFT LIVER LOBE, BIOPSY FOR SUSPECTED MASS:NONCASEATING GRANULOMATOUS INFLAMMATION.NEGATIVE FOR MALIGNANCY.SEE DIAGNOSTIC COMMENT.PART B PANCREAS, BIOPSY FOR SUSPECTED MASS:NONCASEATING GRANULOMATOUS INFLAMMATION IN LYMPHOID MATERIAL.NEGATIVE FOR MALIGNANCY.SEE DIAGNOSTIC COMMENT. Signing Pathologist Direct Phone Line: [phone] signed by Saad Choe MD on 06/27/2018 [...] case were discussed with Dr. Finesse Brooks, glassine machine tender on 06/24/2018.Intradepartment consultation: Camila Burt [id number], [id number], [id number], [id number] mass A. Liver left lobe FNB. B. [...] GMS, AFBImmunohistochemistry technical testing was performed at [facility], Pathology Laboratory where it was [...] Medical Cytology Report ASPIRATION BY 8 Case: [id number] Authorizing CLINICIAN 19:25:00 Provider: Finesse Brooks Collected: 06/21/2018 1415 Ordering Location: [facility] Endoscopy Received: 06/22/2018 0932 Services Pathologist: Octaviano Rivera MD Specimen: Celiac Node CELIAC LYMPH NODE FNA BY CLINICIAN (CYTOSPINS AND CELL BLOCK OF ASPIRATE): - NON-DIAGNOSTIC SPECIMEN - PREDOMINANTLY BLOOD ELEMENTS WITH VERY RARE LYMPHOCYTES Signing Pathologist Direct Phone Line: [phone] signed by Octaviano Rivera MD on 06/24/2018 at 7:25 PMPlease see cases [id number], [id number] and 653.00048, 46201, 24303Jvmeylbgkc mass, (1.2 cm) malignant-appearing lymph node in the celiac regionCELIAC LYMPH NODE FNA25 mls in cytorich red; 4 cytospins, cell blockCollected: [id number]: [id number] interpretation of this case included the use of immunohistochemistry or special stains.An immunostain for CAM5.2 performed on a cell block section is negative.Immunohistochemistr y technical testing was performed at [facility], Pathology Laboratory where it was [...] qualified to perform high complexity clinical laboratory testing.[facility], Department of Pathology, [address] [place] [address], [facility], [facility] of [facility], [address] [place] [address], [facility], [facility] of Pathology, [address] [place] [address], FINE NEEDLE ASPIRATE (FNA) REQUEST 2018-06-22 11:03:00 Test Item Value Reference Range Interpretation Comme nts CYTOLOGY RESULT POINTER (BEAKER) (test code = 2629) See Separate Re port FINE NEEDLE ASPIRATE (FNA) [id number] 11:03:00 Test Item Value Reference Range Interpretation Comments CYTOLOGY RESULT POINTER See Separate Report (BEAKER) (test code = 2629) FINE NEEDLE ASPIRATE (FNA) [id number] 11:03:00 Test Item Value Reference Range Interpretation Comments CYTOLOGY RESULT POINTER See Separate Report (BEAKER) (test code = 2629)
[2022-06-01] MEDS ORDERED: MAGNESIUM SULFATE 1 gm IVPB 1 GM/100 ML BAG IV ONE (17:20)
[2022-06-01] MEDS ORDERED: dilTIAZem HCL 25 MG/5 ML VIAL IV ONE (17:20)
[2022-06-01 18:05] LABS: Absolute Lymphocytes (CBC) 1.5 K/uL (0.7-4.9); Hematocrit 35.1 % (36.0-45.0); Lymphocytes % 15.3 % (15.3-44.8); MCV 88.3 fL (80-100); MPV 7.9 fL (7.6-11.3); RBC Red Blood Cell Count 3.97 M/uL (3.86-4.86)
[2022-06-01 18:08] LABS: Protime INR 1.03
--- NOTE | 2022-06-01 18:20 | RAD REPORT ---
EXAM DESCRIPTION: RADChest Single View06/01/2022 5:25 pm CLINICAL HISTORY: Dyspnea COMPARISON: Chest Pa And Lat (2 Views) dated 05/07/2021; Chest Single View dated 06/30/2019; Chest Sin gle View dated 10/26/2018; Chest Single View dated 10/25/2018 TECHNIQUE: PA and lateral views of the chest. FINDINGS: Central interstitial prominence with prominence of the vascular markings. Bibasilar opacit ies with suggestion of small effusions particularly on the right. No pneumothorax. Moderate cardiomeg mildred. IMPRESSION: Findings suggestive of vascular congestion/CHF as above.
[2022-06-01 18:26] LABS: Albumin 3.4 g/dL (3.4-5.0); Bilirubin Direct 0.2 mg/dL (0-0.2); Bilirubin Total 0.7 mg/dL (0.2-1.0); Potassium 3.9 mmol/L (3.5-5.1); Protein, Total 8.3 g/dL (6.4-8.2)
--- NOTE | 2022-06-01 18:33 | ER ---
Nurse's Notes [facility] Name: Batsheva Faulkner Age: 56 yrs Sex: Female : 1965 Arrival Date: 06/01/2022 Time: 16:12 Bed 25 Private MD: Diagnosis: Persistent atrial fibrillation-new onset, with RVR;Unspecified combined systolic (congestive) and diastolic (congestive) heart failure;Dyspnea, unspecified Presentation: 06/01 16:29 Chief complaint: Patient states: i been real short winded so i went to my lung doctor [facility] and he said that my heart rate was real irregular and to get to the emergency room real quick so i just got here from [facility]. Coronavirus screen: Vaccine status: Patient reports receiving the 2nd dose of the covid vaccine. Client denies travel out of the [place] in the last 14 days. Ebola Screen: Patient negative for fever greater than or equal to 101.5 degrees Fahrenheit, and additional compatible Ebola Virus Disease symptoms Patient denies exposure to infectious person. Patient denies travel to an Ebola-affected area in the 21 days before illness onset. Initial Sepsis Screen: Does the patient meet any 2 criteria? No. Patient's initial sepsis screen is negative. Does the patient have a suspected source of infection? No. Patient's initial sepsis screen is negative. Risk Assessment: Do you want to hurt yourself or someone else? Patient reports no desire to harm self or others. 16:29 Method Of Arrival: Wheelchair [facility] 16:29 Acuity: FLORY 2 5 Triage Assessment: 16:31 General: Appears uncomfortable, obese, well groomed, well developed, Behavior is calm, 5 cooperative, appropriate for age. Pain: Denies pain. Cardiovascular: Reports chest pain, palpitations, shortness of breath. 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 - Social history:: Smoking status: Patient denies any tobacco usage or history of. - Family history:: not pertinent. - Hospitalizations: : No recent hospitalization is reported. Screenin:00 [facility] ED Fall Risk Assessment (Adult) History of falling in the last 3 months, mb9 including since admission No falls in past 3 months (0 pts) Confusion or Disorientation No (0 pts) Intoxicated or Sedated No (0 pts) Impaired Gait No (0 pts) Mobility Assist Device Used No (0 pt) Altered Elimination No (0 pt) Score/Fall Risk Level 0 - 2 = Low Risk Oriented to surroundings, Maintained a safe environment, Educated pt \T\ family on fall prevention, incl call for assistance when getting out of bed. Abuse screen: Denies threats or abuse. Nutritional screening: No deficits noted. Tuberculosis screening: No symptoms or risk factors identified. Assessment: 17:00 General: Appears uncomfortable, Behavior is cooperative. Pain: Complains of pain in mb9 chest Pain does not radiate. Pain currently is 5 out of 10 on a pain scale. Pain began 2 weeks ago Aggravated by increased activity. 17:00 Neuro: Roth Agitation-Sedation Scale (RASS): 0 - Alert and Calm Level of mb9 Consciousness is awake, alert, obeys commands, Oriented to person, place, time, situation, Appropriate for age. Cardiovascular: Heart tones S1 S2 present Rhythm is atrial fibrillation with rapid ventricular response. Cardiovascular: Reports palpitations. Respiratory: Reports shortness of breath at rest on exertion since 2 weeks ago Airway is patent Respiratory effort is even, Respiratory pattern is tachypnea Breath sounds with wheezes bilaterally. GI: Abdomen is round non-distended. : Urine is clear. EENT: No signs and/or symptoms were reported regarding the EENT system. Derm: Skin is pink, warm \T\ dry. Musculoskeletal: Range of motion: intact in all extremities. 18:00 Reassessment: No changes from previously documented assessment. Patient and/or family mb9 updated on plan of care and expected duration. Pain level reassessed. Patient is alert, oriented x 3, equal unlabored respirations, skin warm/dry/pink. 19:05 Reassessment: No changes from previously documented assessment. Patient and/or family mb9 updated on plan of care and expected duration. Pain level reassessed. Patient is alert, oriented x 3, equal unlabored respirations, skin warm/dry/pink. Cardiovascular: Denies chest pain, Rhythm is atrial fibrillation. 20:05 Reassessment: No changes from previously documented assessment. Patient and/or family mb9 updated on plan of care and expected duration. Pain level reassessed. Patient is alert, oriented x 3, equal unlabored respirations, skin warm/dry/pink. Cardiovascular: Rhythm is atrial fibrillation. Vital Signs: 16:29 BP 148 / 95; Pulse 143; Resp 18; Temp 98.0; Pulse Ox 96% ; Weight 142.88 kg; Height 5 [facility] ft. 6 in. (167.64 cm); Pain 0/10; 17:37 BP 129 / 86; Pulse 129; Resp 18; Pulse Ox 96% on R/A; mb9 19:05 BP 121 / 67; Pulse 121; Resp 20; Pulse Ox 96% on R/A; mb9 20:59 BP 131 / 98; Pulse 108; Resp 22; Pulse Ox 96% on R/A; mb9 16:29 Body Mass Index 50.84 (142.88 kg, 167.64 cm) [facility] ED Course: 16:12 Patient arrived in ED. as 16:27 Abiel Anne MD is Attending Physician. rn 16:31 Triage completed. [facility] 16:31 Arm band placed on right wrist. [facility] 16:42 Arcelia Bauer, RN is Primary Nurse. mb9 17:00 Placed in gown. Bed in low position. Call light in reach. Side rails up X 1. Client mb9 placed on continuous cardiac and pulse oximetry monitoring. NIBP monitoring applied. monitor worker on. 17:15 EKG done, by ED staff, reviewed by Abiel Anne MD. mb9 17:20 Missed attempt(s): 22 gauge in right hand. Bleeding controlled, band aid applied, mb9 catheter tip intact. 17:39 Missed attempt(s): 22 gauge in left hand. Bleeding controlled, band aid applied, mb9 catheter tip intact. 17:45 Missed attempt(s): 22 gauge in left antecubital area. Bleeding controlled, band aid iw applied, catheter tip intact. 17:56 Inserted saline lock: 20 gauge in right antecubital area, using aseptic technique. iw 18:20 COVID-19/FLU A+B Sent. mb9 18:32 Trey Thrasher MD is Hospitalizing Provider. rn Administered Medications: 18:00 Drug: Magnesium Sulfate 1 grams Route: IVPB; Infused Over: 1 hrs; Site: right mb9 antecubital; 18:00 Drug: Diltiazem 25 mg Route: IVP; Site: left upper arm; mb9 18:25 Not Given (Duplicate Order): Diltiazem 30 mg IVP once; Over 2 Minutes rn 18:42 Drug: Lasix (furosemide) 40 mg Route: IVP; Site: right antecubital; mb9 19:02 Drug: Cardizem (diltiazem) 60 mg Route: PO; mb9 19:02 Drug: Lovenox (enoxaparin) 1 mg/kg Route: Sub-Q; Site: left lower abdomen; mb9 20:54 Drug: Digoxin 0.25 mg Route: IVP; Site: right antecubital; mb9 Medication: 19:05 VIS not applicable for this client. mb9 Outcome: 18:33 Decision to Hospitalize by Provider. rn 06/02 13:45 Patient left the ED. rn Signatures: Rosangela Willard Irene, RN RN iw Nieto, Roman, MD MD rn Rees, Jessica, RN RN 5 Arcelia Bauer RN RN mb9
--- NOTE | 2022-06-01 18:34 | EDPHYS ---
Physician Documentation [facility] Name: Batsheva Faulkner Age: 56 yrs Sex: Female : 1965 Arrival Date: 06/01/2022 Time: 16:12 Bed 25 Private MD: ED Physician Abiel Anne HPI: 06/01 17:11 This 56 yrs old Black Female presents to ER via Wheelchair with complaints of Irregular rn Pulse, Chest Pain, Shortness Of Breath. 17:11 The patient or guardian reports chest pain that is located primarily in the substernal rn area. 17:12 Onset: 2 week(s) ago. The pain does not radiate. Associated signs and symptoms: rn Pertinent positives: lower extremity swelling, palpitations, shortness of breath, Pertinent negatives: abdominal pain, cough, diaphoresis. The chest pain is described as a heaviness. Duration: The patient or guardian reports multiple episodes, that are intermittent. Modifying factors: The symptoms are alleviated by nothing. the symptoms are aggravated by exertion. Severity of pain: At its worst the pain was moderate in the emergency department the pain is unchanged. The patient has not experienced similar symptoms in the past. The patient has been recently seen by a physician:. Sent by content development manager by new onset afib with rvr. Reports 2 weeks of progressive dyspnea and chest pain along with palpitations. + hx of CHF and asthma, has been using a lot of breathing treatments for sob, not helping. . 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 - Social history:: Smoking status: Patient denies any tobacco usage or history of. - Family history:: not pertinent. - Hospitalizations: : No recent hospitalization is reported. ROS: 17:12 Constitutional: Negative for fever, chills, and weight loss, Eyes: Negative for injury, rn pain, redness, and discharge, Cardiovascular: + chest pain/palpitations/edema Respiratory: Negative for cough, pleuritic chest pain Abdomen/GI: Negative for abdominal pain, nausea, vomiting, diarrhea, and constipation, MS/Extremity: Negative for injury and deformity, Skin: Negative for injury, rash, and discoloration, Neuro: Negative for headache, numbness, tingling, and seizure. Exam: 17:12 Constitutional: This is a well developed, well nourished patient who is awake, alert, rn tachypneic Head/Face: Normocephalic, atraumatic. ENT: dry MM, no stridor Cardiovascular: Tachycardic, irregular Respiratory: + tachypneic, + bibasilar crackles with wheezing Abdomen/GI: Soft, non-tender Skin: Warm, dry MS/ Extremity: Pulses equal, no cyanosis. Neurovascular intact. Full, normal range of motion. Equal circumference but 2+ pitting edema. Neuro: Awake and alert, GCS 15 Vital Signs: 16:29 BP 148 / 95; Pulse 143; Resp 18; Temp 98.0; Pulse Ox 96% ; Weight 142.88 kg; Height 5 5 ft. 6 in. (167.64 cm); Pain 0/10; 17:37 BP 129 / 86; Pulse 129; Resp 18; Pulse Ox 96% on R/A; mb9 19:05 BP 121 / 67; Pulse 121; Resp 20; Pulse Ox 96% on R/A; mb9 20:59 BP 131 / 98; Pulse 108; Resp 22; Pulse Ox 96% on R/A; mb9 16:29 Body Mass Index 50.84 (142.88 kg, 167.64 cm) [facility] MDM: 16:27 Patient medically screened. rn 18:29 Differential diagnosis: acute myocardial infarction, congestive heart failure rn costochondritis, pleurisy, pneumonia, pneumothorax, new onset afib with rvr. Data reviewed: vital signs, nurses notes, lab test result(s), EKG, radiologic studies, plain films, and as a result, I will admit patient. Consideration of Admission/Observation Patient was admitted/placed on observation. Escalation of care including admission/observation considered. Management of patient was discussed with the following: Hospitalist: Case and management discussed with hospitalist, will admit for new onset afib with RVR. Independent interpretation of the following test(s) in the Emergency Department EKG: See my EKG interpretation above X-Ray: My interpretation is CXR show pulmonary edema. . Counseling: I had a detailed discussion with the patient and/or guardian regarding: the historical points, exam findings, and any diagnostic results supporting the discharge/admit diagnosis, lab results, radiology results, the need for further work-up and treatment in the hospital. Response to treatment: the patient's symptoms have mildly improved after treatment, and as a result, I will admit patient. ED course: Pt with improvement of HR to 110s, breathing better, feels better.. 06/01 16:37 Order name: Basic Metabolic Panel rn 06/01 16:37 Order name: CBC with Diff rn 06/01 16:37 Order name: LFT's rn 06/01 16:37 Order name: NT PRO-BNP rn 06/01 16:37 Order name: PT-INR rn 06/01 16:37 Order name: Troponin HS rn 06/01 16:37 Order name: COVID-19/FLU A+B rn 06/01 18:08 Order name: Protime (+INR); Complete Time: 18:22 EDAK 06/01 18:09 Order name: CBC with Automated Diff; Complete Time: 18:22 EDAK 06/01 18:27 Order name: Basic Metabolic Panel; Complete Time: 18:28 EDAK 06/01 18:27 Order name: Liver (Hepatic) Function; Complete Time: 18:28 EDAK 06/01 18:27 Order name: Troponin High Sensitivity; Complete Time: 18:28 EDAK 06/01 18:27 Order name: NT PRO-BNP; Complete Time: 18:28 EDAK 06/01 19:11 Order name: COVID-19/FLU A+B; Complete Time: 20:23 EDAK 06/01 16:37 Order name: XRAY Chest (1 view) rn 06/01 16:37 Order name: EKG; Complete Time: 16:38 rn 06/01 18:20 Order name: RAD; Complete Time: 18:22 EDAK 06/02 03:01 Order name: CBC with Automated Diff EDAK 06/02 03:18 Order name: Basic Metabolic Panel EDAK 06/02 03:18 Order name: Phosphorus EDAK 06/02 03:18 Order name: Lipid Profile EDAK 06/02 03:18 Order name: Magnesium EDMS 06/02 03:18 Order name: Thyroid Stimulating Hormone EDMS 06/01 16:37 Order name: Cardiac monitoring; Complete Time: 17:02 rn 06/01 16:37 Order name: EKG - Nurse/Tech; Complete Time: 19:04 rn 06/01 16:37 Order name: IV Saline Lock; Complete Time: 19:04 rn 06/01 16:37 Order name: Labs collected and sent; Complete Time: 19:05 rn 06/01 16:37 Order name: O2 Per Protocol; Complete Time: 17:02 rn 06/01 16:37 Order name: O2 Sat Monitoring; Complete Time: 17:02 rn Administered Medications: 18:00 Drug: Magnesium Sulfate 1 grams Route: IVPB; Infused Over: 1 hrs; Site: right mb9 antecubital; 18:00 Drug: Diltiazem 25 mg Route: IVP; Site: left upper arm; mb9 18:25 Not Given (Duplicate Order): Diltiazem 30 mg IVP once; Over 2 Minutes rn 18:42 Drug: Lasix (furosemide) 40 mg Route: IVP; Site: right antecubital; mb9 19:02 Drug: Cardizem (diltiazem) 60 mg Route: PO; mb9 19:02 Drug: Lovenox (enoxaparin) 1 mg/kg Route: Sub-Q; Site: left lower abdomen; mb9 20:54 Drug: Digoxin 0.25 mg Route: IVP; Site: right antecubital; mb9 Disposition: 18:29 Critical Care:. rn Disposition Summary: 06/01/22 18:33 Hospitalization Ordered Hospitalization Status: Inpatient Admission rn Provider: Trey Thrasher rn Condition: Stable rn Problem: new rn Symptoms: have improved rn Bed/Room Type: Standard rn Location: Telemetry/MedSurg (Inpatient)(06/02/22 10:49) bd Room Assignment: 208(06/02/22 10:49) bd Diagnosis - Persistent atrial fibrillation - new onset, with RVR rn - Unspecified combined systolic (congestive) and diastolic (congestive) heart failure rn - Dyspnea, unspecified rn Forms: - Medication Reconciliation Form rn - SBAR form photography intern time excluding procedures: 18:29 Critical care time: Bedside Care: 35 minutes, Consultation: 5 minutes. Total time: 40 rn minutes Signatures: Dispatcher [employer] EDLore Joseph Martha RN RN mw Abiel Anne MD MD rn Rees, Jessica RN RN 5 Shayy Singh PA-C PA-C sb4 Arcelia Bauer RN RN mb9 Corrections: (The following items were deleted from the chart) 20:05 18:33 rn mw 20:35 18:33 Telemetry/MedSurg (Inpatient) rn mw 20:35 20:05 218 mw mw 21:37 20:35 Telemetry/MedSurg (Inpatient) mw mw 21:37 20:35 mw mw 06/02 10:49 06/01 21:37 [facility] ER HOLD mw bd 06/02 10:49 06/01 21:37 ERHOLD- mw bd
[2022-06-01] MEDS ORDERED: FUROSEMIDE 40 MG/4 ML VIAL ONE (18:35)
[2022-06-01] MEDS ORDERED: ENOXAPARIN 100 MG/ML SYR SQ ONE (18:35)
[2022-06-01] MEDS ORDERED: ENOXAPARIN 40 MG/0.4 ML SQ ONE (18:36)
[2022-06-01] MEDS ORDERED: DILTIAZEM HCL 60 MG TAB PO ONE (19:00)
--- NOTE | 2022-06-01 19:05 | P.HP ---
Certification for Inpatient Patient admitted to: Inpatient With expected LOS: >2 Midnights Patient will require the following post-hospital care: None Practitioner: I am a practitioner with admitting privileges, knowledge of patient current condition, hospital course, and medical plan of care. Services: Services provided to patient in accordance with Admission requirements found in Title 42 Section 412.3 of the Code of Federal Regulations <Shayy Singh - Last Filed: 06/01/22 21:04> Patient History Date of Service: 06/01/22 Reason for admission: Afib New Onset History of Present Illness: Patient is a 56-year-old female with past medical history of asthma, COPD, hypertension, CKD 3A, chronic diastolic congestive heart failure, and obesity who presented to the emergency department with complaints of shortness of breath. Patient states that she has been feeling short of breath for the past week and has been using her inhaler quite excessively, at least 10 times just today. She saw her absorption and adsorption engineer today who sent her to the ED for further evaluation. She was found to be in A-fib RVR with a rate of 133. Her labs were significant for hemoglobin of 11.5, hematocrit 35.1, chloride 108, BUN 20, creatinine 1.3, BNP 2200, troponin negative. In the emergency department, she was treated with 25 mg of IV diltiazem, 1 g magnesium, 40 mg of IV Lasix, 60 mg p.o. diltiazem, and 120 mg of Lovenox. Rate has improved to the 110s however patient is still feeling short of breath. Patient will be admitted for further management. Home medications list reviewed: Yes - Past Medical/Surgical History Diabetic: No -: Asthma -: Hypertension -: Depression -: Obesity -: History of hilar and mediastinal adenopathy -: CKD3 -: COPD -: CHF -: Biopsy of the R lung -: C-sections x2 -: Hysterectomy -: Cyst removed from the L shoulder Psychosocial/ Personal History: The patient has a significant other. She has 3 children. - Family History Mother -: Heart disease, Hypertension Father -: Hypertension, Lung disease, Cancer Notes: : lung ca Brother -: Hypertension, Diabetes, Kidney disease Sister -: Hypertension, Diabetes - Social History Smoking Status: Former smoker Alcohol use: No CD- Drugs: No Caffeine use: Yes Place of Residence: Home <Shayy Singh - Last Filed: 06/01/22 21:04> Date of Service: 06/02/22 <Trey Thrasher - Last Filed: 06/02/22 18:40> Allergies amoxicillin Allergy (Severe, Verified 12/27/16 17:39) Itching/Hives/Rash iodine Allergy (Severe, Verified 12/27/16 20:38) Anaphylaxis methadone Allergy (Severe, Verified 12/27/16 17:39) Nausea/Vomiting Penicillins Allergy (Severe, Verified 12/27/16 17:39) Itching/Hives/Rash tramadol Allergy (Severe, Verified 12/27/16 17:39) Itching/Hives/Rash Home Medications: Albuterol Sulfate [Proair Hfa] 1 puff IH Q4HR PRN 06/01/22 Fluticasone/Umeclidin/Vilanter [Trelegy Ellipta 200-62.5-25] 1 puff IH DAILY 06/01/22 Hydrocodone Bit/Acetaminophen [Hydrocodon-Acetaminophn 10-325] 1 tab PO TID 06/01/22 Montelukast Sodium [Singulair] 10 mg PO DAILY 06/01/22 RX: Amlodipine Besylate 5 mg PO DAILY 06/01/22 RX: Clonidine Patch [Catapres-Tts 1*] 0.1 mg TD DAILY 06/01/22 RX: Duloxetine HCl [Cymbalta] 20 mg PO BID 06/01/22 RX: Omeprazole 20 mg PO SEECOM 06/01/22 RX: Ondansetron [Zofran (Odt)*] 1 tab SL DAILY 06/01/22 RX: Tizanidine [Zanaflex*] 4 mg PO BID PRN 06/01/22 RX: bisoproloL fumarate [Zebeta*] 5 mg PO DAILY 06/01/22 RX: predniSONE [Deltasone*] 10 mg PO DAILY 06/01/22 Review of Systems Respiratory: Shortness of Breath Cardiovascular: Palpitations <Shayy Singh - Last Filed: 06/01/22 21:04> Physical Examination - Vital Signs Temperature: 98 F Blood Pressure: 129/86 Pulse: 129 Respirations: 18 Pulse Ox (%): 96 - Physical Exam General: Alert, Mild distress, Obese HEENT: Atraumatic, EOMI, Sclerae nonicteric Neck: Supple, 2+ carotid pulse no bruit Respiratory: Expiratory wheezes Cardiovascular: Irregular heart rate/rhythm Gastrointestinal: Normal bowel sounds, No tenderness Musculoskeletal: No tenderness Integumentary: No rashes Neurological: Normal speech, Normal affect - Studies Laboratory Data (last 24 hrs) 06/01/22 17:40: PT 11.3, INR 1.03 06/01/22 17:40: WBC 9.60, Hgb 11.5 L, Hct 35.1 L, Plt Count 321 06/01/22 17:40: Sodium 139, Potassium 3.9, BUN 20 H, Creatinine 1.30 H, Glucose 99, Total Bilirubin 0.7, AST 15, ALT 21, Alkaline Phosphatase 101 <Shayy Singh - Last Filed: 06/01/22 21:04> Assessment and Plan - Problems (Diagnosis) (1) Atrial fibrillation Current Visit: Yes Status: Acute Qualifiers: Atrial fibrillation type: unspecified Qualified Code(s): I48.91 - Unspecified atrial fibrillation (2) CHF (congestive heart failure) Current Visit: Yes Status: Chronic Qualifiers: Heart failure type: diastolic Heart failure chronicity: acute on chronic Qualified Code(s): I50.33 - Acute on chronic diastolic (congestive) heart failure (3) COPD (chronic obstructive pulmonary disease) Current Visit: Yes Status: Chronic Qualifiers: COPD type: unspecified COPD Qualified Code(s): J44.9 - Chronic obstructive pulmonary disease, unspecified (4) CHRISTINE (nonalcoholic steatohepatitis) Current Visit: Yes Status: Chronic (5) Anemia Current Visit: Yes Status: Chronic Qualifiers: Anemia type: due to chronic kidney disease Chronic kidney disease stage: stage 3 (moderate) Chronic kidney disease stage 3 subtype: stage 3a (GFR 45- 59) Qualified Code(s): N18.31 - Chronic kidney disease, stage 3a; D63.1 - Anem ia in chronic kidney disease (6) Asthma Current Visit: Yes Status: Chronic Qualifiers: Asthma severity: unspecified severity Asthma persistence: unspecified Asthma complication type: with acute exacerbation Qualified Code(s): J45.901 - Unspecified asthma with (acute) exacerbation (7) Hypertension Current Visit: Yes Status: Chronic Qualifiers: Hypertension type: primary hypertension Qualified Code(s): I10 - Essential (primary) hypertension (8) Obesity Current Visit: Yes Status: Chronic Qualifiers: Obesity type: unspecified obesity type Obesity classification: adult class 3 (BMI >= 40) Serious obesity comorbidity presence: with serious comorbidity Body mass index: BMI 40.0-44.9 Qualified Code(s): E66.01 - Morbid (severe) obesity due to excess calories; Z68.41 - Body mass index [BMI] 40.0-44.9, adult; Z68.41 - Body mass index [BMI] 40.0-44.9, adult - Plan Patient is admitted for further management of new onset atrial fibrillation. We will consult cardiology and obtain an echocardiogram. Patient is still in A-fib RVR, despite IV and p.o. diltiazem. Cardiology recommended digoxin first and cardioversion if necessary. Continue therapeutic Lovenox every 12 hours. Hold off on breathing treatments as it appears that this is what set off the A- fib initially. Monitor and replete electrolytes per protocol. Reconcile continue home medications. Full code. Discharge Plan: Home Plan to discharge in: Greater than 2 days - Advance Directives Does patient have a Living Will: No Does patient have a Durable POA for Healthcare: No - Code Status/Comfort Care Code Status Assessed: Yes Code Status: Full Code Physician Review: Patient Assessed, Agree with Above Assessment and Plan Critical Care: No Time Spent Managing Pts Care (In Minutes): 50 <Shayy Singh - Last Filed: 06/01/22 21:04> Physician Review: Patient Assessed, Agree with Above Assessment and Plan <Trey Thrasher - Last Filed: 06/02/22 18:40>
[2022-06-01 19:11] LABS: SARS-COV-2 RT PCR NEGATIVE (NEGATIVE)
[2022-06-01 19:23] VITALS: BMI 50.6
[2022-06-01] MEDS ORDERED: DILTIAZEM HCL 60 MG TAB ONE ×2 (20:32→20:52)
[2022-06-01] MEDS ORDERED: DIGOXIN 0.25 MG/ML AMP ONE (20:49)
[2022-06-01] MEDS ORDERED: AMIODARONE HCL 150 MG in D5W 100 ML IV STA (21:32)
[2022-06-01] MEDS ORDERED: AMIODARONE HCL 900 MG in Dextrose 5%-Water 482 ML IV SCH (22:00)
[2022-06-01] MEDS ORDERED: AMIODARONE IN DEXTROSE,ISO-OSM 360 MG/200 ML BAG IV SCH (22:00)
[2022-06-01] MEDS ORDERED: AMIODARONE IN DEXTROSE,ISO-OSM 360 MG/200 ML BAG IV ONE (23:14)
[2022-06-01] MEDS ORDERED: AMIODARONE HCL 150 MG/3 ML INJ IV ONE (23:14)
[2022-06-02 02:56] LABS: Absolute Lymphocytes (CBC) 2.1 K/uL (0.7-4.9); Hematocrit 34.2 % (36.0-45.0); Lymphocytes % 21.8 % (15.3-44.8); MCV 88.2 fL (80-100); MPV 8.3 fL (7.6-11.3); RBC Red Blood Cell Count 3.87 M/uL (3.86-4.86)
[2022-06-02 03:18] LABS: Magnesium 2.2 mg/dL (1.6-2.4); Phosphorus 3.2 mg/dL (2.5-4.9); Potassium 3.6 mmol/L (3.5-5.1); Thyroid Stimulating Hormone 0.82 uIU/mL (0.358-3.740)
[2022-06-02] MEDS ORDERED: AMIODARONE IN DEXTROSE,ISO-OSM 360 MG/200 ML BAG IV ONE (04:53)
[2022-06-02] MEDS ORDERED: ACETAMINOPHEN 500 MG TAB ONE (05:19)
[2022-06-02] MEDS: ACETAMINOPHEN 500 MG TAB PO PRN (05:22)
[2022-06-02] MEDS ORDERED: ENOXAPARIN 60 MG/0.6 ML SQ ONE (05:58)
[2022-06-02] MEDS: Enoxaparin 120 MG/0.8 ML SYR SQ SCH ×2 (06:01)
[2022-06-02] MEDS ORDERED: INFLUENZA VACCINE (for 6+ mo) 0.5 ML DOSE IMVAC ONE (08:00)
[2022-06-02] MEDS ORDERED: POTASSIUM CL SA 10 MEQ TAB PO ONE ×2 (09:00→10:25)
--- NOTE | 2022-06-02 17:12 | EKG ---
Test Date: 2022-06-01 Test Time: 17:20:54 Die Storage Worker: MB MEASUREMENT RESULTS: Intervals: Rate: 133 ME: QRSD: 98 QT: 308 QTc: 458 [place]: P: ME: QRS: 15 T: 59 INTERPRETIVE STATEMENTS: Atrial fibrillation with rapid ventricular response Abnormal ECG Compared to ECG 06/30/2019 10:10:26 Sinus rhythm no longer present Left ventricular hypertrophy no longer present Electronically Signed On 06-02-22 17:09:17 [employer] PROJECT MANAGER by Anjum Valencia
[2022-06-02] MEDS ORDERED: Enoxaparin 120 MG/0.8 ML SYR SQ SCH (18:00)
--- NOTE | 2022-06-02 18:47 | P.PN ---
Subjective Date of Service: 06/02/22 Chief Complaint: Afib New Onset This morning, she appeared comfortable. She was on amiodarone drip and remained in normal sinus rhythm. She denies any chest pain or palpitations at this time. Review of Systems 10-point ROS is otherwise unremarkable Physical Examination - Vital Signs Temperature: 97.4 F Blood Pressure: 127/72 Pulse: 79 Respirations: 18 Pulse Ox (%): 91 - Physical Exam General: Alert, In no apparent distress, Oriented x3 HEENT: Atraumatic, EOMI, Sclerae nonicteric Neck: JVD not distended Respiratory: Clear to auscultation bilaterally, Normal air movement Cardiovascular: No edema, Regular rate/rhythm, Normal S1 S2, No gallops, No rubs, No murmurs Gastrointestinal: Normal bowel sounds, Soft and benign, Non-distended, No tenderness, No rebound, No guarding Musculoskeletal: No clubbing Integumentary: No rashes Neurological: Normal speech, Normal affect Assessment And Plan - Plan # Paroxysmal Atrial Fibrillation with Rapid Ventricular Response # Morbid Obesity (BMI 50.7 kg/m2) complicated by Obstructive Sleep Apnea on home CPAP # Non-Alcoholic Steatohepatitis (CHRISTINE) Her [id number] = 3 (CHF=1, HTN=1, Sex=1), which warrants anticoagulation. - Evaluation thus far: - Troponin = 7.0 - EKG = Atrial fibrillation with RVR - Chest x-ray = "findings suggestive of vascular congestion/CHF as above." - Potassium = 3.6, Magnesium = 2.2 - Target K> 4, Mg >2 - TSH = 0.820 - NT-Pro BNP = 228 - Transthoracic echocardiogram ordered - Management plan: - Cardiology consulted - recommendations appreciated - Counseled on healthy alcohol and caffeine intake - Counseled on importance of CPAP adherence - Continue amiodarone drip - transition after 24 hours - Continue enoxaparin # Chronic Obstructive Pulmonary Disease # Chronic Compensated Diastolic Congestive Heart Failure # Asthma # Hypertension - Reconcile home medications once verified Trey Thrasher M.D.
[2022-06-02] MEDS: HYDROCODONE/APAP 10/325 TAB PO PRN (20:48)
[2022-06-03] MEDS ORDERED: AMIODARONE HCL 200 MG TAB PO ONE
[2022-06-03 03:51] LABS: Absolute Lymphocytes (CBC) 1.8 K/uL (0.7-4.9); Hematocrit 37.1 % (36.0-45.0); Lymphocytes % 23.1 % (15.3-44.8); MCV 89.6 fL (80-100); MPV 8.2 fL (7.6-11.3); RBC Red Blood Cell Count 4.14 M/uL (3.86-4.86)
[2022-06-03 06:34] LABS: Potassium 4.1 mmol/L (3.5-5.1)
--- NOTE | 2022-06-03 07:08 | ECHO ---
HEIGHT: 5 ft 6 in WEIGHT: 314 lb 1 oz DATE OF STUDY: 06/02/[address]: Shayy Singh 2-DIMENSIONAL: YES M.MODE: YES DOPPLER: YES COLOR FLOW: YES TDS: PORTABLE: YES DEFINITY: BUBBLE STUDY: DIAGNOSIS: NEW ATRIAL FIBRILLATION, CONGESTIVE HEART FAILURE CARDIAC HISTORY: CATHERIZATION: NO SURGERY: NO PROSTHETIC VALVE: NO PACEMAKER: NO MEASUREMENTS (cm) DIASTOLIC (NORMALS) SYSTOLIC (NORMALS) IVSd 0.9 (0.6-1.2) LA Diam 3.0 (1.9-4.0) LVEF 57% LVIDd 5.6 (3.5-5.7) LVIDs 3.9 (2.0-3.5) %FS 30% LVPWd 1.1 (0.6-1.2) Ao Diam 2.5 (2.0-3.7) 2 DIMENSIONAL ASSESSMENT: RIGHT ATRIUM: NORMAL LEFT ATRIUM: NORMAL RIGHT VENTRICLE: NORMAL LEFT VENTRICLE: NORMAL TRICUSPID VALVE: NORMAL MITRAL VALVE: MILD MITRAL REGURGITATION PULMONIC VALVE: NORMAL AORTIC VALVE: NORMAL PERICARDIAL EFFUSION: NONE AORTIC ROOT: NORMAL LEFT VENTRICULAR WALL MOTION: NORMAL DOPPLER/COLOR FLOW: SEE BELOW COMMENTS: 1. NORMAL LEFT VENTRICULAR EJECTION FRACTION 55-60% 2. NORMAL WALL MOTION 3. MODERATE DIASTOLIC DYSFUNCTION 4. MILD MITRAL REGURGITATION TECHNOLOGIST: JOANNE SAMSON
[2022-06-03] MEDS: ACETAMINOPHEN 500 MG TAB PO PRN (08:14)
[2022-06-03] MEDS: APIXABAN 5 MG TABLET PO SCH ×2 (08:14→21:31)
--- NOTE | 2022-06-03 10:43 | P.PN ---
Subjective Date of Service: 06/03/22 Chief Complaint: Afib New Onset No acute events overnight. She remains in normal sinus rhythm. She was transitioned from the amiodarone drip to PO overnight. She denies any chest pain or palpitations; however, she has been reports orthopnea and shortness of breath on exertion. Review of Systems 10-point ROS is otherwise unremarkable Respiratory: SOB with Excertion Cardiovascular: Orthopnea, Edema Physical Examination - Vital Signs Temperature: 97.3 F Blood Pressure: 125/64 Pulse: 88 Respirations: 18 Pulse Ox (%): 93 Assessment And Plan - Plan - Physical Exam General: Alert, In no apparent distress, Oriented x3 HEENT: Atraumatic, Sclerae nonicteric Neck: JVD not distended - difficult to assess given habitus Respiratory: Diminished with faint bibasilar rales. Otherwise, clear to auscultation bilaterally, without wheezes or rhonchi Cardiovascular: trace-1+ bilateral lower extremity edema, Regular rate/rhythm, No gallops, No rubs, No murmurs Gastrointestinal: Normal bowel sounds, Soft, Non-distended, No tenderness Musculoskeletal: No clubbing Integumentary: No rashes Neurological: Normal speech, Normal affect # Paroxysmal Atrial Fibrillation with Rapid Ventricular Response (resolved) # Morbid Obesity (BMI 50.7 kg/m2) complicated by Obstructive Sleep Apnea on home CPAP # Non-Alcoholic Steatohepatitis (CHRISTINE) Her [id number] = 3 (CHF=1, HTN=1, Sex=1), which warrants anticoagulation. - Evaluation thus far: - Troponin = 7.0 - EKG = Atrial fibrillation with RVR - Chest x-ray = "findings suggestive of vascular congestion/CHF as above." - Potassium = 3.6, Magnesium = 2.2 - Target K> 4, Mg >2 - TSH = 0.820 - NT-Pro BNP = 228 - Transthoracic echocardiogram = "1. normal left ventricular ejection fraction 55-60% 2. normal wall motion 3. moderate diastolic dysfunction 4. mild mitral regurgitation" - Management plan: - Cardiology consulted and spoke with Dr. Valencia - recommendations pura alonso - Counseled on healthy alcohol and caffeine intake - Counseled on importance of CPAP adherence - Continue amiodarone and apixaban # Mild Acute on Chronic Decompensated Diastolic Congestive Heart Failure with Preserved Ejection Fraction - Consult Cardiology and spoke with Dr. Valencia - recommendations appreciated - He advised a day of IV furosemide and possible discharge tomorrow on PO furosemide - Transthoracic echocardiogram = "1. normal left ventricular ejection fraction 55-60% 2. normal wall motion 3. moderate diastolic dysfunction 4. mild mitral regurgitation" - Daily weights - Strict I/O - Cardiac diet, 1.5 L fluid restriction, 2 g Na restriction # Chronic Obstructive Pulmonary Disease # Asthma # Hypertension - Reconcile home medications once verified Trey Thrasher M.D.
[2022-06-03] MEDS: FUROSEMIDE 40 MG/4 ML VIAL IV SCH ×2 (11:58→16:57)
[2022-06-03] MEDS: AMIODARONE HCL 200 MG TAB PO SCH (16:56)
[2022-06-03] MEDS: HYDROCODONE/APAP 10/325 TAB PO PRN (17:04)
[2022-06-03] MEDS: ONDANSETRON 4 MG/2 ML VIAL IV PRN (20:05)
[2022-06-04 02:31] LABS: Absolute Lymphocytes (CBC) 1.4 K/uL (0.7-4.9); Hematocrit 35.1 % (36.0-45.0); Lymphocytes % 17.5 % (15.3-44.8); MCV 88.6 fL (80-100); MPV 7.7 fL (7.6-11.3); RBC Red Blood Cell Count 3.96 M/uL (3.86-4.86)
[2022-06-04] MEDS: HYDROCODONE/APAP 10/325 TAB PO PRN ×2 (02:35→20:09)
[2022-06-04 02:46] LABS: Potassium 3.9 mmol/L (3.5-5.1)
[2022-06-04] MEDS ORDERED: POTASSIUM CL SA 10 MEQ TAB PO ONE (03:00)
[2022-06-04] MEDS: AMIODARONE HCL 200 MG TAB PO SCH ×2 (09:00→17:13)
--- NOTE | 2022-06-04 09:06 | RAD REPORT ---
EXAM DESCRIPTION: RAD - Chest Single View - 06/04/2022 6:44 am CLINICAL HISTORY: follow-up pulm edema Chest pain. COMPARISON: Chest Single View dated 06/01/2022; Chest Pa And Lat (2 Views) dated 05/07/2021; Chest Sin gle View dated 06/30/2019; Chest Single View dated 10/26/2018 FINDINGS: Portable technique limits examination quality. Since the 05/2022 23 study, there has been mild improvement in lung aeration. Bilateral pulmonary opa cities are still present favoring pulmonary edema or pneumonia. The heart is mildly enlarged. No disp laced fractures. IMPRESSION: Mild improvement in lung aeration seen since comparative study
[2022-06-04] MEDS: FUROSEMIDE 40 MG/4 ML VIAL IV SCH ×2 (09:53→17:13)
[2022-06-04] MEDS: APIXABAN 5 MG TABLET PO SCH ×2 (09:53→20:09)
[2022-06-04] MEDS: ACETAMINOPHEN 500 MG TAB PO PRN (09:53)
--- NOTE | 2022-06-04 17:51 | P.PN ---
Subjective Date of Service: 06/04/22 Chief Complaint: Afib New Onset No acute events overnight. She reports that her breathing is slightly improved compared to yesterday. She reports that her shortness of breath is worse with exertion. She reports orthopnea, but denies any chest pain or palpitations. Per RN, her SpO2 dropped to 84 % on room air with ambulation. Review of Systems 10-point ROS is otherwise unremarkable Respiratory: Cough, Shortness of Breath Cardiovascular: Orthopnea, Edema Physical Examination - Vital Signs Temperature: 97.2 F Blood Pressure: 155/63 Pulse: 96 Respirations: 14 Pulse Ox (%): 94 Assessment And Plan - Plan - Physical Exam General: Alert, In no apparent distress, Oriented x3 HEENT: Atraumatic, Sclerae nonicteric Neck: JVD not distended - difficult to assess given habitus Respiratory: Diminished with faint bibasilar rales. Otherwise, clear to auscultation bilaterally, without wheezes or rhonchi Cardiovascular: trace-1+ bilateral lower extremity edema, Regular rate/rhythm, No gallops, No rubs, No murmurs Gastrointestinal: Normal bowel sounds, Soft, Non-distended, No tenderness Musculoskeletal: No clubbing Integumentary: No rashes Neurological: Normal speech, Normal affect # Paroxysmal Atrial Fibrillation with Rapid Ventricular Response (resolved) # Morbid Obesity (BMI 50.7 kg/m2) complicated by Obstructive Sleep Apnea on home CPAP # Non-Alcoholic Steatohepatitis (CHRISTINE) Her [id number] = 3 (CHF=1, HTN=1, Sex=1), which warrants anticoagulation. - Evaluation thus far: - Troponin = 7.0 - EKG = Atrial fibrillation with RVR - Chest x-ray = "findings suggestive of vascular congestion/CHF as above." - Potassium = 3.6, Magnesium = 2.2 - Target K> 4, Mg >2 - TSH = 0.820 - NT-Pro BNP = 228 - Transthoracic echocardiogram = "1. normal left ventricular ejection fraction 55-60% 2. normal wall motion 3. moderate diastolic dysfunction 4. mild mitral regurgitation" - Management plan: - Cardiology consulted and spoke with Dr. Valencia - recommendations appreciated - Counseled on healthy alcohol and caffeine intake - Counseled on importance of CPAP adherence - Continue amiodarone and apixaban - Ordered ambulatory oxygen saturations for possible home O2 # Mild Acute on Chronic Decompensated Diastolic Congestive Heart Failure with Preserved Ejection Fraction - Consult Cardiology and spoke with Dr. Valencia - recommendations appreciated - Transthoracic echocardiogram = "1. normal left ventricular ejection fraction 55-60% 2. normal wall motion 3. moderate diastolic dysfunction 4. mild mitral regurgitation" - Daily weights - Strict I/O - Cardiac diet, 1.5 L fluid restriction, 2 g Na restriction # Chronic Obstructive Pulmonary Disease # Asthma # Hypertension - Reconcile home medications once verified Trey Thrasher M.D.
[2022-06-04] MEDS: carvediloL 6.25 MG TAB PO SCH (20:09)
[2022-06-04] MEDS ORDERED: hydrOXYzine HCL 25 MG TAB PO ONE (20:18)
[2022-06-04] MEDS: ONDANSETRON 4 MG/2 ML VIAL IV PRN (21:24)
--- NOTE | 2022-06-04 22:16 | PN ---
Date of Progress Note: 06/04/2022 Subjective: Seen by bedside, doing clinically well. She is lying flat. Review of Systems: No chest pain, shortness of breath, orthopnea, cough, nausea, vomiting, or diarrhea. All other syste ms reviewed, they were negative. Physical Examination: Vital Signs: Reviewed. Head and Neck: Pupils are equal, reactive to light. Intact eye movements. No JVD. No cervical lym phadenopathy. Neck is supple. Thyroid is not enlarged. Lungs: Clear to auscultation bilaterally. No rhonchi, wheezing, or crackles. No accessory muscle u se. Heart: Regular rate and rhythm. No extra sounds. Abdomen: Soft, nontender. Bowel sounds positive. No organomegaly. No masses or hernia. No rigidi ty or rebound. Extremities: No clubbing, cyanosis. Intact pulses. Skin: No rashes. Neurologic: Alert, awake, oriented x3. No acute focal deficits appreciated. Investigations: Labs reviewed. Assessment/recommendation: 1.Acute on chronic diastolic heart failure exacerbation. She appears to be euvolemic at the present time and her BUN and creatinine is going up. I will hold the Lasix and reassess labs in the morning and reassess her condition in the morning. 2.Hypertension. Blood pressures uncontrolled. I will add carvedilol 3.125 mg twice a day and adjus t further for better blood pressure control. 3.Atrial fibrillation, is in sinus rhythm now and on amiodarone. Continue Eliquis and amiodarone and we are adding carvedilol as outlined above. SR/MODL Voice ID: [id number] Report ID: [id number]
[2022-06-05] MEDS: HYDROCODONE/APAP 10/325 TAB PO PRN (07:04)
[2022-06-05] MEDS: AMIODARONE HCL 200 MG TAB PO SCH ×2 (08:33→16:28)
[2022-06-05] MEDS: carvediloL 6.25 MG TAB PO SCH (08:33)
[2022-06-05] MEDS: APIXABAN 5 MG TABLET PO SCH (08:34)
[2022-06-05] MEDS ORDERED: PANTOPRAZOLE 40MG TABLET PO SCH (09:00)
[2022-06-05 09:27] LABS: Potassium 3.7 mmol/L (3.5-5.1)
[2022-06-05 09:59] VITALS: O2SAT 94
[2022-06-05] MEDS ORDERED: POTASSIUM CL SA 10 MEQ TAB PO ONE (12:00)
[2022-06-05 15:56] VITALS: BP 119/73; TEMP 97.7
--- NOTE | 2022-06-05 16:39 | P.DS ---
Admission Date: 06/01/22 Discharge Date: 06/05/22 Disposition: ROUTINE DISCHARGE Discharge Condition: GOOD Reason for Admission: Afib New Onset Consultations: 1. Cardiology Hospital Course: DIAGNOSES: # Paroxysmal Atrial Fibrillation with Rapid Ventricular Response (resolved) # Acute Hypoxic Respiratory Failure secondary to Acute on Chronic Decompensated Diastolic Congestive Heart Failure with Preserved Ejection Fraction # Morbid Obesity (BMI 50.7 kg/m2) complicated by Obstructive Sleep Apnea on home CPAP # Chronic Kidney Disease Stage III # Non-Alcoholic Steatohepatitis (CHRISTINE) # Chronic Obstructive Pulmonary Disease # Asthma # Hypertension HOSPITAL COURSE: Ms. Batsheva Faulkner is a pleasant 56 year old female with a past medical history significant for chronic diastolic congestive heart failure, chronic obstructive pulmonary disease, chronic kidney disease stage III, asthma, hypertension, and morbid obesity complicated by obstructive sleep apnea and CHRISTINE who was admitted to the [facility] on 06/01/2022 for shortness of breath and palpitations. She was admitted to the Medicine service. Upon further evaluation, she was found to have atrial fibrillation with rapid ventricular response. Cardiology was consulted and she was evaluated by Dr. Valencia. She was started on amiodarone drip per his recommendations, with resolution of her arrhythmia. Additionally, upon evaluation, her chest x-ray revealed, "findings suggestive of vascular congestion/CHF as above." Her transthoracic echocardiogram revealed, "1. normal left ventricular ejection fraction 55-60% 2. normal wall motion 3. moderate diastolic dysfunction 4. mild mitral regurgitation." She was given IV furosemide per Cardiology recommendations, and over the course of her hospitalization, her symptoms improved significantly. Despite adequate diuresis, she continued to display oxygen desaturation on room air with exertion. She was found to qualify for home oxygen, and with the assistance of case management, this was arranged for her. Today, she states that she feels well and would like to be discharged home. Dr. Valencia has cleared her for discharge with outpatient follow-up. On 06/05/2022, she was seen on rounds and deemed medically stable for discharge. She was discharged with instructions to schedule follow-up appointments with her PCP and with Cardiology (Dr. Valencia). She was provided prescriptions for amiodarone, carvedilol, apixaban, furosemide. She and her were given the opportunity to ask questions and reported no further questions. Furthermore, all questions were answered to the best of my ability. A copy of this discharge summary will be sent to the above providers to facilitate continuity of care. Today, I personally spent 25 minutes on her case, of which greater than 50% of the time was spent in patient education, counseling, and coordination of care as described above. - Physical Exam General: Alert, In no apparent distress, Oriented x3 HEENT: Atraumatic, Sclerae nonicteric Neck: JVD not distended - difficult to assess given habitus Respiratory: Diminished, but clear to auscultation bilaterally, without wheezes, rales, or rhonchi Cardiovascular: trace-1+ bilateral lower extremity edema, Regular rate/rhythm, No murmurs Gastrointestinal: Soft, Non-distended, No tenderness Musculoskeletal: No clubbing Integumentary: No rashes Neurological: Normal speech, Normal affect Vital Signs/Physical Exam: Temp Pulse Resp BP Pulse Ox 97.7 F 83 16 119/73 96 06/05/22 15:55 06/05/22 15:55 06/05/22 15:55 06/05/22 15:55 06/05/22 15:55 Laboratory Data at Discharge: WBC 7.80 K/uL (4.3-10.9) 06/04/22 02:23 Hgb 11.2 g/dL (12.0-15.0) L 06/04/22 02:23 Hct 35.1 % (36.0-45.0) L 06/04/22 02:23 Plt Count 267 K/uL (152-406) 06/04/22 02:23 PT 11.3 SECONDS (9.5-12.5) 06/01/22 17:40 INR 1.03 06/01/22 17:40 Sodium 137 mmol/L (136-145) 06/05/22 09:07 Potassium 3.7 mmol/L (3.5-5.1) 06/05/22 09:07 BUN 11 mg/dL (7-18) 06/05/22 09:07 Creatinine 1.49 mg/dL (0.55-1.02) H 06/05/22 09:07 Glucose 116 mg/dL (74-106) H 06/05/22 09:07 Phosphorus 3.2 mg/dL (2.5-4.9) 06/02/22 02:09 Magnesium 2.2 mg/dL (1.6-2.4) 06/02/22 02:09 Total Bilirubin 0.7 mg/dL (0.2-1.0) 06/01/22 17:40 AST 15 U/L (15-37) 06/01/22 17:40 ALT 21 U/L (13-56) 06/01/22 17:40 Alkaline Phosphatase 101 U/L (45-117) 06/01/22 17:40 Triglycerides 101 mg/dL (<150) 06/02/22 02:09 Cholesterol 130 mg/dL (<200) 06/02/22 02:09 HDL Cholesterol 66 mg/dL (40-60) H 06/02/22 02:09 Cholesterol/HDL Ratio 1.97 06/02/22 02:09 Home Medications: Albuterol Sulfate [Proair Hfa] 1 puff IH Q4HR PRN 06/01/22 Duloxetine HCl [Cymbalta] 20 mg PO BID 06/01/22 Fluticasone/Umeclidin/Vilanter [Trelegy Ellipta 200-62.5-25] 1 puff IH DAILY 06/01/22 Hydrocodone Bit/Acetaminophen [Hydrocodon-Acetaminophn 10-325] 1 tab PO TID 06/01/22 Montelukast Sodium [Singulair] 10 mg PO DAILY 06/01/22 Omeprazole 20 mg PO SEECOM 06/01/22 Ondansetron [Zofran (Odt)*] 1 tab SL DAILY 06/01/22 Tizanidine [Zanaflex*] 4 mg PO BID PRN 06/01/22 predniSONE [Deltasone*] 10 mg PO DAILY 06/01/22 Amiodarone HCl [Cordarone*] 200 mg PO BID@0900,1700 #60 tab 06/05/22 Apixaban [Eliquis] 5 mg PO BID #60 tab 06/05/22 Furosemide [Lasix] 40 mg PO DAILY #30 tab 06/05/22 carvediloL [Coreg*] 6.25 mg PO BID #60 tab 06/05/22 New Medications: Amiodarone HCl [Cordarone*] 200 mg PO BID@0900,1700 #60 tab carvediloL [Coreg*] 6.25 mg PO BID #60 tab Apixaban [Eliquis] 5 mg PO BID #60 tab Furosemide [Lasix] 40 mg PO DAILY #30 tab Physician Discharge Instructions: 1. Please call and schedule a follow-up appointment with your PCP in 3-5 days 2. Please call and schedule a follow-up appointment with Cardiology (Dr. Valencia) in 3-5 days - Please have Dr. Valencia refill your heart medications moving forward Diet: AHA Activity: Ad lauren Followup: Anjum Valencia MD [ACTIVE - CAN ADMIT] - Time spent managing pt's care (in minutes): 25
== END 2022-06-05 17:59 | disposition home or self-care (01) | DRG 308 ==
LOC: ER 16:10 → ERHOLD 18:57 → 2ND 06-02 13:32
PROVIDERS: ADMIT Internal Medicine; ATTEND Internal Medicine
DX: I48.0 Paroxysmal atrial fibrillation (principal); I50.33 Acute on chronic diastolic (congestive) heart failure; J96.01 Acute respiratory failure with hypoxia; I13.0 Hypertensive heart and chronic kidney disease with heart failure and stage 1 through stage 4 chronic kidney disease, or unspecified chronic kidney disease; J45.901 Unspecified asthma with (acute) exacerbation; Z68.41 Body mass index [BMI] 40.0-44.9, adult; E66.01 Morbid (severe) obesity due to excess calories; N18.31 Chronic kidney disease, stage 3a; D63.1 Anemia in chronic kidney disease; G47.33 Obstructive sleep apnea (adult) (pediatric); J44.9 Chronic obstructive pulmonary disease, unspecified; I34.0 Nonrheumatic mitral (valve) insufficiency; K75.81 Nonalcoholic steatohepatitis (NASH); Z88.1 Allergy status to other antibiotic agents; Z88.0 Allergy status to penicillin; Z88.5 Allergy status to narcotic agent; Z79.52 Long term (current) use of systemic steroids; Z79.01 Long term (current) use of anticoagulants; Z99.89 Dependence on other enabling machines and devices; Z91.048 Other nonmedicinal substance allergy status; Z90.710 Acquired absence of both cervix and uterus; Z87.891 Personal history of nicotine dependence; Z79.899 Other long term (current) drug therapy; Z20.822 Contact with and (suspected) exposure to COVID-19
CPT/HCPCS: 0240U; 36415; 71045; 80048; 80061; 80076; 83735; 83880; 84100; 84443; 84484; 85025; 85610; 93005; 93306; 94760; 96372; 99284; J0282; J1160; J1650; J1940; J2405; J3475; J7060

== ENCOUNTER → 2023-04-17 | Emergency (ER) | payer OTHER ==
[~2023-04-17] MED LIST: FAMOTIDINE 20 MG/2 ML VIAL IV ONE; MAGNES/ALUMIN/SIMET 30ML UCUP ONE; METOCLOPRAMIDE 10 MG/2mL INJ ONE; MORPHINE 4 MG/ML SYR ONE; NA CHLORIDE 0.9% 500 ML ONE
[2023-04-17 04:37] LABS: Specific Gravity 1.043 (1.005-1.030)
[2023-04-17 04:38] LABS: Specific Gravity > 1.030 (1.005-1.030); Urine Bacteria None Seen /HPF (<20); Urine Bilirubin NEGATIVE (Negative); Urine Blood Negative (Negative); Urine Clarity Extremely Turbid (Clear); Urine Color Yellow (Yellow); Urine Glucose NEGATIVE (Negative); Urine Mucus Slight /HPF (None Seen); Urine Protein 4+ (Over) (Negative); Urine RBC >50 /HPF (None Seen); Urine Urobilinogen 1+ (Normal); Urine pH 8.5 (5.0-7.0)
[2023-04-17 04:54] LABS: Protime INR 1.03
[2023-04-17 04:55] LABS: Absolute Lymphocytes (CBC) 1.9 K/uL (0.7-4.9); MCV 91.8 fL (80-100); MPV 8.4 fL (7.6-11.3); Platelets 475 thou/uL (152-406); RBC Red Blood Cell Count 4.69 M/uL (3.86-4.86)
[2023-04-17 05:12] LABS: ALT/SGPT 33 U/L (13-56); AST/SGOT 30 U/L (15-37); Albumin 1.5 g/dL (3.4-5.0); Alkaline Phosphatase 219 U/L (45-117); BUN Blood Urea Nitrogen 25 mg/dL (7-18); Bicarbonate 26 mEq/L (21-32); Bilirubin Total 0.3 mg/dL (0.2-1.0); Glomerular Filtration Rate 29 ml/min (=/>90); Glucose Level 151 mg/dL (74-106); Lipase 131 U/L (13-75); Magnesium 1.9 mg/dL (1.6-2.4); NT PRO-BNP 629 pg/mL (<125); Potassium 3.2 mEq/L (3.5-5.1); Protein, Total 7.1 g/dL (6.4-8.2); Sodium Level 138 mEq/L (136-145); Troponin High Sensitivity 9.2 pg/mL (<58.9)
[2023-04-17 05:14] LABS: Bilirubin Direct < 0.1 mg/dL (0-0.2); Bilirubin Indirect, Calculated ND mg/dL (0.2-0.8)
--- NOTE | 2023-04-17 09:22 | EDPHYS ---
Physician Documentation [facility] Name: Batsheva Faulkner Age: 57 yrs Sex: Female : 1965 Arrival Date: 04/17/2023 Time: 03:07 Bed 19 Private MD: ED Physician Abiel Anne HPI: 04/17 03:45 This 57 yrs old Black Female presents to ER via Ambulatory with complaints of Vomiting. cp 03:45 The patient presents to the emergency department with nausea, with "dry heaves", cp vomiting, that is continuous. Onset: The symptoms/episode began/occurred yesterday, about 1600. Historical: - Allergies: 03:29 Amoxicillin; pf1 03:29 Clindamycin; pf1 03:29 Iodine; pf1 03:29 METHADONE \\T\\ RELATED; pf1 03:29 PENICILLINS; pf1 03:29 tramadol; pf1 - PMHx: 03:29 Anxiety; Asthma; Congestive heart failure; Depression; Hypertension; sarcosis; kidney pf1 disease; 03:30 COPD; pf1 - PSHx: 03:29 section; Total abdominal hysterectomy; pf1 - Immunization history:: Adult Immunizations up to date, Client reports receiving the 2nd dose of the Covid vaccine, Moderna Last tetanus immunization: < 10 years ago Flu vaccine is up to date. - Social history:: Smoking status: Patient denies any tobacco usage or history of. Patient/guardian denies using alcohol, street drugs. ROS: 03:50 Constitutional: Positive for poor PO intake, Negative for body aches, chills, fever, cp 03:50 Eyes: Negative for injury, pain, redness, and discharge, cp 03:50 ENT: Negative for drainage from ear(s), ear pain, sore throat, difficulty swallowing, difficulty handling secretions, 03:50 Cardiovascular: Positive for chest pain, Negative for edema, palpitations, 03:50 Respiratory: Negative for cough, shortness of breath, wheezing, 03:50 Abdomen/GI: Positive for abdominal pain, nausea and vomiting, anorexia, of the epigastric area, Negative for diarrhea, constipation, hematemesis, 03:50 Neuro: Negative for altered mental status, dizziness, headache, loss of consciousness, syncope, weakness, 03:50 All other systems are negative, Exam: 03:55 Constitutional: The patient appears in no acute distress, alert, awake, cp non-diaphoretic, non-toxic, well developed, well nourished, obese, uncomfortable, 03:55 Head/Face: Normocephalic, atraumatic. cp 03:55 Eyes: Periorbital structures: appear normal, Conjunctiva: normal, no exudate, no injection, Sclera: no appreciated abnormality, Lids and lashes: appear normal, bilaterally, 03:55 ENT: External ear(s): are unremarkable, Nose: is normal, Mouth: Lips: moist, Oral mucosa: pink and intact, moist, Posterior pharynx: Airway: no evidence of obstruction, patent, erythema, is not appreciated, exudate, is not appreciated, 03:55 Neck: ROM/movement: is normal, is supple, without pain, no range of motions limitations, 03:55 Chest/axilla: Inspection: normal, 03:55 Cardiovascular: Rate: tachycardic, Rhythm: regular, Edema: is not appreciated, JVD: is not appreciated, 03:55 Respiratory: the patient does not display signs of respiratory distress, Respirations: normal, no use of accessory muscles, no retractions, labored breathing, is not present, Breath sounds: are clear throughout, no decreased breath sounds, no stridor, no wheezing, 03:55 Abdomen/GI: Inspection: obese Bowel sounds: active, all quadrants, Palpation: soft, in all quadrants, moderate abdominal tenderness, in the epigastric area, 03:55 Back: CVA tenderness, is absent, 03:55 Neuro: Orientation: to person, place \\T\\ time. Mentation: is normal, Motor: moves all fours, strength is normal, 04:10 ECG was reviewed by the Attending Physician. cp Vital Signs: 03:26 BP 162 / 109; Pulse 111; Resp 18; Temp 97.2; Pulse Ox 97% on R/A; Weight 123.38 kg; pf1 Height 5 ft. 4 in. ; Pain 10/10; 04:44 BP 156 / 96; Pulse 113; Resp 17; Pulse Ox 97% on 1 lpm NC; Pain 10/10; tm6 05:28 BP 149 / 95; Pulse 96; Pulse Ox 94% on 1 lpm NC; Pain 8/10; tm6 06:27 Pulse 97; Pulse Ox 93% on 1 lpm NC; tm6 06:38 BP 149 / 106; tm6 07:26 BP 163 / 108; Pulse 102; Resp 15; Pulse Ox 97% ; ko1 10:27 BP 164 / 94; Pulse 95; Resp 18; Pulse Ox 98% ; cp4 03:26 Body Mass Index 46.69 (123.38 kg, 162.56 cm) pf1 03:26 Pain Scale: Adult pf1 04:44 Pain Scale: Adult tm6 05:28 Pain Scale: Adult tm6 MDM: 03:31 Patient medically screened. [facility] 04:00 Differential diagnosis: gastritis, cholecystitis, pancreatitis, appendicitis, viral cp gastroenteritis, gastroenteritis. 08:03 Data reviewed: vital signs, nurses notes, lab test result(s), radiologic studies, CT rn scan, ultrasound, and as a result, I will discharge patient. Counseling: I had a detailed discussion with the patient and/or guardian regarding the historical points, exam findings, and any diagnostic results supporting the discharge/admit diagnosis, lab results. Response to treatment: the patient's symptoms have markedly improved after treatment. ED course: No acute findings on imaging thus far. Waiting on ultrasound results. CT abdomen pelvis shows signs of cirrhosis and trace ascites but nothing acute. Does show possible gastritis which fits patient's history and chronic acid problems. Patient reports nausea and vomiting that began last night with acid reflux after eating fried meal. Offered patient observation for dehydration and IV fluid hydration, patient declines states feels better and would like to go home. Already on omeprazole. Talked her about dietary changes and additional antacid medication. Will discharge home with as needed Zofran as long as ultrasound does not show anything acute.. 09:21 ED course: Ultrasound without acute findings. Findings consistent with cirrhosis. rn Patient continues to feel well. Request to go home and will return if anything worsens.. 04/17 03:51 Order name: Basic Metabolic Panel; Complete Time: 05:17 cp 04/17 05:17 Interpretation: Normal except: K 3.2; GLUC 151; BUN 25; CRE 2.00; GFR 29. cp 04/17 03:51 Order name: CBC with Diff; Complete Time: 05:17 cp 04/17 05:18 Interpretation: Normal except: PLT 475; CHEO% 74.8; MN% 2.5; BASO% 1.5. cp 04/17 03:51 Order name: LFT's; Complete Time: 05:17 cp 12/30 03:51 Order name: Magnesium; Complete Time: 05:17 cp 12/30 03:51 Order name: NT PRO-BNP; Complete Time: 05:17 cp 12/30 03:51 Order name: PT-INR; Complete Time: 05:17 cp 1230 03:51 Order name: Troponin HS; Complete Time: 05:17 cp 1230 03:51 Order name: Lipase; Complete Time: 05:17 cp 1230 03:51 Order name: COVID-19 SARS RT PCR; Complete Time: 05:17 cp 1230 03:51 Order name: Influenza Screen (a \\T\\ B); Complete Time: 05:17 cp 1230 03:51 Order name: Urinalysis W/Microscopic; Complete Time: 05:17 cp 1230 03:51 Order name: PREGU; Complete Time: 05:17 cp 30 03:51 Order name: Lactate w/ 2H reflex if indic.; Complete Time: 05:17 cp 30 03:51 Order name: XRAY Chest (1 view) cp 12/30 04:43 Order name: US Abdomen Limited cp 30 05:19 Order name: CT Chest Abdomen Pelvis W/O Contrast cp 12/30 03:51 Order name: EKG; Complete Time: 03:52 cp 12/30 03:51 Order name: Cardiac monitoring; Complete Time: 04:08 cp 1230 03:51 Order name: EKG - Nurse/Tech; Complete Time: 04:08 cp 1230 03:51 Order name: IV Saline Lock; Complete Time: 04:44 cp 1230 03:51 Order name: Labs collected and sent; Complete Time: 04:44 cp 1230 03:51 Order name: O2 Per Protocol; Complete Time: 03:57 cp 1230 03:51 Order name: O2 Sat Monitoring; Complete Time: 03:57 cp EC:10 Rate is 107 beats/min. Rhythm is regular. MD interval is normal. QRS interval is cp normal. QT interval is normal. T waves are Inverted in leads III, aVR. Interpreted by me. Reviewed by me. Administered Medications: 04:44 Drug: Famotidine IVP 20 mg IVP once; dilute with 10 mL 0.9% NaCl; give over 2 minutes tm6 Route: IVP; Site: right antecubital; 04:44 Drug: morphine IVP or IV 4 mg IVP once over 4 mins Route: IVP; Infused Over: 4 mins; tm6 Site: right antecubital; 10:26 Follow up: Response: No adverse reaction cp4 04:44 Drug: metoCLOPramide IVP 10 mg IVP once; over 1 to 2 minutes Route: IVP; Site: right tm6 antecubital; 10:26 Follow up: Response: No adverse reaction cp4 04:44 Drug: NS 0.9% IV 500 ml IV at 100 ml/hr continuous Route: IV; Rate: 100 ml/hr; Site: tm6 right antecubital; 10:26 Follow up: Response: No adverse reaction; IV Status: Completed infusion cp4 09:36 Drug: GI Cocktail without - (Maalox PO 30 ml, Lidocaine Mucous Membrane 2 % 15 cp4 ml) PO once Route: PO; 10:25 Follow up: Response: No adverse reaction cp4 Disposition: 10:50 Co-signature as Attending Physician, Abiel Anne MD I reviewed the patient's care rn provided by the Advanced Practice Provider and agree with the diagnosis and treatment plan. Disposition Summary: 04/17/23 09:21 Discharge Ordered Notes: Location: Home rn Problem: new rn Symptoms: have improved rn Condition: Stable rn Diagnosis - Acute gastritis without bleeding rn - Vomiting, unspecified rn - Dehydration rn Followup: rn - With: Private Physician - When: As needed - Reason: Recheck today's complaints, Re-evaluation by your physician Discharge Instructions: - Discharge Summary Sheet rn - Dehydration, Adult rn - Gastritis, Adult rn - Nausea and Vomiting, Adult, [id number] rn Forms: - Medication Reconciliation Form rn - Thank You Letter rn - Antibiotic governor assembler hydraulic - Prescription Opioid Use rn - Patient Portal Instructions rn - Leadership Thank You Letter rn Prescriptions: - ondansetron 4 mg Oral Tablet,disintegrating - take 1 tablet ORAL route every 8 hours As needed; 15 tablet; Refills: 0, rn Product Selection Permitted Signatures: Dispatcher [employer] Huey Francis MD MD cha Nieto, Roman, MD MD rn Page, Corey, PA PA Sandra Pina RN RN pf1 Michelle Robbins cp4 Emilia Dickerson RN RN tm6 Corrections: (The following items were deleted from the chart) 03:31 03:29 PMHx: COPD (kidney disease); pf1 pf1
--- NOTE | 2023-04-17 09:22 | ER ---
Nurse's Notes [facility] Name: Batsheva Faulkner Age: 57 yrs Sex: Female : 1965 Arrival Date: 04/17/2023 Time: 03:07 Bed 19 Private MD: Diagnosis: Acute gastritis without bleeding;Vomiting, unspecified;Dehydration Presentation: 04/17 03:26 Chief complaint: Patient states: abdominal pain of 10 with vomiting,onset yesterday. pf1 Coronavirus screen: Vaccine status: Client denies travel out of the [place] in the last 14 days. Client presents with at least one sign or symptom that may indicate coronavirus-19. Ebola Screen: Patient negative for fever greater than or equal to 101.5 degrees Fahrenheit, and additional compatible Ebola Virus Disease symptoms. Initial Sepsis Screen: Does the patient meet any 2 criteria? HR > 90 bpm. No. Patient's initial sepsis screen is negative. Does the patient have a suspected source of infection? No. Patient's initial sepsis screen is negative. Risk Assessment: Do you want to hurt yourself or someone else? Patient reports no desire to harm self or others. 03:26 Method Of Arrival: Ambulatory pf1 03:26 Acuity: FLORY 3 pf1 Historical: - Allergies: 03:29 Amoxicillin; pf1 03:29 Clindamycin; pf1 03:29 Iodine; pf1 03:29 METHADONE \T\ RELATED; pf1 03:29 PENICILLINS; pf1 03:29 tramadol; pf1 - PMHx: 03:29 Anxiety; Asthma; Congestive heart failure; Depression; Hypertension; sarcosis; kidney pf1 disease; 03:30 COPD; pf1 - PSHx: 03:29 section; Total abdominal hysterectomy; pf1 - Immunization history:: Adult Immunizations up to date, Client reports receiving the 2nd dose of the Covid vaccine, Moderna Last tetanus immunization: < 10 years ago Flu vaccine is up to date. - Social history:: Smoking status: Patient denies any tobacco usage or history of. Patient/guardian denies using alcohol, street drugs. Screenin:00 [facility] ED Fall Risk Assessment (Adult) History of falling in the last 3 months, tm6 including since admission No falls in past 3 months (0 pts). Abuse screen: Denies threats or abuse. Denies injuries from another. Nutritional screening: No deficits noted. Tuberculosis screening: No symptoms or risk factors identified. Assessment: 04:00 General: Appears uncomfortable, Behavior is calm, cooperative. Pain: Complains of pain tm6 in epigastric area Pain currently is 10 out of 10 on a pain scale. Quality of pain is described as aching, crampy, Pain began suddenly. Neuro: Level of Consciousness is awake, alert, obeys commands, Oriented to person, place, time, situation. Cardiovascular: Capillary refill < 3 seconds Patient's skin is warm and dry. Rhythm is sinus tachycardia. Respiratory: Airway is patent Respiratory effort is even, labored, Respiratory pattern is symmetrical, tachypnea. GI: Abdomen is round non-distended, Abd is soft X 4 quads Abdomen is tender to palpation X 4 quads. : No signs and/or symptoms were reported regarding the genitourinary system. EENT: No signs and/or symptoms were reported regarding the EENT system. Derm: No signs and/or symptoms reported regarding the dermatologic system. Musculoskeletal: No signs and/or symptoms reported regarding the musculoskeletal system. 05:29 Reassessment: Patient appears in no apparent distress at this time. Patient and/or tm6 family updated on plan of care and expected duration. Pain level reassessed. Patient is alert, oriented x 3, equal unlabored respirations, skin warm/dry/pink. 06:27 Reassessment: Patient appears in no apparent distress at this time. No changes from tm6 previously documented assessment. Vital Signs: 03:26 BP 162 / 109; Pulse 111; Resp 18; Temp 97.2; Pulse Ox 97% on R/A; Weight 123.38 kg; pf1 Height 5 ft. 4 in. ; Pain 10/10; 04:44 BP 156 / 96; Pulse 113; Resp 17; Pulse Ox 97% on 1 lpm NC; Pain 10/10; tm6 05:28 BP 149 / 95; Pulse 96; Pulse Ox 94% on 1 lpm NC; Pain 8/10; tm6 06:27 Pulse 97; Pulse Ox 93% on 1 lpm NC; tm6 06:38 BP 149 / 106; tm6 07:26 BP 163 / 108; Pulse 102; Resp 15; Pulse Ox 97% ; ko1 10:27 BP 164 / 94; Pulse 95; Resp 18; Pulse Ox 98% ; cp4 03:26 Body Mass Index 46.69 (123.38 kg, 162.56 cm) pf1 03:26 Pain Scale: Adult pf1 04:44 Pain Scale: Adult tm6 05:28 Pain Scale: Adult tm6 ED Course: 03:08 Patient arrived in ED. ag3 03:23 Huey Chung PA is PHCP. cp 03:23 Huey Sotomayor MD is Attending Physician. cp 03:29 Triage completed. pf1 03:35 Emilia Dickerson, ALLIE is Primary Nurse. tm6 04:00 Patient has correct armband on for positive identification. Bed in low position. Call tm6 light in reach. Side rails up X2. Provided Education on: plan of care. Client placed on continuous cardiac and pulse oximetry monitoring. NIBP monitoring applied. ekg monitor tech on. Door closed. Noise minimized. Warm blanket given. 04:00 No provider procedures requiring assistance completed. Inserted saline lock: 22 gauge tm6 in right antecubital area, using aseptic technique. 05:23 XRAY Chest (1 view) In Process Unspecified. EDMS 05:38 US Abdomen Limited In Process Unspecified. EDMS 06:25 CT Chest Abdomen Pelvis W/O Contrast In Process Unspecified. EDMS 07:05 Report given to Natasha KELLEY. tm6 07:08 Attending Physician role handed off by Huey Sotomayor MD rn 07:08 Abiel Anne MD is Attending Physician. rn 10:27 intact, bleeding controlled, No redness/swelling at site. Pressure dressing applied. cp4 Administered Medications: 04:44 Drug: Famotidine IVP 20 mg IVP once; dilute with 10 mL 0.9% NaCl; give over 2 minutes tm6 Route: IVP; Site: right antecubital; 04:44 Drug: morphine IVP or IV 4 mg IVP once over 4 mins Route: IVP; Infused Over: 4 mins; tm6 Site: right antecubital; 10:26 Follow up: Response: No adverse reaction cp4 04:44 Drug: metoCLOPramide IVP 10 mg IVP once; over 1 to 2 minutes Route: IVP; Site: right tm6 antecubital; 10:26 Follow up: Response: No adverse reaction cp4 04:44 Drug: NS 0.9% IV 500 ml IV at 100 ml/hr continuous Route: IV; Rate: 100 ml/hr; Site: tm6 right antecubital; 10:26 Follow up: Response: No adverse reaction; IV Status: Completed infusion cp4 09:36 Drug: GI Cocktail without - (Maalox PO 30 ml, Lidocaine Mucous Membrane 2 % 15 cp4 ml) PO once Route: PO; 10:25 Follow up: Response: No adverse reaction cp4 Medication: 04:00 VIS not applicable for this client. tm6 Outcome: 09:21 Discharge ordered by . rn 10:27 Discharged to home ambulatory, 4 10:27 Condition: stable 10:27 Discharge instructions given to patient, Instructed on discharge instructions, follow up and referral plans. medication usage, Demonstrated understanding of instructions, follow-up care, medications, Prescriptions given X 1, 10:28 Patient left the ED. ko1 Signatures: Dispatcher [employer] EDMS Abiel Anne MD MD rn Page, Corey, BREN PA Pam Foley ag3 Natasha Parker RN RN ko1 Sandra Leo RN RN pf1 Michelle Robbins cp4 Emilia Dickerson RN RN tm6 Corrections: (The following items were deleted from the chart) 03:31 03:29 PMHx: COPD (kidney disease); pf1 pf1
[2023-04-17 10:39] VITALS: TEMP 97.2
[2023-04-17 10:47] VITALS: BP 164/94; O2SAT 98
--- NOTE | 2023-04-17 18:09 | RAD REPORT ---
EXAM DESCRIPTION: RAD - Chest Single View - 04/17/2023 5:21 am CLINICAL HISTORY: The patient is 57 years old and is Female; epigastric pain Bed Name: 19 TECHNIQUE: Frontal view of the chest. COMPARISON: No relevant prior studies available. FINDINGS: LUNGS: Chronic appearing bilateral interstitial lung markings with no discrete focal con solidation. PLEURAL SPACE: No appreciable pleural effusion or pneumothorax. MEDIASTINUM: Unremarkable cardiomediastinal contour for technique. BONES/JOINTS: No acute osseous abnormality. IMPRESSION: No acute findings in the chest. Electronically signed by: Clifton Sainz MD 04/17/2023 07:06 AM DESIGNER ARCHITECT Due to temporary technical issues with the PACS/Fluency reporting system, reports are being signed by the in house radiologists without review as a courtesy to insure prompt reporting. The interpreting radiologist is fully responsible for the content of the report.
--- NOTE | 2023-04-17 18:38 | RAD REPORT ---
EXAM DESCRIPTION: US - Abdomen Exam Limited - 04/17/2023 10:13 am CLINICAL HISTORY: The patient is 57 years old and is Female; gallbladder Bed Name: 19 TECHNIQUE: Real-time ultrasound of the right upper quadrant with image documentation. COMPARISON: No relevant prior studies available. FINDINGS: LIVER: Hepatic cirrhosis. GALLBLADDER: No calcified stones or significant sludge. No appreciable gallbladder wall thickening. COMMON BILE DUCT: Unremarkable as visualized. No stones. No dilation. Common bile duct measures 0.5 cm in diameter. IMPRESSION: 1. Hepatic cirrhosis. 2. Unremarkable gallbladder. Electronically signed by: Clifton Sainz MD 04/17/2023 07:20 AM BAR ROLLER Due to temporary technical issues with the PACS/Fluency reporting system, reports are being signed by the in house radiologists without review as a courtesy to insure prompt reporting. The interpreting radiologist is fully responsible for the content of the report.
--- NOTE | 2023-04-17 18:49 | RAD REPORT ---
EXAM DESCRIPTION: CT - Chest Abd Pelvis Wo Con - 04/17/2023 7:34 am CLINICAL HISTORY: The patient is 57 years old and is Female; abdominal pain;Chest pain Bed Name : 19 TECHNIQUE: Axial computed tomography images of the chest, abdomen and pelvis without intravenous con trast. Sagittal and coronal reformatted images were created and reviewed. This CT exam was perfor med using one or more of the following dose reduction techniques: automated exposure control, adjus tment of the mA and/or kV according to patient size, and/or use of iterative reconstruction technique . COMPARISON: No relevant prior studies available. FINDINGS: CHEST: LUNGS: Tiny scattered noncalcified subpleural nodules noted in the left upper lobe, unchanged from prior exam. No additional focal consolidation. PLEURAL SPACE: Unremarkable No significant effusion. No pneumothorax. HEART: Trace pericardial effusion. No cardiomegaly. No significant coronary artery calcifications. MEDIASTINUM: Reactive appearing mediastinal lymph nodes, not significantly changed from prior exam. ABDOMEN: LIVER: Hepatic cirrhosis, with progressive volume loss particularly in the left hepatic lobe. GALLBLADDER AND BILE DUCTS: Unremarkable No calcified stones. No ductal dilation. PANCREAS: Unremarkable No ductal dilation. SPLEEN: Unremarkable No splenomegaly. ADRENALS: Unremarkable No mass. KIDNEYS AND URETERS: Unremarkable No obstructing stones. No hydronephrosis. STOMACH AND BOWEL: Relative thickening of the gastric antral mucosa diffusely. Nonspecific. Recomme nd clinical correlation for evidence of gastritis. Consider further characterization by endoscopy. No obstruction. PELVIS: APPENDIX: No findings to suggest acute appendicitis. BLADDER: Unremarkable No stones. REPRODUCTIVE: Presumed hysterectomy. CHEST, ABDOMEN and PELVIS: INTRAPERITONEAL SPACE: Trace abdominopelvic ascites. No free air. BONES/JOINTS: Healing fracture of the anterior right 6th rib, with callus formation. No displaced o r depressed rib fractures. No appreciable sternal or vertebral fractures. No dislocation. SOFT TISSUES: Unremarkable VASCULATURE: See above. No thoracic or abdominal aortic aneurysm. LYMPH NODES: Prominent but not pathologically enlarged portacaval and superior retroperitoneal lymp h nodes, likely reactive. IMPRESSION: 1. Tiny scattered noncalcified subpleural nodules noted in the left upper lobe, unchan ged from prior exam. No acute cardiopulmonary abnormality. 2. Healing fracture of the anterior right 6th rib, with callus formation. No acute osseous abnormal ity. 3. Progressive hepatic cirrhosis with trace abdominopelvic ascites. 4. Relative thickening of the gastric antral mucosa diffusely. Nonspecific. Recommend clinical logan elation for evidence of gastritis. Consider further characterization by endoscopy. Electronically signed by: Clifton Sainz MD 04/17/2023 07:16 AM MANAGER [employer] Due to temporary technical issues with the PACS/Fluency reporting system, reports are being signed by the in house radiologists without review as a courtesy to insure prompt reporting. The interpreting radiologist is fully responsible for the content of the report.
== END ==
LOC: ER 03:07
DX: K29.00 Acute gastritis without bleeding (principal); E86.0 Dehydration; Z11.52 Encounter for screening for COVID-19; I10 Essential (primary) hypertension; Z88.0 Allergy status to penicillin; Z88.1 Allergy status to other antibiotic agents; Z88.3 Allergy status to other anti-infective agents; Z88.5 Allergy status to narcotic agent; Z91.048 Other nonmedicinal substance allergy status
CPT/HCPCS: 96361; 93005; 85025; 81001; 80048; 36415; 83735; 81025; 85610; 80076; 83605; 84484; 83690; 83880; 87635; 87804 ×2; 71250; 74176; 71045; 76705; 96375; 96374; 99285; J2765; J7040

== ENCOUNTER 2024-06-16 21:17 | Emergency (ER) | payer OTHER ==
[2024-06-16] MEDS ORDERED: ONDANSETRON 4 MG/2 ML VIAL ONE (23:53)
[2024-06-16] MEDS ORDERED: dexAMETHasone 10 MG/ML VIAL ONE (23:53)
[2024-06-17 00:09] LABS: Absolute Basophils 0.1 K/uL (0-0.5); Absolute Eosinophils 0.2 K/uL (0-0.5); Absolute Lymphocytes (CBC) 1.7 K/uL (0.7-4.9); Absolute Monocytes 0.5 K/uL (0.1-1.3); Absolute Neutrophil 5.7 K/uL (1.8-8.0); Basophils % 1.7 % (0-1.3); Eosinophils % 2.3 % (0-4.4); Hematocrit 27.9 % (36.0-45.0); Hemoglobin 9.2 g/dL (12.0-15.0); Lymphocytes % 20.8 % (15.3-44.8); MCHC 33.1 g/dL (32.0-36.0); MCV 93.8 fL (80-100); MPV 8.1 fL (7.6-11.3); Neutrophils % 69.2 % (41.7-73.7); Platelets 455 thou/uL (152-406); RBC Red Blood Cell Count 2.97 M/uL (3.86-4.86); Red Cell Distribution Width 14.5 % (12.1-15.2)
[2024-06-17] MEDS ORDERED: FENTANYL CITR 100 MCG/2 ML ONE (00:24)
[2024-06-17 00:25] LABS: PT Prothrombin Time 11.4 SECONDS (10.0-13.0); PTT, Activated Partial Thromb 30.8 SECONDS (24.3-36.9)
[2024-06-17 00:29] LABS: Albumin 1.7 g/dL (3.4-5.0); Albumin/Globulin Ratio 0.3 (1.1-1.8); Anion Gap 9.1 mEq/L (5.0-15.0); Bilirubin Total 0.2 mg/dL (0.2-1.0); Globulin 5.2 g/dL (2.3-3.5); Potassium 5.1 mEq/L (3.5-5.1); Protein, Total 6.9 g/dL (6.4-8.2)
[2024-06-17 00:49] LABS: Monoscreen NEG (NEG)
[2024-06-17 01:17] LABS: Specific Gravity 1.016 (1.005-1.030); Sqamous Epithelial <5 /HPF (None Seen); Urine Bacteria None Seen /HPF (<20); Urine Bilirubin NEGATIVE (Negative); Urine Blood 1+ (Negative); Urine Clarity Clear (Clear); Urine Color Colorless (Yellow); Urine Culture Reflex Order NOT NEEDED; Urine Glucose 2+ (Negative); Urine Ketones NEGATIVE (Negative); Urine Microscopic Reflex YN ORDER UMIC; Urine Nitrite NEGATIVE (Negative); Urine Protein 3+ (Negative); Urine Urobilinogen Normal (Normal); Urine WBC <5 /HPF (<5)
[2024-06-17] MEDS ORDERED: CEFTRIAXONE 2000 MG/VIAL ONE (02:37)
[2024-06-17] MEDS ORDERED: DIPHENHYDRAMINE 50 MG/ML VIAL ONE (02:37)
[2024-06-17] MEDS ORDERED: FAMOTIDINE 20 MG/2 ML VIAL IV ONE (02:37)
[2024-06-17] MEDS ORDERED: NA CHLORIDE 0.9% 100 ML ONE (02:38)
--- NOTE | 2024-06-17 04:00 | ER ---
Nurse's Notes [facility] Name: Batsheva Faulkner Age: 58 yrs Sex: Female : 1965 Arrival Date: 06/16/2024 Time: 21:17 Bed 12 Private MD: Diagnosis: Acute pharyngitis, unspecified;Acute on chronic renal insufficiency, acute infective pharyngitis, acute uvula swelling, Presentation: 06/16 21:45 Chief complaint: Patient states: Has been sick for the last month and over the last few cm10 days she has started having vomiting and sore throat. Coronavirus screen: Client denies travel out of the [place] in the last 14 days. Ebola Screen: Patient denies travel to an Ebola-affected area in the 21 days before illness onset. Initial Sepsis Screen: Does the patient meet any 2 criteria? No. Patient's initial sepsis screen is negative. Does the patient have a suspected source of infection? No. Patient's initial sepsis screen is negative. Risk Assessment: Do you want to hurt yourself or someone else? Patient reports no desire to harm self or others. Onset of symptoms was June 16, 2024. 21:45 Method Of Arrival: Ambulatory cm10 21:45 Acuity: FLORY 3 cm10 Triage Assessment: 21:46 General: Appears in no apparent distress. uncomfortable, Behavior is calm, cooperative. cm10 Neuro: No deficits noted. Level of Consciousness is awake, alert, obeys commands, Oriented to person, place, time, situation, Appropriate for age. Respiratory: No deficits noted. Airway is patent Respiratory effort is even, unlabored, Respiratory pattern is regular, symmetrical. Historical: - Allergies: 21:46 Amoxicillin; cm10 21:46 Clindamycin; cm10 21:46 Iodine; cm10 21:46 METHADONE \T\ RELATED; cm10 21:46 PENICILLINS; cm10 21:46 tramadol; cm10 - PMHx: 21:46 Anxiety; Asthma; Congestive heart failure; COPD; Depression; Hypertension; kidney cm10 disease; sarcosis; - PSHx: 21:46 section; Total abdominal hysterectomy; cm10 - Immunization history:: Adult Immunizations up to date. - Infectious Disease History:: Denies. - Social history:: Smoking status: Patient denies any tobacco usage or history of. Screenin:12 [facility] ED Fall Risk Assessment (Adult) History of falling in the last 3 months, me1 including since admission No falls in past 3 months (0 pts) Confusion or Disorientation No (0 pts) Intoxicated or Sedated No (0 pts) Impaired Gait No (0 pts) Mobility Assist Device Used No (0 pt) Altered Elimination No (0 pt) Score/Fall Risk Level 0 - 2 = Low Risk Maintained a safe environment, Provided non-skid footwear, Hourly rounding (assess needs \T\ fall precautionary measures) done. Abuse screen: Denies threats or abuse. Nutritional screening: No deficits noted. Tuberculosis screening: No symptoms or risk factors identified. Assessment: 22:12 General: Appears ill, obese, well groomed, well developed, Behavior is calm, me1 cooperative, appropriate for age, Reports Has been sick for the last month and over the last few days she has started having vomiting and sore throat. Pain: Complains of pain in throat Pain does not radiate. Pain currently is 5 out of 10 on a pain scale. Quality of pain is described as aching, Pain began gradually. Neuro: Level of Consciousness is awake, alert, obeys commands, Oriented to person, place, time, situation, Appropriate for age. Cardiovascular: Patient's skin is warm and dry. Respiratory: Airway is patent Respiratory effort is even, unlabored, Respiratory pattern is regular, symmetrical, Breath sounds are clear bilaterally. GI: Reports nausea, vomiting. : No signs and/or symptoms were reported regarding the genitourinary system. EENT: Throat is reddened. Derm: Skin is intact, is healthy with good turgor, Skin is pink, warm \T\ dry. Musculoskeletal: No signs and/or symptoms reported regarding the musculoskeletal system. 06/17 00:00 Reassessment: Patient and/or family updated on plan of care and expected duration. Pain ha1 level reassessed. Patient is alert, oriented x 3, equal unlabored respirations, skin warm/dry/pink. 01:00 Reassessment: Patient and/or family updated on plan of care and expected duration. Pain ha1 level reassessed. Patient is alert, oriented x 3, equal unlabored respirations, skin warm/dry/pink. Patient states feeling better. Patient states symptoms have improved. 02:20 Reassessment: Patient and/or family updated on plan of care and expected duration. Pain ha1 level reassessed. Patient is alert, oriented x 3, equal unlabored respirations, skin warm/dry/pink. Patient denies pain at this time. Patient states symptoms have improved. 03:00 Reassessment: Patient and/or family updated on plan of care and expected duration. Pain ha1 level reassessed. Patient is alert, oriented x 3, equal unlabored respirations, skin warm/dry/pink. Patient denies pain at this time. Patient states feeling better. Patient states symptoms have improved. 04:12 Reassessment: Patient and/or family updated on plan of care and expected duration. Pain ha1 level reassessed. Patient is alert, oriented x 3, equal unlabored respirations, skin warm/dry/pink. Patient states symptoms have improved. Vital Signs: 06/16 21:45 BP 185 / 102; Pulse 76; Resp 18; Temp 98(O); Pulse Ox 98% on R/A; Weight 113.4 kg; cm10 Height 5 ft. 4 in. ; Pain 1010; 06/17 00:00 BP 175 / 98; Pulse 70; Resp 18 S; Pulse Ox 98% on R/A; ha1 01:00 BP 165 / 84; Pulse 79; Resp 17 S; Pulse Ox 99% on R/A; ha1 02:00 BP 155 / 79; Pulse 81; Resp 17 S; Pulse Ox 100% on R/A; ha1 03:00 BP 138 / 81; Pulse 77; Resp 16 S; Pulse Ox 98% on R/A; ha1 04:00 BP 122 / 78; Pulse 71; Resp 16 S; Pulse Ox 98% on R/A; ha1 06/16 21:45 Body Mass Index 42.91 (113.40 kg, 162.56 cm) cm10 06/16 21:45 Pain Scale: Adult cm10 ED Course: 06/16 21:20 Patient arrived in ED. im 21:23 Huey Chung PA is PHCP. cp 21:23 Pete Guillory MD is Attending Physician. cp 21:46 Triage completed. cm10 21:46 Arm band placed on right wrist. Patient placed in an exam room, on a stretcher. cm10 22:02 Alyse Bustamante, ALLIE is Primary Nurse. me1 22:12 Patient has correct armband on for positive identification. Bed in low position. Call [facility] light in reach. Side rails up X 1. Provided Education on: POC. Verbalized understanding.. Warm blanket given. 22:12 No provider procedures requiring assistance completed. me1 23:44 Initial lab(s) drawn, by wa, sent to lab. First set of blood cultures drawn by wa, [facility] Strep swab sent to lab. 23:47 Inserted saline lock: 22 gauge in left antecubital area, using aseptic technique. me1 23:49 Blood Culture Adult (2) Sent. me1 23:49 CBC with Diff Sent. me1 23:49 CMP Sent. me1 23:49 Lactate w/ 2H reflex if indic. Sent. me1 23:49 Protime (+inr) Sent. me1 23:49 Ptt, Activated Sent. me1 23:49 [place] Screen Profile Sent. me1 23:49 Group A Streptococcus Rapid Sent. me1 23:57 Second set of blood cultures drawn by wa. [facility] 06/17 01:56 Soft Tissue Neck Wo Contr In Process Unspecified. EDMS 03:58 Ladarius Fernandez DO is Referral Physician. sp4 04:17 IV discontinued, intact, bleeding controlled, No redness/swelling at site. Pressure ha1 dressing applied. Administered Medications: 06/16 23:58 Drug: Dexamethasone IVP 10 mg IVP once Route: IVP; Site: left antecubital; [facility] 06/17 00:20 Follow up: Response: No adverse reaction; Marked relief of symptoms [facility] 06/16 23:58 Drug: Ondansetron IVP 4 mg IVP once; over 2 minutes Route: IVP; Site: left antecubital; [facility] 06/17 00:20 Follow up: Response: No adverse reaction; Marked relief of symptoms ha1 00:20 Drug: fentaNYL (PF) IVP 50 mcg IVP once Route: IVP; Site: left antecubital; 1 00:50 Follow up: Response: No adverse reaction; Pain is decreased; RASS: Alert and Calm (0) ha1 02:30 Drug: Famotidine IVP 20 mg IVP once; dilute with 10 mL 0.9% NaCl; give over 2 minutes ha1 Route: IVP; Site: left antecubital; 03:00 Follow up: Response: No adverse reaction; Marked relief of symptoms ha1 02:34 Drug: diphenhydrAMINE IVP 50 mg IVP once Route: IVP; Site: left antecubital; ha1 03:00 Follow up: Response: No adverse reaction; Marked relief of symptoms ha1 02:41 Drug: Rocephin - Rocephin (cefTRIAXone) IVPB 2 grams IVPB once over 30 mins; (mix in ha1 100 mL NS) Route: IVPB; Infused Over: 30 mins; Site: left antecubital; 03:00 Follow up: Response: No adverse reaction; IV Status: Completed infusion; IV Intake: ha1 100ml Medication: 06/16 22:12 VIS not applicable for this client. me1 Intake: 06/17 03:00 IV: 100ml; Total: 100ml. 1 Outcome: 03:59 Discharge ordered by . sp4 04:16 Discharged to home ambulatory, with family, 1 04:16 Condition: stable 04:16 Discharge instructions given to patient, family, Instructed on discharge instructions, follow up and referral plans. medication usage, Demonstrated understanding of instructions, follow-up care, medications, Prescriptions given X 3, 04:19 Patient left the ED. 1 Signatures: Dispatcher [employer] EDMS Huey Chung PA PA cp Ayala, Heidy, RN RN 1 Pete Guillory MD MD sp4 Nan Wood Clarissa, RN RN cm10 Alyse Bustamante RN RN [facility] Corrections: (The following items were deleted from the chart) 06/16 22:12 21:45 Chief complaint: Patient states: Has been sick for the last month and over the me1 last few days she has started having vomiting and sore throat. cm10
--- NOTE | 2024-06-17 04:00 | EDPHYS ---
Physician Documentation [facility] Name: Batsheva Faulkner Age: 58 yrs Sex: Female : 1965 Arrival Date: 06/16/2024 Time: 21:17 Bed 12 Private MD: ED Physician Pete Guillory HPI: 06/16 22:00 This 58 yrs old Black Female presents to ER via Ambulatory with complaints of Sore cp Throat, Vomiting. 22:00 The patient presents with sore throat, dysphagia, of solids. The patient describes cp throat pain as constant. Onset: The symptoms/episode began/occurred 4 day(s) ago, and became worse yesterday. Severity of symptoms: in the emergency department the symptoms are actually worse, moderately. Associated signs and symptoms: Pertinent positives: vomiting, Pertinent negatives cough, fever, headache. Historical: - Allergies: 21:46 Amoxicillin; cm10 21:46 Clindamycin; cm10 21:46 Iodine; cm10 21:46 METHADONE \T\ RELATED; cm10 21:46 PENICILLINS; cm10 21:46 tramadol; cm10 - PMHx: 21:46 Anxiety; Asthma; Congestive heart failure; COPD; Depression; Hypertension; kidney cm10 disease; sarcosis; - PSHx: 21:46 section; Total abdominal hysterectomy; cm10 - Immunization history:: Adult Immunizations up to date. - Infectious Disease History:: Denies. - Social history:: Smoking status: Patient denies any tobacco usage or history of. ROS: 22:05 Constitutional: Positive for poor PO intake, Negative for fever, cp 22:05 Eyes: Negative for injury, pain, redness, and discharge, cp 22:05 ENT: Positive for difficulty swallowing, sore throat, Negative for drainage from ear(s), difficulty handling secretions, 22:05 Cardiovascular: Negative for chest pain, 22:05 Respiratory: Negative for shortness of breath, wheezing, 22:05 Abdomen/GI: Positive for nausea and vomiting, Negative for abdominal pain, 22:05 Neuro: Negative for altered mental status, headache, 22:05 All other systems are negative, Exam: 22:10 Constitutional: The patient appears in no acute distress, alert, awake, cp non-diaphoretic, non-toxic, well developed, well nourished, obese, 22:10 Head/Face: Normocephalic, atraumatic. cp 22:10 Eyes: Periorbital structures: appear normal, Conjunctiva: normal, no exudate, no injection, Sclera: no appreciated abnormality, Lids and lashes: appear normal, bilaterally, 22:10 ENT: External ear(s): are unremarkable, Nose: is normal, Mouth: Lips: moist, Oral mucosa: moist, Posterior pharynx: Tonsils: no exudate, Uvula: edematous, erythema, erythema, that is moderate, exudate, is not appreciated, Voice: is muffled, 22:10 Neck: ROM/movement: Meningeal signs: are not present, nuchal rigidity, is not appreciated, 22:10 Chest/axilla: Inspection: normal, 22:10 Cardiovascular: Rate: normal, 22:10 Respiratory: the patient does not display signs of respiratory distress, Respirations: normal, no use of accessory muscles, no retractions, labored breathing, is not present, 22:10 Abdomen/GI: Inspection: abdomen appears normal, Palpation: abdomen is soft and non-tender, in all quadrants, 06/17 00:33 ECG was reviewed by the Attending Physician. Vital Signs: 06/16 21:45 BP 185 / 102; Pulse 76; Resp 18; Temp 98(O); Pulse Ox 98% on R/A; Weight 113.4 kg; cm10 Height 5 ft. 4 in. ; Pain 01/26; 06/17 00:00 BP 175 / 98; Pulse 70; Resp 18 S; Pulse Ox 98% on R/A; ha1 01:00 BP 165 / 84; Pulse 79; Resp 17 S; Pulse Ox 99% on R/A; ha1 02:00 BP 155 / 79; Pulse 81; Resp 17 S; Pulse Ox 100% on R/A; ha1 03:00 BP 138 / 81; Pulse 77; Resp 16 S; Pulse Ox 98% on R/A; ha1 04:00 BP 122 / 78; Pulse 71; Resp 16 S; Pulse Ox 98% on R/A; ha1 06/16 21:45 Body Mass Index 42.91 (113.40 kg, 162.56 cm) cm10 06/16 21:45 Pain Scale: Adult cm10 MDM: 06/16 21:48 Medical Screening Exam initiated cp 06/17 03:40 ED course: TECHNIQUE: Soft tissue protocol CT of the neck utilizing 2 mm slight sp4 thickness at 2 mm interval reconstruction without the administration of intravenous contrast. Subsequent 2-D multiplanar reformats in the coronal and sagittal plane were performed and reviewed. All CT scans at this facility use dose modulation, iterative reconstruction, and/or weight based dosing when appropriate to reduce radiation dose to as low as reasonably achievable. FINDINGS: The lack of IV contrast greatly limits evaluation and assessment of the soft tissue neck. Sinuses: Grossly the unopacified sinuses demonstrate to be unremarkable. Soft tissues: Grossly there is no prevertebral soft tissue swelling. Salivary glands: Grossly the salivary grounds demonstrate to be within normal limits allowing for the lack of IV contrast. Pharynx: Grossly the epiglottis demonstrate to be unremarkable. No significant compromise of the airway. No large masses could be seen allowing for the lack of IV contrast. Sobieski tonsils: Grossly the palatine tonsils demonstrate to be normal in size. No significant abnormalities could be seen without administration of IV contrast.. Surface mucous of the base of the tongue: Grossly the surface mucosal demonstrate to be unremarkable allowing for the lack of IV contrast.. There is asymmetry/prominent of the uvula perhaps corresponding to edema. Lesion cannot be totally excluded. Vocal cords:.Grossly unremarkable.. Proximal trachea: Grossly unremarkable.. Nodes: Grossly no significant enlarged lymph nodes are seen allowing for the lack of IV contrast. Bones: No acute bone findings. Vascular: The lack of IV contrast limits the evaluation. Thyroid: Within normal limits. Lung apices are clear. IMPRESSION: The lack of IV contrast greatly limits evaluation and assessment of the soft tissue neck. Asymmetry/prominent of the uvula perhaps corresponding to edema. Lesion cannot be totally excluded. Consider direct visualization. Electronically signed by: Abdias Melton MD 06/17/2024 03:17 AM RP. 03:55 Differential diagnosis: Allergic rhinitis, apthous stomatitis, apthous ulcer, sp4 bronchitis, gingivostomatitis, leukemia, marianela's angina, pharyngitis. Data reviewed: vital signs, nurses notes, lab test result(s), radiologic studies, CT scan. Consideration of Admission/Observation Escalation of care including admission/observation considered. ED course: TECHNIQUE: Soft tissue protocol CT of the neck utilizing 2 mm slight thickness at 2 mm interval reconstruction without the administration of intravenous contrast. Subsequent 2-D multiplanar reformats in the coronal and sagittal plane were performed and reviewed. All CT scans at this facility use dose modulation, iterative reconstruction, and/or weight based dosing when appropriate to reduce radiation dose to as low as reasonably achievable. FINDINGS: The lack of IV contrast greatly limits evaluation and assessment of the soft tissue neck. Sinuses: Grossly the unopacified sinuses demonstrate to be unremarkable. Soft tissues: Grossly there is no prevertebral soft tissue swelling. Salivary glands: Grossly the salivary grounds demonstrate to be within normal limits allowing for the lack of IV contrast. Pharynx: Grossly the epiglottis demonstrate to be unremarkable. No significant compromise of the airway. No large masses could be seen allowing for the lack of IV contrast. Sobieski tonsils: Grossly the palatine tonsils demonstrate to be normal in size. No significant abnormalities could be seen without administration of IV contrast.. Surface mucous of the base of the tongue: Grossly the surface mucosal demonstrate to be unremarkable allowing for the lack of IV contrast.. There is asymmetry/prominent of the uvula perhaps corresponding to edema. Lesion cannot be totally excluded. Vocal cords:.Grossly unremarkable.. Proximal trachea: Grossly unremarkable.. Nodes: Grossly no significant enlarged lymph nodes are seen allowing for the lack of IV contrast. Bones: No acute bone findings. Vascular: The lack of IV contrast limits the evaluation. Thyroid: Within normal limits. Lung apices are clear. IMPRESSION: The lack of IV contrast greatly limits evaluation and assessment of the soft tissue neck. Asymmetry/prominent of the uvula perhaps corresponding to edema. Lesion cannot be totally excluded. Consider direct visualization. Electronically signed by: Abdias Melton MD 06/17/2024 03:17 AM. ED course: Patient has no signs of airway obstruction. Patient stable for discharge home with p.o. prednisone 20 mg for 10 days, p.o. cefdinir for 10 days, p.o. Benadryl 3 times a day for 10 days, and albuterol every 4 hours as needed, Also Tylenol PRN . 06/16 21: Order name: Blood Culture Adult (2) cp 06/16 21: Order name: CBC with Diff; Complete Time: 00:35 cp 06/17 00:35 Interpretation: Normal except: RBC 2.97; HGB 9.2; HCT 27.9; PLT 455; BASO% 1.7. cp 06/16 22:29 Order name: CMP; Complete Time: 00:35 cp 06/17 00:35 Interpretation: Normal except: CL 117; GLUC 126; BUN 57; CRE 3.87; GFR 13; AST 14; ALK cp 198. 06/16 22:29 Order name: Lactate w/ 2H reflex if indic.; Complete Time: 02:01 cp 06/16 22:29 Order name: Protime (+inr); Complete Time: 00:35 cp 06/16 22:29 Order name: Ptt, Activated; Complete Time: 00:35 cp 06/16 22:29 Order name: Urinalysis w/ reflexes; Complete Time: 02:01 cp 06/16 22:30 Order name: [place] Screen Profile; Complete Time: 02:01 cp 06/16 22:30 Order name: Group A Streptococcus Rapid; Complete Time: 00:35 cp 06/17 01:02 Order name: Throat Culture EDMS 06/17 01:07 Order name: Soft Tissue Neck Wo Contr EDMS 06/16 22:29 Order name: EKG; Complete Time: 22:30 cp 06/16 22:29 Order name: Accucheck; Complete Time: 00:36 cp 06/16 22:29 Order name: Cardiac monitoring; Complete Time: 00:36 cp 06/16 22:29 Order name: EKG - Nurse/Tech; Complete Time: 00:36 cp 06/16 22:29 Order name: IV Saline Lock - Large Bore; Complete Time: 23:49 cp 06/16 22:29 Order name: Labs collected and sent; Complete Time: 23:49 cp 06/16 22:30 Order name: O2 Per Protocol; Complete Time: 23:49 cp 06/16 22:30 Order name: O2 Sat Monitoring; Complete Time: 23:49 cp 06/16 22:30 Order name: Vital Signs; Complete Time: 23:49 cp EC:33 Rate is 60 beats/min. Rhythm is regular. IA interval is normal. QRS interval is normal. cp QT interval is normal. T waves are Inverted in leads III, aVR, V6. Interpreted by me. Reviewed by me. Administered Medications: 06/16 23:58 Drug: Dexamethasone IVP 10 mg IVP once Route: IVP; Site: left antecubital; hi1 06/17 00:20 Follow up: Response: No adverse reaction; Marked relief of symptoms 1 06/16 23:58 Drug: Ondansetron IVP 4 mg IVP once; over 2 minutes Route: IVP; Site: left antecubital; hi1 06/17 00:20 Follow up: Response: No adverse reaction; Marked relief of symptoms ha1 00:20 Drug: fentaNYL (PF) IVP 50 mcg IVP once Route: IVP; Site: left antecubital; ha1 00:50 Follow up: Response: No adverse reaction; Pain is decreased; RASS: Alert and Calm (0) ha1 02:30 Drug: Famotidine IVP 20 mg IVP once; dilute with 10 mL 0.9% NaCl; give over 2 minutes ha1 Route: IVP; Site: left antecubital; 03:00 Follow up: Response: No adverse reaction; Marked relief of symptoms ha1 02:34 Drug: diphenhydrAMINE IVP 50 mg IVP once Route: IVP; Site: left antecubital; ha1 03:00 Follow up: Response: No adverse reaction; Marked relief of symptoms ha1 02:41 Drug: Rocephin - Rocephin (cefTRIAXone) IVPB 2 grams IVPB once over 30 mins; (mix in ha1 100 mL NS) Route: IVPB; Infused Over: 30 mins; Site: left antecubital; 03:00 Follow up: Response: No adverse reaction; IV Status: Completed infusion; IV Intake: ha1 100ml Disposition: 03:55 Co-signature as Attending Physician, Pete Guillory MD I agree with the assessment sp4 and plan of care. I reviewed the patient's care provided by Advanced Practice Provider \T\ agree w/ the diagnosis \T\ care plan. I personally saw the pt \T\ performed a substantive portion of the visit, incldng all aspects of the (History/Exam/Medical Decision Making). Disposition Summary: 06/17/24 03:59 Discharge Ordered Notes: Albuterol Nebulized at home every 4 hours as needed for dyspnea Location: Home sp4 Problem: new sp4 Symptoms: have improved sp4 Condition: Stable sp4 Diagnosis - Acute pharyngitis, unspecified sp4 - Acute on chronic renal insufficiency, acute infective pharyngitis, acute uvula sp4 swelling, Followup: sp4 - With: Ladarius Fernandez DO - When: 7 - 10 days - Reason: Recheck today's complaints Discharge Instructions: - Discharge Summary Sheet sp4 - Pharyngitis, [id number]-wa-Blog sp4 Forms: - Patient Portal Instructions sp4 Prescriptions: - cefdinir 300 mg Oral capsule - take 1 capsule ORAL route 2 times per day for 10 days; 20 capsule; Refills: 0, sp4 Product Selection Permitted - Benadryl 25 mg Oral capsule - take 1 capsule ORAL route every 8 hours for 10 days for 10 days; 30 tablet; sp4 Refills: 0, Product Selection Permitted - Prednisone 20 mg Oral tablet - take 2 tablets ORAL route once daily for 10 days After 10 days resume your sp4 normal Prednisone 5 mg daily; 20 tablet; Refills: 0, Product Selection Permitted Signatures: Dispatcher [employer] EDMS Huey Chung PA PA cp Ayala, Heidy RN RN ha1 Pete Guillory MD MD sp4 Swapna Willard RN RN cm10 Alyse Bustamante RN RN me1 Corrections: (The following items were deleted from the chart) 01:06 00:50 CT-SOFT TISSUE NECK W/O CONTR ordered. EDMS EDMS
--- NOTE | 2024-06-17 04:16 | RAD REPORT ---
EXAM DESCRIPTION: CT NECK WITHOUT IV CONTRAST 06/17/2024 3:00 AM SCALE RECLAMATION TENDER CLINICAL HISTORY: 58 years, Female, Dysphagia. COMPARISON: None. TECHNIQUE: Soft tissue protocol CT of the neck utilizing 2 mm slight thickness at 2 mm interval reconstruction w ithout the administration of intravenous contrast. Subsequent 2-D multiplanar reformats in the coronal and sagittal plane were performed and reviewed. All CT scans at this facility use dose modulation, iterative reconstruction, and/or weight based dosi ng when appropriate to reduce radiation dose to as low as reasonably achievable. FINDINGS: The lack of IV contrast greatly limits evaluation and assessment of the soft tissue neck. Sinuses: Grossly the unopacified sinuses demonstrate to be unremarkable. Soft tissues: Grossly there is no prevertebral soft tissue swelling. Salivary glands: Grossly the salivary grounds demonstrate to be within normal limits allowing for the lack of IV contrast. Pharynx: Grossly the epiglottis demonstrate to be unremarkable. No significant compromise of the airw ay. No large masses could be seen allowing for the lack of IV contrast. Canalou tonsils: Grossly the palatine tonsils demonstrate to be normal in size. No significant abnor malities could be seen without administration of IV contrast.. Surface mucous of the base of the tongue: Grossly the surface mucosal demonstrate to be unremarkable allowing for the lack of IV contrast.. There is asymmetry/prominent of the uvula perhaps corresponding to edema. Lesion cannot be totally ex cluded. Vocal cords: .Grossly unremarkable.. Proximal trachea: Grossly unremarkable.. Nodes: Grossly no significant enlarged lymph nodes are seen allowing for the lack of IV contrast. Bones: No acute bone findings. Vascular: The lack of IV contrast limits the evaluation. Thyroid: Within normal limits. Lung apices are clear. IMPRESSION: The lack of IV contrast greatly limits evaluation and assessment of the soft tissue neck. Asymmetry/prominent of the uvula perhaps corresponding to edema. Lesion cannot be totally excluded. C onsider direct visualization. Electronically signed by: Abdias Melton MD 06/17/2024 03:17 AM SCALE RE[employer]AMATION TENDER Due to temporary technical issues with the PACS/[employer] reporting system, reports are being bre d by the in-house radiologist without review as a courtesy to ensure prompt reporting the interpreting radiologist is fully responsible for the content of the report. Transcribed Date/Time: 06/17/2024 4:16 AM
[2024-06-17 04:24] VITALS: TEMP 98
[2024-06-17 04:30] VITALS: O2SAT 98
[2024-06-17 04:32] VITALS: BP 122/78
--- NOTE | 2024-06-19 12:09 | EKG ---
Test Date: 2024-06-17 Test Time: 00:28:39 Household Assistant: JOYCE MEASUREMENT RESULTS: Intervals: Rate: 60 MO: 128 QRSD: 100 QT: 374 QTc: 374 [place]: P: 55 MO: 128 QRS: 13 T: -18 INTERPRETIVE STATEMENTS: Normal sinus rhythm Moderate voltage criteria for LVH, may be normal variant ST & T wave abnormality, consider inferolateral ischemia Abnormal ECG Compared to ECG 04/17/2023 04:03:47 Left ventricular hypertrophy now present Possible ischemia now present Sinus tachycardia no longer present ST (T wave) deviation still present Electronically Signed On 06-19-24 12:04:56 PAIN MEDICINE PHYSICIAN by Jorgito Cormier
== END 2024-06-17 04:19 | disposition home or self-care (01) ==
LOC: ER 21:17
DX: J02.8 Acute pharyngitis due to other specified organisms (principal); R11.2 Nausea with vomiting, unspecified; I13.0 Hypertensive heart and chronic kidney disease with heart failure and stage 1 through stage 4 chronic kidney disease, or unspecified chronic kidney disease; N18.9 Chronic kidney disease, unspecified; I50.9 Heart failure, unspecified; N17.9 Acute kidney failure, unspecified; R22.0 Localized swelling, mass and lump, head
CPT/HCPCS: 96365; 93005; 87040 ×2; 87070; 85025; 81001; 36415; 86308; 85610; 83605; 85730; 80053; 70490; 96375; 99284; J1200; J3010; J1100; J2405; J0696